=== PATIENT | female | born 1995 | race Caucasian/White ===

== ENCOUNTER 2017-09-05 21:08 | Emergency (ER) | payer OTHER, SELFPAY ==
[2017-09-05 21:09] VITALS: BP 117/73; PULSE 92; RESP 16; TEMP 37; O2SAT 100; BMI 24.3
--- NOTE | 2017-09-05 21:22 | CT_ITS ---
STUDY: CT ABDOMEN AND PELVIS WITH CONTRAST REASON FOR EXAM: Female, 22 years old. Right lower quadrant pain, history of ulcerative colitis RADIATION DOSAGE (If Supplied By Facility): CTDIvol = ( 11.39 ) mGy, DLP = ( 467.18 ) mGycm TECHNIQUE: Transaxial images were obtained from the dome of the diaphragm to the symphysis pubis without oral contrast. 100 ml of Isovue 300 contrast was administered. Sagittal and coronal images were reconstructed. Individualized dose optimization techniques were used for this CT. COMPARISON: April 05, 2015 FINDINGS: The visualized lung bases are unremarkable. The visualized portions of the heart are within normal limits. Normal liver. Normal gallbladder and extrahepatic biliary system. Normal spleen. Normal pancreas. Normal bilateral adrenal glands. Normal right kidney. Normal left kidney. Normal visualized stomach. Normal small intestine. There is diffuse fecal retention within the colon. The appendix is visualized and appears normal. Normal abdominal aorta. Normal inferior vena cava. Normal retroperitoneum. Normal urinary bladder. Uterus is deviated towards right and mild cystic changes within the right ovary. Normal abdominal wall. Normal osseous structures. CT/Abdomen/Pelvis WITH Contrast IMPRESSION: No acute abnormalities No evidence for acute appendicitis. Mild cystic changes in the right ovary of uncertain significance. Electronically Signed: Dragan Charlton MD at 23:14 EDT , Service support ,
[2017-09-05] MEDS: 0.9% Normal Saline 1,000 ML 1000 ML IV (21:36)
[2017-09-05] MEDS: Ondansetron 4 MG/2 ML Vial IV (21:36)
[2017-09-05 21:45] LABS: Absolute Lymphocyte Count 2.06 X10^3/ul (0.83-4.51); Basophil# 0.03 X10^3/uL; Basophil% 0.5 % (0-1); Eosinophil# 0.08 X10^3/uL; Eosinophils% 1.4 % (0-5); Hematocrit 39.3 % (37-47); Hemoglobin 13.7 g/dl (12.0-15.0); Lymphocyte # 2.06 X10^3/ul (4.0); Lymphocyte % 36.7 % (19-41); Mean Corp Hgb Conc 34.9 g/gl (32-36); Mean Corpuscular Hgb 32.5 pg (27.0-32.0); Mean Corpuscular Volume 93.1 fL (81-99); Mean Platelet Vol. 11.4 fl (6.2-12.0); Monocyte# 0.49 X10^3/uL; Monocyte% 8.7 % (0-10); Neutrophil # 2.96 X10^3/uL (2.7-7.7); Neutrophil % 52.7 % (47-70); Platelet Count 168 K/mm3 (150-450); RBC Distribution Width CV 11.8 % (11.6-14.6); RBC Distribution Width SD 39.8 fl (35.1-43.9); Red Blood Count 4.22 M/mm3 (4.2-5.4); White Blood Count 5.6 K/mm3 (4.4-11.0)
[2017-09-05 21:46] LABS: POSITIVE COUNT NO; POSITIVE DIFFERENTIAL NO; POSITIVE MORPHOLOGY NO
[2017-09-05 22:27] LABS: Mucous, Urine 0 SEEN /hpf (<or=2+); Red Blood Cells-Urine 0 SEEN /hpf (0-5); White Blood Cells 0 SEEN /hpf (0-5)
[2017-09-05 22:29] LABS: Color, Urine Straw (Yellow); Glucose, Dipstick Normal (Normal); Ketone-Dipstick Negative (Negative); Leukocyte Esterase-Dipstick Negative /ul (Negative); Nitrite-Dipstick Negative (Negative); Occult Blood-Urine Negative /ul (Negative); Protein-Dipstick Negative (Negative); Urine Bilirubin Dipstick Negative (Negative); Urine Clarity Clear (Clear); Urine Urobilinogen Normal (Normal); Urine pH 6.5 (5.0 - 8.0)
[2017-09-05 22:30] LABS: AST(SGOT) 31 U/L (15-37); Alanine Aminotransfer ALT/SGPT 22 U/L (13-56); Alkaline Phosphatase 77 U/L (45-117); Anion Gap 8 (5-15); BUN 10 mg/dL (7-18); BUN/Creat Ratio 11.9 RATIO (10-20); Bilirubin, Direct 0.13 mg/dL (0.00-0.30); Calcium,Total 8.9 mg/dL (8.5-10.1); Chloride 105 mmol/L (98-107); Creatinine, Serum 0.84 mg/dL (0.55-1.02); EST Glomerular Filtration Rate 90 mL/min (>60); Est Glom Filt Rate - Afr Amer 108 mL/min (>60); Estimated Creatinine Clearance 102.16 ml/min; Globulin 3.6 g/dL (2.2-4.2); Glucose 104 mg/dL (74-106); Lipase 200 U/L (73-393); Pregnancy, Serum, hCG Quali. NEGATIVE Negative (0-9 Nonpreg); Protein, Total 7.6 g/dL (6.4-8.2); Sodium Level 139 mmol/L (136-145)
[2017-09-05 22:38] LABS: Bacteria RARE /hpf (None Seen); Squamous Epithelial Cells - UA 0-5 SEEN /hpf (5-10)
--- NOTE | 2017-09-05 23:30 | ED.DCSUM_ITS ---
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 She reports that she has abdominal pain that began today and got much worse at 430 this afternoon. Is a dull constant pain with sharp episodes. Zeta 10 at worst and 510 currently. Is worsened by movement or pushing on it. Is relieved by remaining still. She has had nausea without vomiting. No diarrhea. Last bowel was today. She has had no melena or hematochezia. No dysuria frequency. Her last menstrual period was last week. No vaginal bleeding or discharge. Physical Examination: Vitals: Stable. Afebrile. General: Well-nourished and well-developed. Head: Normocephalic atraumatic. Neck: Supple, no lymphadenopathy. No JVD. Nontender. Cardiovascular: Regular rate and rhythm. No murmurs. Respiratory: No respiratory distress. Clear to auscultation bilaterally. Abdominal: Soft, mild right upper quadrant tenderness palpation and moderate right lower quadrant tenderness to palpation, nondistended, normal bowel sounds. No guarding, rebound, or peritoneal signs. Back: Nontender. Extremities: Nontender, no edema. Skin: Normal color, no rash. Neurologic: Alert and oriented ?3. Cranial nerves II through XII are intact. Normal strength and sensation. Psych: Normal affect. Test Results: CBC is normal. Chem-7 is normal. LFTs are normal. Lipase normal. UA is negative. test is negative. CT and pelvis. IV contrast shows a normal appendix. Mild cystic changes in the right ovary. Emergency Department Course and Treatment: Patient treated with morphine and Zofran IV and is resting comfortably. Treatment Plan: Patient will be discharged on naproxen. Instructed to follow- up Dr. Adela Xiong in 3-5 days if not improving. Disposition: To home in improved and stable condition. Impression: 1. Right ovarian cyst. This note was generated with [employer] dictation software. It may contain incorrect words, spelling, and punctuation that were not noted in review of the chart prior to signing ED Disposition - Plan for ED Patient: Chief Complaint: Abd Pain Instructions: ED Cyst Ovarian Prescriptions: Naproxen [Naprosyn] 500 mg PO BID #14 tablet Referrals: Bobbi Streeter MD [STAFF PHYSICIAN] - 3-5 Days if not improving
[2017-09-05 23:58] VITALS: PULSE 81; RESP 18; O2SAT 100
== END 2017-09-05 23:58 | disposition home or self-care (01) ==
PROVIDERS: Emergency Provider Emergency Medicine; Family Provider Family Medicine; PCP Family Medicine
DX: N83.201 Unspecified ovarian cyst, right side (principal)
CPT/HCPCS: 74177; 80048; 80076; 81001; 83690; 84703; 85025; 99283; J7030; Q9967; A4216; J2405

== ENCOUNTER 2017-10-28 20:46 | Emergency (ER) | payer OTHER, SELFPAY ==
[2017-10-28 20:47] VITALS: BP 115/72; PULSE 73; RESP 18; TEMP 36.7; O2SAT 100; BMI 23.8
[2017-10-28 22:02] LABS: Mucous, Urine 0 SEEN /hpf (<or=2+)
[2017-10-28 22:07] LABS: Absolute Lymphocyte Count 2.38 X10^3/ul (0.83-4.51); Absolute Neutrophil Count 3.7 X10^3/uL (2.0-7.7); Basophil# 0.03 X10^3/uL; Basophil% 0.4 % (0-1); Eosinophil# 0.07 X10^3/uL; Hematocrit 40.8 % (37-47); Hemoglobin 14.3 g/dl (12.0-15.0); Lymphocyte # 2.38 X10^3/ul (4.0); Lymphocyte % 35.5 % (19-41); Mean Corpuscular Hgb 32.4 pg (27.0-32.0); Mean Corpuscular Volume 92.3 fL (81-99); Mean Platelet Vol. 11.8 fl (6.2-12.0); Monocyte# 0.54 X10^3/uL; Neutrophil # 3.69 X10^3/uL (2.7-7.7); Neutrophil % 55.1 % (47-70); Platelet Count 162 K/mm3 (150-450); RBC Distribution Width CV 11.8 % (11.6-14.6); RBC Distribution Width SD 40.2 fl (35.1-43.9); Red Blood Count 4.42 M/mm3 (4.2-5.4); White Blood Count 6.7 K/mm3 (4.4-11.0)
[2017-10-28 22:08] LABS: Color, Urine Yellow (Yellow); Glucose, Dipstick Normal (Normal); Ketone-Dipstick Negative (Negative); Leukocyte Esterase-Dipstick Negative /ul (Negative); Nitrite-Dipstick Negative (Negative); Occult Blood-Urine 25 /ul (Negative); POSITIVE COUNT NO; POSITIVE DIFFERENTIAL NO; POSITIVE MORPHOLOGY NO; Protein-Dipstick 15 mg/dl (Negative); Urine Bilirubin Dipstick Negative (Negative); Urine Urobilinogen Normal (Normal)
[2017-10-28 22:15] LABS: Bacteria RARE /hpf (None Seen); Red Blood Cells-Urine 0-5 SEEN /hpf (0-5); Squamous Epithelial Cells - UA 5-10 SEEN /hpf (5-10); White Blood Cells 0-5 SEEN /hpf (0-5)
[2017-10-28 22:16] LABS: Anion Gap 9 (5-15); BUN 10 mg/dL (7-18); BUN/Creat Ratio 13.1 RATIO (10-20); Calcium,Total 8.9 mg/dL (8.5-10.1); Chloride 107 mmol/L (98-107); Creatinine, Serum 0.76 mg/dL (0.55-1.02); EST Glomerular Filtration Rate 100 mL/min (>60); Est Glom Filt Rate - Afr Amer 121 mL/min (>60); Estimated Creatinine Clearance 112.91 ml/min; Glucose 93 mg/dL (74-106); Potassium 3.7 mmol/L (3.5-5.1); Sodium Level 140 mmol/L (136-145); Urine Clarity Sl. Cloudy (Clear)
[2017-10-28 22:22] LABS: Internal QC Validated? YES +Cl - CLEAR BKGD; Pregnancy, Urine Negative Negative
--- NOTE | 2017-10-28 23:05 | ED.VISSUMM ---
- ER Visit Summary Date of Service: 10/28/17 Chief Complaint: Abdominal pain History of Present Illness: The patient is a 22 F with right lower abdominal pain. Symptoms started this morning as an achiness and then built to a cramping pain throughout the day. The pain is also intermittently sharp. It is located in her right lower abdomen and pelvic region. She has some nausea and subjective fevers. No other GI symptoms. Her last menstrual period was 1.5 weeks ago. Denies vaginal bleeding or discharge. Denies any urinary symptoms. Physical Examination: Afebrile and vital signs unremarkable. Patient appears uncomfortable but not toxic or in distress. Heart and lungs unremarkable. Abdomen is tender in the right lower quadrant, the superior to the inguinal ligaments and inferior to McBurney's point. No guarding or rebound. Test Results: CBC and BMP normal. Urinalysis unremarkable, shows contamination. test negative. Ultrasound shows a 22 mm right ovarian follicle. No other pertinent findings. Emergency Department Course and Treatment: Patient was recently evaluated for abdominal pain. She had right ovarian mild cystic changes and a normal appendix. She thought her pain today was similar but more severe. Initially when I saw her, she declined pain medication. I advised her that she just had a recent CT of her abdomen and pelvis. I am concerned about her radiation exposure. Her symptoms and exam are not classic for appendicitis. We decided to check labs, urinalysis, and ultrasound first. Workup was unremarkable except for the ovarian follicle. This may be the source of her pain. She would like to try anti-inflammatories and follow-up with [employer]OR OF [employer]ETING [employer]PERATIONS. I advised her if her pain worsens, migrates, or if she has any new or worsening symptoms, she should return right away for reevaluation. Treatment Plan: Follow-up with [employer]ING [employer]PER[employer]. Return for signs of appendicitis. Disposition: Discharge Impression: 1. Right pelvic pain This note was generated with [employer] dictation software. It may contain incorrect words, spelling, and punctuation that were not noted in review of the chart prior to signing ED Disposition - Plan for ED Patient: Chief Complaint: Abd Pain Instructions: ED Cyst Ovarian Prescriptions: Ibuprofen [Motrin] 800 mg PO TID PRN PRN #20 tab PRN Reason: Pain Additional Instructions: follow up with OBGYN
--- NOTE | 2017-10-28 23:10 | ED.DCSUM_ITS ---
- ER Visit Summary Date of Service: 10/28/17 Chief Complaint: Abdominal pain History of Present Illness: The patient is a 22 F with right lower abdominal pain. Symptoms started this morning as an achiness and then built to a cramping pain throughout the day. The pain is also intermittently sharp. It is located in her right lower abdomen and pelvic region. She has some nausea and subjective fevers. No other GI symptoms. Her last menstrual period was 1.5 weeks ago. Denies vaginal bleeding or discharge. Denies any urinary symptoms. Physical Examination: Afebrile and vital signs unremarkable. Patient appears uncomfortable but not toxic or in distress. Heart and lungs unremarkable. Abdomen is tender in the right lower quadrant, the superior to the inguinal ligaments and inferior to McBurney's point. No guarding or rebound. Test Results: CBC and BMP normal. Urinalysis unremarkable, shows contamination. test negative. Ultrasound shows a 22 mm right ovarian follicle. No other pertinent findings. Emergency Department Course and Treatment: Patient was recently evaluated for abdominal pain. She had right ovarian mild cystic changes and a normal appendix. She thought her pain today was similar but more severe. Initially when I saw her, she declined pain medication. I advised her that she just had a recent CT of her abdomen and pelvis. I am concerned about her radiation exposure. Her symptoms and exam are not classic for appendicitis. We decided to check labs, urinalysis, and ultrasound first. Workup was unremarkable except for the ovarian follicle. This may be the source of her pain. She would like to try anti-inflammatories and follow-up with DREDGEMASTER. I advised her if her pain worsens, migrates, or if she has any new or worsening symptoms, she should return right away for reevaluation. Treatment Plan: Follow-up with DREDGEMASTER. Return for signs of appendicitis. Disposition: Discharge Impression: 1. Right pelvic pain This note was generated with [employer] dictation software. It may contain incorrect words, spelling, and punctuation that were not noted in review of the chart prior to signing ED Disposition - Plan for ED Patient: Chief Complaint: Abd Pain Instructions: ED Cyst Ovarian Prescriptions: Ibuprofen [Motrin] 800 mg PO TID PRN PRN #20 tab PRN Reason: Pain Additional Instructions: follow up with OBGYN
[2017-10-28] MEDS: Acetaminophen 500 MG Tablet 1000 MG PO (23:18)
[2017-10-28 23:22] VITALS: BP 114/72; PULSE 66; RESP 17; O2SAT 100
== END 2017-10-28 23:23 | disposition home or self-care (01) ==
LOC: ED 21:50
PROVIDERS: Emergency Provider Emergency Medicine; Family Provider Family Medicine; PCP Family Medicine
DX: R10.2 Pelvic and perineal pain (principal); R11.0 Nausea
CPT/HCPCS: 76830; 80048; 81001; 81025; 85025; 93976; 99285; A4216

== ENCOUNTER → 2017-11-21 12:51 | Outpatient (CLI) | payer OTHER, SELFPAY ==
[2017-11-21 13:48] LABS: Hematocrit 38.8 % (37-47); Hemoglobin 13.6 g/dl (12.0-15.0); Mean Corp Hgb Conc 35.1 g/gl (32-36); Mean Corpuscular Hgb 32.7 pg (27.0-32.0); Mean Corpuscular Volume 93.3 fL (81-99); Platelet Count 174 K/mm3 (150-450); RBC Distribution Width CV 11.7 % (11.6-14.6); RBC Distribution Width SD 39.4 fl (35.1-43.9); Red Blood Count 4.16 M/mm3 (4.2-5.4); Scan Indicated on CBC? Y/N NO; White Blood Count 5.7 K/mm3 (4.4-11.0)
[2017-11-21 13:55] LABS: Prothrombin Time (Protime)PT. 13.1 SECONDS (11.7-14.9)
[2017-11-21 14:24] LABS: ALB/GLOB Ratio 1.1 RATIO (0.9-2.4); AST(SGOT) 15 U/L (15-37); Alanine Aminotransfer ALT/SGPT 21 U/L (13-56); Albumin, Serum 4.1 g/dL (3.2-5.0); Alkaline Phosphatase 77 U/L (45-117); Anion Gap 7 (5-15); BUN 15 mg/dL (7-18); BUN/Creat Ratio 17.5 RATIO (10-20); Calcium,Total 9.1 mg/dL (8.5-10.1); Chloride 105 mmol/L (98-107); Creatinine, Serum 0.86 mg/dL (0.55-1.02); EST Glomerular Filtration Rate 88 mL/min (>60); Est Glom Filt Rate - Afr Amer 106 mL/min (>60); Globulin 3.6 g/dL (2.2-4.2); Glucose 81 mg/dL (74-106); Protein, Total 7.7 g/dL (6.4-8.2); Sodium Level 141 mmol/L (136-145)
[2017-11-21 14:26] LABS: hCG Titer Quant., Serum < 1 mIU/mL (<9 non-preg)
[2017-11-28 18:37] LABS: Anti-Cardiolipin Ab, IgA, Qn < 9 APL U/mL (0-11); Anti-Cardiolipin Ab, IgG, Qn < 9 GPL U/mL (0-14); Anti-Cardiolipin Ab, IgM, Qn < 9 MPL U/mL (0-12); Beta-2-Glycoprotein I IgA <9 (0-25); Beta-2-Glycoprotein I IgG <9 (0-20); Beta-2-Glycoprotein I IgM <9 (0-32); Protein C, Functional 120 % (73-180); Protein S, Funtional 96 % (63-140); V-Zoster IgG (Immunity) 3149 index (Immune >165)
== END ==
PROVIDERS: Family Provider Family Medicine; PCP Family Medicine; Visit Provider Obstetrics & Gynecology Reproductive Endocrinology
DX: N96 Recurrent pregnancy loss (principal); Z32.00 Encounter for pregnancy test, result unknown; Z11.59 Encounter for screening for other viral diseases
CPT/HCPCS: 36415; 80053; 81241; 84702; 85027; 85303; 85306; 85610; 86146; 86147; 86787

== ENCOUNTER 2018-03-30 09:03 | Inpatient (IN) | payer OTHER, SELFPAY ==
[2018-03-30 09:04] VITALS: BP 133/82; PULSE 91; RESP 16; TEMP 36.7; O2SAT 100; BMI 23.5
--- NOTE | 2018-03-30 09:15 | RAD_ITS ---
STUDY: X-RAY - PELVIS AND LEFT HIP REASON FOR EXAM: Lump on back of hip, hard to sit, fall this morning. TECHNIQUE: 2 views of the pelvis and hip. COMPARISON: None. FINDINGS: Normal visualized soft tissue structures. Normal bilateral iliac wings, sacroiliac joints and visualized sacrum. Normal bilateral superior and inferior pubic rami. Normal pubic symphysis. Normal bilateral ischial tuberosities. Normal visualized femoral head. Normal acetabulum. Normal hip joint. RAD/HIP, UNI W/ Pelvis 2-3 Views IMPRESSION: Normal x-ray examination of the pelvis and left hip. Electronically Signed: Abebe Mccormack MD at 10:34 EST Tel , Service support ,
--- NOTE | 2018-03-30 09:59 | ED.VISSUMM ---
- ER Visit Summary Date of Service: 03/30/18 Chief Complaint: Fall History of Present Illness: The patient is a 23 F presenting secondary to a fall with a left hip injury. Patient reports that she was descending stairs into her garage today and she suffered a slip and fall where she fell directly onto her left gluteal region. She denies hitting her head or loss of consciousness. She is reporting pain in that left gluteal region that is worse with sitting down, and somewhat worse with ambulation. She is easily able to bear weight. She denies any other injuries at this time she is not on any sort of anticoagulants. Physical Examination: Vital signs within normal limits. Well-nourished female no acute distress. Head normocephalic. Heart regular rate. Lungs clear no distress. Abdomen soft. Extremity exam shows evidence of a superior left gluteal hematoma that is tender to palpation. Gluteal compartment is soft, with normal strength sensation distally. Normal distal pulses. Normal range of motion of the hip knee ankle and foot. Test Results: Hip x-rays negative per my personal interpretation Emergency Department Course and Treatment: Patient presented secondary to a mechanical fall. Physical exam showed evidence of a gluteal hematoma. X-ray was negative. Patient does not have evidence of vascular compromise or compartment syndrome. She is not on any sort of anticoagulants. I believe that this hematoma will resolve with conservative treatment. Patient understands signs and symptoms which to return. After the patient was discharged, she called back and said that she had a significant amount of enlargement. Patient read presented to the emergency department, and I reevaluated her, and the hematoma had gone from about the size of a golf ball to larger than the spread of my hand. Patient had a significant amount of firmness in the area of the gluteal region. Due to this IV was established laboratory studies were obtained. CBC chemistry coagulation panel and CK were found to be unremarkable. CT of the pelvis was performed which shows a large gluteal hematoma. I discussed this with plastic surgery Dr. York who states that he would prefer for the patient's to tamponade this on her own, as she would have a large incision with a wound VAC should this get evacuated. Patient's symptoms progressed a little bit however to increased pain and some numbness feelings in her leg. I did a repeat evaluation of the patient at 1320, and she continues to have normal pulses. Due to the progression of her symptoms however I believe that she requires admission for observation. I did inform plastic surgery of this, and the patient will be admitted under the hospitalist. Disposition: Admission Impression: 1. Left gluteal hematoma This note was generated with [employer] dictation software. It may contain incorrect words, spelling, and punctuation that were not noted in review of the chart prior to signing ED Disposition - Plan for ED Patient: Disposition: Home or Assisted Living Chief Complaint: Lower Extremity Injury Diagnosis: Hematoma Instructions: ED Hematoma Referrals: Israel Crowder MD [Primary Care Provider] - As Needed
--- NOTE | 2018-03-30 11:13 | CT_ITS ---
STUDY: CT PELVIS WITHOUT CONTRAST REASON FOR EXAM: Female, 23 years old. Hematoma of left buttock status post fall on ice. RADIATION DOSAGE (If Supplied By Facility): CTDIvol = ( 14.09 ) mGy, DLP = ( 619.30 ) mGycm TECHNIQUE: Transaxial imaging of the pelvis was performed without oral contrast, and without intravenous administration of contrast material. Multiplanar coronal and sagittal images were reformatted. Individualized dose optimization techniques were used for this CT. COMPARISON: X-ray FINDINGS: Normal urinary bladder. Normal visualized small intestine. Normal visualized colon. There is no pelvic fluid. There is no pelvic mass lesion or lymphadenopathy. Normal visualized uterus. There is 2.4 cm right adnexal cyst. Normal visualized pelvic arteries. Normal abdominal wall. There is sclerosis of the left sacroiliac joint. There is no acute fracture seen. This soft tissues swelling of the subcutaneous tissues of the left buttock with 8.8 x 7.2 x 4.2 cm fluid collection consistent with hematoma. CT/Pelvis without IV Contrast IMPRESSION: Soft tissue swelling with subcutaneous hematoma. No acute fracture. Sclerosis of the left sacroiliac joint. Electronically Signed: Quan Courtney MD at 12:09 EST , Service support ,
--- NOTE | 2018-03-30 11:13 | ED.RN ---
PT RETURNED TO [facility] ER AFTER DC HEMATOMA SIZE INCREASED SIGNIFICANTLY AFTER PT RETURNED HOME. NOW STS PAIN AND SOME NUMBNESS RADIATING INTO POST LT LEG. PULSES PRESENT. DR BROWN AT BEDSIDE.
[2018-03-30 11:42] VITALS: BP 105/74; PULSE 89; RESP 12; O2SAT 100
[2018-03-30 11:55] LABS: Absolute Lymphocyte Count 1.22 X10^3/ul (0.83-4.51); Absolute Neutrophil Count 5.4 X10^3/uL (2.0-7.7); Basophil# 0.02 X10^3/uL; Basophil% 0.3 % (0-1); Eosinophil# 0.03 X10^3/uL; Eosinophils% 0.4 % (0-5); Hematocrit 40.8 % (37-47); Hemoglobin 13.8 g/dl (12.0-15.0); Lymphocyte # 1.22 X10^3/ul (4.0); Mean Corp Hgb Conc 33.8 g/gl (32-36); Mean Corpuscular Hgb 32.3 pg (27.0-32.0); Mean Corpuscular Volume 95.6 fL (81-99); Mean Platelet Vol. 11.5 fl (6.2-12.0); Monocyte# 0.44 X10^3/uL; Monocyte% 6.1 % (0-10); Neutrophil # 5.44 X10^3/uL (2.7-7.7); Neutrophil % 75.9 % (47-70); POSITIVE COUNT NO; POSITIVE DIFFERENTIAL NO; POSITIVE MORPHOLOGY NO; Platelet Count 157 K/mm3 (150-450); RBC Distribution Width CV 11.7 % (11.6-14.6); RBC Distribution Width SD 40.5 fl (35.1-43.9); Red Blood Count 4.27 M/mm3 (4.2-5.4); White Blood Count 7.2 K/mm3 (4.4-11.0)
[2018-03-30 12:05] LABS: Prothrombin Time (Protime)PT. 13.3 SECONDS (11.7-14.9)
[2018-03-30 12:06] LABS: Partial Thromboplast Time 33.2 Seconds (24.1-36.2)
--- NOTE | 2018-03-30 12:28 | ED.RN ---
LAB AT BEDSIDE.
[2018-03-30] MEDS: Morphine 4 MG/ML Syringe IV (12:47)
[2018-03-30] MEDS: Ondansetron 4 MG/2 ML Vial IV (12:47)
--- NOTE | 2018-03-30 12:54 | ED.RN ---
PT STATES THAT LEFT LEG IS GOING NUMB, DR. BROWN MADE AWARE.
[2018-03-30 12:56] LABS: Anion Gap 9 (5-15); BUN 10 mg/dL (7-18); BUN/Creat Ratio 12.9 RATIO (10-20); Calcium,Total 8.6 mg/dL (8.5-10.1); Chloride 106 mmol/L (98-107); Creatinine, Serum 0.77 mg/dL (0.55-1.02); EST Glomerular Filtration Rate 98 mL/min (>60); Est Glom Filt Rate - Afr Amer 119 mL/min (>60); Glucose 98 mg/dL (74-106); Sodium Level 140 mmol/L (136-145)
[2018-03-30 13:10] LABS: CPK Total, Creatine Kinase 127 U/L (26-192)
--- NOTE | 2018-03-30 13:39 | PCM.HP.STD ---
Problem List (1) Ulcerative colitis Status: Chronic (2) Fall Status: Acute (3) Left gluteal hematoma Status: Acute History of Present Illness Date of Admission: 03/30/18 Chief Complaint: Fall, left buttock pain The patient is a 23 year old F with past medical history as mentioned above presented to the emergency room because of fall and left buttock pain. Patient stated that she was descending the stairs at her home today down to the garage and she slipped and fell and onto the left gluteal region. At the same time, she started having severe pain in the left buttock, throbbing pain, 10 out of 10 in severity, radiates down to the posterior aspect of the left thigh, aggravated by putting any weight on her left foot, somewhat relieved when she lifts her left foot from the ground and without other associated symptoms. She denied prodromal symptoms such as chest pain, shortness of breath, dizziness, lightheadedness, syncope or presyncope. She came into the ER earlier today, had x-ray of the hips which was negative for acute fractures and patient was discharged home. After discharge, patient called back and she stated that the hematoma size is significantly increased and her pain is intolerable. After she turned back to the ED, her vital signs were stable. Her pain was so severe that she could not even sit on the bed. Initial x-ray of the pelvis and left hip revealed no acute fractures or dislocations, no acute findings. After she dated back, CT scan of the pelvis without contrast revealed left gluteal subcutaneous hematoma measuring about 8.8 x 7.2 x 4.2 cm without acute fractures. Her routine blood work was unremarkable. Pro time, INR and PTT were normal. Creatinine kinase was normal as well. She is being admitted for acute traumatic left gluteal subcutaneous hematoma and intractable left gluteal region pain due to mechanical fall. 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 No family history of clotting or bleeding problems. Paternal History Items: No pertinent history Review of Systems Constitutional: Denies: Anorexia, Chills, Fever, Weakness Eyes: Denies: Blurred vision, Conjunctivae Inflammation, Double vision, Redness, Vision Change HEENT: Denies: Difficulty Hearing, Ear Pain, Eye Pain, Nasal Congestion, Sore Throat Cardiovascular: Denies: Chest Pain, Chest Pressure, Chest Tightness, Edema, Heaviness, Light Headedness, Palpitations, Paroxysmal Noc. Dyspnea, Syncope Respiratory: Denies: Cough, Pleuritic Pain, Shortness of Breath, Sputum production, Wheezing Gastrointestinal: Denies: Abdominal Pain, Constipation, Diarrhea, Nausea, Vomiting Genitourinary: Denies: Dysuria, Frequency, Hematuria Musculoskeletal: Denies: Arm Pain, Back Pain, Foot Pain Skin: Denies: Dryness, Rash Neurological: Denies: Balance problems, Change in Speech, Slurred speech, Confusion, Headaches, Incoordination, Numbness, Tingling Psychiatric: Denies: Anxiety, Depression Endocrine: Denies: Change in Body Habitus, Polydipsia VTE Information - Inpt Only VTE Present on Admission: No VTE Mechan Device Prophylaxis: None VTE Pharm Prophylaxis ordered?: No - Physical Exam General: Alert, Oriented x3, Cooperative, - - Patient is standing because of severe pain and she could not sit on the bed. HEENT: Atraumatic, PERRLA, EOMI, Normocephalic Oral: Moist Mucosa, No Gingival or Mucosal Lesions/ Ulcerations Neck: Supple, No JVD, Negative Carotid Bruits, Trachea Midline, Thyroid Normal Size and Texture Lungs: Clear to auscultation, Normal air movement, No rhonchi, No wheeze, No rales Cardiovascular: Regular rate, Regular Rhythm, Normal S1, Normal S2, No murmurs, PMI Normal Abdomen: Bowel Sounds Present, Soft, Non Tender, Non-Distended, No Hepato-splenomegaly Extremities: No clubbing, No cyanosis, No edema Skin: No rashes, No breakdown Musculoskeletal: - - Left buttock: Large subcutaneous firm mass measuring about 8 x 7 x 4 cm, very firm to palpation, very tender on the lower part of the with overlying skin bruises and ecchymosis. Lymphatic: No Cervical, Supraclavicular, or Inguinal Adenopathy Neurological: Cranial nerves II-XII grossly intact, Motor Exam 5/5 strength throughout Psych/Mental Status: Normal Affect, Appropriate, Alert and oriented to time, place, person, mood and affect Vital Signs Temp Pulse Resp BP Pulse Ox 98.1 F 89 12 105/74 100 03/30/18 09:04 03/30/18 11:42 03/30/18 11:42 03/30/18 11:42 03/30/18 11:42 Oxygen Delivery Method Room Air Weight: 150 lb Body Mass Index (BMI) 23.5 Laboratory Tests Past 24 Hrs 03/30/18 03/30/18 03/30/18 11:40 11:40 12:30 WBC 7.2 RBC 4.27 Hgb 13.8 Hct 40.8 MCV 95.6 MCH 32.3 H MCHC 33.8 RDW 11.7 RDW Differential 40.5 Plt Count 157 MPV 11.5 Immature Gran % (Auto) 0.300 Neut % (Auto) 75.9 H Lymph % (Auto) 17.0 L [place] % (Auto) 6.1 Eos % (Auto) 0.4 Baso % (Auto) 0.3 Absolute Neuts (auto) 5.4 Absolute Lymphs (auto) 1.22 Total Counted Not Reportable PT 13.3 INR 1.0 APTT 33.2 Sodium 140 Potassium 4.0 Chloride 106 Carbon Dioxide 25.0 Anion Gap 9 BUN 10 Creatinine 0.77 Estim Creat Clear Calc 110.50 Est GFR (MDRD) Af Amer 119 Est GFR (MDRD) Non-Af 98 BUN/Creatinine Ratio 12.9 Glucose 98 Calcium 8.6 Total Creatine Kinase 03/30/18 12:30 WBC RBC Hgb Hct MCV MCH MCHC RDW RDW Differential Plt Count MPV Immature Gran % (Auto) Neut % (Auto) Lymph % (Auto) [place] % (Auto) Eos % (Auto) Baso % (Auto) Absolute Neuts (auto) Absolute Lymphs (auto) Total Counted PT INR APTT Sodium Potassium Chloride Carbon Dioxide Anion Gap BUN Creatinine Estim Creat Clear Calc Est GFR (MDRD) Af Amer Est GFR (MDRD) Non-Af BUN/Creatinine Ratio Glucose Calcium Total Creatine Kinase 127 Clinical Impression(s) from Imaging Studies Hip/Pelvis X-Ray 03/30/18 09:15 IMPRESSION: Normal x-ray examination of the pelvis and left hip. Electronically Signed: Abebe Mccormack MD at 10:34 EST Tel , Service support , Pelvis CT 03/30/18 11:13 IMPRESSION: Soft tissue swelling with subcutaneous hematoma. No acute fracture. Sclerosis of the left sacroiliac joint. Electronically Signed: Quan Courtney MD at 12:09 EST , Service support , Assessment/Plan All Active Problems Fall (Acute) Left gluteal hematoma (Acute) This is a 23 years old female patient presented to the ED because of left buttock pain after mechanical fall, found to have large left subcutaneous gluteal hematoma with intractable pain and she is being admitted for treatment. #1 increasing acute traumatic left gluteal subcutaneous hematoma/intractable pain: X-ray of the left hip and pelvis reviewed as well as CT scan pelvis as above. Hematoma has been increasing in size, initially was in the size of golf ball but now it is significantly larger. Her vital signs are stable. CBC, BMP, pro time, INR and PTT were normal. CPK was normal as well. Plan: Admit to MedSurg floor, ambulate as tolerated, IV morphine as needed for pain, OxyIR as needed for pain, repeat H&H at 8 PM tonight, IV fluids, repeat CBC and BMP tomorrow morning, plastic surgery consult. #2 ulcerative colitis: Stable, no complaints, no bloody diarrhea or abdominal pain. Continue with mesalamine. #3 DVT prophylaxis: Low-risk patient, no prophylaxis indicated, ambulate. This note was generated with [employer] dictation software. It may contain incorrect words, spelling, and punctuation that were not noted in checking the note before signing. Code Visit Inpatient E&M: 82039 Init Hosp L3
--- NOTE | 2018-03-30 13:44 | HP.PCM_ITS ---
Problem List (1) Ulcerative colitis Status: Chronic (2) Fall Status: Acute (3) Left gluteal hematoma Status: Acute History of Present Illness Date of Admission: 03/30/18 Chief Complaint: Fall, left buttock pain The patient is a 23 year old F with past medical history as mentioned above presented to the emergency room because of fall and left buttock pain. Patient stated that she was descending the stairs at her home today down to the garage and she slipped and fell and onto the left gluteal region. At the same time, she started having severe pain in the left buttock, throbbing pain, 10 out of 10 in severity, radiates down to the posterior aspect of the left thigh, aggravated by putting any weight on her left foot, somewhat relieved when she lifts her left foot from the ground and without other associated symptoms. She denied prodromal symptoms such as chest pain, shortness of breath, dizziness, lightheadedness, syncope or presyncope. She came into the ER earlier today, had x-ray of the hips which was negative for acute fractures and patient was discharged home. After discharge, patient called back and she stated that the hematoma size is significantly increased and her pain is intolerable. After she turned back to the ED, her vital signs were stable. Her pain was so severe that she could not even sit on the bed. Initial x-ray of the pelvis and left hip revealed no acute fractures or dislocations, no acute findings. After she dated back, CT scan of the pelvis without contrast revealed left gluteal subcutaneous hematoma measuring about 8.8 x 7.2 x 4.2 cm without acute fractures. Her routine blood work was unremarkable. Pro time, INR and PTT were normal. Creatinine kinase was normal as well. She is being admitted for acute traumatic left gluteal subcutaneous hematoma and intractable left gluteal region pain due to mechanical fall. 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 No family history of clotting or bleeding problems. Paternal History Items: No pertinent history Review of Systems Constitutional: Denies: Anorexia, Chills, Fever, Weakness Eyes: Denies: Blurred vision, Conjunctivae Inflammation, Double vision, Redness, Vision Change HEENT: Denies: Difficulty Hearing, Ear Pain, Eye Pain, Nasal Congestion, Sore Throat Cardiovascular: Denies: Chest Pain, Chest Pressure, Chest Tightness, Edema, Heaviness, Light Headedness, Palpitations, Paroxysmal Noc. Dyspnea, Syncope Respiratory: Denies: Cough, Pleuritic Pain, Shortness of Breath, Sputum production, Wheezing Gastrointestinal: Denies: Abdominal Pain, Constipation, Diarrhea, Nausea, Vomiting Genitourinary: Denies: Dysuria, Frequency, Hematuria Musculoskeletal: Denies: Arm Pain, Back Pain, Foot Pain Skin: Denies: Dryness, Rash Neurological: Denies: Balance problems, Change in Speech, Slurred speech, Confusion, Headaches, Incoordination, Numbness, Tingling Psychiatric: Denies: Anxiety, Depression Endocrine: Denies: Change in Body Habitus, Polydipsia VTE Information - Inpt Only VTE Present on Admission: No VTE Mechan Device Prophylaxis: None VTE Pharm Prophylaxis ordered?: No - Physical Exam General: Alert, Oriented x3, Cooperative, - - Patient is standing because of severe pain and she could not sit on the bed. HEENT: Atraumatic, PERRLA, EOMI, Normocephalic Oral: Moist Mucosa, No Gingival or Mucosal Lesions/ Ulcerations Neck: Supple, No JVD, Negative Carotid Bruits, Trachea Midline, Thyroid Normal Size and Texture Lungs: Clear to auscultation, Normal air movement, No rhonchi, No wheeze, No rales Cardiovascular: Regular rate, Regular Rhythm, Normal S1, Normal S2, No murmurs, PMI Normal Abdomen: Bowel Sounds Present, Soft, Non Tender, Non-Distended, No Hepato- splenomegaly Extremities: No clubbing, No cyanosis, No edema Skin: No rashes, No breakdown Musculoskeletal: - - Left buttock: Large subcutaneous firm mass measuring about 8 x 7 x 4 cm, very firm to palpation, very tender on the lower part of the with overlying skin bruises and ecchymosis. Lymphatic: No Cervical, Supraclavicular, or Inguinal Adenopathy Neurological: Cranial nerves II-XII grossly intact, Motor Exam 5/5 strength throughout Psych/Mental Status: Normal Affect, Appropriate, Alert and oriented to time, place, person, mood and affect Vital Signs Temp Pulse Resp BP Pulse Ox 98.1 F 89 12 105/74 100 03/30/18 09:04 03/30/18 11:42 03/30/18 11:42 03/30/18 11:42 03/30/18 11:42 Oxygen Delivery Method Room Air Weight: 150 lb Body Mass Index (BMI) 23.5 Laboratory Tests Past 24 Hrs 03/30/18 03/30/18 03/30/18 11:40 11:40 12:30 WBC 7.2 RBC 4.27 Hgb 13.8 Hct 40.8 MCV 95.6 MCH 32.3 H MCHC 33.8 RDW 11.7 RDW Differential 40.5 Plt Count 157 MPV 11.5 Immature Gran % (Auto) 0.300 Neut % (Auto) 75.9 H Lymph % (Auto) 17.0 L Bureau % (Auto) 6.1 Eos % (Auto) 0.4 Baso % (Auto) 0.3 Absolute Neuts (auto) 5.4 Absolute Lymphs (auto) 1.22 Total Counted Not Reportable PT 13.3 INR 1.0 APTT 33.2 Sodium 140 Potassium 4.0 Chloride 106 Carbon Dioxide 25.0 Anion Gap 9 BUN 10 Creatinine 0.77 Estim Creat Clear Calc 110.50 Est GFR (MDRD) Af Amer 119 Est GFR (MDRD) Non-Af 98 BUN/Creatinine Ratio 12.9 Glucose 98 Calcium 8.6 Total Creatine Kinase 03/30/18 12:30 WBC RBC Hgb Hct MCV MCH MCHC RDW RDW Differential Plt Count MPV Immature Gran % (Auto) Neut % (Auto) Lymph % (Auto) Bureau % (Auto) Eos % (Auto) Baso % (Auto) Absolute Neuts (auto) Absolute Lymphs (auto) Total Counted PT INR APTT Sodium Potassium Chloride Carbon Dioxide Anion Gap BUN Creatinine Estim Creat Clear Calc Est GFR (MDRD) Af Amer Est GFR (MDRD) Non-Af BUN/Creatinine Ratio Glucose Calcium Total Creatine Kinase 127 Clinical Impression(s) from Imaging Studies Hip/Pelvis X-Ray 03/30/18 09:15 IMPRESSION: Normal x-ray examination of the pelvis and left hip. Electronically Signed: Abebe Mccormack MD at 10:34 EST Tel , Service support , Pelvis CT 03/30/18 11:13 IMPRESSION: Soft tissue swelling with subcutaneous hematoma. No acute fracture. Sclerosis of the left sacroiliac joint. Electronically Signed: Quan Courtney MD at 12:09 EST , Service support , Assessment/Plan All Active Problems Fall (Acute) Left gluteal hematoma (Acute) This is a 23 years old female patient presented to the ED because of left buttock pain after mechanical fall, found to have large left subcutaneous gluteal hematoma with intractable pain and she is being admitted for treatment. #1 increasing acute traumatic left gluteal subcutaneous hematoma/intractable pain: X-ray of the left hip and pelvis reviewed as well as CT scan pelvis as above. Hematoma has been increasing in size, initially was in the size of golf ball but now it is significantly larger. Her vital signs are stable. CBC, BMP, pro time, INR and PTT were normal. CPK was normal as well. Plan: Admit to MedSurg floor, ambulate as tolerated, IV morphine as needed for pain, OxyIR as needed for pain, repeat H&H at 8 PM tonight, IV fluids, repeat CBC and BMP tomorrow morning, plastic surgery consult. #2 ulcerative colitis: Stable, no complaints, no bloody diarrhea or abdominal pain. Continue with mesalamine. #3 DVT prophylaxis: Low-risk patient, no prophylaxis indicated, ambulate. This note was generated with [employer] dictation software. It may contain incorrect words, spelling, and punctuation that were not noted in checking the note before signing. Code Visit Inpatient E&M: 52505 Init Hosp L3
--- NOTE | 2018-03-30 13:50 | ED.RN ---
ABD BINDER APPLIED PER ORDERS
[2018-03-30 14:49] VITALS: BMI 23.5
[2018-03-30 15:30] VITALS: BP 105/65; PULSE 70; RESP 18; TEMP 37.2; O2SAT 98
[2018-03-30 15:32] VITALS: O2SAT 98
[2018-03-30] MEDS: diazePAM 5 MG Tablet PO ×2 (15:42→22:17)
[2018-03-30] MEDS: 0.9% Normal Saline 1,000 ML 75 ML IV (15:43)
[2018-03-30] MEDS: oxyCODONE 5 MG Tablet PO (17:06)
[2018-03-30] MEDS: Morphine 2 MG/ML Syringe 1 MG IV (17:07)
--- NOTE | 2018-03-30 18:31 | PCM.CONS.GEN ---
Reason for Consult Date of Consultation: 03/30/18 Reason for Consultation: Traumatic hematoma left upper gluteal/lower back area. REFERRING PHYSICIAN: Dr. Da Silva. FORGE HAND: Dr. York. History of Present Illness: The patient is a 23 year old F presented to the emergency room because of a fall at home descending the stairs onto concrete in the garage and landing on her left buttock. She developed severe pain in the left buttock, aggravated by putting any weight on her left foot, and somewhat relieved when she lifts her left foot off the ground. In the ED, x-ray of the hips was negative for acute fractures. A diagnosis of hematoma was made and the patient was discharged home initially but returned shortly because of increasing pain and increasing size of the hematoma. CT scan of the pelvis without contrast revealed left gluteal subcutaneous hematoma measuring about 8.8 x 7.2 x 4.2 cm without acute fractures. Her routine blood work was unremarkable. Pro time, INR and PTT were normal. Creatinine kinase was normal as well. She was admitted to the hospital for further medical management. An abdominal binder was placed to help with compression over the gluteal area. I was asked to evaluate this patient for surgical options for treatment. Past Medical History Past Medical History (Chronic Problems): Chronic Problems Ulcerative colitis (Chronic) Allergies Penicillins [PCN] Adverse Reaction (Verified 03/30/18 09:09) Other Current Medications Acetaminophen (Tylenol) 650 mg PO Q6H PRN Diazepam (Valium) 5 mg PO Q4H PRN Docusate Sodium (Colace) 100 mg PO DAILY TERRY Magnesium Hydroxide (Milk Of Magnesia) 30 ml PO DAILY PRN Mesalamine (Lialda) 3.6 gm PO QHS TERRY Morphine Sulfate () 1 mg IV Q3H PRN Ondansetron HCl (Zofran) 4 mg IV Q8H PRN Oxycodone HCl (Oxyir) 5 mg PO Q6H PRN Home Medications: Ambulatory Orders Medication Instructions Recorded Mesalamine [Lialda] 3 tab PO DAILY 02/05/17 Pnv No.95/Ferrous Fum/Folic AC 1 each PO DAILY 03/30/18 [ Multivitamin Tablet] Surgical History: tonsillectomy Psychiatric History: No pertinent psych 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 No family history of clotting or bleeding problems. Paternal History Items: No pertinent history Review of Systems Comment: Constitutional: Denies: Anorexia, Chills, Fever, Weakness. Eyes: Denies: Blurred vision, Conjunctivae Inflammation, Double vision, Redness, Vision Change. HEENT: Denies: Difficulty Hearing, Ear Pain, Eye Pain, Nasal Congestion, Sore Throat. Cardiovascular: Denies: Chest Pain, Chest Pressure, Chest Tightness, Edema, Heaviness, Light Headedness, Palpitations, Paroxysmal Noc. Dyspnea, Syncope. Respiratory: Denies: Cough, Pleuritic Pain, Shortness of Breath, Sputum production, Wheezing. Gastrointestinal: Denies: Abdominal Pain, Constipation, Diarrhea, Nausea, Vomiting. Has ulcerative colitis. Genitourinary: Denies: Dysuria, Frequency, Hematuria. Musculoskeletal: Denies: Arm Pain, Back Pain, Foot Pain. Skin: Has large traumatic hematoma left gluteal area. Neurological: Denies: Balance problems, Change in Speech, Slurred speech, Confusion, Headaches, Incoordination, Numbness, Tingling. Psychiatric: Denies: Anxiety, Depression. Endocrine: Denies: Change in Body Habitus, Polydipsia Patient Problems: Active and Suspected Problems Traumatic hematoma of buttock (Acute) left upper gluteal/lower back area Hematoma (Acute) - Physical Exam General: Alert, Oriented x3, Cooperative. Lying in bed a little restles. HEENT: PERRLA, EOMI. Oral: Moist Mucosa. Throat is clear. Neck: Supple, nontender. No cervical adenopathy. Lungs: Clear to auscultation. Cardiovascular: Regular rate, Regular Rhythm. Abdomen: Soft, Non-Distended. Extremities: No clubbing, No cyanosis, No edema Skin: On the left gluteal area is a traumatic hematoma. Some bruising and ecchymosis on the left gluteal skin. Tenderness to palpation. Some firmness noted. Measures 9 x 9 cm. Lymphatic: No Inguinal adenopathy. No axillary adenopathy. Neurological: Cranial nerves II-XII grossly intact. Psych/Mental Status: Normal Affect, Appropriate, Alert and oriented to time, place, person, mood and affect. Vital Signs Temp Pulse Resp BP Pulse Ox 98.9 F 70 18 105/65 98 01/28/19 15:30 03/30/18 15:30 03/30/18 15:30 03/30/18 15:30 03/30/18 15:32 Oxygen Delivery Method Room Air Weight: 149 lb 14.629 oz Body Mass Index (BMI) 23.5 Intake and Output for Last 24 Hours 03/28/18 03/29/18 03/30/18 23:59 23:59 23:59 Intake Total 925 / 925 Balance 925 / 925 Laboratory Tests Past 24 Hrs 03/30/18 03/30/18 03/30/18 11:40 11:40 12:30 WBC 7.2 RBC 4.27 Hgb 13.8 Hct 40.8 MCV 95.6 MCH 32.3 H MCHC 33.8 RDW 11.7 RDW Differential 40.5 Plt Count 157 MPV 11.5 Immature Gran % (Auto) 0.300 Neut % (Auto) 75.9 H Lymph % (Auto) 17.0 L Brantley % (Auto) 6.1 Eos % (Auto) 0.4 Baso % (Auto) 0.3 Absolute Neuts (auto) 5.4 Absolute Lymphs (auto) 1.22 Total Counted Not Reportable PT 13.3 INR 1.0 APTT 33.2 Sodium 140 Potassium 4.0 Chloride 106 Carbon Dioxide 25.0 Anion Gap 9 BUN 10 Creatinine 0.77 Estim Creat Clear Calc 110.50 Est GFR (MDRD) Af Amer 119 Est GFR (MDRD) Non-Af 98 BUN/Creatinine Ratio 12.9 Glucose 98 Calcium 8.6 Total Creatine Kinase 03/30/18 12:30 WBC RBC Hgb Hct MCV MCH MCHC RDW RDW Differential Plt Count MPV Immature Gran % (Auto) Neut % (Auto) Lymph % (Auto) Brantley % (Auto) Eos % (Auto) Baso % (Auto) Absolute Neuts (auto) Absolute Lymphs (auto) Total Counted PT INR APTT Sodium Potassium Chloride Carbon Dioxide Anion Gap BUN Creatinine Estim Creat Clear Calc Est GFR (MDRD) Af Amer Est GFR (MDRD) Non-Af BUN/Creatinine Ratio Glucose Calcium Total Creatine Kinase 127 Diagnostic Data Hip/Pelvis X-Ray 03/30/18 09:15 IMPRESSION: Normal x-ray examination of the pelvis and left hip. Electronically Signed: Abebe Mccormack MD at 10:34 EST Tel , Service support , Pelvis CT 03/30/18 11:13 IMPRESSION: Soft tissue swelling with subcutaneous hematoma. No acute fracture. Sclerosis of the left sacroiliac joint. Electronically Signed: Quan Courtney MD at 12:09 EST , Service support , Assessment/Plan All Active Problems Traumatic hematoma of buttock (Acute) Hematoma (Acute) Fall (Acute) Left gluteal hematoma (Acute) Traumatic hematoma left upper gluteal/lower back area with bruising and ecchymosis. Patient is admitted. Will start Cleocin perioperatively. Continue the abdominal binder for compression over the gluteal areas. With her degree of painful symptomatology, recommend to the patient to proceed with incision and drainage and evacuation and excisional debridement of the traumatic hematoma. Will leave the wound open and begin postop wound care with the VAC. After discharge, will followup at the [facility]. After healing has occurred, if there is continued painful scar symptomatology or scar contour deformity, can proceed with surgical excision with complex closure repair. Anticipate irritation and muscle spasm from the injury and from the vac postop. Will start her on Valium. She was having trouble with pain relief today, so I wrote for Dilaudid. Anticipate increased metabolic demands from the injury and from the surgery. Will check a Prealbumin and encourage nutritional supplementation with protein to help the healing process. If her symptomatology starts to improve in the morning, may decide to continue nonoperative observation with continued binder compression and followup in the office on a weekly basis. As long as improvement continues, we can then continue with this plan. Otherwise, would take her to surgery at that point and proceed with the incision and drainage and evacuation and excisional debridement. Discussed with the patient, that if she does decide to wait, there is the risk that the resolving hematoma may become infected which would necessitate surgical intervention at that point. If her symptomatology is unchanged or worse in the morning, then would proceed with the surgical drainage and evacuation of the hematoma. Discussed with the patient the extent of the scarring that would result with an incision and drainage procedure. The important thing is to open up the wound like a book to make the postop wound care easier which maximizes healing and minimizes healing issues and infection. It also makes the postop wound care less painful if we don't have to pack the wound with some tunnelling and undermined areas. Patient was informed of the risks and complications of the procedure including alternatives to surgery. These were discussed with the patient personally. Patient voices understanding and wishes to proceed. Code Visit Inpatient E&M: 48272 Init Hosp L2 - ICD-10 - S30.0xxA, W19.xxxA
[2018-03-30 21:01] LABS: Hematocrit 33.1 % (37-47); Hemoglobin 11.2 g/dl (12.0-15.0)
[2018-03-30 22:31] VITALS: BP 112/63; PULSE 77; RESP 16; TEMP 36.3; O2SAT 97
[2018-03-31] VITALS (11 sets, daily range): BP systolic 93–129; BP diastolic 43–84; PULSE 79–123; RESP 16–20; TEMP 36.4–37.1; O2SAT 95–100; BMI 23.8
[2018-03-31] MEDS: diazePAM 5 MG Tablet PO ×4 (03:13→21:16)
[2018-03-31 03:48] LABS: Internal QC Validated? YES +Cl - CLEAR BKGD; Pregnancy, Urine Negative Negative
[2018-03-31] MEDS: 0.9% Normal Saline 1,000 ML 75 ML IV ×2 (04:45→21:11)
[2018-03-31] MEDS: Acetaminophen 325 MG Tablet 650 MG PO (06:04)
[2018-03-31 06:14] LABS: Absolute Lymphocyte Count 1.51 X10^3/ul (0.83-4.51); Basophil# 0.02 X10^3/uL; Basophil% 0.5 % (0-1); Eosinophil# 0.07 X10^3/uL; Eosinophils% 1.7 % (0-5); Hematocrit 30.1 % (37-47); Hemoglobin 10.2 g/dl (12.0-15.0); Lymphocyte # 1.51 X10^3/ul (4.0); Lymphocyte % 37.6 % (19-41); Mean Corp Hgb Conc 33.9 g/gl (32-36); Mean Corpuscular Hgb 33.1 pg (27.0-32.0); Mean Corpuscular Volume 97.7 fL (81-99); Monocyte# 0.45 X10^3/uL; Monocyte% 11.2 % (0-10); Neutrophil # 1.97 X10^3/uL (2.7-7.7); Platelet Count 143 K/mm3 (150-450); RBC Distribution Width CV 11.5 % (11.6-14.6); RBC Distribution Width SD 39.4 fl (35.1-43.9); Red Blood Count 3.08 M/mm3 (4.2-5.4)
[2018-03-31 06:16] LABS: POSITIVE COUNT NO; POSITIVE DIFFERENTIAL NO; POSITIVE MORPHOLOGY NO
[2018-03-31 06:34] LABS: Anion Gap 9 (5-15); BUN 11 mg/dL (7-18); BUN/Creat Ratio 15.1 RATIO (10-20); Calcium,Total 8.1 mg/dL (8.5-10.1); Chloride 109 mmol/L (98-107); Creatinine, Serum 0.73 mg/dL (0.55-1.02); EST Glomerular Filtration Rate 105 mL/min (>60); Est Glom Filt Rate - Afr Amer 127 mL/min (>60); Estimated Creatinine Clearance 116.55 ml/min; Glucose 86 mg/dL (74-106); Potassium 3.8 mmol/L (3.5-5.1); Sodium Level 142 mmol/L (136-145)
[2018-03-31 07:26] LABS: Magnesium 1.9 mg/dL (1.6-2.6)
--- NOTE | 2018-03-31 08:59 | PCM.PN.HOSP ---
Patient Problems: Active and Suspected Problems Hematoma (Acute) Subjective: Patient continues to have pressure to the left buttock hematoma region since admission although she notes that it does feel as though the size has lessened. In the room during examination and a discussions she is tearful and very frustrated with the situation appropriately. Patient evaluated per Dr. landers this morning and given improvement from day prior planned reevaluation later in the day to see if operative intervention needed. Patient denies fevers, chills, nausea, emesis, abdominal pain, chest pain or dyspnea. Objective: Physical Examination: General: awake, alert, oriented x 3 and cooperative, standing beside the bed, not inclined to sit secondary to discomfort, tearful. Skin: normal color, turgor, no icterus, cyanosis except notable L buttock staged ecchymoses with hematoma, firm but per patient more soft than day prior, tenderness palpation including up into the left paraspinous region and lower posterior thigh, not significantly warm to touch. HEENT: AT/NC, EOMI, PERRLA, MMM. Lungs: CTA bilaterally, moderate effort, mild decrease BL bases, no rales, ronchi or wheezing. Heart: Mildly tachycardic with regular rhythm; no gallop, rub audible. Abdomen: soft, NTTP, ND, normal BS. Extremities: no cyanosis, clubbing, see skin. Neurological: patient awake, alert, oriented x 3; cognitive function intact; pupils equally reactive to light and accomodation; cranial nerves II-XII grossly normal, moving all 4 extremities, no focal deficits, strength intact currently but with certain movements impaired secondary to severity of pain to L buttock. Psychiatric: affect appears tearful, anxious, no acute evidence of depression. Vitals/I&O's: Vital Signs Temp Pulse Resp BP Pulse Ox 97.9 F 117 H 18 129/79 H 98 03/31/18 08:43 03/31/18 08:43 03/31/18 08:43 03/31/18 08:43 03/31/18 08:43 Oxygen Delivery Method Room Air Weight: 152 lb 1.903 oz Body Mass Index (BMI) 23.5 Intake and Output for Last 24 Hours 03/29/18 03/30/18 03/31/18 23:59 23:59 23:59 Intake Total 925 / 925 1161 / 1161 Output Total 800 / 800 Balance 925 / 925 361 / 361 Laboratory Results 03/30/18 11:40: WBC 7.2, RBC 4.27, Hgb 13.8, Hct 40.8, MCV 95.6, MCH 32.3 H, MCHC 33.8, RDW 11.7, RDW Differential 40.5, Plt Count 157, MPV 11.5, Immature Gran % (Auto) 0.300, Neut % (Auto) 75.9 H, Lymph % (Auto) 17.0 L, Person % (Auto) 6.1, Eos % (Auto) 0.4, Baso % (Auto) 0.3, Absolute Neuts (auto) 5.4, Absolute Lymphs (auto) 1.22, Total Counted Not Reportable 03/30/18 11:40: PT 13.3, INR 1.0, APTT 33.2 03/30/18 12:30: Sodium 140, Potassium 4.0, Chloride 106, Carbon Dioxide 25.0, Anion Gap 9, BUN 10, Creatinine 0.77, Estim Creat Clear Calc 110.50, Est GFR (MDRD) Af Amer 119, Est GFR (MDRD) Non-Af 98, BUN/Creatinine Ratio 12.9, Glucose 98, Calcium 8.6 03/30/18 12:30: Total Creatine Kinase 127 03/30/18 20:35: Hgb 11.2 L, Hct 33.1 L 03/31/18 03:20: Urine Test Negative 03/31/18 05:22: WBC 4.0 L, RBC 3.08 L, Hgb 10.2 L, Hct 30.1 L, MCV 97.7, MCH 33.1 H, MCHC 33.9, RDW 11.5 L, RDW Differential 39.4, Plt Count 143 L, MPV 12.0, Immature Gran % (Auto) 0.000, Neut % (Auto) 49.0, Lymph % (Auto) 37.6, Person % (Auto) 11.2 H, Eos % (Auto) 1.7, Baso % (Auto) 0.5, Absolute Neuts (auto) 2.0, Absolute Lymphs (auto) 1.51, Total Counted Not Reportable 03/31/18 05:22: Sodium 142, Potassium 3.8, Chloride 109 H, Carbon Dioxide 24.0, Anion Gap 9, BUN 11, Creatinine 0.73, Estim Creat Clear Calc 116.55, Est GFR (MDRD) Af Amer 127, Est GFR (MDRD) Non-Af 105, BUN/Creatinine Ratio 15.1, Glucose 86, Calcium 8.1 L 03/31/18 05:22: Magnesium 1.9 Current Medications Acetaminophen (Tylenol) 650 mg PO Q6H PRN PRN PRN Reason: Fever, headache, pain Last Admin: 03/31/18 06:04 Dose: 650 mg Diazepam (Valium) 5 mg PO Q4 [facility] Last Admin: 03/31/18 06:55 Dose: Not Given Docusate Sodium (Colace) 100 mg PO DAILY [facility] Hydromorphone HCl (Dilaudid Inj) 1 mg IV Q3H PRN PRN PRN Reason: SEVERE PAIN (6-10/10) Sodium Chloride () 1,000 mls @ 75 mls/hr IV .[id number] [facility] Last Admin: 03/31/18 04:45 Dose: 75 mls/hr Clindamycin Phosphate 600 mg/ (Dextrose) 54 mls @ 162 mls/hr IV Q8 [facility] Last Admin: 03/31/18 05:57 Dose: 162 mls/hr Magnesium Hydroxide (Milk Of Magnesia) 30 ml PO DAILY PRN PRN PRN Reason: Constipation Mesalamine (Lialda) 3.6 gm PO QHS [facility] Last Admin: 03/30/18 18:43 Dose: Not Given Ondansetron HCl (Zofran) 4 mg IV Q8H PRN PRN PRN Reason: NAUSEA/VOMITING Oxycodone HCl (Oxyir) 10 mg PO Q4H PRN PRN PRN Reason: SEVERE PAIN (6-10/10) Medical Necessity - Tobacco Use Smoking Status: Never smoker Assessment/Plan All Active Problems Hematoma (Acute) Fall (Acute) Left gluteal hematoma (Acute) The patient is a 23 y/o F w/ PMHx: Ulcerative Colitis otherwise healthy who presents to the [facility] ED on 03/30/18 secondary to history of mechanical fall with left severe buttock pain and bruising with enlarging hematoma. (1) Mechanical Fall with Severe Traumatic L Buttock Region Pain w/ Expanding Hematoma, Possibly Infected: Admission CBC w/ WBC 7.2, Hgb 13.8, Plts 157 with mild shift, afebrile, CT scan of the pelvis without contrast revealed left gluteal subcutaneous hematoma measuring about 8.8 x 7.2 x 4.2 cm without acute fractures. Admitted to CT, maintain on IV clindamycin, evaluation per Surgery, Dr. York and given notable patient ongoing discomfort despite mild improved appearance on discussion and repeat assessment 03/31/18 now planned OR, will expect OR Wound Cx, Wound MRSA PCR, likely will need post-operative Wound VAC, Wound RN requested evaluation of patient prior to OR for staging, monitor hematoma outline with VS checks for expansion. CPK normal initially. Continue PRN pain regimen IV, oral. Valium per Surgery for muscle spasm secondary to injury, irritation. (2) Acute Anemia secondary to Blood Loss, Secondary to #1: Admission Hgb 13.8, repeat Hgb 11.2, 03/31/18 am Hgb 10.2, planned OR, continue to monitor. (3) Ulcerative Colitis: Stable, continue home mesalamine regimen. (4) DVT Prophylaxis: Low risk, ambulation, defer any chemoprophylaxis given acute presentation as noted #1, #2. Code Visit Inpatient E&M: 91930 Subs Hosp L3
--- NOTE | 2018-03-31 09:23 | NURSING ---
wound photo: Left Gluteal
[2018-03-31] MEDS: HYDROmorphone 1 MG/ML Syringe IV (10:25)
--- NOTE | 2018-03-31 12:03 | CASEMGMT ---
RN JAYCEE DYE STAND LOADER CM to room to meet with patient for initial transition planning/care coordination assessment. CHARY CHAMPION introduced self and role at [facility]. Pt voices understanding and consents to assessment at this time. Pt resting in bed in no distress at this time. Pt is A/O at this time and answers all questions appropriately. Care providers, pharmacy, and demographics verified at this time. PCP: Dr Crowder Specialists: Dr Jass Grayson, kinesiologist @ [facility]. Preferred Pharmacy: [facility] Insurance: Aet LNOK: , parents Living Arrangements: Lives with her . Independent @ home prior to admission. HHC: Discussed HHC with pt for Wound Vac care/dressing changes. Pt states she her 1st preference is [facility]. Call placed to D[place]AS Laguna, @ [facility] and referral made for alf. PLAN: [facility], CM to follow for any further discharge planning/needs. Diana HOSKINS RN, CM
--- NOTE | 2018-03-31 13:10 | THRO_PTH ---
PATIENT: JOELLE HENDRICKS LOC: 3 U#:[id number] AGE/SX: 23/F ROOM: [facility] RE03/30/[address]: Dr. Liat Pierre MD : 1995 BED: 1 DIS: 04/02/2018 SPEC #: [id number] RECD: 04/01/18 07:29 STATUS: HAN REQ #: [id number] ENEDINA: 03/31/18 13:[address]: Saleem York DEPT: SURGICAL PATHOLOGY RECD BY: Agapito Lo ENTERED: 04/01/18 09:47 SP TYPE: THROMBUS OTHR DR: MD Dr. Israel Kenyon MD Dr. Ghasem E Ashelfah, MD Dr. James A Slaby, MD Tissues: BLOOD CLOT, NOS Procedures: Surgery Specimen Level III Comments: @ Ordering doctor for SUIII edited from to @ by LEON at 04/01/18 1431 @ Submitting doctor edited from to @ by RGOOD at 04/01/18 143 HEADER OPERATION: Surgical preparation left gluteal area with incision PRE-OP DIAGNOSIS: Left gluteal hematoma TISSUE SUBMITTED: Left gluteal hematoma MICROSCOPIC DIAGNOSIS Left gluteal hematoma: Mature adipose tissue and clotted blood, compatible with hematoma. CE:marisa 04/02/18 MICROSCOPIC DESCRIPTION Slides are reviewed. GROSS DESCRIPTION Received in fixative is one container labeled with the patient's name and designated left gluteal hematoma. The specimen consists of multiple irregular fragments of dark red-muir soft tissue consistent with hematoma that in aggregate measure 11 x 8.5 x 3 cm. Serial sections do not reveal mass lesions. Foreign Exchange Clerk portions are submitted in two cassettes. / AM:marisa 04/01/18 TC:5 CPT:08132
--- NOTE | 2018-03-31 14:39 | PCM.IMDPSTOP ---
Immediate Post-Op Note Date of Procedure: 03/31/18 Primary Surgeon/Physician: Saleem York MD transitional living specialist: None Pre-Operative Diagnosis: Traumatic hematoma left upper gluteal/lower back area with bruising and ecchymosis. Post-Operative Diagnosis: Traumatic hematoma left upper gluteal/lower back area with extension to hip and with bruising and ecchymosis. Surgery/Procedure Performed:: Incision and drainage and evacuation hematoma left upper gluteal/lower back area with extension to hip. Description of Surgical Findings:: The patient is a 23 year old F presented to the emergency room because of a fall at home descending the stairs onto concrete in the garage and landing on her left buttock. She developed severe pain in the left buttock, aggravated by putting any weight on her left foot, and somewhat relieved when she lifts her left foot off the ground. In the ED, x-ray of the hips was negative for acute fractures. A diagnosis of hematoma was made and the patient was discharged home initially but returned shortly because of increasing pain and increasing size of the hematoma. CT scan of the pelvis without contrast revealed left gluteal subcutaneous hematoma measuring about 8.8 x 7.2 x 4.2 cm without acute fractures. Her routine blood work was unremarkable. Pro time, INR and PTT were normal. Creatinine kinase was normal as well. She was admitted to the hospital for further medical management. An abdominal binder was placed to help with compression over the gluteal area. I was asked to evaluate this patient for surgical options for treatment. Today the hematoma softened a little bit with less bruising. However the patient had worsening pressure pain with difficulty with ambulation. So it was decided to proceed with operative intervention. Today the patient underwent incision and drainage and evacuation hematoma left upper gluteal/lower back area with extension to hip. Size of wound left upper gluteal/lower back area with extension to hip - 13 x 4 x 5 cm. I used Fred absorbable hemostat. Reference Number - [id number]. Lot Number - [id number]. Expiration - September 27, 2022. Estimated Blood Loss: 250 ml. Specimen's removed: Hematoma left upper gluteal/lower back area with extension to hip to Pathology. Drains: None. Type of Anesthesia:: General - Admit VTE Documentation VTE Present on Admission: No VTE Mechan Device Prophylaxis: SCD's VTE Pharm Prophylaxis ordered?: No
--- NOTE | 2018-03-31 15:16 | PCA ---
pt off floor
[2018-03-31 17:59] LABS: Hematocrit 31.4 % (37-47); Hemoglobin 10.6 g/dl (12.0-15.0); Mean Corp Hgb Conc 33.8 g/gl (32-36); Mean Corpuscular Hgb 32.7 pg (27.0-32.0); Mean Corpuscular Volume 96.9 fL (81-99); Platelet Count 143 K/mm3 (150-450); RBC Distribution Width SD 42.5 fl (35.1-43.9); Red Blood Count 3.24 M/mm3 (4.2-5.4); Scan Indicated on CBC? Y/N NO
--- NOTE | 2018-03-31 18:09 | PCM.OPRPT ---
Report of Operation Date of Procedure: 03/31/18 Pre-Operative Diagnosis: Traumatic hematoma left upper gluteal/lower back area with bruising and ecchymosis. Post-Operative Diagnosis: Traumatic hematoma left upper gluteal/lower back area with extension to hip and with bruising and ecchymosis. Surgery/Procedure Performed:: Incision and drainage and evacuation hematoma left upper gluteal/lower back area with extension to hip. Description of Surgical Findings:: The patient is a 23 year old F presented to the emergency room because of a fall at home descending the stairs onto concrete in the garage and landing on her left buttock. She developed severe pain in the left buttock, aggravated by putting any weight on her left foot, and somewhat relieved when she lifts her left foot off the ground. In the ED, x-ray of the hips was negative for acute fractures. A diagnosis of hematoma was made and the patient was discharged home initially but returned shortly because of increasing pain and increasing size of the hematoma. CT scan of the pelvis without contrast revealed left gluteal subcutaneous hematoma measuring about 8.8 x 7.2 x 4.2 cm without acute fractures. Her routine blood work was unremarkable. Pro time, INR and PTT were normal. Creatinine kinase was normal as well. She was admitted to the hospital for further medical management. An abdominal binder was placed to help with compression over the gluteal area. I was asked to evaluate this patient for surgical options for treatment. Today the hematoma softened a little bit with less bruising. However the patient had persistent pressure pain with difficulty with ambulation. So it was decided to proceed with operative intervention. The extent of the scarring was discussed with the patient, with an estimate of 12-15 cm in length. She voiced understanding and wished to proceed. Patient was informed of the risks and complications of the procedure including alternatives to surgery. These were discussed with the patient personally. Patient voices understanding and wishes to proceed. Size of wound left upper gluteal/lower back area with extension to hip - 13 x 4 x 5 cm. I used Fred absorbable hemostat. Reference Number - [id number]. Lot Number - [id number]. Expiration - September 27, 2022. coreroom foundry laborer: None Type of Anesthesia:: General Specimen's removed: Hematoma left upper gluteal/lower back area with extension to hip to Pathology. Drains: None. Estimated Blood Loss (mL): 250 ml. Description of Procedure: Patient was taken to OR in supine position and was placed under general anesthesia. She was then placed in the prone position. The left gluteal and lower back areas were prepped and draped in the usual fashion. SCD's were placed for DVT prophylaxis. Perioperative antibiotics were given intravenously. A curvilinear incision was made in the left upper gluteal area over the area of greatest firmness and bruising and size. The incision went down into the subcutaneous tissue. A large hematoma was seen. Some oozing noted. No active bleeding noted. The hematoma extended down to the gluteus muscle. Some bleeding on the muscle was cauterized. Some deep bruising in the muscle was seen. The muscle appeared viable. No muscle was debrided today. Some fat necrosis was present from the pressure of the hematoma. No pus was seen. The overlying skin appeared bruised but viable. There was no need to excise and debride any skin today. The hematoma extended to the lower back area as well as to the hip region. About 250 ml of hematoma clot was evacuated. The wound was irrigated with saline. Hemostasis was obtained with electrocautery. The size of the wound after the incision and drainage and evacuation of the hematoma was 13 x 4 x 5 cm. I sprayed Fred absorbable hemostat into the wound to minimize oozing postop. I then place a piece of Mepitel nonadherent dressing in the base of the wound followed by Kerlix gauze and Betadine followed by dry Kerlix gauze and ABD compression dressing. Patient tolerated the procedure well and was sent to PACU in satisfactory condition. Patient will be sent upstairs for continued postop care. The VAC will be placed tomorrow. If oozing is seen at the time of the dressing change, the VAC will not be placed and will continue the compression dressing for another day and then reassess. Once the wound stabilizes, the VAC will be placed. Will check a Hgb in the morning. Will continue pain medication and Valium for spasm. Anticipate increased metabolic demands. Will check a Prealbumin and encourage nutritional supplementation with protein to help the healing process. Grafts/Implants Used: None. - Complications None. - Admit VTE Documentation VTE Present on Admission: No VTE Mechan Device Prophylaxis: SCD's VTE Pharm Prophylaxis ordered?: No Code Visit Surgery Charges CPT - 32775 ICD-10 - S30.0xxA, S70.02xA, W19.xxxA
[2018-04-01 02:26] VITALS: BP 99/47; PULSE 91; RESP 16; TEMP 36.7; O2SAT 96
[2018-04-01] MEDS: diazePAM 5 MG Tablet PO ×4 (02:29→21:50)
[2018-04-01 05:47] LABS: Absolute Lymphocyte Count 0.72 X10^3/ul (0.83-4.51); Basophil# 0.01 X10^3/uL; Basophil% 0.2 % (0-1); Hematocrit 26.9 % (37-47); Hemoglobin 9.2 g/dl (12.0-15.0); Lymphocyte # 0.72 X10^3/ul (4.0); Lymphocyte % 11.4 % (19-41); Mean Corp Hgb Conc 34.2 g/gl (32-36); Mean Corpuscular Hgb 33.6 pg (27.0-32.0); Mean Corpuscular Volume 98.2 fL (81-99); Mean Platelet Vol. 12.2 fl (6.2-12.0); Monocyte# 0.55 X10^3/uL; Monocyte% 8.7 % (0-10); Neutrophil # 5.01 X10^3/uL (2.7-7.7); Neutrophil % 79.5 % (47-70); Platelet Count 145 K/mm3 (150-450); RBC Distribution Width CV 11.2 % (11.6-14.6); RBC Distribution Width SD 38.4 fl (35.1-43.9); Red Blood Count 2.74 M/mm3 (4.2-5.4); White Blood Count 6.3 K/mm3 (4.4-11.0)
[2018-04-01 05:51] LABS: POSITIVE COUNT NO; POSITIVE DIFFERENTIAL NO; POSITIVE MORPHOLOGY NO
[2018-04-01 06:02] LABS: Anion Gap 10 (5-15); BUN 10 mg/dL (7-18); BUN/Creat Ratio 15.7 RATIO (10-20); Calcium,Total 8.2 mg/dL (8.5-10.1); Chloride 108 mmol/L (98-107); Creatinine, Serum 0.64 mg/dL (0.55-1.02); EST Glomerular Filtration Rate 123 mL/min (>60); Est Glom Filt Rate - Afr Amer 149 mL/min (>60); Estimated Creatinine Clearance 127.98 ml/min; Glucose 116 mg/dL (74-106); Sodium Level 141 mmol/L (136-145)
--- NOTE | 2018-04-01 06:58 | PN_ITS ---
Patient Problems: Active and Suspected Problems Hematoma (Acute) Subjective: Patient notes improved pain to the L buttock since OR with less tension additionally. Overnight did have active bleed requiring requiring aggressive reinforcement eventually improving. Additionally patient noted today mild sore throat following intubation with evaluation notable for mild irritation of the uvula as well as very distal aspect white in appearance likely secondary to positioning and trauma with intubation; however discussed with anesthesia with picture also obtained during wound care evaluations and placed in [facility] for their benefit and awaiting their evaluation. Patient denies fevers, chills, nausea, emesis, abdominal pain, chest pain or dyspnea. Objective: Physical Examination: General: awake, alert, oriented x 3 and cooperative, laying in the bed, more comfortable than the day prior, improved since operative intervention except sore throat. Skin: normal color, turgor, no icterus, cyanosis except notable L buttock status post operative intervention with incision noted, wound dimensions 13 x 4 x 5 cm, some oozing still present, tissue well appearing otherwise, VAC deferred, decreased prior noted ecchymoses. HEENT: AT/NC, EOMI, PERRLA, MMM, mild irritation of the uvula, not markedly edematous, distal aspect weight in appearance concerning for possible trauma with recent intubation [place] secondary to atypical positioning given operative need. Lungs: CTA bilaterally, moderate effort, mild decrease BL bases, no rales, ronchi or wheezing. Heart: Regular rate and regular rhythm; no gallop, rub audible. Abdomen: soft, NTTP, ND, normal BS. Extremities: no cyanosis, clubbing, see skin. Neurological: patient awake, alert, oriented x 3; cognitive function intact; pupils equally reactive to light and accomodation; cranial nerves II-XII grossly normal, moving all 4 extremities, no focal deficits, strength improved, mildly to moderately decreased. Psychiatric: affect appears improved, normal, no evidence of acute depression or anxiety. Vitals/I&O's: Vital Signs Temp Pulse Resp BP Pulse Ox 98.1 F 91 16 99/47 L 96 04/01/18 02:26 04/01/18 02:26 04/01/18 02:26 04/01/18 02:26 04/01/18 02:26 Oxygen Flow Rate (L/min) 1 Oxygen Delivery Method Room Air Weight: 152 lb 1.903 oz Body Mass Index (BMI) 23.8 Intake and Output for Last 24 Hours 03/30/18 03/31/18 04/01/18 23:59 23:59 23:59 Intake Total 925 / 925 3449 / 3449 1470 / 1470 Output Total 800 / 800 1500 / 1500 Balance 925 / 925 2649 / 2649 - Laboratory Results 03/31/18 05:22: Magnesium 1.9 03/31/18 17:38: WBC 5.0, RBC 3.24 L, Hgb 10.6 L, Hct 31.4 L, MCV 96.9, MCH 32.7 H, MCHC 33.8, RDW 12.0, RDW Differential 42.5, Plt Count 143 L, MPV 11.0 03/31/18 17:38: Prealbumin 23.0 04/01/18 04:58: WBC 6.3, RBC 2.74 L, Hgb 9.2 L, Hct 26.9 L, MCV 98.2, MCH 33.6 H , MCHC 34.2, RDW 11.2 L, RDW Differential 38.4, Plt Count 145 L, MPV 12.2 H, Immature Gran % (Auto) 0.200, Neut % (Auto) 79.5 H, Lymph % (Auto) 11.4 L, [place] % (Auto) 8.7, Eos % (Auto) 0.0, Baso % (Auto) 0.2, Absolute Neuts (auto) 5.0, Absolute Lymphs (auto) 0.72 L, Total Counted Not Reportable 04/01/18 04:58: Sodium 141, Potassium 4.0, Chloride 108 H, Carbon Dioxide 23.0, Anion Gap 10, BUN 10, Creatinine 0.64, Estim Creat Clear Calc 127.98, Est GFR (MDRD) Af Amer 149, Est GFR (MDRD) Non-Af 123, BUN/Creatinine Ratio 15.7, Glucose 116 H, Calcium 8.2 L Current Medications Acetaminophen (Tylenol) 650 mg PO Q6H PRN PRN PRN Reason: Fever, headache, pain Last Admin: 03/31/18 06:04 Dose: 650 mg Diazepam (Valium) 5 mg PO Q4 TERRY Last Admin: 04/01/18 06:18 Dose: Not Given Docusate Sodium (Colace) 100 mg PO DAILY [facility] Last Admin: 03/31/18 10:28 Dose: Not Given Hydromorphone HCl (Dilaudid Inj) 1 mg IV Q3H PRN PRN PRN Reason: SEVERE PAIN (6-10/10) Last Admin: 03/31/18 10:25 Dose: 1 mg Sodium Chloride () 1,000 mls @ 75 mls/hr IV .[id number] [facility] Last Admin: 03/31/18 21:11 Dose: 75 mls/hr Clindamycin Phosphate 600 mg/ (Dextrose) 54 mls @ 162 mls/hr IV Q8 [facility] Last Admin: 04/01/18 06:16 Dose: 162 mls/hr Magnesium Hydroxide (Milk Of Magnesia) 30 ml PO DAILY PRN PRN PRN Reason: Constipation Mesalamine (Lialda) 3.6 gm PO QHS [facility] Last Admin: 03/31/18 19:12 Dose: Not Given Nutritional Formula (Liang - [place] Flavor) 1 packet PO BIDCM [facility] Last Admin: 03/31/18 17:55 Dose: 1 packet Ondansetron HCl (Zofran) 4 mg IV Q8H PRN PRN PRN Reason: NAUSEA/VOMITING Oxycodone HCl (Oxyir) 5 - 10 mg PO Q4H PRN PRN PRN Reason: SEVERE PAIN (6-10/10) Medical Necessity - Tobacco Use Smoking Status: Never smoker Assessment/Plan All Active Problems Hematoma (Acute) Fall (Acute) Left gluteal hematoma (Acute) The patient is a 23 y/o F w/ PMHx: Ulcerative Colitis otherwise healthy who presents to the [facility] ED on 03/30/18 secondary to history of mechanical fall with left severe buttock pain and bruising with enlarging hematoma. (1) Mechanical Fall with Severe Traumatic L Buttock Region Pain w/ Expanding Hematoma, Possibly Infected: Admission CBC w/ WBC 7.2, Hgb 13.8, Plts 157 with mild shift, afebrile, CT scan of the pelvis without contrast revealed left gluteal subcutaneous hematoma measuring about 8.8 x 7.2 x 4.2 cm without acute fractures. Admitted to [place], maintained on IV clindamycin, 03/31/18 OR w/ I+D w/ evacuation hematoma left upper gluteal/lower back area with extension to hip, pathology pending, no OR cultures obtained, from discussions w/ Dr. York given 04/01/18 post-op wound appearance, once oozing decreased expect placement Wound VAC, Wound RN consulted and following. Valium per Surgery for muscle spasm secondary to injury, irritation. PRN pain regimen. (2) Erythema, Distal uvula trauma: Suspected secondary to positioning and recent intubation, obtain picture to upload in [place] with noted very still to point in color with erythema above, not markedly edematous, contacted anesthesiology as felt likely etiology recent intubation as not present prior, anesthesiology noted intention to evaluate, suspect no interventions possible but will await their input, possibility of loss of distal aspect of the uvula. (3) Acute Anemia secondary to Blood Loss, Secondary to #1: Admission Hgb 13.8, repeat Hgb 11.2, 03/31/18 am Hgb 10.2, s/p OR w/ 04/01/18 Hgb 9.2, continue to monitor. (4) Ulcerative Colitis: Stable, continue home mesalamine regimen. (5) DVT Prophylaxis: Low risk, ambulation, defer any chemoprophylaxis given acute presentation. Code Visit Inpatient E&M: 46333 Subs Hosp L3
[2018-04-01 08:25] VITALS: O2SAT 95
[2018-04-01] MEDS: Acetaminophen 325 MG Tablet 650 MG PO ×2 (08:25→15:42)
[2018-04-01 08:30] VITALS: BP 93/58; PULSE 68; RESP 18; TEMP 36.9; O2SAT 99
[2018-04-01] MEDS: Ondansetron 4 MG/2 ML Vial IV ×2 (10:14→20:14)
[2018-04-01] MEDS: HYDROmorphone 1 MG/ML Syringe IV (10:14)
[2018-04-01] MEDS: 0.9% Normal Saline 1,000 ML 75 ML IV ×2 (10:20→23:22)
--- NOTE | 2018-04-01 10:57 | NURSING ---
WOUND PHOTO: LEFT BUTTOCK
--- NOTE | 2018-04-01 10:59 | NURSING ---
WOUND PHOTO: LEFT BUTTOCK
--- NOTE | 2018-04-01 13:14 | PCM.PN.SRG ---
Patient Problems: Active and Suspected Problems Traumatic hematoma of buttock (Acute) left upper gluteal/lower back area Hematoma (Acute) Subjective: Postop #1 Patient has wound pain. There was some oozing in the wound. The VAC was not placed today. Repacked the wound with a Betadine Dressing for compression. - Physical Exam General: Alert, Oriented x3 HEENT: PERRLA, EOMI Oral: Moist Mucosa Neck: Supple Abdomen: Soft, Non-Distended Skin: Ulcer/ Wound - left upper gluteal/lower back wound is stable. Some oozing present that was controlled with gauze compression. VAC was not placed today. The wound was redressed with a Betadine compression dressing. Neurological: Cranial nerves II-XII grossly intact Psych/Mental Status: Normal Affect, Appropriate Vital Signs Temp Pulse Resp BP Pulse Ox 98.4 F 68 18 93/58 L 99 04/01/18 08:30 04/01/18 08:30 04/01/18 08:30 04/01/18 08:30 04/01/18 08:30 Oxygen Flow Rate (L/min) 1 Oxygen Delivery Method Room Air Weight: 152 lb 1.903 oz Body Mass Index (BMI) 23.8 Intake and Output for Last 24 Hours 03/30/18 03/31/18 04/01/18 23:59 23:59 23:59 Intake Total 925 / 925 3449 / 3449 2196 / 2196 Output Total 800 / 800 2300 / 2300 Balance 925 / 925 2649 / 2649 -104 / -104 Laboratory Tests Past 24 Hrs 03/31/18 03/31/18 04/01/18 17:38 17:38 04:58 WBC 5.0 6.3 RBC 3.24 L 2.74 L Hgb 10.6 L 9.2 L Hct 31.4 L 26.9 L MCV 96.9 98.2 MCH 32.7 H 33.6 H MCHC 33.8 34.2 RDW 12.0 11.2 L RDW Differential 42.5 38.4 Plt Count 143 L 145 L MPV 11.0 12.2 H Immature Gran % (Auto) 0.200 Neut % (Auto) 79.5 H Lymph % (Auto) 11.4 L [place] % (Auto) 8.7 Eos % (Auto) 0.0 Baso % (Auto) 0.2 Absolute Neuts (auto) 5.0 Absolute Lymphs (auto) 0.72 L Total Counted Not Reportable Sodium Potassium Chloride Carbon Dioxide Anion Gap BUN Creatinine Estim Creat Clear Calc Est GFR (MDRD) Af Amer Est GFR (MDRD) Non-Af BUN/Creatinine Ratio Glucose Calcium Prealbumin 23.0 04/01/18 04:58 WBC RBC Hgb Hct MCV MCH MCHC RDW RDW Differential Plt Count MPV Immature Gran % (Auto) Neut % (Auto) Lymph % (Auto) [place] % (Auto) Eos % (Auto) Baso % (Auto) Absolute Neuts (auto) Absolute Lymphs (auto) Total Counted Sodium 141 Potassium 4.0 Chloride 108 H Carbon Dioxide 23.0 Anion Gap 10 BUN 10 Creatinine 0.64 Estim Creat Clear Calc 127.98 Est GFR (MDRD) Af Amer 149 Est GFR (MDRD) Non-Af 123 BUN/Creatinine Ratio 15.7 Glucose 116 H Calcium 8.2 L Prealbumin Medical Necessity - Tobacco Use Smoking Status: Never smoker Assessment/Plan All Active Problems Traumatic hematoma of buttock (Acute) Hematoma (Acute) Fall (Acute) Left gluteal hematoma (Acute) 1. Traumatic hematoma left upper gluteal/lower back area with extension to hip and with bruising and ecchymosis. 2. s/p incision and drainage and evacuation hematoma left upper gluteal/lower back area with extension to hip. 3. Acute blood loss anemia from the traumatic hematoma. The wound has some residual oozing easily controlled with gauze pressure. Will hold off with the VAC today. The wound was redressed with a Kerlix gauze and Betadine. Will reassess tomorrow for the VAC placement. Once the VAC is placed and it is approved, anticipate discharge tomorrow. Continue Cleocin until discharge. Prealbumin was 23.0. Encourage nutritional supplementation with protein to help the healing process. Hgb today was 9.2. She has acute blood loss anemia from the hematoma. Admission Hgb was 13.8. Some of the drop is also due to IV dilution. No need for PRBC at this time. Will start Iron supplementation. At discharge will need Percocet for pain as well as some Valium for spasm due to involvement and irritation of the muscle from the hematoma. After discharge, will followup at the [facility]. If there is a plateau in the healing process, can proceed with delayed closure with complex secondary wound closure and placement of a drain.
[2018-04-01 14:28] VITALS: BP 107/62; PULSE 86; RESP 18; TEMP 36.6; O2SAT 100
[2018-04-01] MEDS: oxyCODONE 5 MG Tablet PO (15:40)
[2018-04-01 21:52] VITALS: BP 92/50; PULSE 69; RESP 16; TEMP 36.6; O2SAT 98
[2018-04-02 04:40] VITALS: BP 94/60; PULSE 72; RESP 17; TEMP 36.5; O2SAT 99
[2018-04-02] MEDS: diazePAM 5 MG Tablet PO (05:17)
[2018-04-02 06:17] LABS: Absolute Lymphocyte Count 2.04 X10^3/ul (0.83-4.51); Absolute Neutrophil Count 2.2 X10^3/uL (2.0-7.7); Basophil# 0.02 X10^3/uL; Basophil% 0.4 % (0-1); Eosinophil# 0.07 X10^3/uL; Eosinophils% 1.5 % (0-5); Hematocrit 27.2 % (37-47); Hemoglobin 9.1 g/dl (12.0-15.0); Lymphocyte # 2.04 X10^3/ul (4.0); Lymphocyte % 42.9 % (19-41); Mean Corp Hgb Conc 33.5 g/gl (32-36); Mean Corpuscular Hgb 33.2 pg (27.0-32.0); Mean Corpuscular Volume 99.3 fL (81-99); Mean Platelet Vol. 11.6 fl (6.2-12.0); Monocyte% 8.4 % (0-10); Neutrophil # 2.21 X10^3/uL (2.7-7.7); Neutrophil % 46.6 % (47-70); Platelet Count 131 K/mm3 (150-450); RBC Distribution Width CV 11.6 % (11.6-14.6); RBC Distribution Width SD 39.8 fl (35.1-43.9); Red Blood Count 2.74 M/mm3 (4.2-5.4); White Blood Count 4.8 K/mm3 (4.4-11.0)
[2018-04-02 06:20] LABS: POSITIVE COUNT NO; POSITIVE DIFFERENTIAL NO; POSITIVE MORPHOLOGY NO
[2018-04-02 06:31] LABS: Anion Gap 5 (5-15); BUN 12 mg/dL (7-18); Calcium,Total 8.2 mg/dL (8.5-10.1); Chloride 108 mmol/L (98-107); EST Glomerular Filtration Rate 94 mL/min (>60); Est Glom Filt Rate - Afr Amer 114 mL/min (>60); Estimated Creatinine Clearance 102.39 ml/min; Glucose 88 mg/dL (74-106); Potassium 3.6 mmol/L (3.5-5.1); Sodium Level 140 mmol/L (136-145)
--- NOTE | 2018-04-02 07:08 | PCM.PN.HOSP ---
Patient Problems: Active and Suspected Problems Traumatic hematoma of buttock (Acute) left upper gluteal/lower back area Hematoma (Acute) Subjective: Patient clinically improved, VAC change today given appearance of wound improved with no market bruising or bleeding now, discussed VAC usage at length and precautions to take if dysfunction occurs, pain improved although expected discomfort with back change and with palpation of the region. She also notes that she was evaluated by anesthesiology the day prior and states that her uvula and throat is less tender. patient denies fevers, chills, nausea, emesis, abdominal pain, chest pain or dyspnea. Objective: Physical Examination: General: awake, alert, oriented x 3 and cooperative, laying in the bed, trouble, recent pain regimen for back placement. Skin: normal color, turgor, no icterus, cyanosis except notable L buttock status post operative intervention with incision noted, wound dimensions 13 x 4 x 5 cm, improved appearance with less oozing, stasis, well-appearing tissue, back being placed currently, decreased ecchymotic appearance, soft tissue, less indurated, tenderness to palpation as expected. HEENT: AT/NC, EOMI, PERRLA, MMM, decreased erythema near the proximal aspect of the uvula, not markedly edematous, still distal aspect very demarcated, white in appearance. Lungs: CTA bilaterally, moderate effort, mild decrease BL bases, no rales, ronchi or wheezing. Heart: Regular rate and regular rhythm; no gallop, rub audible. Abdomen: soft, NTTP, ND, normal BS. Extremities: no cyanosis, clubbing, see skin. Neurological: patient awake, alert, oriented x 3; cognitive function intact; pupils equally reactive to light and accomodation; cranial nerves II-XII grossly normal, moving all 4 extremities, no focal deficits, strength improved, mildly to moderately decreased. Psychiatric: affect appears improved, normal, no evidence of acute depression or anxiety. Vitals/I&O's: Vital Signs Temp Pulse Resp BP Pulse Ox 97.7 F L 72 17 94/60 99 04/02/18 04:40 04/02/18 04:40 04/02/18 04:40 04/02/18 04:40 04/02/18 04:40 Oxygen Flow Rate (L/min) 1 Oxygen Delivery Method Room Air Weight: 152 lb 1.903 oz Body Mass Index (BMI) 23.8 Intake and Output for Last 24 Hours 03/31/18 04/01/18 04/02/18 23:59 23:59 23:59 Intake Total 3449 / 3449 4011 / 4011 563 / 563 Output Total 800 / 800 5250 / 5250 700 / 700 Balance 2649 / 2649 -1239 / -1239 -137 / -137 Laboratory Results 04/02/18 05:54: WBC 4.8, RBC 2.74 L, Hgb 9.1 L, Hct 27.2 L, MCV 99.3 H, MCH 33.2 H, MCHC 33.5, RDW 11.6, RDW Differential 39.8, Plt Count 131 L, MPV 11.6, Immature Gran % (Auto) 0.200, Neut % (Auto) 46.6 L, Lymph % (Auto) 42.9 H, [place] % (Auto) 8.4, Eos % (Auto) 1.5, Baso % (Auto) 0.4, Absolute Neuts (auto) 2.2, Absolute Lymphs (auto) 2.04, Total Counted Not Reportable 04/02/18 05:54: Sodium 140, Potassium 3.6, Chloride 108 H, Carbon Dioxide 27.0, Anion Gap 5, BUN 12, Creatinine 0.80, Estim Creat Clear Calc 102.39, Est GFR (MDRD) Af Amer 114, Est GFR (MDRD) Non-Af 94, BUN/Creatinine Ratio 15.0, Glucose 88, Calcium 8.2 L Current Medications Acetaminophen (Tylenol) 650 mg PO Q6H PRN PRN PRN Reason: Fever, headache, pain Last Admin: 04/01/18 15:42 Dose: 650 mg Diazepam (Valium) 5 mg PO Q4 [facility] Last Admin: 04/02/18 05:17 Dose: 5 mg Docusate Sodium (Colace) 100 mg PO DAILY [facility] Last Admin: 04/01/18 10:49 Dose: Not Given Hydromorphone HCl (Dilaudid Inj) 1 mg IV Q3H PRN PRN PRN Reason: SEVERE PAIN (6-10/10) Last Admin: 04/01/18 10:14 Dose: 1 mg Sodium Chloride () 1,000 mls @ 75 mls/hr IV .[id number] [facility] Last Admin: 04/01/18 23:22 Dose: 75 mls/hr Clindamycin Phosphate 600 mg/ (Dextrose) 54 mls @ 162 mls/hr IV Q8 [facility] Last Admin: 04/02/18 05:20 Dose: 162 mls/hr Magnesium Hydroxide (Milk Of Magnesia) 30 ml PO DAILY PRN PRN PRN Reason: Constipation Mesalamine (Lialda) 3.6 gm PO QHS [facility] Last Admin: 04/01/18 21:49 Dose: Not Given Nutritional Formula ([facility]ang - [place] Flavor) [facility] Last Admin: 04/01/18 17:51 Dose: 1 packet Ondansetron HCl (Zofran) 4 mg IV Q8H PRN PRN PRN Reason: NAUSEA/VOMITING Last Admin: 04/01/18 20:14 Dose: 4 mg Oxycodone HCl (Oxyir) 5 - 10 mg PO Q4H PRN PRN PRN Reason: SEVERE PAIN (6-10/10) Last Admin: 04/01/18 15:40 Dose: 10 mg Polysaccharide Iron Complex (Ferrex 150) [facility] Medical Necessity - Tobacco Use Smoking Status: Never smoker Assessment/Plan All Active Problems Traumatic hematoma of buttock (Acute) Hematoma (Acute) Fall (Acute) Left gluteal hematoma (Acute) The patient is a 23 y/o F w/ PMHx: Ulcerative Colitis otherwise healthy who presents to the [facility] ED on 03/30/18 secondary to history of mechanical fall with left severe buttock pain and bruising with enlarging hematoma. (1) Mechanical Fall with Severe Traumatic L Buttock Region Pain w/ Expanding Hematoma, Possibly Infected: Admission CBC w/ WBC 7.2, Hgb 13.8, Plts 157 with mild shift, afebrile, CT scan of the pelvis without contrast revealed left gluteal subcutaneous hematoma measuring about 8.8 x 7.2 x 4.2 cm without acute fractures. Admitted to [place], maintained on IV clindamycin, 03/31/18 OR w/ I+D w/ evacuation hematoma left upper gluteal/lower back area with extension to hip, pathology pending, no OR cultures obtained, 04/01/18 post-op wound appearanc with bleeding, improved overnight, 04/02/18 VAC being placed, home VAC set-up. Plan discharge to home today if amenable for surgery. Will discuss follow-up, abx, care with Dr. York for discharge planning. (2) Erythema, Distal uvula trauma: Suspected secondary to positioning and recent intubation, obtained picture to upload in [email or web address] with noted mild erythema improving, still demarcated region distal aspect, while, evaluated per anesthesiology and agreed likely etiology recent intubation trauma. Improving, continue follow-up. (3) Acute Anemia secondary to Blood Loss, Secondary to #1: Admission Hgb 13.8 with noted baseline 13-14 range, repeat Hgb 11.2, 03/31/18 am Hgb 10.2, s/p OR w/ 04/01/18 Hgb 9.2-->04/02/18 Hgb 9.1, stabilized, continue to monitor. Fe supplementation initiated, plan on continuation at discharge. (4) Ulcerative Colitis: Stable, continue home mesalamine regimen. (5) DVT Prophylaxis: Low risk, ambulation, defer any chemoprophylaxis given acute presentation. Code Visit Inpatient E&M: 31238 Subs Hosp L2
[2018-04-02 07:49] VITALS: O2SAT 96
[2018-04-02] MEDS: Docusate Sodium 100 MG Capsule PO (09:15)
[2018-04-02] MEDS: Iron Polysaccharide Complex 150 MG CAPSULE PO (09:15)
[2018-04-02 09:30] VITALS: BP 96/61; PULSE 82; RESP 16; TEMP 36.6; O2SAT 100
[2018-04-02] MEDS: HYDROmorphone 1 MG/ML Syringe IV (09:40)
--- NOTE | 2018-04-02 10:44 | DCINST_ITS ---
- Discharge Diagnoses Current Active Problems: Current Active and Chronic Problems (1) Mechanical Fall with Severe Traumatic L Buttock Region Pain w/ Expanding Hematoma, Possibly Infected (2) Erythema, Distal uvula trauma, Suspected secondary to positioning and recent intubation (3) Acute Anemia secondary to Blood Loss, Secondary to #1 (4) Ulcerative Colitis You will use the following diet at home:: No restrictions Your food should be the consistency of: Regular Discharge Activity: - - Activity restrictions per Dr. York, must maintain VAC suction, avoid activity which may cause loss of suction. Return to work on:: 04/06/18 May resume sexual activity in: - - May resume sexual intercourse once cleared per Dr. York. Weight Bearing Status: Weight bearing as tolerated Call your doctor if your incision/area has: Continuous Slow Oozing, Sudden Increased Bleeding, Increased Pain/ Swelling, Increased Redness, Foul Smelling Discharge, Swelling at the incision site Call your doctor if you observe: Fever of 101 or Higher, Inability to urinate, Inability to have a bowel movement, Shortness of breath, Dizziness, Fainting spells, Chest pain, Uncontrolled pain Additional Dressing/Incision Instructions:: VAC change three times weekly with home health care and [facility] with [facility]. York. VAC placed 04/02/18, next change Friday unless schedule altered per Dr. York. Instructions: ED Hematoma Allergies/Adverse Reactions: Allergies Penicillins [PCN] Adverse Reaction (Verified 03/30/18 09:09) Other Medications to take at Discharge Mesalamine [Lialda] 3 tab PO DAILY 02/05/17 Pnv No.95/Ferrous Fum/Folic AC [ Multivitamin Tablet] 1 each PO DAILY 03/30/18 Docusate Sodium [Colace] 100 mg PO DAILY #30 capsule 04/02/18 Iron Polysaccharide Complex [Ferrex 150] 150 mg PO DAILYCM #30 capsule 04/02/18 Nutritional Supplement [Liang - ORANGE FLAVOR] 1 packet PO BIDCM #60 packet 04/02/18 Ondansetron [Zofran] 8 mg PO Q8H PRN PRN #20 tablet 04/02/18 Oxycodone [Oxyir] 5 - 10 mg PO Q4H PRN PRN 5 Days #60 tablet 04/02/18 The following prescriptions were given: Oxycodone [Oxyir] 5 - 10 mg PO Q4H PRN PRN 5 Days #60 tablet PRN Reason: Severe Pain (6-12/10) Ondansetron [Zofran] 8 mg PO Q8H PRN PRN #20 tablet PRN Reason: nausea, emesis Docusate Sodium [Colace] 100 mg PO DAILY #30 capsule Iron Polysaccharide Complex [Ferrex 150] 150 mg PO DAILYCM #30 capsule Nutritional Supplement [Liang - ORANGE FLAVOR] 1 packet PO BIDCM #60 packet Primary Care Physician: Israel Crowder MD [Primary Care Provider] - As Needed Please follow up with your Primary Care Physician in: Follow-up within 3-5 days to review admission. Test Results: Test results from this visit will be discussed in further detail at your follow- up appointment, if applicable. Please Follow Up With: Saleem York MD When: Please follow-up with Dr. York in the [facility] per his discretion Proposed Discharge Date: 04/02/18
--- NOTE | 2018-04-02 10:49 | PCM.DC.SUM ---
Discharge Date and Diagnosis - Problem List Patient Problems: Active and Suspected Problems Traumatic hematoma of buttock (Acute) left upper gluteal/lower back area Hematoma (Acute) Date of Admission: 03/30/18 Date of Discharge: 04/02/18 - Primary Discharge Diagnosis Active and Suspected Problems (1) Mechanical Fall with Severe Traumatic L Buttock Region Pain w/ Expanding Hematoma, Possibly Infected (2) Erythema, Distal uvula trauma, Suspected secondary to positioning and recent intubation (3) Acute Anemia secondary to Blood Loss, Secondary to #1 (4) Ulcerative Colitis - Secondary Discharge Diagnosis Chronic Problems Ulcerative colitis (Chronic) Hospital Course and Treatment Consultations 03/31/18 08:58 Consult: Onc/Wound/pulper tender Routine Comment: Dr. York Surgery, Plastic Dr. Lundberg Anesthesiology Contacted and evaluated patient post-operatively secondary to uvula changes following intubation Operations: - - 03/31/18 OR w/ I+D w/ evacuation hematoma left upper gluteal/lower back area with extension to hip. Procedures: None Summary of Care Provided: The patient is a 23 y/o F w/ PMHx: Ulcerative Colitis otherwise healthy who presented to the [facility] ED on 03/30/18 secondary to history of mechanical fall with left severe buttock pain and bruising with enlarging hematoma. Admission CBC w/ WBC 7.2, Hgb 13.8, Plts 157 with mild shift, afebrile, CT scan of the pelvis without contrast revealed left gluteal subcutaneous hematoma measuring about 8.8 x 7.2 x 4.2 cm without acute fractures. Admitted to [place], maintained on IV clindamycin while inpatient however, post-op well appearing thus no continuation of abx upon discharge, 03/31/18 OR w/ I+D w/ evacuation hematoma left upper gluteal/lower back area with extension to hip, pathology pending, no OR cultures obtained, 04/01/18 post-op wound appearance with bleeding, improved overnight, 04/02/18 VAC being placed, home VAC set-up. 04/01/18 noted mild erythema and atypical appearance of patient uvula, suspected secondary to positioning and recent intubation, obtained picture to upload in [email or web address] with noted mild erythema improving, 04/02/18 still demarcated region distal aspect, while, evaluated per anesthesiology and agreed likely etiology recent intubation trauma with referral to ENT for follow-up upon discharge. Patient w/ Acute Anemia secondary to Blood Loss, Secondary to the Traumatic Hematoma w/ admission Hgb 13.8 with noted baseline 13-14 range, repeat Hgb 11.2, 03/31/18 am Hgb 10.2, s/p OR w/ 04/01/18 Hgb 9.2-->04/02/18 Hgb 9.1, stabilized, Fe supplementation initiated, continuation at discharge. Patient discharged to home with home health, VAC in place with follow-up with PCP, ENT and Dr. York. Patient Problems: Active and Suspected Problems Traumatic hematoma of buttock (Acute) left upper gluteal/lower back area Hematoma (Acute) - Physical Exam Vital Signs Temp Pulse Resp BP Pulse Ox 98 F 82 16 96/61 100 04/02/18 09:30 04/02/18 09:30 04/02/18 09:30 04/02/18 09:30 04/02/18 09:30 Oxygen Flow Rate (L/min) 1 Oxygen Delivery Method Room Air Weight: 152 lb 1.903 oz Body Mass Index (BMI) 23.8 Intake and Output for Last 24 Hours 03/31/18 04/01/18 04/02/18 23:59 23:59 23:59 Intake Total 3449 / 3449 4011 / 4011 563 / 563 Output Total 800 / 800 5250 / 5250 700 / 700 Balance 2649 / 2649 -1239 / -1239 -137 / -137 Laboratory Tests Past 24 Hrs 04/02/18 04/02/18 05:54 05:54 WBC 4.8 RBC 2.74 L Hgb 9.1 L Hct 27.2 L MCV 99.3 H MCH 33.2 H MCHC 33.5 RDW 11.6 RDW Differential 39.8 Plt Count 131 L MPV 11.6 Immature Gran % (Auto) 0.200 Neut % (Auto) 46.6 L Lymph % (Auto) 42.9 H [place] % (Auto) 8.4 Eos % (Auto) 1.5 Baso % (Auto) 0.4 Absolute Neuts (auto) 2.2 Absolute Lymphs (auto) 2.04 Total Counted Not Reportable Sodium 140 Potassium 3.6 Chloride 108 H Carbon Dioxide 27.0 Anion Gap 5 BUN 12 Creatinine 0.80 Estim Creat Clear Calc 102.39 Est GFR (MDRD) Af Amer 114 Est GFR (MDRD) Non-Af 94 BUN/Creatinine Ratio 15.0 Glucose 88 Calcium 8.2 L Discharge Activity: - - Activity restrictions per Dr. York, must maintain VAC suction, avoid activity which may cause loss of suction. Return to work on:: 04/06/18 May resume sexual activity in: - - May resume sexual intercourse once cleared per Dr. York. Weight Bearing Status: Weight bearing as tolerated Call your doctor if your incision/area has: Continuous Slow Oozing, Sudden Increased Bleeding, Increased Pain/ Swelling, Increased Redness, Foul Smelling Discharge, Swelling at the incision site Call your doctor if you observe: Fever of 101 or Higher, Inability to urinate, Inability to have a bowel movement, Shortness of breath, Dizziness, Fainting spells, Chest pain, Uncontrolled pain Additional Dressing/Incision Instructions:: VAC change three times weekly with home health care and follow-up [facility] with [facility]. York. VAC placed 04/02/18, next change Friday unless schedule altered per Dr. York. Home Medications: Medications to take at Discharge Mesalamine [Lialda] 3 tab PO DAILY 02/05/17 Pnv No.95/Ferrous Fum/Folic AC [ Multivitamin Tablet] 1 each PO DAILY 03/30/18 Docusate Sodium [Colace] 100 mg PO DAILY #30 capsule 04/02/18 Iron Polysaccharide Complex [Ferrex 150] 150 mg PO DAILYCM #30 capsule 04/02/18 Nutritional Supplement [Liang - ORANGE FLAVOR] 1 packet PO BIDCM #60 packet 04/02/18 Ondansetron [Zofran] 8 mg PO Q8H PRN PRN #20 tablet 04/02/18 Oxycodone [Oxyir] 5 - 10 mg PO Q4H PRN PRN 5 Days #60 tablet 04/02/18 Following Prescrptions Were Given to Patient: Oxycodone [Oxyir] 5 - 10 mg PO Q4H PRN PRN 5 Days #60 tablet PRN Reason: Severe Pain (6-10/10) Ondansetron [Zofran] 8 mg PO Q8H PRN PRN #20 tablet PRN Reason: nausea, emesis Docusate Sodium [Colace] 100 mg PO DAILY #30 capsule Iron Polysaccharide Complex [Ferrex 150] 150 mg PO DAILYCM #30 capsule Nutritional Supplement [Liang - ORANGE FLAVOR] 1 packet PO BIDCM #60 packet Primary Care Physician: Israel Crowder MD [Primary Care Provider] - As Needed Please follow up with your Primary Care Physician in: Follow-up within 3-5 days to review admission. Please Follow Up With: Saleem York MD When: Please follow-up with Dr. York in the [facility] per his discretion Patient Instructions: ED Hematoma Disposition: Home with Home Health Minutes spent on discharge:: 35 Patient Condition:: Fair Medical Necessity - Tobacco Use Smoking Status: Never smoker Meaningful Use Info Meaningful Use Diagnoses (Choose all that apply): None applicable Code Visit Inpatient E&M: 26241 Disch Hosp
[2018-04-02] MEDS: Ondansetron 4 MG/2 ML Vial IV (11:19)
--- NOTE | 2018-04-02 12:11 | PCM.WORK.EX ---
Work/School Excuse Work/School Excuse for:: Patient Please excuse this person from:: Work From: 03/30/18 through: 05/01/18 - Tentative
--- NOTE | 2018-04-02 12:14 | PCM.PN.SRG ---
Patient Problems: Active and Suspected Problems Traumatic hematoma of buttock (Acute) left upper gluteal/lower back area Hematoma (Acute) Subjective: Postop #2 Patient is resting comfortably. Tolerated VAC placement today. - Physical Exam General: Alert, Oriented x3 HEENT: PERRLA Oral: Moist Mucosa Neck: Supple Abdomen: Soft, Non-Distended Skin: Ulcer/ Wound - wound stable. VAC applied today. Neurological: Cranial nerves II-XII grossly intact Psych/Mental Status: Normal Affect, Appropriate Vital Signs Temp Pulse Resp BP Pulse Ox 98 F 82 16 96/61 100 04/02/18 09:30 04/02/18 09:30 04/02/18 09:30 04/02/18 09:30 04/02/18 09:30 Oxygen Flow Rate (L/min) 1 Oxygen Delivery Method Room Air Weight: 152 lb 1.903 oz Body Mass Index (BMI) 23.8 Intake and Output for Last 24 Hours 03/31/18 04/01/18 04/02/18 23:59 23:59 23:59 Intake Total 3449 / 3449 4011 / 4011 563 / 563 Output Total 800 / 800 5250 / 5250 700 / 700 Balance 2649 / 2649 -1239 / -1239 -137 / -137 Laboratory Tests Past 24 Hrs 04/02/18 04/02/18 05:54 05:54 WBC 4.8 RBC 2.74 L Hgb 9.1 L Hct 27.2 L MCV 99.3 H MCH 33.2 H MCHC 33.5 RDW 11.6 RDW Differential 39.8 Plt Count 131 L MPV 11.6 Immature Gran % (Auto) 0.200 Neut % (Auto) 46.6 L Lymph % (Auto) 42.9 H [place] % (Auto) 8.4 Eos % (Auto) 1.5 Baso % (Auto) 0.4 Absolute Neuts (auto) 2.2 Absolute Lymphs (auto) 2.04 Total Counted Not Reportable Sodium 140 Potassium 3.6 Chloride 108 H Carbon Dioxide 27.0 Anion Gap 5 BUN 12 Creatinine 0.80 Estim Creat Clear Calc 102.39 Est GFR (MDRD) Af Amer 114 Est GFR (MDRD) Non-Af 94 BUN/Creatinine Ratio 15.0 Glucose 88 Calcium 8.2 L Medical Necessity - Tobacco Use Smoking Status: Never smoker Assessment/Plan All Active Problems Traumatic hematoma of buttock (Acute) Hematoma (Acute) Fall (Acute) Left gluteal hematoma (Acute) 1. Traumatic hematoma left upper gluteal/lower back area with extension to hip and with bruising and ecchymosis. 2. s/p incision and drainage and evacuation hematoma left upper gluteal/lower back area with extension to hip. 3. Acute blood loss anemia from the traumatic hematoma. Wound is stable. VAC applied today. To be changed three times per week at 150 mmHg continuous suction. Patient tolerating po analgesia. Discharge home today. Prealbumin was 23.0. Encourage nutritional supplementation with protein to help the healing process. Hgb today was 9.1. Stable from 9.2 yesterday. Continue Iron supplementation at home. Scripts written for OxyIR for pain (60 tabs) and for Valium for spasm (30 tabs). Followup at [facility] 04/13/18. If there is a plateau in the healing process, can proceed with delayed closure with complex secondary wound closure and placement of a drain.
== END 2018-04-02 13:35 | disposition home or self-care (01) | DRG 605 ==
LOC: ED 10:02 → MS3 14:35
PROVIDERS: Anesthesiology; Surgery; Admitting Provider Hospitalist; Emergency Provider Emergency Medicine; Family Provider Family Medicine; PCP Family Medicine; Referring Provider Hospitalist; Visit Provider Family Medicine
DX: S30.0XXA Contusion of lower back and pelvis, initial encounter (principal); K51.90 Ulcerative colitis, unspecified, without complications; D62 Acute posthemorrhagic anemia; W10.8XXA Fall (on) (from) other stairs and steps, initial encounter; Y92.008 Other place in unspecified non-institutional (private) residence as the place of occurrence of the external cause; S09.93XA Unspecified injury of face, initial encounter; Y84.8 Other medical procedures as the cause of abnormal reaction of the patient, or of later complication, without mention of misadventure at the time of the procedure; Y92.234 Operating room of hospital as the place of occurrence of the external cause; Z79.899 Other long term (current) drug therapy; L53.9 Erythematous condition, unspecified
CPT/HCPCS: 36415; 72192; 73502; 80048; 81025; 82550; 83735; 84134; 85014; 85018; 85025; 85027; 85610; 85730; 88304; 97802; 99282; J7030; A4216; J2405

== ENCOUNTER 2018-04-27 08:30 | Outpatient (RCR) | payer OTHER, SELFPAY ==
[2018-03-31 11:43] VITALS: BMI 23.8
[2018-04-13 10:25] VITALS: BP 110/64; PULSE 79; RESP 16; TEMP 37.4; BMI 23.5
--- NOTE | 2018-04-13 20:49 | PCM.WC.PN ---
Type of Wound Date of Service: 04/13/18 Chief Complaint: Open surgical hematoma wound left upper gluteal/lower back area with extension to the hip. History of Wound: Surgery 03/31/18 - Incision and drainage and evacuation hematoma left upper gluteal/lower back area with extension to hip. Wound care - VAC. Operative culture - none. Prealbumin from 03/31/18 was 23.0. Encourage nutritional supplementation with protein to help the healing process. CT Pelvis from 03/30/18 - Soft tissues swelling of the subcutaneous tissues of the left buttock with 8.8 x 7.2 x 4.2 cm fluid collection consistent with hematoma. Today she denies fever. Her appetite is good. Progress of Wound: Improved. - Physical Exam Vital Signs Temp Pulse Resp BP 99.3 F H 79 16 110/64 04/13/18 10:25 04/13/18 10:25 04/13/18 10:25 04/13/18 10:25 Wound Measurements and Assessment WC - Nurse 1 - General Ulcer Measurement Start: 04/13/18 10:09 Freq: Status: Active Protocol: Activity Type Activity Date Activity User E-Sign Co-Sign Detail Recorded Client Recorded Date Recorded By Document 04/13/18 10:25 AN [id number] 04/13/18 11:12 AN 04/13/18 10:25 Wound Center Nurse 1 [Ulcer Assessment] #1 Left lower back and gluteal -Current Size (cm) - Length 2.2 -Current Size (cm) - Width 9.0 -Current Size (cm) - Depth 2.5 -Total Square Cm 19.80 -Date of Last Picture (Recall this 04/13/18 field) -Photo Taken Yes -Epithelialization None Present -Tunneling No -Undermining/Tunneling No -Circular Undermining No -Classification - Thickness Full Thickness with Exposed Support Structure -Exudate Amt Small -Exudate Type Sanguineous -Wound Margin Distinct, Outline Attached -Granulation Amt Large (67-100%) -Granulation Quality Red -Necrosis Amt Small (1-33%) -Necrotic Tissue Type Adherent Slough -Structure Exposed Fascia -Texture (Angella-wound Skin Appearance) Assessed -Moisture (Angella-wound Skin Appearance Assessed ) -Color (Angella-wound Skin Appearance) Ecchymosis -Temperature (Angella-wound Skin No Abnormality Appearance) (Pt Warm) -Tenderness on Palpation (Angella-wound Yes Skin Appearance) -Ulcer Cleansing Rinsed/ Irrigated with Saline -Foul Odor after Cleansing No -Anesthetic Used 4% Lidocaine Solution RAQUEL - Nurse 2 - General Ulcer CM Notes Start: 04/13/18 10:09 Freq: Status: Active Protocol: Activity Type Activity Date Activity User E-Sign Co-Sign Detail Recorded Client Recorded Date Recorded By Document 04/13/18 11:32 MOIRA [id number] 04/13/18 11:33 MOIRA 04/13/18 11:32 Wound Center Nurse 2 [Procedure/Treatment] -Time 11:32 -Correct Patient Yes -Correct Side, Site, Position Yes -Correct Procedure Yes -Procedure Performed Yes -Type of Procedure Debridement -Clinical Debridement Subcutaneous -Post Debridement Size (cm) - Length 2.2 -Post Debridement Size (cm) - Width 9.2 -Post Debridement Size (cm) - Depth 2.5 -Total Square Cm 20.24 -Wound/Ulcer Outcome Not Healed -Ulcer Cleansing Rinsed/ Irrigated with Saline -Foul Odor after Cleansing No -Bioengineered Tissue No -Bleeding Controlled with Pressure -Offloading No -Treatment Response Procedure Tolerated Well [See Physician Procedure note for Specifics] Pain Scale: 0-10 Numeric [Pain] -Is Patient Pain Free? Yes Debridement Note Post-Debridement Measurements/Treatment RAQUEL - Nurse 2 - General Ulcer CM Notes Start: 04/13/18 10:09 Freq: Status: Active Protocol: Activity Type Activity Date Activity User E-Sign Co-Sign Detail Recorded Client Recorded Date Recorded By Document 04/13/18 11:32 [id number] 04/13/18 11:33 04/13/18 11:32 Wound Center Nurse 2 #1 Left lower back and gluteal -Time 11:32 -Correct Patient Yes -Correct Side, Site, Position Yes -Correct Procedure Yes -Procedure Performed Yes -Type of Procedure Debridement -Clinical Debridement Subcutaneous -Post Debridement Size (cm) - Length 2.2 -Post Debridement Size (cm) - Width 9.2 -Post Debridement Size (cm) - Depth 2.5 -Total Square Cm 20.24 -Wound/Ulcer Outcome Not Healed -Ulcer Cleansing Rinsed/ Irrigated with Saline -Foul Odor after Cleansing No -Bioengineered Tissue No -Bleeding Controlled with Pressure -Offloading No -Treatment Response Procedure Tolerated Well Pain Scale: 0-10 Numeric Is Patient Pain Free? Yes Wound debrided: #1 Left lower back and gluteal area. Laterality: Left Wound Grade/Stage: 3. Type of Debridement: Excisional debridement Anesthesia Used: 4% Lidocaine Solution Depth: Down to and including healthy tissue, in the subcutaneous layer Percentage of wound debrided: 100 Instrument Used: 7mm curette Tissue Removed: subcutaneous tissue. Severity: Fat Layer Exposed Amount of bleeding with debridement: Mild Bleeding Controlled with: Pressure Patient tolerated procedure well Assessment/Plan Assessment: 1. Open surgical hematoma wound left upper gluteal/lower back area with extension to the hip. 2. Traumatic hematoma left upper gluteal/lower back area with extension to hip and with bruising and ecchymosis. 3. s/p incision and drainage and evacuation hematoma left upper gluteal/lower back area with extension to hip. Plan: Will hold the VAC as a holiday and will begin Silver dressing changes daily. We are changing because she is anxious to get back to work. Will have return to work this Friday on 04/15/18 but only work 4 hours per day initially. Renewed her Percocet for pain (30 tabs). She knows not to take Percocet before she goes to work. Prealbumin from 03/31/18 was 23.0. Encourage nutritional supplementation wtih protein to help the healing process. Followup one week.
[2018-04-20 09:22] VITALS: BP 127/72; PULSE 82; RESP 18; TEMP 36.7; BMI 23.5
--- NOTE | 2018-04-20 17:24 | PCM.WC.PN ---
Type of Wound Date of Service: 04/20/18 Chief Complaint: Open surgical hematoma wound left upper gluteal/lower back area with extension to the hip. History of Wound: Surgery 03/31/18 - Incision and drainage and evacuation hematoma left upper gluteal/lower back area with extension to hip. Wound care - Silver. Operative culture - none. Prealbumin from 03/31/18 was 23.0. Encourage nutritional supplementation with protein to help the healing process. CT Pelvis from 03/30/18 - Soft tissues swelling of the subcutaneous tissues of the left buttock with 8.8 x 7.2 x 4.2 cm fluid collection consistent with hematoma. Today she denies fever. Her appetite is good. Progress of Wound: Improved. - Physical Exam Vital Signs Temp Pulse Resp BP 98.0 F 82 18 127/72 H 04/20/18 09:22 04/20/18 09:22 04/20/18 09:22 04/20/18 09:22 Wound Measurements and Assessment WC - Nurse 1 - General Ulcer Measurement Start: 04/13/18 10:09 Freq: Status: Active Protocol: Activity Type Activity Date Activity User E-Sign Co-Sign Detail Recorded Client Recorded Date Recorded By Document 04/20/18 09:22 AN [id number] 04/20/18 09:34 AN 04/20/18 09:22 Wound Center Nurse 1 [Ulcer Assessment] #1 Left lower back and gluteal -Current Size (cm) - Length 1.8 -Current Size (cm) - Width 8.6 -Current Size (cm) - Depth 1.8 -Total Square Cm 15.48 -Photo Taken No -Epithelialization None Present -Tunneling No -Undermining/Tunneling No -Circular Undermining No -Classification - Thickness Full Thickness without Exposed Support Structure -Exudate Amt Medium -Exudate Type Serosanguineous -Wound Margin Distinct, Outline Attached -Granulation Amt Large (67-100%) -Granulation Quality Red -Slough/Fibrin Yes -Necrosis Amt Small (1-33%) -Necrotic Tissue Type Adherent Slough -Structure Exposed Fat Layer Exposed -Texture (Angella-wound Skin Appearance) Assessed Scarring -Moisture (Angella-wound Skin Appearance Assessed ) -Color (Angella-wound Skin Appearance) Assessed -Temperature (Angella-wound Skin No Abnormality Appearance) (Pt Warm) -Tenderness on Palpation (Angella-wound No Skin Appearance) -Ulcer Cleansing Rinsed/ Irrigated with Saline -Foul Odor after Cleansing No -Anesthetic Used 4% Lidocaine Solution - Nurse 2 - General Ulcer CM Notes Start: 04/13/18 10:09 Freq: Status: Active Protocol: Activity Type Activity Date Activity User E-Sign Co-Sign Detail Recorded Client Recorded Date Recorded By Document 04/20/18 09:42 [id number] 04/20/18 09:43 04/20/18 09:42 Wound Center Nurse 2 [Procedure/Treatment] -Time 09:42 -Correct Patient Yes -Correct Side, Site, Position Yes -Correct Procedure Yes -Procedure Performed Yes -Type of Procedure Debridement -Clinical Debridement Subcutaneous -Post Debridement Size (cm) - Length 1.8 -Post Debridement Size (cm) - Width 8.7 -Post Debridement Size (cm) - Depth 1.8 -Total Square Cm 15.66 -Wound/Ulcer Outcome Not Healed -Ulcer Cleansing Rinsed/ Irrigated with Saline -Foul Odor after Cleansing No -Bioengineered Tissue No -Bleeding Controlled with Pressure -Offloading No -Treatment Response Procedure Tolerated Well [See Physician Procedure note for Specifics] Pain Scale: 0-10 Numeric [Pain] -Is Patient Pain Free? Yes Debridement Note Post-Debridement Measurements/Treatment - Nurse 2 - General Ulcer CM Notes Start: 04/13/18 10:09 Freq: Status: Active Protocol: Activity Type Activity Date Activity User E-Sign Co-Sign Detail Recorded Client Recorded Date Recorded By Document 04/13/18 11:32 [id number] 04/13/18 11:33 Document 04/20/18 09:42 [id number] 04/20/18 09:43 04/13/18 04/20/18 11:32 09:42 Wound Center Nurse 2 #1 Left lower back and gluteal -Time 11:32 09:42 -Correct Patient Yes Yes -Correct Side, Site, Position Yes Yes -Correct Procedure Yes Yes -Procedure Performed Yes Yes -Type of Procedure Debridement Debridement -Clinical Debridement Subcutaneous Subcutaneous -Post Debridement Size (cm) - Length 2.2 1.8 -Post Debridement Size (cm) - Width 9.2 8.7 -Post Debridement Size (cm) - Depth 2.5 1.8 -Total Square Cm 20.24 15.66 -Wound/Ulcer Outcome Not Healed Not Healed -Ulcer Cleansing Rinsed/ Rinsed/ Irrigated with Irrigated with Saline Saline -Foul Odor after Cleansing No No -Bioengineered Tissue No No -Bleeding Controlled with Pressure Pressure -Offloading No No -Treatment Response Procedure Procedure Tolerated Well Tolerated Well Pain Scale: 0-10 Numeric Is Patient Pain Free? Yes Yes Wound debrided: #1 Left lower back and gluteal area. Laterality: Left Wound Grade/Stage: 3. Type of Debridement: Excisional debridement Anesthesia Used: 4% Lidocaine Solution Depth: Down to and including healthy tissue, in the subcutaneous layer Percentage of wound debrided: 100 Instrument Used: 5mm curette Tissue Removed: subcutaneous tissue. Severity: Fat Layer Exposed Amount of bleeding with debridement: Mild Bleeding Controlled with: Pressure Patient tolerated procedure well Assessment/Plan Assessment: 1. Open surgical hematoma wound left upper gluteal/lower back area with extension to the hip. 2. Traumatic hematoma left upper gluteal/lower back area with extension to hip and with bruising and ecchymosis. 3. s/p incision and drainage and evacuation hematoma left upper gluteal/lower back area with extension to hip. Plan: Continue Silver dressing changes daily. Will return the VAC. She is back to work at 4 hours/day and is tolerating it. She wishes to extend her work day back to 8 hours/day. Prealbumin from 03/31/18 was 23.0. Encourage nutritional supplementation wtih protein to help the healing process. Followup one week.
[2018-04-27 08:35] VITALS: BP 110/65; PULSE 83; RESP 18; TEMP 529.9; TEMP 985.9; BMI 23.5
--- NOTE | 2018-04-27 09:21 | PCM.WC.PN ---
(1) Open wound of left buttock Status: Acute Current Visit: Yes Code(s): S31.829A - Unspecified open wound of left buttock, initial encounter (2) Traumatic hematoma of buttock Status: Acute Current Visit: Yes Code(s): S30.0XXA - Contusion of lower back and pelvis, initial encounter Comment: left upper gluteal/lower back area with extension to the hip (3) Ulcerative colitis Status: Chronic Current Visit: Yes Code(s): K51.90 - Ulcerative colitis, unspecified, without complications Type of Wound Date of Service: 04/27/18 Chief Complaint: Open surgical hematoma wound left upper gluteal/lower back area with extension to the hip. History of Wound: Surgery 03/31/18 - Incision and drainage and evacuation hematoma left upper gluteal/lower back area with extension to hip. Wound care - Silver. Operative culture - none. Prealbumin from 03/31/18 was 23.0. Encourage nutritional supplementation with protein to help the healing process. CT Pelvis from 03/30/18 - Soft tissues swelling of the subcutaneous tissues of the left buttock with 8.8 x 7.2 x 4.2 cm fluid collection consistent with hematoma. Today she denies fever. Her appetite is good. Progress of Wound: Improved. - Physical Exam Vital Signs Temp Pulse Resp BP 985.9 F H 83 18 110/65 04/27/18 08:35 04/27/18 08:35 04/27/18 08:35 04/27/18 08:35 General: Alert, Oriented x3, Cooperative HEENT: Atraumatic Oral: Moist Mucosa Lungs: Normal air movement Cardiovascular: Regular rate Extremities: No edema, Capillary Refill Less than 3 Seconds Skin: Ulcer/ Wound - Wound to left gluteal area Wound Measurements and Assessment WC - Nurse 1 - General Ulcer Measurement Start: 04/13/18 10:09 Freq: Status: Active Protocol: Activity Type Activity Date Activity User E-Sign Co-Sign Detail Recorded Client Recorded Date Recorded By Document 04/27/18 08:35 AN [id number] 04/27/18 08:52 AN 04/27/18 08:35 Wound Center Nurse 1 [Ulcer Assessment] #1 Left lower back and gluteal -Current Size (cm) - Length 1.0 -Current Size (cm) - Width 8.0 -Current Size (cm) - Depth 0.8 -Total Square Cm 8.00 -Photo Taken No -Epithelialization None Present -Tunneling No -Undermining/Tunneling No -Classification - Thickness Full Thickness without Exposed Support Structure -Exudate Amt Small -Exudate Type Serosanguineous -Wound Margin Distinct, Outline Attached -Granulation Amt Large (67-100%) -Granulation Quality Red -Slough/Fibrin No -Necrosis Amt None Present (0 %) -Structure Exposed None/Limited to Skin Breakdown -Texture (Angella-wound Skin Appearance) Assessed Scarring -Moisture (Angella-wound Skin Appearance Assessed ) -Color (Angella-wound Skin Appearance) Assessed Ecchymosis -Temperature (Angella-wound Skin No Abnormality Appearance) (Pt Warm) -Tenderness on Palpation (Angella-wound Yes Skin Appearance) -Ulcer Cleansing Rinsed/ Irrigated with Saline -Foul Odor after Cleansing No -Anesthetic Used 4% Lidocaine Solution WC - Nurse 2 - General Ulcer CM Notes Start: 04/13/18 10:09 Freq: Status: Active Protocol: Activity Type Activity Date Activity User E-Sign Co-Sign Detail Recorded Client Recorded Date Recorded By Document 04/27/18 09:01 MOIRA [id number] 04/27/18 09:02 MOIRA 04/27/18 09:01 Wound Center Nurse 2 [Procedure/Treatment] -Time 09:01 -Correct Patient Yes -Correct Side, Site, Position Yes -Correct Procedure Yes -Procedure Performed Yes -Type of Procedure Debridement -Clinical Debridement Subcutaneous -Post Debridement Size (cm) - Length 8.0 -Post Debridement Size (cm) - Width 1.2 -Post Debridement Size (cm) - Depth 1.2 -Total Square Cm 9.60 -Wound/Ulcer Outcome Not Healed -Ulcer Cleansing Rinsed/ Irrigated with Saline -Foul Odor after Cleansing No -Bioengineered Tissue No -Bleeding Controlled with Pressure -Offloading No -Treatment Response Procedure Tolerated Well [See Physician Procedure note for Specifics] Pain Scale: 0-10 Numeric [Pain] -Is Patient Pain Free? Yes Musculoskeletal: No Tenderness to Palpation of Joints or Extremities Neurological: Neuro grossly intact Psych/Mental Status: Normal Affect, Appropriate Debridement Note Post-Debridement Measurements/Treatment WC - Nurse 2 - General Ulcer CM Notes Start: 04/13/18 10:09 Freq: Status: Active Protocol: Activity Type Activity Date Activity User E-Sign Co-Sign Detail Recorded Client Recorded Date Recorded By Document 04/13/18 11:32 [id number] 04/13/18 11:33 Document 04/20/18 09:42 [id number] 04/20/18 09:43 Document 04/27/18 09:01 [id number] 04/27/18 09:02 04/13/18 04/20/18 04/27/18 11:32 09:42 09:01 Wound Center Nurse 2 #1 Left lower back and gluteal -Time 11:32 09:42 09:01 -Correct Patient Yes Yes Yes -Correct Side, Site, Position Yes Yes Yes -Correct Procedure Yes Yes Yes -Procedure Performed Yes Yes Yes -Type of Procedure Debridement Debridement Debridement -Clinical Debridement Subcutaneous Subcutaneous Subcutaneous -Post Debridement Size (cm) - Length 2.2 1.8 8.0 -Post Debridement Size (cm) - Width 9.2 8.7 1.2 -Post Debridement Size (cm) - Depth 2.5 1.8 1.2 -Total Square Cm 20.24 15.66 9.60 -Wound/Ulcer Outcome Not Healed Not Healed Not Healed -Ulcer Cleansing Rinsed/ Rinsed/ Rinsed/ Irrigated with Irrigated with Irrigated with Saline Saline Saline -Foul Odor after Cleansing No No No -Bioengineered Tissue No No No -Bleeding Controlled with Pressure Pressure Pressure -Offloading No No No -Treatment Response Procedure Procedure Procedure Tolerated Well Tolerated Well Tolerated Well Pain Scale: 0-10 Numeric Is Patient Pain Free? Yes Yes Yes Wound debrided: Left gluteal Laterality: Left Type of Debridement: Excisional debridement Anesthesia Used: 4% Lidocaine Solution Depth: Down to and including healthy tissue, in the subcutaneous layer Percentage of wound debrided: 100 Instrument Used: 5mm curette Tissue Removed: Subcutaneous tissue and slough Severity: Limited To Skin Breakdown Amount of bleeding with debridement: Mild Bleeding Controlled with: Pressure, Compression and gauze Patient tolerated procedure well Assessment/Plan Active Problems Open wound of left buttock (Acute) Traumatic hematoma of buttock (Acute) left upper gluteal/lower back area with extension to the hip Ulcerative colitis (Chronic) Assessment: 1. Open surgical hematoma wound left upper gluteal/lower back area with extension to the hip. 2. Traumatic hematoma left upper gluteal/lower back area with extension to hip and with bruising and ecchymosis. 3. s/p incision and drainage and evacuation hematoma left upper gluteal/lower back area with extension to hip. Plan: Continue Silver dressing changes daily. Will return the VAC. She is back to work and is tolerating it. Prealbumin from 03/31/18 was 23.0. Encourage nutritional supplementation wtih protein to help the healing process. Followup one week. Code Visit [id number]
--- NOTE | 2018-04-27 09:24 | PN.PCM_ITS ---
(1) Open wound of left buttock Status: Acute Current Visit: Yes Code(s): S31.829A - Unspecified open wound of left buttock, initial encounter (2) Traumatic hematoma of buttock Status: Acute Current Visit: Yes Code(s): S30.0XXA - Contusion of lower back and pelvis, initial encounter Comment: left upper gluteal/lower back area with extension to the hip (3) Ulcerative colitis Status: Chronic Current Visit: Yes Code(s): K51.90 - Ulcerative colitis, unspecified, without complications Type of Wound Date of Service: 04/27/18 Chief Complaint: Open surgical hematoma wound left upper gluteal/lower back area with extension to the hip. History of Wound: Surgery 03/31/18 - Incision and drainage and evacuation hematoma left upper gluteal/lower back area with extension to hip. Wound care - Silver. Operative culture - none. Prealbumin from 03/31/18 was 23.0. Encourage nutritional supplementation with protein to help the healing process. CT Pelvis from 03/30/18 - Soft tissues swelling of the subcutaneous tissues of the left buttock with 8.8 x 7.2 x 4.2 cm fluid collection consistent with hematoma. Today she denies fever. Her appetite is good. Progress of Wound: Improved. - Physical Exam Vital Signs Temp Pulse Resp BP 985.9 F H 83 18 110/65 04/27/18 08:35 04/27/18 08:35 04/27/18 08:35 04/27/18 08:35 General: Alert, Oriented x3, Cooperative HEENT: Atraumatic Oral: Moist Mucosa Lungs: Normal air movement Cardiovascular: Regular rate Extremities: No edema, Capillary Refill Less than 3 Seconds Skin: Ulcer/ Wound - Wound to left gluteal area Wound Measurements and Assessment WC - Nurse 1 - General Ulcer Measurement Start: 04/13/18 10:09 Freq: Status: Active Protocol: Activity Type Activity Date Activity User E-Sign Co-Sign Detail Recorded Client Recorded Date Recorded By Document 04/27/18 08:35 AN [id number] 04/27/18 08:52 AN 04/27/18 08:35 Wound Center Nurse 1 [Ulcer Assessment] #1 Left lower back and gluteal -Current Size (cm) - Length 1.0 -Current Size (cm) - Width 8.0 -Current Size (cm) - Depth 0.8 -Total Square Cm 8.00 -Photo Taken No -Epithelialization None Present -Tunneling No -Undermining/Tunneling No -Classification - Thickness Full Thickness without Exposed Support Structure -Exudate Amt Small -Exudate Type Serosanguineous -Wound Margin Distinct, Outline Attached -Granulation Amt Large (67-100%) -Granulation Quality Red -Slough/Fibrin No -Necrosis Amt None Present (0 %) -Structure Exposed None/Limited to Skin Breakdown -Texture (Angella-wound Skin Appearance) Assessed Scarring -Moisture (Angella-wound Skin Appearance Assessed ) -Color (Angella-wound Skin Appearance) Assessed Ecchymosis -Temperature (Angella-wound Skin No Abnormality Appearance) (Pt Warm) -Tenderness on Palpation (Angella-wound Yes Skin Appearance) -Ulcer Cleansing Rinsed/ Irrigated with Saline -Foul Odor after Cleansing No -Anesthetic Used 4% Lidocaine Solution WC - Nurse 2 - General Ulcer CM Notes Start: 04/13/18 10:09 Freq: Status: Active Protocol: Activity Type Activity Date Activity User E-Sign Co-Sign Detail Recorded Client Recorded Date Recorded By Document 04/27/18 09:01 MOIRA [id number] 04/27/18 09:02 MOIRA 04/27/18 09:01 Wound Center Nurse 2 [Procedure/Treatment] -Time 09:01 -Correct Patient Yes -Correct Side, Site, Position Yes -Correct Procedure Yes -Procedure Performed Yes -Type of Procedure Debridement -Clinical Debridement Subcutaneous -Post Debridement Size (cm) - Length 8.0 -Post Debridement Size (cm) - Width 1.2 -Post Debridement Size (cm) - Depth 1.2 -Total Square Cm 9.60 -Wound/Ulcer Outcome Not Healed -Ulcer Cleansing Rinsed/ Irrigated with Saline -Foul Odor after Cleansing No -Bioengineered Tissue No -Bleeding Controlled with Pressure -Offloading No -Treatment Response Procedure Tolerated Well [See Physician Procedure note for Specifics] Pain Scale: 0-10 Numeric [Pain] -Is Patient Pain Free? Yes Musculoskeletal: No Tenderness to Palpation of Joints or Extremities Neurological: Neuro grossly intact Psych/Mental Status: Normal Affect, Appropriate Debridement Note Post-Debridement Measurements/Treatment WC - Nurse 2 - General Ulcer CM Notes Start: 04/13/18 10:09 Freq: Status: Active Protocol: Activity Type Activity Date Activity User E-Sign Co-Sign Detail Recorded Client Recorded Date Recorded By Document 04/13/18 11:32 [id number] 04/13/18 11:33 Document 04/20/18 09:42 [id number] 04/20/18 09:43 Document 04/27/18 09:01 [id number] 04/27/18 09:02 04/13/18 04/20/18 04/27/18 11:32 09:42 09:01 Wound Center Nurse 2 #1 Left lower back and gluteal -Time 11:32 09:42 09:01 -Correct Patient Yes Yes Yes -Correct Side, Site, Position Yes Yes Yes -Correct Procedure Yes Yes Yes -Procedure Performed Yes Yes Yes -Type of Procedure Debridement Debridement Debridement -Clinical Debridement Subcutaneous Subcutaneous Subcutaneous -Post Debridement Size (cm) - Length 2.2 1.8 8.0 -Post Debridement Size (cm) - Width 9.2 8.7 1.2 -Post Debridement Size (cm) - Depth 2.5 1.8 1.2 -Total Square Cm 20.24 15.66 9.60 -Wound/Ulcer Outcome Not Healed Not Healed Not Healed -Ulcer Cleansing Rinsed/ Rinsed/ Rinsed/ Irrigated with Irrigated with Irrigated with Saline Saline Saline -Foul Odor after Cleansing No No No -Bioengineered Tissue No No No -Bleeding Controlled with Pressure Pressure Pressure -Offloading No No No -Treatment Response Procedure Procedure Procedure Tolerated Well Tolerated Well Tolerated Well Pain Scale: 0-10 Numeric Is Patient Pain Free? Yes Yes Yes Wound debrided: Left gluteal Laterality: Left Type of Debridement: Excisional debridement Anesthesia Used: 4% Lidocaine Solution Depth: Down to and including healthy tissue, in the subcutaneous layer Percentage of wound debrided: 100 Instrument Used: 5mm curette Tissue Removed: Subcutaneous tissue and slough Severity: Limited To Skin Breakdown Amount of bleeding with debridement: Mild Bleeding Controlled with: Pressure, Compression and gauze Patient tolerated procedure well Assessment/Plan Active Problems Open wound of left buttock (Acute) Traumatic hematoma of buttock (Acute) left upper gluteal/lower back area with extension to the hip Ulcerative colitis (Chronic) Assessment: 1. Open surgical hematoma wound left upper gluteal/lower back area with extension to the hip. 2. Traumatic hematoma left upper gluteal/lower back area with extension to hip and with bruising and ecchymosis. 3. s/p incision and drainage and evacuation hematoma left upper gluteal/lower back area with extension to hip. Plan: Continue Silver dressing changes daily. Will return the VAC. She is back to work and is tolerating it. Prealbumin from 03/31/18 was 23.0. Encourage nutritional supplementation wtih protein to help the healing process. Followup one week. Code Visit 65102
== END 2018-04-30 23:59 ==
LOC: WC 08:30
PROVIDERS: Family Provider Family Medicine; PCP Family Medicine; Visit Provider Surgery
DX: L76.32 Postprocedural hematoma of skin and subcutaneous tissue following other procedure (principal); Y83.9 Surgical procedure, unspecified as the cause of abnormal reaction of the patient, or of later complication, without mention of misadventure at the time of the procedure; M79.89 Other specified soft tissue disorders; K51.90 Ulcerative colitis, unspecified, without complications; S30.0XXA Contusion of lower back and pelvis, initial encounter
CPT/HCPCS: 11042; 11045; 99213; G0463

== ENCOUNTER 2018-05-25 08:30 | Outpatient (RCR) | payer OTHER, SELFPAY ==
[2018-05-01 01:40] VITALS: BP 110/65; PULSE 83; RESP 18; TEMP 529.9; TEMP 985.9
[2018-05-12 15:13] VITALS: BP 124/63; PULSE 70; RESP 18; TEMP 37.3; BMI 23.5
--- NOTE | 2018-05-12 15:53 | PCM.WC.PN ---
(1) Open wound of left buttock Status: Acute Current Visit: Yes Code(s): S31.829A - Unspecified open wound of left buttock, initial encounter (2) Traumatic hematoma of buttock Status: Acute Current Visit: Yes Code(s): S30.0XXA - Contusion of lower back and pelvis, initial encounter Comment: left upper gluteal/lower back area with extension to the hip Type of Wound Date of Service: 05/12/18 Chief Complaint: Open surgical hematoma wound left upper gluteal/lower back area with extension to the hip. History of Wound: Surgery 03/31/18 - Incision and drainage and evacuation hematoma left upper gluteal/lower back area with extension to hip. Wound care - Will switch her to Dermasyn-AG gel since she is having a difficult time with silver staying in since it is shallow. Operative culture - none. Prealbumin from 03/31/18 was 23.0. Encourage nutritional supplementation with protein to help the healing process. CT Pelvis from 03/30/18 - Soft tissues swelling of the subcutaneous tissues of the left buttock with 8.8 x 7.2 x 4.2 cm fluid collection consistent with hematoma. Today she denies fever. Her appetite is good. Progress of Wound: Improved. - Physical Exam Vital Signs Temp Pulse Resp BP 99.1 F 70 18 124/63 H 05/12/18 15:13 05/12/18 15:13 05/12/18 15:13 05/12/18 15:13 General: Alert, Oriented x3, Cooperative HEENT: Atraumatic Oral: Moist Mucosa Lungs: Normal air movement Cardiovascular: Regular rate Extremities: No edema, Capillary Refill Less than 3 Seconds Skin: Ulcer/ Wound - Left buttock opened wound Wound Measurements and Assessment WC - Nurse 1 - General Ulcer Measurement Start: 05/12/18 15:13 Freq: Status: Active Protocol: Activity Type Activity Date Activity User E-Sign Co-Sign Detail Recorded Client Recorded Date Recorded By Document 05/12/18 15:13 DL [id number] 05/12/18 15:20 DL 05/12/18 15:13 Wound Center Nurse 1 [Ulcer Assessment] #1 Left lower back and gluteal -Current Size (cm) - Length 0.5 -Current Size (cm) - Width 4.5 -Current Size (cm) - Depth 0.4 -Total Square Cm 2.25 -Photo Taken No -Exudate Amt Small -Exudate Type Serosanguineous -Wound Margin Distinct, Outline Attached -Granulation Amt Large (67-100%) -Granulation Quality Red -Necrosis Amt Small (1-33%) -Necrotic Tissue Type Adherent Slough -Structure Exposed N/A -Texture (Angella-wound Skin Appearance) Scarring -Moisture (Angella-wound Skin Appearance No Abnormality ) -Color (Angella-wound Skin Appearance) No Abnormality -Temperature (Angella-wound Skin No Abnormality Appearance) (Pt Warm) -Tenderness on Palpation (Angella-wound No Skin Appearance) -Ulcer Cleansing Wound Cleanser -Foul Odor after Cleansing No -Anesthetic Used 5% Lidocaine Gel WC - Nurse 2 - General Ulcer CM Notes Start: 05/12/18 15:13 Freq: Status: Active Protocol: Activity Type Activity Date Activity User E-Sign Co-Sign Detail Recorded Client Recorded Date Recorded By Document 05/12/18 15:22 DL [id number] 05/12/18 15:31 DL 05/12/18 15:22 Wound Center Nurse 2 [Procedure/Treatment] -Time 15:23 -Correct Patient Yes -Correct Side, Site, Position Yes -Correct Procedure Yes -Procedure Performed Yes -Type of Procedure Debridement -Clinical Debridement Subcutaneous -Post Debridement Size (cm) - Length 4.7 -Post Debridement Size (cm) - Width 0.5 -Post Debridement Size (cm) - Depth 0.4 -Total Square Cm 2.35 -Wound/Ulcer Outcome Not Healed -Ulcer Cleansing Rinsed/ Irrigated with Saline -Foul Odor after Cleansing No [See Physician Procedure note for Specifics] Pain Scale: 0-10 Numeric [Pain] -Is Patient Pain Free? Yes Musculoskeletal: No Tenderness to Palpation of Joints or Extremities Neurological: Neuro grossly intact Psych/Mental Status: Normal Affect, Appropriate Debridement Note Post-Debridement Measurements/Treatment WC - Nurse 2 - General Ulcer CM Notes Start: 05/12/18 15:13 Freq: Status: Active Protocol: Activity Type Activity Date Activity User E-Sign Co-Sign Detail Recorded Client Recorded Date Recorded By Document 05/12/18 15:22 DL [id number] 05/12/18 15:31 DL 05/12/18 15:22 Wound Center Nurse 2 #1 Left lower back and gluteal -Time 15:23 -Correct Patient Yes -Correct Side, Site, Position Yes -Correct Procedure Yes -Procedure Performed Yes -Type of Procedure Debridement -Clinical Debridement Subcutaneous -Post Debridement Size (cm) - Length 4.7 -Post Debridement Size (cm) - Width 0.5 -Post Debridement Size (cm) - Depth 0.4 -Total Square Cm 2.35 -Wound/Ulcer Outcome Not Healed -Ulcer Cleansing Rinsed/ Irrigated with Saline -Foul Odor after Cleansing No Pain Scale: 0-10 Numeric Is Patient Pain Free? Yes Wound debrided: left buttocks Type of Debridement: Excisional debridement Anesthesia Used: 5% Lidocaine Gel Depth: Down to and including healthy tissue, in the subcutaneous layer Percentage of wound debrided: 100 Instrument Used: 3mm curette Tissue Removed: Subcutaneous tissue and slough Severity: Limited To Skin Breakdown Amount of bleeding with debridement: Mild Bleeding Controlled with: Pressure Patient tolerated procedure well Assessment/Plan Active Problems Open wound of left buttock (Acute) Traumatic hematoma of buttock (Acute) left upper gluteal/lower back area with extension to the hip Assessment: 1. Open surgical hematoma wound left upper gluteal/lower back area with extension to the hip. 2. Traumatic hematoma left upper gluteal/lower back area with extension to hip and with bruising and ecchymosis. 3. s/p incision and drainage and evacuation hematoma left upper gluteal/lower back area with extension to hip. Plan: Change dressing to Dermasyn/AG gel daily, top with gauze daily. She is back to work and is tolerating it. Prealbumin from 03/31/18 was 23.0. Encourage nutritional supplementation wtih protein to help the healing process. Followup one week with Dr. York in one week to evaluate the wound. Code Visit [id number]: [id number] Berenice subq tissue 20 sq cm/<
[2018-05-18 11:53] VITALS: BP 145/73; PULSE 72; RESP 18; TEMP 36.9; BMI 23.5
--- NOTE | 2018-05-18 13:14 | PN.PCM_ITS ---
Type of Wound Date of Service: 05/18/18 Chief Complaint: Nonhealing hematoma ulcer left upper gluteal/lower back area with extension to the hip. History of Wound: Surgery 03/31/18 - Incision and drainage and evacuation hematoma left upper gluteal/lower back area with extension to hip. Wound care - Silver gel. Operative culture - none. Prealbumin from 03/31/18 was 23.0. Encourage nutritional supplementation with protein to help the healing process. CT Pelvis from 03/30/18 - Soft tissues swelling of the subcutaneous tissues of the left buttock with 8.8 x 7.2 x 4.2 cm fluid collection consistent with hematoma. Today she denies fever. Her appetite is good. She is back to work and doing ok. Progress of Wound: Improved. - Physical Exam Vital Signs Temp Pulse Resp BP 98.4 F 72 18 145/73 H 05/18/18 11:53 05/18/18 11:53 05/18/18 11:53 05/18/18 11:53 Wound Measurements and Assessment WC - Nurse 1 - General Ulcer Measurement Start: 05/12/18 15:13 Freq: Status: Active Protocol: Activity Type Activity Date Activity User E-Sign Co-Sign Detail Recorded Client Recorded Date Recorded By Document 05/18/18 11:53 DL [id number] 05/18/18 11:57 DL 05/18/18 11:53 Wound Center Nurse 1 [Ulcer Assessment] #1 Left lower back and gluteal -Current Size (cm) - Length 0.3 -Current Size (cm) - Width 2.6 -Current Size (cm) - Depth 0.2 -Total Square Cm 0.78 -Photo Taken No -Exudate Amt Small -Exudate Type Serosanguineous -Wound Margin Distinct, Outline Attached -Granulation Amt Large (67-100%) -Granulation Quality Red -Necrosis Amt None Present (0 %) -Structure Exposed N/A -Texture (Angella-wound Skin Appearance) Scarring -Moisture (Angella-wound Skin Appearance No Abnormality ) -Color (Angella-wound Skin Appearance) No Abnormality -Temperature (Angella-wound Skin No Abnormality Appearance) (Pt Warm) -Tenderness on Palpation (Angella-wound No Skin Appearance) -Ulcer Cleansing Rinsed/ Irrigated with Saline -Foul Odor after Cleansing No -Anesthetic Used 4% Lidocaine Solution 5% Lidocaine Gel WC - Nurse 2 - General Ulcer CM Notes Start: 05/12/18 15:13 Freq: Status: Active Protocol: Activity Type Activity Date Activity User E-Sign Co-Sign Detail Recorded Client Recorded Date Recorded By Document 05/18/18 12:36 JF [id number] 05/18/18 12:38 05/18/18 12:36 Wound Center Nurse 2 [Procedure/Treatment] -Time 12:37 -Correct Patient Yes -Correct Side, Site, Position Yes -Correct Procedure Yes -Procedure Performed Yes -Type of Procedure Debridement -Clinical Debridement Subcutaneous -Post Debridement Size (cm) - Length 0.3 -Post Debridement Size (cm) - Width 2.7 -Post Debridement Size (cm) - Depth 0.2 -Total Square Cm 0.81 -Wound/Ulcer Outcome Not Healed -Ulcer Cleansing Rinsed/ Irrigated with Saline -Foul Odor after Cleansing No -Bioengineered Tissue No -Bleeding Controlled with Pressure -Offloading No -Treatment Response Procedure Tolerated Well [See Physician Procedure note for Specifics] Pain Scale: 0-10 Numeric [Pain] -Is Patient Pain Free? Yes Debridement Note Post-Debridement Measurements/Treatment - Nurse 2 - General Ulcer CM Notes Start: 05/12/18 15:13 Freq: Status: Active Protocol: Activity Type Activity Date Activity User E-Sign Co-Sign Detail Recorded Client Recorded Date Recorded By Document 05/12/18 15:22 MARTITA [id number] 05/12/18 15:31 DL Document 05/18/18 12:36 JF [id number] 05/18/18 12:38 05/12/18 05/18/18 15:22 12:36 Wound Center Nurse 2 #1 Left lower back and gluteal -Time 15:23 12:37 -Correct Patient Yes Yes -Correct Side, Site, Position Yes Yes -Correct Procedure Yes Yes -Procedure Performed Yes Yes -Type of Procedure Debridement Debridement -Clinical Debridement Subcutaneous Subcutaneous -Post Debridement Size (cm) - Length 4.7 0.3 -Post Debridement Size (cm) - Width 0.5 2.7 -Post Debridement Size (cm) - Depth 0.4 0.2 -Total Square Cm 2.35 0.81 -Wound/Ulcer Outcome Not Healed Not Healed -Ulcer Cleansing Rinsed/ Rinsed/ Irrigated with Irrigated with Saline Saline -Foul Odor after Cleansing No No -Bioengineered Tissue No -Bleeding Controlled with Pressure -Offloading No -Treatment Response Procedure Tolerated Well Pain Scale: 0-10 Numeric Is Patient Pain Free? Yes Yes Wound debrided: #1 Left lower back and gluteal area. Laterality: Left Wound Grade/Stage: 3. Type of Debridement: Excisional debridement Anesthesia Used: 4% Lidocaine Solution Depth: Down to and including healthy tissue, in the subcutaneous layer Percentage of wound debrided: 100 Instrument Used: 3mm curette Tissue Removed: subcutaneous tissue. Severity: Fat Layer Exposed Amount of bleeding with debridement: Mild Bleeding Controlled with: Pressure Patient tolerated procedure well Assessment/Plan Assessment: 1. Nonhealing hematoma ulcer left upper gluteal/lower back area with extension to the hip. 2. Traumatic hematoma left upper gluteal/lower back area with extension to hip and with bruising and ecchymosis. 3. s/p incision and drainage and evacuation hematoma left upper gluteal/lower back area with extension to hip. Plan: Continue Silver gel to the ulcer daily with gauze. She is back to work and doing ok with the extra hours. Prealbumin from 03/31/18 was 23.0. Encourage nutritional supplementation wtih protein to help the healing process. Disc ussed with the patient that there is some indentation forming in the scar. With continued healing and massage to help soften up the scar and help it to remodel as well as to improve lymphatic drainage, would like to wait several months before deciding on further surgery with surgical preparation of the hematoma indentation scar contour deformity with complex secondary wound closure. If we went to surgery now with debridement and closure, would have to make the ulcer bigger because of persistent swelling in the surrounding tissue. Patient is willing to wait especially with massage and time, to see if the scar may improve to the point that no additional surgery may be necessary. Followup one week. After healing has occurred and she is discharged from the Wound Center, then she can followup in my office in 3-6 months to further discuss possible scar revision if necessary. Patient voices understanding.
[2018-05-25 08:36] VITALS: BP 116/81; PULSE 72; RESP 16; TEMP 36.7; BMI 23.5
--- NOTE | 2018-05-25 09:30 | PCM.WC.PN ---
(1) Open wound of left buttock Status: Acute Current Visit: Yes Code(s): S31.829A - Unspecified open wound of left buttock, initial encounter (2) Traumatic hematoma of buttock Status: Acute Current Visit: Yes Code(s): S30.0XXA - Contusion of lower back and pelvis, initial encounter Comment: left upper gluteal/lower back area with extension to the hip Type of Wound Date of Service: 05/25/18 Chief Complaint: Nonhealing hematoma ulcer left upper gluteal/lower back area with extension to the hip. History of Wound: Surgery 03/31/18 - Incision and drainage and evacuation hematoma left upper gluteal/lower back area with extension to hip. Wound care - Silver gel. Operative culture - none. Prealbumin from 03/31/18 was 23.0. Encourage nutritional supplementation with protein to help the healing process. CT Pelvis from 03/30/18 - Soft tissues swelling of the subcutaneous tissues of the left buttock with 8.8 x 7.2 x 4.2 cm fluid collection consistent with hematoma. Today she denies fever. Her appetite is good. She is back to work and doing ok. Progress of Wound: Improved. - Physical Exam Vital Signs Temp Pulse Resp BP 98.0 F 72 16 116/81 H 05/25/18 08:36 05/25/18 08:36 05/25/18 08:36 05/25/18 08:36 General: Alert, Oriented x3, Cooperative HEENT: Atraumatic, PERRLA Oral: Moist Mucosa Lungs: Normal air movement Cardiovascular: Regular rate Extremities: No edema, Capillary Refill Less than 3 Seconds Skin: Ulcer/ Wound - Left buttocks Wound Measurements and Assessment WC - Nurse 1 - General Ulcer Measurement Start: 05/12/18 15:13 Freq: Status: Active Protocol: Activity Type Activity Date Activity User E-Sign Co-Sign Detail Recorded Client Recorded Date Recorded By Document 05/25/18 08:36 MW [id number] 05/25/18 08:46 MW 05/25/18 08:36 Wound Center Nurse 1 [Ulcer Assessment] #1 Left lower back and gluteal -Combined with other wound No -Current Size (cm) - Length 0.2 -Current Size (cm) - Width 1.3 -Current Size (cm) - Depth 0.2 -Total Square Cm 0.26 -Date of Last Picture (Recall this 05/25/18 field) -Photo Taken Yes -Epithelialization Medium 34-66% -Tunneling No -Undermining/Tunneling No -Circular Undermining No -Exudate Amt Small -Exudate Type Serosanguineous -Wound Margin Epibole -Granulation Amt Medium (34-66%) -Granulation Quality [place] -Slough/Fibrin Yes -Necrosis Amt Small (1-33%) -Necrotic Tissue Type Adherent Slough -Structure Exposed N/A -Texture (Angella-wound Skin Appearance) Assessed Scarring -Moisture (Angella-wound Skin Appearance No Abnormality ) Assessed -Color (Angella-wound Skin Appearance) No Abnormality Assessed -Temperature (Angella-wound Skin No Abnormality Appearance) (Pt Warm) -Tenderness on Palpation (Angella-wound No Skin Appearance) -Ulcer Cleansing soap and water -Foul Odor after Cleansing No -Anesthetic Used 4% Lidocaine Solution [Edema Assessment] -Lower Limb Edema Present No WC - Nurse 2 - General Ulcer CM Notes Start: 05/12/18 15:13 Freq: Status: Active Protocol: Activity Type Activity Date Activity User E-Sign Co-Sign Detail Recorded Client Recorded Date Recorded By Document 05/25/18 08:54 [id number] 05/25/18 08:57 05/25/18 08:54 Wound Center Nurse 2 [Procedure/Treatment] #1 Left lower back and gluteal -Time 08:55 -Correct Patient Yes -Correct Side, Site, Position Yes -Correct Procedure Yes -Procedure Performed Yes -Type of Procedure Debridement -Clinical Debridement Subcutaneous -Post Debridement Size (cm) - Length 1.0 -Post Debridement Size (cm) - Width 3.5 -Post Debridement Size (cm) - Depth 0.1 -Total Square Cm 3.50 -Wound/Ulcer Outcome Not Healed -Ulcer Cleansing Rinsed/ Irrigated with Saline -Foul Odor after Cleansing No -Bioengineered Tissue No -Bleeding Controlled with Pressure -Offloading No -Treatment Response Procedure Tolerated Well [See Physician Procedure note for Specifics] Pain Scale: 0-10 Numeric [Pain] -Is Patient Pain Free? Yes Musculoskeletal: No Tenderness to Palpation of Joints or Extremities Neurological: Neuro grossly intact Psych/Mental Status: Normal Affect, Appropriate Debridement Note Post-Debridement Measurements/Treatment WC - Nurse 2 - General Ulcer CM Notes Start: 05/12/18 15:13 Freq: Status: Active Protocol: Activity Type Activity Date Activity User E-Sign Co-Sign Detail Recorded Client Recorded Date Recorded By Document 05/12/18 15:22 DL [id number] 05/12/18 15:31 DL Document 05/18/18 12:36 [id number] 05/18/18 12:38 JF Document 05/25/18 08:54 [email or web address] 05/25/18 08:57 05/12/18 05/18/18 05/25/18 15:22 12:36 08:54 Wound Center Nurse 2 #1 Left lower back and gluteal -Time 15:23 12:37 08:55 -Correct Patient Yes Yes Yes -Correct Side, Site, Position Yes Yes Yes -Correct Procedure Yes Yes Yes -Procedure Performed Yes Yes Yes -Type of Procedure Debridement Debridement Debridement -Clinical Debridement Subcutaneous Subcutaneous Subcutaneous -Post Debridement Size (cm) - Length 4.7 0.3 1.0 -Post Debridement Size (cm) - Width 0.5 2.7 3.5 -Post Debridement Size (cm) - Depth 0.4 0.2 0.1 -Total Square Cm 2.35 0.81 3.50 -Wound/Ulcer Outcome Not Healed Not Healed Not Healed -Ulcer Cleansing Rinsed/ Rinsed/ Rinsed/ Irrigated with Irrigated with Irrigated with Saline Saline Saline -Foul Odor after Cleansing No No No -Bioengineered Tissue No No -Bleeding Controlled with Pressure Pressure -Offloading No No -Treatment Response Procedure Procedure Tolerated Well Tolerated Well Pain Scale: 0-10 Numeric Is Patient Pain Free? Yes Yes Yes Wound debrided: Left buttocks Laterality: Left Type of Debridement: Excisional debridement Anesthesia Used: 4% Lidocaine Solution Depth: Down to and including healthy tissue, in the subcutaneous layer Percentage of wound debrided: 100 Instrument Used: 3mm curette Tissue Removed: Subcutaneous tissue and slough Severity: Limited To Skin Breakdown Amount of bleeding with debridement: Mild Bleeding Controlled with: Pressure Patient tolerated procedure well Assessment/Plan Active Problems Open wound of left buttock (Acute) Traumatic hematoma of buttock (Acute) left upper gluteal/lower back area with extension to the hip Assessment: 1. Nonhealing hematoma ulcer left upper gluteal/lower back area with extension to the hip. 2. Traumatic hematoma left upper gluteal/lower back area with extension to hip and with bruising and ecchymosis. 3. s/p incision and drainage and evacuation hematoma left upper gluteal/lower back area with extension to hip. Plan: Continue Silver gel to the ulcer daily with gauze. She is back to work and doing ok with the extra hours. Prealbumin from 03/31/18 was 23.0. Encourage nutritional supplementation wtih protein to help the healing process. Discussed with the patient that there is some indentation forming in the scar. With continued healing and massage to help soften up the scar and help it to remodel as well as to improve lymphatic drainage, would like to wait several months before deciding on further surgery with surgical preparation of the hematoma indentation scar contour deformity with complex secondary wound closure. If we went to surgery now with debridement and closure, would have to make the ulcer bigger because of persistent swelling in the surrounding tissue. Patient is willing to wait especially with massage and time, to see if the scar may improve to the point that no additional surgery may be necessary. Followup one week. After healing has occurred and she is discharged from the Wound Center, then she can followup in my office in 3-6 months to further discuss possible scar revision if necessary. Patient voices understanding. Code Visit [id number]: [id number] Berenice subq tissue 20 sq cm/<
--- NOTE | 2018-05-25 09:34 | PN.PCM_ITS ---
(1) Open wound of left buttock Status: Acute Current Visit: Yes Code(s): S31.829A - Unspecified open wound of left buttock, initial encounter (2) Traumatic hematoma of buttock Status: Acute Current Visit: Yes Code(s): S30.0XXA - Contusion of lower back and pelvis, initial encounter Comment: left upper gluteal/lower back area with extension to the hip Type of Wound Date of Service: 05/25/18 Chief Complaint: Nonhealing hematoma ulcer left upper gluteal/lower back area with extension to the hip. History of Wound: Surgery 03/31/18 - Incision and drainage and evacuation hematoma left upper gluteal/lower back area with extension to hip. Wound care - Silver gel. Operative culture - none. Prealbumin from 03/31/18 was 23.0. Encourage nutritional supplementation with protein to help the healing process. CT Pelvis from 03/30/18 - Soft tissues swelling of the subcutaneous tissues of the left buttock with 8.8 x 7.2 x 4.2 cm fluid collection consistent with hematoma. Today she denies fever. Her appetite is good. She is back to work and doing ok. Progress of Wound: Improved. - Physical Exam Vital Signs Temp Pulse Resp BP 98.0 F 72 16 116/81 H 05/25/18 08:36 05/25/18 08:36 05/25/18 08:36 05/25/18 08:36 General: Alert, Oriented x3, Cooperative HEENT: Atraumatic, PERRLA Oral: Moist Mucosa Lungs: Normal air movement Cardiovascular: Regular rate Extremities: No edema, Capillary Refill Less than 3 Seconds Skin: Ulcer/ Wound - Left buttocks Wound Measurements and Assessment WC - Nurse 1 - General Ulcer Measurement Start: 05/12/18 15:13 Freq: Status: Active Protocol: Activity Type Activity Date Activity User E-Sign Co-Sign Detail Recorded Client Recorded Date Recorded By Document 05/25/18 08:36 MW [id number] 05/25/18 08:46 MW 05/25/18 08:36 Wound Center Nurse 1 [Ulcer Assessment] #1 Left lower back and gluteal -Combined with other wound No -Current Size (cm) - Length 0.2 -Current Size (cm) - Width 1.3 -Current Size (cm) - Depth 0.2 -Total Square Cm 0.26 -Date of Last Picture (Recall this 05/25/18 field) -Photo Taken Yes -Epithelialization Medium 34-66% -Tunneling No -Undermining/Tunneling No -Circular Undermining No -Exudate Amt Small -Exudate Type Serosanguineous -Wound Margin Epibole -Granulation Amt Medium (34-66%) -Granulation Quality [place] -Slough/Fibrin Yes -Necrosis Amt Small (1-33%) -Necrotic Tissue Type Adherent Slough -Structure Exposed N/A -Texture (Angella-wound Skin Appearance) Assessed Scarring -Moisture (Angella-wound Skin Appearance No Abnormality ) Assessed -Color (Angella-wound Skin Appearance) No Abnormality Assessed -Temperature (Angella-wound Skin No Abnormality Appearance) (Pt Warm) -Tenderness on Palpation (Angella-wound No Skin Appearance) -Ulcer Cleansing soap and water -Foul Odor after Cleansing No -Anesthetic Used 4% Lidocaine Solution [Edema Assessment] -Lower Limb Edema Present No WC - Nurse 2 - General Ulcer CM Notes Start: 05/12/18 15:13 Freq: Status: Active Protocol: Activity Type Activity Date Activity User E-Sign Co-Sign Detail Recorded Client Recorded Date Recorded By Document 05/25/18 08:54 [id number] 05/25/18 08:57 05/25/18 08:54 Wound Center Nurse 2 [Procedure/Treatment] #1 Left lower back and gluteal -Time 08:55 -Correct Patient Yes -Correct Side, Site, Position Yes -Correct Procedure Yes -Procedure Performed Yes -Type of Procedure Debridement -Clinical Debridement Subcutaneous -Post Debridement Size (cm) - Length 1.0 -Post Debridement Size (cm) - Width 3.5 -Post Debridement Size (cm) - Depth 0.1 -Total Square Cm 3.50 -Wound/Ulcer Outcome Not Healed -Ulcer Cleansing Rinsed/ Irrigated with Saline -Foul Odor after Cleansing No -Bioengineered Tissue No -Bleeding Controlled with Pressure -Offloading No -Treatment Response Procedure Tolerated Well [See Physician Procedure note for Specifics] Pain Scale: 0-10 Numeric [Pain] -Is Patient Pain Free? Yes Musculoskeletal: No Tenderness to Palpation of Joints or Extremities Neurological: Neuro grossly intact Psych/Mental Status: Normal Affect, Appropriate Debridement Note Post-Debridement Measurements/Treatment WC - Nurse 2 - General Ulcer CM Notes Start: 05/12/18 15:13 Freq: Status: Active Protocol: Activity Type Activity Date Activity User E-Sign Co-Sign Detail Recorded Client Recorded Date Recorded By Document 05/12/18 15:22 DL [id number] 05/12/18 15:31 DL Document 05/18/18 12:36 [id number] 05/18/18 12:38 JF Document 05/25/18 08:54 [id number] 05/25/18 08:57 05/12/18 05/18/18 05/25/18 15:22 12:36 08:54 Wound Center Nurse 2 #1 Left lower back and gluteal -Time 15:23 12:37 08:55 -Correct Patient Yes Yes Yes -Correct Side, Site, Position Yes Yes Yes -Correct Procedure Yes Yes Yes -Procedure Performed Yes Yes Yes -Type of Procedure Debridement Debridement Debridement -Clinical Debridement Subcutaneous Subcutaneous Subcutaneous -Post Debridement Size (cm) - Length 4.7 0.3 1.0 -Post Debridement Size (cm) - Width 0.5 2.7 3.5 -Post Debridement Size (cm) - Depth 0.4 0.2 0.1 -Total Square Cm 2.35 0.81 3.50 -Wound/Ulcer Outcome Not Healed Not Healed Not Healed -Ulcer Cleansing Rinsed/ Rinsed/ Rinsed/ Irrigated with Irrigated with Irrigated with Saline Saline Saline -Foul Odor after Cleansing No No No -Bioengineered Tissue No No -Bleeding Controlled with Pressure Pressure -Offloading No No -Treatment Response Procedure Procedure Tolerated Well Tolerated Well Pain Scale: 0-10 Numeric Is Patient Pain Free? Yes Yes Yes Wound debrided: Left buttocks Laterality: Left Type of Debridement: Excisional debridement Anesthesia Used: 4% Lidocaine Solution Depth: Down to and including healthy tissue, in the subcutaneous layer Percentage of wound debrided: 100 Instrument Used: 3mm curette Tissue Removed: Subcutaneous tissue and slough Severity: Limited To Skin Breakdown Amount of bleeding with debridement: Mild Bleeding Controlled with: Pressure Patient tolerated procedure well Assessment/Plan Active Problems Open wound of left buttock (Acute) Traumatic hematoma of buttock (Acute) left upper gluteal/lower back area with extension to the hip Assessment: 1. Nonhealing hematoma ulcer left upper gluteal/lower back area with extension to the hip. 2. Traumatic hematoma left upper gluteal/lower back area with extension to hip and with bruising and ecchymosis. 3. s/p incision and drainage and evacuation hematoma left upper gluteal/lower back area with ex tension to hip. Plan: Continue Silver gel to the ulcer daily with gauze. She is back to work and doing ok with the extra hours. Prealbumin from 03/31/18 was 23.0. Encourage nutritional supplementation wtih protein to help the healing process. Discussed with the patient that there is some indentation forming in the scar. With continued healing and massage to help soften up the scar and help it to remodel as well as to improve lymphatic drainage, would like to wait several months before deciding on further surgery with surgical preparation of the hematoma indentation scar contour deformity with complex secondary wound closure. If we went to surgery now with debridement and closure, would have to make the ulcer bigger because of persistent swelling in the surrounding tissue. Patient is willing to wait especially with massage and time, to see if the scar may improve to the point that no additional surgery may be necessary. Followup one week. After healing has occurred and she is discharged from the Wound Center, then she can followup in my office in 3-6 months to further discuss possible scar revision if necessary. Patient voices understanding. Code Visit 111xxx-113xx: [id number] Berenice subq tissue 20 sq cm/<
== END 2018-05-31 23:59 ==
LOC: WC 08:30
PROVIDERS: Family Provider Family Medicine; PCP Family Medicine; Visit Provider Surgery
DX: L76.32 Postprocedural hematoma of skin and subcutaneous tissue following other procedure (principal); Y83.9 Surgical procedure, unspecified as the cause of abnormal reaction of the patient, or of later complication, without mention of misadventure at the time of the procedure; S30.0XXA Contusion of lower back and pelvis, initial encounter; M79.89 Other specified soft tissue disorders
CPT/HCPCS: 11042

== ENCOUNTER 2018-06-06 11:15 | Emergency (ER) | payer OTHER, SELFPAY ==
[2018-06-01 09:11] VITALS: BMI 23.5
[2018-06-06 11:16] VITALS: BP 150/91; PULSE 85; RESP 16; TEMP 36.7; O2SAT 100; BMI 23.8
[2018-06-06 11:25] VITALS: BP 150/91; PULSE 85; RESP 16; TEMP 36.7; O2SAT 100
--- NOTE | 2018-06-06 11:51 | ED.DCSUM_ITS ---
- ER Visit Summary Date of Service: 06/06/18 Chief Complaint: [] Left buttock lesion status post I&D, MRSA vomiting after doxycycline History of Present Illness: The patient is a 23 F [] the patient has a history of a left buttock contusion required I&D she is been seen by Dr. Russell once a week he saw her recently the office there was some slight drainage from the area he did a culture and the culture came back positive for MRSA per patient she was started on doxycycline, took the first dose of it today and vomited 8 times and then came to the emergency department. She indicates the left buttock postop incision is still slightly draining and it it feels nodular to her, she has no fever cough chest pain abdominal pain numbness paresthesias no urinary symptoms no other explanations for the vomiting she indicates she was not sick before she took the doxycycline, she does report a few days ago she felt feverish otherwise healthy with no history Physical Examination: [] aFebrile General, no distress resting comfortably HEENT is generally unremarkable The neck is supple no adenopathy Cardiovascular, regular rate and rhythm Lungs, clear bilateral Abdomen, soft nontender The left upper buttock there is a linear incision that is in place there is no signs of drainage fluctuance or warmth the patient indicates he feels nodular but there is no signs of anything acute, it appears to have normal postop condition Extremities, no clubbing cyanosis or edema Neurologic, awake alert answering questions appropriately moving all 4 extremities Test Results: [] Emergency Department Course and Treatment: [] Indicates that she began vomiting immediately after she took 1 tablet of doxycycline she has not been sick with abdominal pain fever cough or chest pain she indicates is having more pain to the buttock and Dr. York her physician is aware of all the above at this time screening labs are obtained they have asked us to page Dr. York which we have done and discussed the case with him Dr. York did call back indicates he is unable to see the patient today in the emergency department, her labs are unremarkable received IV fluids IV vancomycin she will be switched to Bactrim DS he agrees with the management plan and he agrees to see her on Friday and to continue her wound care management he prescribed for her discussed all the above the patient and the family and they agree, they will not take the doxycycline she will take the Bactrim with food Treatment Plan: [] Disposition: [] Home stable Impression: [] Postoperative wound left buttock MRSA positive, vomiting related to doxycycline This note was generated with [employer] dictation software. It may contain incorrect words, spelling, and punctuation that were not noted in review of the chart prior to signing ED Disposition - Plan for ED Patient: Referrals: Israel Crowder MD [Primary Care Provider] -
[2018-06-06 12:33] LABS: Bacteria 0 SEEN /hpf (None Seen); Mucous, Urine 0 SEEN /hpf (<or=2+); Red Blood Cells-Urine 0 SEEN /hpf (0-5); Squamous Epithelial Cells - UA 0 SEEN /hpf (5-10); White Blood Cells 0 SEEN /hpf (0-5)
[2018-06-06 12:34] LABS: Color, Urine Straw (Yellow); Glucose, Dipstick Normal (Normal); Ketone-Dipstick Negative (Negative); Leukocyte Esterase-Dipstick Negative /ul (Negative); Nitrite-Dipstick Negative (Negative); Occult Blood-Urine Negative /ul (Negative); Protein-Dipstick Negative (Negative); Specific Gravity, Urine 1.005 (1.002-1.030); Urine Bilirubin Dipstick Negative (Negative); Urine Clarity Clear (Clear); Urine Urobilinogen Normal (Normal)
[2018-06-06 12:35] LABS: Absolute Lymphocyte Count 1.52 X10^3/ul (0.83-4.51); Absolute Neutrophil Count 3.3 X10^3/uL (2.0-7.7); Basophil# 0.02 X10^3/uL; Basophil% 0.4 % (0-1); Eosinophil# 0.07 X10^3/uL; Eosinophils% 1.3 % (0-5); Hematocrit 41.4 % (37-47); Hemoglobin 14.6 g/dl (12.0-15.0); Lymphocyte # 1.52 X10^3/ul (4.0); Lymphocyte % 28.4 % (19-41); Mean Corp Hgb Conc 35.3 g/gl (32-36); Mean Corpuscular Volume 93.5 fL (81-99); Mean Platelet Vol. 11.4 fl (6.2-12.0); Monocyte# 0.41 X10^3/uL; Monocyte% 7.6 % (0-10); Neutrophil # 3.34 X10^3/uL (2.7-7.7); Neutrophil % 62.3 % (47-70); Platelet Count 180 K/mm3 (150-450); RBC Distribution Width CV 11.4 % (11.6-14.6); RBC Distribution Width SD 38.2 fl (35.1-43.9); Red Blood Count 4.43 M/mm3 (4.2-5.4); White Blood Count 5.4 K/mm3 (4.4-11.0)
[2018-06-06 12:36] LABS: POSITIVE COUNT NO; POSITIVE DIFFERENTIAL NO; POSITIVE MORPHOLOGY NO
[2018-06-06 12:47] LABS: Anion Gap 5 (5-15); BUN 14 mg/dL (7-18); BUN/Creat Ratio 17.6 RATIO (10-20); Calcium,Total 8.9 mg/dL (8.5-10.1); Chloride 110 mmol/L (98-107); EST Glomerular Filtration Rate 95 mL/min (>60); Est Glom Filt Rate - Afr Amer 115 mL/min (>60); Estimated Creatinine Clearance 106.36 ml/min; Glucose 87 mg/dL (74-106); Potassium 3.8 mmol/L (3.5-5.1); Sodium Level 141 mmol/L (136-145)
--- NOTE | 2018-06-06 12:51 | ED.DEP ---
ED Disposition - Plan for ED Patient: Instructions: Methicillin-Resistant Staphylococcus aureus (MRSA) Infection Prescriptions: Smz/Tmp Ds [Bactrim Ds] 1 tab PO BID #14 tab Referrals: Israel Crowder MD [Primary Care Provider] -
[2018-06-06] MEDS: 0.9% Normal Saline 1,000 ML 1000 ML IV (12:52)
[2018-06-06 12:53] VITALS: BP 105/71; PULSE 68; RESP 16; TEMP 36.8; O2SAT 99
[2018-06-06 13:00] VITALS: TEMP 36.8
[2018-06-06 13:08] LABS: Pregnancy, Serum, hCG Quali. NEGATIVE Negative (0-9 Nonpreg)
[2018-06-06] MEDS: Vancomycin IV 1,000 MG/200 ML BAG 200 MG IV (14:03)
--- NOTE | 2018-06-06 14:35 | ED.RN ---
TIFFANIERN CALLED TO PT ROOM FOR ALLERGIC REACTION, UPON ENTERING THE ROOM PT'S HYPERVENTILATING, ENTIRE BODY IS RED. IV ANTIBIOTIC IMMEDIATELY STOPPED, PT HOOKED UP TO MONITOR, TOLD TO BREATHE IN THROUGH HER NOSE AND OUT THROUGH HER MOUTH. DR TAVERA PAGED, ANTIBIOTIC ORDERED TO BE STOPPED AND BENADRYL TO BE GIVEN.
[2018-06-06] MEDS: DiphenhydrAMINE 50 MG/ML Syringe 25 MG IV (14:40)
[2018-06-06 15:27] VITALS: BP 91/55; PULSE 81; RESP 16; O2SAT 98
== END 2018-06-06 15:28 | disposition home or self-care (01) ==
PROVIDERS: Emergency Provider Emergency Medicine; Family Provider Family Medicine; PCP Family Medicine
DX: R11.10 Vomiting, unspecified (principal); T36.4X5A Adverse effect of tetracyclines, initial encounter; T81.41XA Infection following a procedure, superficial incisional surgical site, initial encounter; L08.89 Other specified local infections of the skin and subcutaneous tissue; B95.62 Methicillin resistant Staphylococcus aureus infection as the cause of diseases classified elsewhere
CPT/HCPCS: 80048; 81001; 84703; 85025; 96361; 96374; 96375; 99284; J7030; J7050; A4216

== ENCOUNTER 2018-06-22 08:00 | Outpatient (RCR) | payer OTHER, SELFPAY ==
[2018-06-01 01:16] VITALS: BP 116/81; PULSE 72; RESP 16; TEMP 36.7
[2018-06-01 09:11] VITALS: BP 126/94; PULSE 75; RESP 18; TEMP 38.1; BMI 23.5
--- NOTE | 2018-06-01 17:47 | PN.PCM_ITS ---
Type of Wound Date of Service: 06/01/18 Chief Complaint: Nonhealing hematoma ulcer left upper gluteal/lower back area with extension to the hip. History of Wound: Surgery 03/31/18 - Incision and drainage and evacuation hematoma left upper gluteal/lower back area with extension to hip. Wound care - Silver gel. Operative culture - none. Prealbumin from 03/31/18 was 23.0. Encourage nutritional supplementation with protein to help the healing process. CT Pelvis from 03/30/18 - Soft tissues swelling of the subcutaneous tissues of the left buttock with 8.8 x 7.2 x 4.2 cm fluid collection consistent with hematoma. Today she denies fever. Her appetite is good. She is back to work and doing ok. Progress of Wound: Improved but slight scar indentation. - Physical Exam Vital Signs Temp Pulse Resp BP 100.5 F H 75 18 126/94 H 06/01/18 09:11 06/01/18 09:11 06/01/18 09:11 06/01/18 09:11 Wound Measurements and Assessment WC - Nurse 1 - General Ulcer Measurement Start: 06/01/18 09:11 Freq: Status: Active Protocol: Activity Type Activity Date Activity User E-Sign Co-Sign Detail Recorded Client Recorded Date Recorded By Document 06/01/18 09:11 DL [id number] 06/01/18 09:17 DL 06/01/18 09:11 Wound Center Nurse 1 [Ulcer Assessment] #1 Left lower back and gluteal -Current Size (cm) - Length 1 -Current Size (cm) - Width 3.2 -Current Size (cm) - Depth 0.8 -Total Square Cm 3.2 -Photo Taken No -Exudate Amt Medium -Exudate Type Serosanguineous -Wound Margin Distinct, Outline Attached -Granulation Amt Small (1-33%) -Granulation Quality [place] -Necrosis Amt Small (1-33%) -Necrotic Tissue Type Adherent Slough -Structure Exposed N/A -Texture (Angella-wound Skin Appearance) Scarring -Moisture (Angella-wound Skin Appearance No Abnormality ) -Color (Angella-wound Skin Appearance) No Abnormality -Temperature (Angella-wound Skin No Abnormality Appearance) (Pt Warm) -Tenderness on Palpation (Angella-wound No Skin Appearance) -Ulcer Cleansing Wound Cleanser -Foul Odor after Cleansing No -Anesthetic Used 4% Lidocaine Solution WC - Nurse 2 - General Ulcer CM Notes Start: 06/01/18 09:11 Freq: Status: Active Protocol: Activity Type Activity Date Activity User E-Sign Co-Sign Detail Recorded Client Recorded Date Recorded By Document 06/01/18 09:39 MOIRA [id number] 06/01/18 09:41 MOIRA 06/01/18 09:39 Wound Center Nurse 2 [Procedure/Treatment] -Time 09:40 -Correct Patient Yes -Correct Side, Site, Position Yes -Correct Procedure Yes -Procedure Performed Yes -Type of Procedure Debridement -Clinical Debridement Subcutaneous -Post Debridement Size (cm) - Length 0.8 -Post Debridement Size (cm) - Width 3.2 -Post Debridement Size (cm) - Depth 0.2 -Total Square Cm 2.56 -Wound/Ulcer Outcome Not Healed -Ulcer Cleansing Rinsed/ Irrigated with Saline -Foul Odor after Cleansing No -Bioengineered Tissue No -Bleeding Controlled with Pressure -Offloading No -Treatment Response Procedure Tolerated Well [See Physician Procedure note for Specifics] Pain Scale: 0-10 Numeric [Pain] -Is Patient Pain Free? Yes Debridement Note Post-Debridement Measurements/Treatment WC - Nurse 2 - General Ulcer CM Notes Start: 06/01/18 09:11 Freq: Status: Active Protocol: Activity Type Activity Date Activity User E-Sign Co-Sign Detail Recorded Client Recorded Date Recorded By Document 06/01/18 09:39 MOIRA [id number] 06/01/18 09:41 MOIRA 06/01/18 09:39 Wound Center Nurse 2 #1 Left lower back and gluteal -Time 09:40 -Correct Patient Yes -Correct Side, Site, Position Yes -Correct Procedure Yes -Procedure Performed Yes -Type of Procedure Debridement -Clinical Debridement Subcutaneous -Post Debridement Size (cm) - Length 0.8 -Post Debridement Size (cm) - Width 3.2 -Post Debridement Size (cm) - Depth 0.2 -Total Square Cm 2.56 -Wound/Ulcer Outcome Not Healed -Ulcer Cleansing Rinsed/ Irrigated with Saline -Foul Odor after Cleansing No -Bioengineered Tissue No -Bleeding Controlled with Pressure -Offloading No -Treatment Response Procedure Tolerated Well Pain Scale: 0-10 Numeric Is Patient Pain Free? Yes Wound debrided: #1 Left lower back and gluteal area. Laterality: Left Wound Grade/Stage: 3. Type of Debridement: Excisional debridement Anesthesia Used: 4% Lidocaine Solution Depth: Down to and including healthy tissue, in the subcutaneous layer Percentage of wound debrided: 100 Instrument Used: 3mm curette Tissue Removed: subcutaneous tissue. Severity: Fat Layer Exposed Amount of bleeding with debridement: Mild Bleeding Controlled with: Pressure Patient tolerated procedure well, - - A wound culture was obtained today. Assessment/Plan Assessment: 1. Nonhealing hematoma ulcer left upper gluteal/lower back area with extension to the hip. 2. Traumatic hematoma left upper gluteal/lower back area with extension to hip and with bruising and ecchymosis. 3. s/p incision and drainage and evacuation hematoma left upper gluteal/lower back area with extension to hip. Plan: Continue Silver gel to the ulcer daily with gauze. Because of the indentation and because of a persistent abrasion ulcer in the central aspect of the ulcer, a wound culture was obtained today. A positive culture will necessitate antibiotic therapy. If the culture is negative, will change the Silver gel to Collagen Hydrogel. She is back to work and doing ok with the extra hours. Prealbumin from 03/31/18 was 23.0. Encourage nutritional supplementation wtih protein to help the healing process. Discussed with the patient that there is some indentation forming in the scar. With continued healing and massage to help soften up the scar and help it to remodel as well as to improve lymphatic drainage, would like to wait several months before [place]o [place] on further surgery with surgical preparation of the hematoma indentation scar contour deformity with complex secondary wound closure. If we went to surgery now with debridement and closure, would have to make the ulcer bigger because of persistent swelling in the surrounding tissue. Patient is willing to wait especially with massage and time, to see if the scar may improve to the point that no additional surgery may be necessary. Followup one week. After healing has occurred and she is discharged from the Wound Center, then she can followup in my office in 3-6 months to further discuss possible scar revision if necessary. Patient voices understanding.
--- NOTE | 2018-06-08 09:13 | PCM.WC.PN ---
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 History of Wound: Surgery 03/31/18 - Incision and drainage and evacuation hematoma left upper gluteal/lower back area with extension to hip. Wound care - Silver gel. Operative culture - none. Prealbumin from 03/31/18 was 23.0. Encourage nutritional supplementation with protein to help the healing process. CT Pelvis from 03/30/18 - Soft tissues swelling of the subcutaneous tissues of the left buttock with 8.8 x 7.2 x 4.2 cm fluid collection consistent with hematoma. Today she denies fever. Her appetite is good. She is back to work and doing ok. She was in the ED on 06/06/18 with severe nausea and vomiting after taking her doxycycline. She was switched to Bactrim and is doing ok on that. Progress of Wound: Improved but slight scar indentation. - Physical Exam Vital Signs Temp Pulse Resp BP 100.5 F H 75 18 126/94 H 06/01/18 09:11 06/01/18 09:11 06/01/18 09:11 06/01/18 09:11 General: Alert, Oriented x3, Cooperative HEENT: Atraumatic Oral: Moist Mucosa Lungs: Normal air movement Cardiovascular: Regular rate Extremities: No edema, Capillary Refill Less than 3 Seconds Skin: Ulcer/ Wound - Left gluteal ulcer with increase swelling distal to the open area Wound Measurements and Assessment WC - Nurse 2 - General Ulcer CM Notes Start: 06/01/18 09:11 Freq: Status: Active Protocol: Activity Type Activity Date Activity User E-Sign Co-Sign Detail Recorded Client Recorded Date Recorded By Document 06/08/18 08:48 [email or web address] [id number] 06/08/18 08:59 06/08/18 08:48 Wound Center Nurse 2 [Procedure/Treatment] #1 Left lower back and gluteal -Time 08:49 -Correct Patient Yes -Correct Side, Site, Position Yes -Correct Procedure Yes -Procedure Performed Yes -Type of Procedure Debridement -Clinical Debridement Subcutaneous -Post Debridement Size (cm) - Length 0.7 -Post Debridement Size (cm) - Width 3.5 -Post Debridement Size (cm) - Depth 0.5 -Total Square Cm 2.45 -Wound/Ulcer Outcome Not Healed -Ulcer Cleansing Rinsed/ Irrigated with Saline -Foul Odor after Cleansing No -Bioengineered Tissue No -Bleeding Controlled with Pressure -Offloading No -Treatment Response Procedure Tolerated Well [See Physician Procedure note for Specifics] Pain Scale: 0-10 Numeric [Pain] -Is Patient Pain Free? Yes Musculoskeletal: No Tenderness to Palpation of Joints or Extremities Neurological: Neuro grossly intact Psych/Mental Status: Normal Affect, Appropriate Debridement Note Post-Debridement Measurements/Treatment WC - Nurse 2 - General Ulcer CM Notes Start: 06/01/18 09:11 Freq: Status: Active Protocol: Activity Type Activity Date Activity User E-Sign Co-Sign Detail Recorded Client Recorded Date Recorded By Document 06/01/18 09:39 [id number] 06/01/18 09:41 Document 06/08/18 08:48 [id number] 06/08/18 08:59 06/01/18 06/08/18 09:39 08:48 Wound Center Nurse 2 #1 Left lower back and gluteal -Time 09:40 08:49 -Correct Patient Yes Yes -Correct Side, Site, Position Yes Yes -Correct Procedure Yes Yes -Procedure Performed Yes Yes -Type of Procedure Debridement Debridement -Clinical Debridement Subcutaneous Subcutaneous -Post Debridement Size (cm) - Length 0.8 0.7 -Post Debridement Size (cm) - Width 3.2 3.5 -Post Debridement Size (cm) - Depth 0.2 0.5 -Total Square Cm 2.56 2.45 -Wound/Ulcer Outcome Not Healed Not Healed -Ulcer Cleansing Rinsed/ Rinsed/ Irrigated with Irrigated with Saline Saline -Foul Odor after Cleansing No No -Bioengineered Tissue No No -Bleeding Controlled with Pressure Pressure -Offloading No No -Treatment Response Procedure Procedure Tolerated Well Tolerated Well Pain Scale: 0-10 Numeric Is Patient Pain Free? 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 Nonhealing hematoma ulcer left upper gluteal/lower back area with extension to the hip. 2. Traumatic hematoma left upper gluteal/lower back area with extension to hip and with bruising and ecchymosis. 3. s/p incision and drainage and evacuation hematoma left upper gluteal/lower back area with extension to hip. Plan: Stopping Silver gel to the ulcer due to increase in pain and bleeding. Will restart aquacel silver. Instructed patient to moisten the guaze if it is too dry and will have her place adaptic over to help with moisture control. She is complaining of increase of pain and swelling around the ulcer area. Wound culture from 06/01/18 showed Staphylococcus aureas which she was placed on doxycycline, but developed severe nausea and vomiting and ended up in the ED and antibiotic was changed to Bactrim which she is tolerating. She is back to work and doing ok with the extra hours. Prealbumin from 03/31/18 was 23.0. Encourage nutritional supplementation wtih protein to help the healing process. Discussed with the patient that there is some indentation forming in the scar. With continued healing and massage to help soften up the scar and help it to remodel as well as to improve lymphatic drainage, would like to wait several months before deciding on further surgery with surgical preparation of the hematoma indentation scar contour deformity with complex secondary wound closure. If we went to surgery now with debridement and closure, would have to make the ulcer bigger because of persistent swelling in the surrounding tissue. Patient is willing to wait especially with massage and time, to see if the scar may improve to the point that no additional surgery may be necessary. Followup one week. After healing has occurred and she is discharged from the Wound Center, then she can followup in my office in 3-6 months to further discuss possible scar revision if necessary. Patient voices understanding. Code Visit [id number]
[2018-06-15 08:26] VITALS: BP 158/69; PULSE 89; RESP 20; TEMP 37.2; BMI 23.5
--- NOTE | 2018-06-15 12:22 | PCM.WC.PN ---
Type of Wound Date of Service: 06/15/18 Chief Complaint: Nonhealing hematoma ulcer left upper gluteal/lower back area with extension to the hip. History of Wound: Surgery 03/31/18 - Incision and drainage and evacuation hematoma left upper gluteal/lower back area with extension to hip. Wound care - Silver gel. Operative culture - none. Prealbumin from 03/31/18 was 23.0. Encourage nutritional supplementation with protein to help the healing process. CT Pelvis from 03/30/18 - Soft tissues swelling of the subcutaneous tissues of the left buttock with 8.8 x 7.2 x 4.2 cm fluid collection consistent with hematoma. Today she denies fever. Her appetite is good. She is back to work and doing ok. At her visit on 06/01/18, a wound culture was obtained. It showed Staphylococcus aureus. She was placed on Doxycycline and could not tolerate it. Her antibiotics have been changed to Bactrim DS, and she is tolerating it much better. Progress of Wound: Improved but slight scar indentation. - Physical Exam Vital Signs Temp Pulse Resp BP 98.9 F 89 20 H 158/69 H 06/15/18 08:26 06/15/18 08:26 06/15/18 08:26 06/15/18 08:26 Wound Measurements and Assessment WC - Nurse 1 - General Ulcer Measurement Start: 06/01/18 09:11 Freq: Status: Active Protocol: Activity Type Activity Date Activity User E-Sign Co-Sign Detail Recorded Client Recorded Date Recorded By Document 06/15/18 08:26 DL [id number] 06/15/18 08:31 DL 06/15/18 08:26 Wound Center Nurse 1 [Ulcer Assessment] #1 Left lower back and gluteal -Current Size (cm) - Length 0.1 -Current Size (cm) - Width 0.1 -Current Size (cm) - Depth 0.1 -Total Square Cm 0.01 -Photo Taken No -Exudate Amt None Present -Wound Margin Flat & Intact -Granulation Amt Large (67-100%) -Granulation Quality [place] -Necrosis Amt None Present (0 %) -Structure Exposed N/A -Texture (Angella-wound Skin Appearance) Scarring -Moisture (Angella-wound Skin Appearance No Abnormality ) -Color (Angella-wound Skin Appearance) Rubor -Temperature (Angella-wound Skin No Abnormality Appearance) (Pt Warm) -Tenderness on Palpation (Angella-wound No Skin Appearance) -Ulcer Cleansing Rinsed/ Irrigated with Saline -Foul Odor after Cleansing No WC - Nurse 2 - General Ulcer CM Notes Start: 06/01/18 09:11 Freq: Status: Active Protocol: Activity Type Activity Date Activity User E-Sign Co-Sign Detail Recorded Client Recorded Date Recorded By Document 06/15/18 09:31 MW [id number] 06/15/18 09:36 MW 06/15/18 09:31 Wound Center Nurse 2 [Procedure/Treatment] -Time 09:31 -Correct Patient Yes -Correct Side, Site, Position Yes -Correct Procedure Yes -Procedure Performed Yes -Type of Procedure Debridement -Clinical Debridement Subcutaneous -Post Debridement Size (cm) - Length 0.4 -Post Debridement Size (cm) - Width 1.0 -Post Debridement Size (cm) - Depth 0.1 -Total Square Cm 0.40 -Wound/Ulcer Outcome Not Healed -Ulcer Cleansing Rinsed/ Irrigated with Saline -Foul Odor after Cleansing No -Bioengineered Tissue No -Bleeding Controlled with Pressure -Offloading No -Treatment Response Procedure Tolerated Well [See Physician Procedure note for Specifics] Pain Scale: 0-10 Numeric [Pain] -Is Patient Pain Free? Yes Debridement Note Post-Debridement Measurements/Treatment WC - Nurse 2 - General Ulcer CM Notes Start: 06/01/18 09:11 Freq: Status: Active Protocol: Activity Type Activity Date Activity User E-Sign Co-Sign Detail Recorded Client Recorded Date Recorded By Document 06/01/18 09:39 [id number] 06/01/18 09:41 Document 06/08/18 08:48 [id number] 06/08/18 08:59 Document 06/15/18 09:31 [id number] 06/15/18 09:36 MW 06/01/18 06/08/18 06/15/18 09:39 08:48 09:31 Wound Center Nurse 2 #1 Left lower back and gluteal -Time 09:40 08:49 09:31 -Correct Patient Yes Yes Yes -Correct Side, Site, Position Yes Yes Yes -Correct Procedure Yes Yes Yes -Procedure Performed Yes Yes Yes -Type of Procedure Debridement Debridement Debridement -Clinical Debridement Subcutaneous Subcutaneous Subcutaneous -Post Debridement Size (cm) - Length 0.8 0.7 0.4 -Post Debridement Size (cm) - Width 3.2 3.5 1.0 -Post Debridement Size (cm) - Depth 0.2 0.5 0.1 -Total Square Cm 2.56 2.45 0.40 -Wound/Ulcer Outcome Not Healed Not Healed Not Healed -Ulcer Cleansing Rinsed/ Rinsed/ Rinsed/ Irrigated with Irrigated with Irrigated with Saline Saline Saline -Foul Odor after Cleansing No No No -Bioengineered Tissue No No No -Bleeding Controlled with Pressure Pressure Pressure -Offloading No No No -Treatment Response Procedure Procedure Procedure Tolerated Well Tolerated Well Tolerated Well Pain Scale: 0-10 Numeric Is Patient Pain Free? Yes Yes Yes Wound debrided: #1 Left lower back and gluteal area. Laterality: Left Wound Grade/Stage: 3. Type of Debridement: Excisional debridement Anesthesia Used: 4% Lidocaine Solution Depth: Down to and including healthy tissue, in the subcutaneous layer Percentage of wound debrided: 100 Instrument Used: 3mm curette Tissue Removed: subcutaneous tissue. Severity: Fat Layer Exposed Amount of bleeding with debridement: Mild Bleeding Controlled with: Pressure Patient tolerated procedure well Assessment/Plan Assessment: 1. Nonhealing hematoma ulcer left upper gluteal/lower back area with extension to the hip. 2. Traumatic hematoma left upper gluteal/lower back area with extension to hip and with bruising and ecchymosis. 3. s/p incision and drainage and evacuation hematoma left upper gluteal/lower back area with extension to hip. Plan: Continue Silver dressing changes. The ulcer is almost healed. The indentation is smoother. She had a wound culture on 06/01/18 which showed Staphylococcus aureus. She was placed on Doxycycline initially which she could not tolerate. Her antibiotic was changed to Bactrim DS and she is tolerating them much better. She is back to work and doing ok with the extra hours. Prealbumin from 03/31/18 was 23.0. Encourage nutritional supplementation wtih protein to help the healing process. Discussed with the patient that there is some indentation forming in the scar. With continued healing and massage to help soften up the scar and help it to remodel as well as to improve lymphatic drainage, would like to wait several months before deciding on further surgery with surgical preparation of the hematoma indentation scar contour deformity with complex secondary wound closure. If we went to surgery now with debridement and closure, would have to make the ulcer bigger because of persistent swelling in the surrounding tissue. Patient is willing to wait especially with massage and time, to see if the scar may improve to the point that no additional surgery may be necessary. Followup one week. After healing has occurred and she is discharged from the Wound Center, then she can followup in my office in 3-6 months to further discuss possible scar revision if necessary. Patient voices understanding.
[2018-06-22 08:07] VITALS: BP 119/70; PULSE 74; RESP 18; TEMP 36.2; BMI 23.5
--- NOTE | 2018-06-22 09:15 | PCM.WC.PN ---
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 History of Wound: Surgery 03/31/18 - Incision and drainage and evacuation hematoma left upper gluteal/lower back area with extension to hip. Wound care - Silver gel. Operative culture - none. Prealbumin from 03/31/18 was 23.0. Encourage nutritional supplementation with protein to help the healing process. CT Pelvis from 03/30/18 - Soft tissues swelling of the subcutaneous tissues of the left buttock with 8.8 x 7.2 x 4.2 cm fluid collection consistent with hematoma. Today she denies fever. Her appetite is good. She is back to work and doing ok. At her visit on 06/01/18, a wound culture was obtained. It showed Staphylococcus aureus. She was placed on Doxycycline and could not tolerate it. Her antibiotics have been changed to Bactrim DS, and she is tolerating it much better. Progress of Wound: She is healed today. There continues to be a slight scar indentation. - Physical Exam Vital Signs Temp Pulse Resp BP 97.2 F L 74 18 119/70 06/22/18 08:07 06/22/18 08:07 06/22/18 08:07 06/22/18 08:07 General: Alert, Oriented x3, Cooperative HEENT: Atraumatic Oral: Moist Mucosa Lungs: Normal air movement Cardiovascular: Regular rate Extremities: No edema, Capillary Refill Less than 3 Seconds Skin: Ulcer/ Wound - Left gluteal ulcer is healed. Wound Measurements and Assessment WC - Nurse 1 - General Ulcer Measurement Start: 06/01/18 09:11 Freq: Status: Active Protocol: Activity Type Activity Date Activity User E-Sign Co-Sign Detail Recorded Client Recorded Date Recorded By Document 06/22/18 08:07 [email or web address] [id number] 06/22/18 08:11 DL 06/22/18 08:07 Wound Center Nurse 1 [Ulcer Assessment] #1 Left lower back and gluteal -Current Size (cm) - Length 0 -Current Size (cm) - Width 0 -Current Size (cm) - Depth 0 -Total Square Cm 0 -Photo Taken Yes -Epithelialization Large 67-100% -Exudate Amt None Present -Wound Margin Flat & Intact -Granulation Amt Large (67-100%) -Granulation Quality [place] -Necrosis Amt None Present (0 %) -Structure Exposed N/A -Texture (Angella-wound Skin Appearance) Scarring -Moisture (Angella-wound Skin Appearance No Abnormality ) -Color (Angella-wound Skin Appearance) No Abnormality -Temperature (Angella-wound Skin No Abnormality Appearance) (Pt Warm) -Tenderness on Palpation (Angella-wound No Skin Appearance) -Ulcer Cleansing Rinsed/ Irrigated with Saline -Foul Odor after Cleansing No WC - Nurse 2 - General Ulcer CM Notes Start: 06/01/18 09:11 Freq: Status: Active Protocol: Activity Type Activity Date Activity User E-Sign Co-Sign Detail Recorded Client Recorded Date Recorded By Document 06/22/18 08:34 [id number] 06/22/18 08:35 06/22/18 08:34 Wound Center Nurse 2 [Procedure/Treatment] -Correct Patient No -Correct Side, Site, Position No -Correct Procedure No -Procedure Performed No -Post Debridement Size (cm) - Length 0 -Post Debridement Size (cm) - Width 0 -Post Debridement Size (cm) - Depth 0 -Total Square Cm 0 -Wound/Ulcer Outcome Healed- Epithelialized [See Physician Procedure note for Specifics] Pain Scale: 0-10 Numeric [Pain] -Is Patient Pain Free? Yes Musculoskeletal: No Tenderness to Palpation of Joints or Extremities Neurological: Neuro grossly intact Psych/Mental Status: Normal Affect, Appropriate Debridement Note Post-Debridement Measurements/Treatment WC - Nurse 2 - General Ulcer CM Notes Start: 06/01/18 09:11 Freq: Status: Active Protocol: Activity Type Activity Date Activity User E-Sign Co-Sign Detail Recorded Client Recorded Date Recorded By Document 06/01/18 09:39 [id number] 06/01/18 09:41 Document 06/08/18 08:48 [id number] 06/08/18 08:59 Document 06/15/18 09:31 MW [id number] 06/15/18 09:36 MW Document 06/22/18 08:34 [id number] 06/22/18 08:35 06/01/18 06/08/18 06/15/18 09:39 08:48 09:31 Wound Center Nurse 2 #1 Left lower back and gluteal -Time 09:40 08:49 09:31 -Correct Patient Yes Yes Yes -Correct Side, Site, Position Yes Yes Yes -Correct Procedure Yes Yes Yes -Procedure Performed Yes Yes Yes -Type of Procedure Debridement Debridement Debridement -Clinical Debridement Subcutaneous Subcutaneous Subcutaneous -Post Debridement Size (cm) - Length 0.8 0.7 0.4 -Post Debridement Size (cm) - Width 3.2 3.5 1.0 -Post Debridement Size (cm) - Depth 0.2 0.5 0.1 -Total Square Cm 2.56 2.45 0.40 -Wound/Ulcer Outcome Not Healed Not Healed Not Healed -Ulcer Cleansing Rinsed/ Rinsed/ Rinsed/ Irrigated with Irrigated with Irrigated with Saline Saline Saline -Foul Odor after Cleansing No No No -Bioengineered Tissue No No No -Bleeding Controlled with Pressure Pressure Pressure -Offloading No No No -Treatment Response Procedure Procedure Procedure Tolerated Well Tolerated Well Tolerated Well Pain Scale: 0-10 Numeric Is Patient Pain Free? Yes Yes Yes 06/22/18 08:34 Wound Center Nurse 2 #1 Left lower back and gluteal -Time -Correct Patient No -Correct Side, Site, Position No -Correct Procedure No -Procedure Performed No -Type of Procedure -Clinical Debridement -Post Debridement Size (cm) - Length 0 -Post Debridement Size (cm) - Width 0 -Post Debridement Size (cm) - Depth 0 -Total Square Cm 0 -Wound/Ulcer Outcome Healed- Epithelialized -Ulcer Cleansing -Foul Odor after Cleansing -Bioengineered Tissue -Bleeding Controlled with -Offloading -Treatment Response Pain Scale: 0-10 Numeric Is Patient Pain Free? 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 Nonhealing hematoma ulcer left upper gluteal/lower back area with extension to the hip. 2. Traumatic hematoma left upper gluteal/lower back area with extension to hip and with bruising and ecchymosis. 3. s/p incision and drainage and evacuation hematoma left upper gluteal/lower back area with extension to hip. Plan: The ulcer is healed today. The indentation is smoother. She had a wound culture on 06/01/18 which showed Staphylococcus aureus. She has completed her antibiotics. She is back to work and doing ok. Discussed with the patient that there is some indentation forming in the scar, encouraged her to massage the area to help soften the scar and help with lymphatic drainage. If she does not like the way the scar appears after 6 months, then she can followup in my office to further discuss possible scar revision if necessary. Patient voices understanding. Code Visit [id number]
--- NOTE | 2018-06-22 09:21 | PN.PCM_ITS ---
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 History of Wound: Surgery 03/31/18 - Incision and drainage and evacuation hematoma left upper gluteal/lower back area with extension to hip. Wound care - Silver gel. Operative culture - none. Prealbumin from 03/31/18 was 23.0. Encourage nutritional supplementation with protein to help the healing process. CT Pelvis from 03/30/18 - Soft tissues swelling of the subcutaneous tissues of the left buttock with 8.8 x 7.2 x 4.2 cm fluid collection consistent with hematoma. Today she denies fever. Her appetite is good. She is back to work and doing ok. At her visit on 06/01/18, a wound culture was obtained. It showed Staphylococcus aureus. She was placed on Doxycycline and could not tolerate it. Her antibiotics have been changed to Bactrim DS, and she is tolerating it much better. Progress of Wound: She is healed today. There continues to be a slight scar indentation. - Physical Exam Vital Signs Temp Pulse Resp BP 97.2 F L 74 18 119/70 06/22/18 08:07 06/22/18 08:07 06/22/18 08:07 06/22/18 08:07 General: Alert, Oriented x3, Cooperative HEENT: Atraumatic Oral: Moist Mucosa Lungs: Normal air movement Cardiovascular: Regular rate Extremities: No edema, Capillary Refill Less than 3 Seconds Skin: Ulcer/ Wound - Left gluteal ulcer is healed. Wound Measurements and Assessment WC - Nurse 1 - General Ulcer Measurement Start: 06/01/18 09:11 Freq: Status: Active Protocol: Activity Type Activity Date Activity User E-Sign Co-Sign Detail Recorded Client Recorded Date Recorded By Document 06/22/18 08:07 [email or web address] [id number] 06/22/18 08:11 DL 06/22/18 08:07 Wound Center Nurse 1 [Ulcer Assessment] #1 Left lower back and gluteal -Current Size (cm) - Length 0 -Current Size (cm) - Width 0 -Current Size (cm) - Depth 0 -Total Square Cm 0 -Photo Taken Yes -Epithelialization Large 67-100% -Exudate Amt None Present -Wound Margin Flat & Intact -Granulation Amt Large (67-100%) -Granulation Quality [place] -Necrosis Amt None Present (0 %) -Structure Exposed N/A -Texture (Angella-wound Skin Appearance) Scarring -Moisture (Angella-wound Skin Appearance No Abnormality ) -Color (Angella-wound Skin Appearance) No Abnormality -Temperature (Angella-wound Skin No Abnormality Appearance) (Pt Warm) -Tenderness on Palpation (Angella-wound No Skin Appearance) -Ulcer Cleansing Rinsed/ Irrigated with Saline -Foul Odor after Cleansing No WC - Nurse 2 - General Ulcer CM Notes Start: 06/01/18 09:11 Freq: Status: Active Protocol: Activity Type Activity Date Activity User E-Sign Co-Sign Detail Recorded Client Recorded Date Recorded By Document 06/22/18 08:34 [id number] 06/22/18 08:35 06/22/18 08:34 Wound Center Nurse 2 [Procedure/Treatment] -Correct Patient No -Correct Side, Site, Position No -Correct Procedure No -Procedure Performed No -Post Debridement Size (cm) - Length 0 -Post Debridement Size (cm) - Width 0 -Post Debridement Size (cm) - Depth 0 -Total Square Cm 0 -Wound/Ulcer Outcome Healed- Epithelialized [See Physician Procedure note for Specifics] Pain Scale: 0-10 Numeric [Pain] -Is Patient Pain Free? Yes Musculoskeletal: No Tenderness to Palpation of Joints or Extremities Neurological: Neuro grossly intact Psych/Mental Status: Normal Affect, Appropriate Debridement Note Post-Debridement Measurements/Treatment WC - Nurse 2 - General Ulcer CM Notes Start: 06/01/18 09:11 Freq: Status: Active Protocol: Activity Type Activity Date Activity User E-Sign Co-Sign Detail Recorded Client Recorded Date Recorded By Document 06/01/18 09:39 [id number] 06/01/18 09:41 Document 06/08/18 08:48 [id number] 06/08/18 08:59 Document 06/15/18 09:31 MW [id number] 06/15/18 09:36 MW Document 06/22/18 08:34 [id number] 06/22/18 08:35 06/01/18 06/08/18 06/15/18 09:39 08:48 09:31 Wound Center Nurse 2 #1 Left lower back and gluteal -Time 09:40 08:49 09:31 -Correct Patient Yes Yes Yes -Correct Side, Site, Position Yes Yes Yes -Correct Procedure Yes Yes Yes -Procedure Performed Yes Yes Yes -Type of Procedure Debridement Debridement Debridement -Clinical Debridement Subcutaneous Subcutaneous Subcutaneous -Post Debridement Size (cm) - Length 0.8 0.7 0.4 -Post Debridement Size (cm) - Width 3.2 3.5 1.0 -Post Debridement Size (cm) - Depth 0.2 0.5 0.1 -Total Square Cm 2.56 2.45 0.40 -Wound/Ulcer Outcome Not Healed Not Healed Not Healed -Ulcer Cleansing Rinsed/ Rinsed/ Rinsed/ Irrigated with Irrigated with Irrigated with Saline Saline Saline -Foul Odor after Cleansing No No No -Bioengineered Tissue No No No -Bleeding Controlled with Pressure Pressure Pressure -Offloading No No No -Treatment Response Procedure Procedure Procedure Tolerated Well Tolerated Well Tolerated Well Pain Scale: 0-10 Numeric Is Patient Pain Free? Yes Yes Yes 06/22/18 08:34 Wound Center Nurse 2 #1 Left lower back and gluteal -Time -Correct Patient No -Correct Side, Site, Position No -Correct Procedure No -Procedure Performed No -Type of Procedure -Clinical Debridement -Post Debridement Size (cm) - Length 0 -Post Debridement Size (cm) - Width 0 -Post Debridement Size (cm) - Depth 0 -Total Square Cm 0 -Wound/Ulcer Outcome Healed- Epithelialized -Ulcer Cleansing -Foul Odor after Cleansing -Bioengineered Tissue -Bleeding Controlled with -Offloading -Treatment Response Pain Scale: 0-10 Numeric Is Patient Pain Free? 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 Nonhealing hematoma ulcer left upper gluteal/lower back area with extension to the hip. 2. Traumatic hematoma left upper gluteal/lower back area with extension to hip and with bruising and ecchymosis. 3. s/p incision and drainage and evacuation hematoma left upper gluteal/lower back area with extension to hip. Plan: The ulcer is healed today. The indentation is smoother. She had a wound culture on 06/01/18 which showed Staphylococcus aureus. She has completed her antibiotics. She is back to work and doing ok. Discussed with the patient that there is some indentation forming in the scar, encouraged her to massage the area to help soften the scar and help with lymphatic drainage. If she does not like the way the scar appears after 6 months, then she can followup in my office to further discuss possible scar revision if necessary. Patient voices understanding. Code Visit [id number]
== END 2018-06-30 23:59 ==
LOC: WC 08:00
PROVIDERS: Family Provider Family Medicine; PCP Family Medicine; Referring Provider Surgery; Visit Provider Surgery
DX: S30.0XXA Contusion of lower back and pelvis, initial encounter (principal); X58.XXXA Exposure to other specified factors, initial encounter; M79.89 Other specified soft tissue disorders; L98.412 Non-pressure chronic ulcer of buttock with fat layer exposed
CPT/HCPCS: 11042; 87070; 87075; 87077; 87186; 87205; 99212; G0463

== ENCOUNTER → 2018-08-25 08:42 | Outpatient (CLI) | payer OTHER, SELFPAY ==
[2018-08-24 06:35] VITALS: BMI 23.8
[2018-08-25 09:50] LABS: hCG Titer Quant., Serum 1608 mIU/mL (1-3)
== END ==
PROVIDERS: Family Provider Family Medicine; PCP Family Medicine; Referring Provider Obstetrics & Gynecology Reproductive Endocrinology; Visit Provider Obstetrics & Gynecology Reproductive Endocrinology
DX: Z32.00 Encounter for pregnancy test, result unknown (principal); Z32.01 Encounter for pregnancy test, result positive
CPT/HCPCS: 36415; 84702

== ENCOUNTER → 2018-08-27 09:06 | Outpatient (CLI) | payer OTHER, SELFPAY ==
[2018-08-24 06:35] VITALS: BMI 23.8
[2018-08-27 10:43] LABS: hCG Titer Quant., Serum 4002 mIU/mL (1-3)
== END ==
PROVIDERS: Family Provider Family Medicine; PCP Family Medicine; Referring Provider Obstetrics & Gynecology Reproductive Endocrinology; Visit Provider Obstetrics & Gynecology Reproductive Endocrinology
DX: Z32.00 Encounter for pregnancy test, result unknown (principal); Z32.01 Encounter for pregnancy test, result positive
CPT/HCPCS: 36415; 84702

== ENCOUNTER → 2019-10-27 11:26 | Outpatient (CLI) | payer OTHER, SELFPAY ==
[2019-04-27 14:23] VITALS: BMI 23.8
[2019-10-27 12:10] LABS: hCG Titer Quant., Serum 27 mIU/mL (1-3)
== END ==
PROVIDERS: PCP Family Medicine; Referring Provider Obstetrics & Gynecology Reproductive Endocrinology; Visit Provider Obstetrics & Gynecology Reproductive Endocrinology
DX: Z32.01 Encounter for pregnancy test, result positive (principal)
CPT/HCPCS: 36415; 84702

== ENCOUNTER → 2019-10-29 08:00 | Outpatient (CLI) | payer OTHER, SELFPAY ==
[2019-04-27 14:23] VITALS: BMI 23.8
[2019-10-29 13:57] LABS: hCG Titer Quant., Serum 74 mIU/mL (1-3)
== END ==
PROVIDERS: PCP Family Medicine; Referring Provider Obstetrics & Gynecology Reproductive Endocrinology; Visit Provider Obstetrics & Gynecology Reproductive Endocrinology
DX: Z32.01 Encounter for pregnancy test, result positive (principal)
CPT/HCPCS: 36415; 84702

== ENCOUNTER → 2019-11-01 08:20 | Outpatient (CLI) | payer OTHER, SELFPAY ==
[2019-04-27 14:23] VITALS: BMI 23.8
[2019-11-01 09:12] LABS: hCG Titer Quant., Serum 278 mIU/mL (1-3)
== END ==
PROVIDERS: PCP Family Medicine; Referring Provider Obstetrics & Gynecology Reproductive Endocrinology; Visit Provider Obstetrics & Gynecology Reproductive Endocrinology
DX: Z32.01 Encounter for pregnancy test, result positive (principal)
CPT/HCPCS: 36415; 84702

== ENCOUNTER → 2020-01-07 14:53 | Outpatient (CLI) | payer OTHER, SELFPAY ==
[2019-04-27 14:23] VITALS: BMI 23.8
--- NOTE | 2020-01-07 14:55 | US_ITS ---
STUDY: SECOND AND THIRD TRIMESTER OBSTETRICAL ULTRASOUND REASON FOR EXAM: Female, 24 years old subchronic bleed f/u LMP: TECHNIQUE: Transabdominal TECHNICAL QUALITY: Adequate. PRIOR ULTRASOUND: None. FINDINGS: There is a single intrauterine fetus. The fetus is in a cephalic presentation. There is demonstrated cardiac activity with a heart rate of 144 bpm. There is a normal amniotic fluid volume. The largest amniotic fluid pocket measures 3.2 x 4.6 cm.. The placenta is anterior and fundal There are Grade 0 placental changes. The cervix measures 3.2 cm in length. The bilateral adnexal regions are normal. Complex fluid density adjacent to the gestational sac measuring 2.8 x 1.9 x 1.4 cm which may be consistent with subchorionic bleed. Also noted incidentally is placental lindsey measuring 2.5 x 1.8 x 0.6 cm Age by LMP: 13 weeks, 5 days. SHADE by LMP: 07/09/2020. US/OB Limited (No Biometrics) IMPRESSION: Viable intrauterine gestation approximately 13-14 weeks gestational age Small subchorionic bleed measuring 2.8 x 1.9 x 1.4 cm Electronically Signed: Dragan Charlton MD at 16:15 EST , Service support ,
== END ==
PROVIDERS: PCP Family Medicine; Referring Provider Specialist; Visit Provider Specialist
DX: Z36.2 Encounter for other antenatal screening follow-up (principal)
CPT/HCPCS: 76815

== ENCOUNTER → 2020-05-30 10:34 | Outpatient (CLI) | payer OTHER, SELFPAY ==
[2019-04-27 14:23] VITALS: BMI 23.8
[2020-05-30 11:18] LABS: Absolute Lymphocyte Count 1.71 X10^3/uL (0.83-4.51); Absolute Neutrophil Count 6.7 X10^3/uL (2.0-7.7); Basophil# 0.04 X10^3/uL; Basophil% 0.4 % (0-1); Eosinophil# 0.04 X10^3/uL; Eosinophils% 0.4 % (0-5); Hematocrit 32.3 % (37-47); Hemoglobin 11.1 g/dL (12.0-15.0); Lymphocyte # 1.71 X10^3/ul (4.0); Lymphocyte % 17.6 % (19-41); Mean Corp Hgb Conc 34.4 g/dL (32-36); Mean Corpuscular Hgb 34.8 pg (27.0-32.0); Mean Corpuscular Volume 101.3 fL (81-99); Mean Platelet Vol. 11.2 fl (6.2-12.0); Monocyte# 0.93 X10^3/uL; Monocyte% 9.6 % (0-10); NRBC Flagged by Analyzer 0 % (0-5); Neutrophil % 68.9 % (47-70); Platelet Count 138 K/mm3 (150-450); RBC Distribution Width CV 13.9 % (11.6-14.6); RBC Distribution Width SD 50.4 fl (35.1-43.9); Red Blood Count 3.19 M/mm3 (4.2-5.4); White Blood Count 9.7 K/mm3 (4.4-11.0)
[2020-05-30 11:42] LABS: ALB/GLOB Ratio 0.8 RATIO (0.9-2.4); AST(SGOT) 10 U/L (15-37); Alanine Aminotransfer ALT/SGPT 16 U/L (13-56); Albumin, Serum 2.8 g/dL (3.2-5.0); Alkaline Phosphatase 104 U/L (45-117); Anion Gap 7 (5-15); BUN 8 mg/dL (7-18); BUN/Creat Ratio 13.2 RATIO (10-20); CRP 4.57 mg/L (0.0-3.0); Calcium,Total 8.4 mg/dL (8.5-10.1); Chloride 107 mmol/L (98-107); EST Glomerular Filtration Rate 128 mL/min (>60); Est Glom Filt Rate - Afr Amer 155 mL/min (>60); Globulin 3.6 g/dL (2.2-4.2); Glucose 101 mg/dL (74-106); Potassium 3.2 mmol/L (3.5-5.1); Protein, Total 6.4 g/dL (6.4-8.2); Sodium Level 138 mmol/L (136-145)
== END ==
PROVIDERS: PCP Family Medicine
DX: K51.219 Ulcerative (chronic) proctitis with unspecified complications (principal); K92.1 Melena
CPT/HCPCS: 36415; 80053; 85025; 86140

== ENCOUNTER → 2022-02-18 | Outpatient (CLI) | payer OTHER, SELFPAY ==
[2022-02-18 09:39] LABS: hCG Titer Quant., Serum 199 mIU/mL (1-3)
== END | disposition home or self-care (01) ==
PROVIDERS: PCP Family Medicine
DX: N91.5 Oligomenorrhea, unspecified (principal)
CPT/HCPCS: 36415; 84702

== ENCOUNTER → 2024-11-26 | Outpatient (CLI) | payer OTHER, SELFPAY ==
--- NOTE | 2024-11-26 16:00 | US_ITS ---
PROCEDURE: OB ANATOMY W/ TRANSVAGINAL 11/26/2024 REASON FOR EXAM: ENCOUNTER FOR SCREENING FOR MALFORMATIONS TECHNIQUE: Procedure Code: USOBANATVAG Modality: US Procedure: OB ANATOMY W/ TRANSVAGINAL FINDINGS The fetus is in breech presentation with variable lie. cardiac activity is present at 150 bpm. Amniotic fluid maximum vertical pocket measures 3.9 cm. Estimated weight is 332 grams ??? 49 grams, corresponding to the 16th percentile. The biparietal diameter measures 4.2 cm, corresponding to 18 weeks 5 days, 1st percentile. The occipitofrontal diameter measures 5.1 cm, corresponding to 20 weeks 4 days, 50th percentile. The head circumference measures 16.7 cm, corresponding to 19 weeks 3 days, 3rd percentile. The abdominal circumference measures 14.9 cm, corresponding to 20 weeks 2 days, 27th percentile. The femur length measures 3.3 cm, corresponding to 20 weeks 2 days, 28th percentile. Composite age by measurements is 19 weeks 5 days. age by LMP is 20 weeks 5 days. Estimated date of delivery by LMP is 04/05/2025. The lateral ventricles are visualized and measure 0.5 cm. The choroid plexus is visualized and measures 0.1 cm. The cerebellum is visualized and measures 2.1 cm. The cisterna magna is visualized and measures 0.4 cm. The face and orbits, nose and lips, and profile are visualized. The four-chamber heart is visualized. The diaphragm, stomach, abdominal wall, cord insertion, three-vessel cord, kidneys, and bladder are all visualized. The cervical, thoracic, lumbar, and sacral spine are visualized. The upper and lower extremities are visualized. The placenta is posterior, grade 1, and within normal limits. No previa is identified. The cervix measures 3.6 cm in length with closed os. The adnexa are not visualized. US/OB Anatomy w/ Transvaginal IMPRESSION: Single live intrauterine gestation in breech presentation with heart rate of 150 bpm. biometry corresponds to 19 weeks 5 days, concordant with dating by LMP at 20 weeks 5 days. Estimated weight 332 grams, 16th percentile. anatomy survey is within normal limits with all major structures visualiz ed, though exam was limited by position. Posterior placenta, grade 1, without previa. Normal amniotic fluid volume. Cervical length 3.6 cm with closed os. Reading Location: [id number]
--- OUTSIDE RECORDS SUMMARY | 2024-11-26 16:07 | XMS RPT_ITS | CCD ---
Author Organization [facility] Care Team Providers Care Computer Drafter Name Role Phone Frankie Crowder Primary Care Provider [phone] PHYSICIAN, NONE Primary Care Physician Unavailab Frankie Cruz MD Primary Care Provider PHYSICIAN, NONE Primary Care Unavailable SANDER INDUSTRIAL ARTS TEACHER-CNNick, MIN Benavides Attending Renetta vailable SANDER DUNBARN-CNNick, MIN Benavides Admitting Renetta vailable PHYSICIAN, NONE Primary Care Unavailable CARO YOON-ALYSSA, MORE Benavides Attending Unavai labnavarro PHYSICIAN, NONE Primary Care Unavailable SANDER INDUSTRIAL ARTS TEACHER-CNNick, MIN Benavides Attending Renetta vailable PHYSICIAN, NONE Primary Care Unavailable CARO YOON-ALYSSA, MORE Benavides Attending Unavabibi labnavarro PHYSICIAN, NONE Primary Care Unavailable CARO DUNBARN-CNNick, MORE Benavides Attending Unavabibi labnavarro PHYSICIAN, NONE Primary Care Unavailable CARO YOON-ALYSSA, MORE Benavides Attending Frankie Silver MD Primary Care Provider FRANKIE CROWDER Primary Care Unavailab NIA Shaw Attending Unavailnoe ble Podlogar INDUSTRIAL ARTS TEACHERMarianne BOLTON Unavailable Unavailable Primary Care Provider Unavailabl e PHYSICIAN, NONE Primary Care Unavailable CARO CHAPPELL, MORE Benavides Attending LAURIE Pablo Referring Unavailable LAURIE CALDWELL Referring Unavailable MIRIAM MASON Referring Unavailable FRANKIE CROWDER Primary Care Unavailab FRANKIE Cruz Primary Care Unavailab LAURIE Barfield Referring Unavailable FRANKIE CROWDER Primary Care Unavailab le LYNNETTE, MIRIAM Attending Unavailable BURSLEY, CHRISTOPHER B Primary Care Unavailab le RIEDER, LAURIE Referring Unavailable BURSLEY, CHRISTOPHER B Primary Care Unavailab le RIEDER, LAURIE Referring Unavailable BURSLEY, CHRISTOPHER B Primary Care Unavailab le RIEDER, LAURIE Referring Unavailable BURSLEY, CHRISTOPHER B Primary Care Unavailab le RIBAKOW, MIRIAM Attending Unavailable BURSLEY, CHRISTOPHER B Primary Care Unavailab le RIEDER, LAURIE Referring Unavailable BURSLEY, CHRISTOPHER B Primary Care Unavailab le RIBAKOW, MIRIAM Referring Unavailable BURSLEY, CHRISTOPHER B Primary Care Unavailab le RIEDER, LAURIE Referring Unavailable BURSLEY, CHRISTOPHER B Primary Care Unavailab le RIEDER, LAURIE Referring Unavailable RIBAKOW, MIRIAM Referring Unavailable BURSLEY, CHRISTOPHER B Primary Care Unavailab le BURSLEY, CHRISTOPHER B Primary Care Unavailab le RIEDER, LAURIE Referring Unavailable RIBAKOW, MIRIAM Referring Unavailable BURSLEY, CHRISTOPHER B Primary Care Unavailab le RIBAKOW, MIRIAM Referring Unavailable BURSLEY, CHRISTOPHER B Primary Care Unavailab le Bursley, [place] Primary Care Unavailable Sherock, Spencer Referring Unavailable Sherock, Spencer Attending Unavailable Allergies Allergy Classification Reported Allergen(s) Allergy Type Date of Onset Reaction(s) Facility (1 source) Penicillins Propensity to adverse reactions to drug 9 Other (See Comments) [place], [place] (20 sources) Penicillin; Translations: [penicillin] Drug Allergy 6 Other: See Comments [facility] (1 source) Penicillins Drug allergy (disorder) 0 [facility] Repository Medications Current Medications Medication Drug Class(es) Dates Sig (Normalized) Sig (Original) acetaminophen 325 mg oral capsule (2 sources) Start: 10-23-2022 Tylenol 325 mg oral capsule Dose : 650 mg =, Oral, q6h, PRN Pain, scale 1-3, 0 Refill(s) Start Date: 10/23/22 Status: Ordered Repeat number: 1 [id number] 200 actuat albuterol 0.09 mg/actuat metered dose inhaler (5 sources) beta2-Adrenergic Agonist Start: 07-20-2021 End: 08-13-2021 take 2 puff(s) by inhalation every six hours as needed for wheezing albuterol HFA (PROVENTIL HFA, VENTOLIN HFA) 90 mcg/actuation inhaler Inhale 2 Puffs as instructed every 6 hours as needed for wheezing/shortness of breath. 1 Each 0 07/20/2021 08/13/2021 Discontinued (Course of therapy completed) Start: 02-06-2019 End: 08-13-2021 take 2 puff(s) by inhalation every four hours as needed for wheezing albuterol HFA (PROVENTIL HFA, VENTOLIN HFA) 90 mcg/actuation inhaler Indications: COVID-19 Inhale 2 Puffs as instructed every 4 hours as needed for wheezing/shortness of breath. 1 Each 1 01/30/2021 08/13/2021 Discontinued (Course of therapy completed) Comment on above: Inhale 2 Puffs as in structed every 4 hours as needed for wheezing/shortness of breath. Inhale 2 Puffs as in structed every 6 hours as needed for wheezing/shortness of breath. aspirin 81 mg chewable tablet (2 sources) Platelet Aggregation Inhibitor, Nonsteroidal Anti-inflammatory Drug Start: 2018 End: 2021 aspirin 81 mg chewable tablet 81 mg. 0 06/06/2018 08/13/2021 Discontinued (Course of therapy completed) Comment on above: 81 mg. azaTHIOprine 50 mg oral tablet (20 sources) Purine Antimetabolite Start: 2023 End: 2024 take 3 tablets by mouth once daily azaTHIOprine (IMURAN) 50 mg tablet Indications: Ulcerative proctitis without complication (HCC) Take 3 tablets by mouth once daily. 270 tablet 1 04/29/2024 10/26/2024 Active benzonatate 100 mg oral capsule (2 sources) Non-narcotic Antitussive Start: 2020 End: 2021 take 1-2 capsules by mouth three times daily as needed benzonatate (TESSALON PERLES) 100 mg capsule Indications: COVID-19 Take 1-2 capsules by mouth three times daily as needed. 30 capsule 0 01/30/2021 08/13/2021 Discontinued (Course of therapy completed) Comment on above: Take 1-2 capsules by mouth three times daily as needed. bisacodyl 5 mg delayed release oral tablet (2 sources) Stimulant Laxative Start: 2020 End: 2021 Bisacodyl (DULCOLAX) 5 mg tab Indications: Other ulcerative colitis with complication (HCC) Use as directed for Miralax / Gatorade Bowel Prep Kit 4 tablet 0 12/04/2020 08/13/2021 Discontinued (Course of therapy completed) Comment on above: Use as directed for Miralax / Gatorade Bowel Prep Kit calcium chloride 0.0014 meq/ml / potassium chloride 0.004 meq/ml / sodium chloride 0.103 meq/ml / sodium lactate 0.028 meq/ml injectable solution (1 source) Start: 2018 lactated ringers infusion cephalexin 500 mg oral capsule (1 source) Cephalosporin Antibacterial Start: 2022 End: 2022 take 1 capsule by mouth twice daily cephALEXin (KEFLEX) 500 mg capsule Indications: Paronychia, toe, left Take 1 capsule by mouth twice daily for 3 days. 6 capsule 0 08/05/2022 08/08/2022 Active Comment on above: Take 1 capsule by mo [facility] twice daily for 3 days. cetirizine hydrochloride 10 mg oral tablet (3 sources) Histamine-1 Receptor Antagonist Start: 2021 End: 2021 take 1 tablet by mouth once daily cetirizine (ZYRTEC) 10 mg tablet Indications: Seasonal allergies Take 1 tablet by mouth once daily. 30 tablet 11 08/13/2021 09/12/2021 Active Comment on above: [facility] compounded progesterone 200mg capsule (3 sources) compounded progesterone 200mg capsule 200 mg two times a day. Active dicyclomine hydrochloride 20 mg oral tablet (2 sources) Anticholinergic Start: 2020 End: 2021 take 1 tablet by mouth every six hours dicyclomine (BENTYL) 20 mg tablet Take 1 tablet by mouth every 6 hours. Do not take if 20 tablet 0 12/11/2020 08/13/2021 Discontinued Comment on above: Take 1 tablet by brenda every 6 hours. Do not take if 1 ml diphenhydrAMINE hydrochloride 50 mg/ml cartridge (1 source) Histamine-1 Receptor Antagonist Start: 2018 End: 2018 diphenhydrAMINE (BENADRYL) injection 12.5 mg docusate sodium 100 mg oral capsule (5 sources) Start: 2022 Colace 100 mg oral capsule Dose : 100 mg = 1 cap(s), Oral, BID, PRN Constipation, 0 Refill(s) Start Date: 10/23/22 Status: Ordered Repeat number: 1 Start: 07-07-2020 Colace 100 mg oral capsule Dose : 100 mg = 1 cap(s), Oral, BID, PRN Constipation, 0 Refill(s) Start Date: 07/07/20 Status: Ordered Gatorade Sports Drink (2 sources) Start: 12-04-2020 End: 08-13-2021 Gatorade Sports Drink Indica tions: Other ulcerative colitis with complication (HCC) Use as directed for Miralax / Gatorade Bowel Prep Kit 0 12/04/2020 08/13/2021 Discontinued (Course of therapy completed) Start: 12-04-2020 Gatorade Sport s Drink Indications: Other ulcerative colitis with complication (HCC) Use as directed for Miralax / Gatorade Bowel Prep Kit 0 12/04/2020 Active Comment on above: Use as directed for Miralax / Gatorade Bowel Prep Kit 1 ml hydrALAZINE hydrochloride 20 mg/ml injection (1 source) Arteriolar Vasodilator Start: 10-29-2018 hydrALAZINE (APRESOLINE) injection 5 mg 1 ml HYDROmorphone hydrochloride 1 mg/ml cartridge (2 sources) Opioid Agonist Start: 10-29-2018 HYDROmorphone (DILAUDID) injection 0.5 mg Start: 10-29-2018 HYDROmorphone (DILAUDID) injection 0.25 mg ibuprofen 600 mg oral tablet (5 sources) Nonsteroidal Anti-inflammatory Drug Start: 10-23-2022 Motrin Dose : 600 mg = 1 tab(s), Oral, q6h, PRN uterine cramping, 0 Refill(s) Start Date: 10/23/22 Status: Ordered Repeat number: 1 Start: 07-07-2020 Motrin Dose : 600 mg = 1 tab(s), Oral, q6h, PRN uterine cramping, 0 Refill(s) Start Date: 07/07/20 Status: Ordered Inhalational Spacing Device (1 source) Start: 07-20-2021 End: 07-20-2021 Inhalational Spacing Device 1 Device one time only for 1 dose. 1 Each 0 07/20/2021 07/20/2021 Active Comment on above: 1 Device one time on ly for 1 dose. 4 ml labetalol hydrochloride 5 mg/ml cartridge (1 source) beta-Adrenergic Elza Start: 10-29-2018 labetalol (NORMODYNE;TRANDA TE) injection 5 mg 10 ml lidocaine hydrochloride 10 mg/ml injection (1 source) Antiarrhythmic, Amide Local Anesthetic Start: 10-29-2018 End: 10-29-2018 lidocaine PF 1 % injection 1 mL 1 ml meperidine hydrochloride 25 mg/ml cartridge (1 source) Opioid Agonist Start: 10-29-2018 meperidine (DEMEROL) injection 12.5 mg mesalamine 1200 mg delayed release oral tablet (20 sources) Aminosalicylate Start: 12-11-2020 End: 04-12-2024 take 4 tablets by mouth once daily Mesalamine (LIALDA) 1.2 gram EC tablet Indications: Ulcerative proctitis without complication (HCC) Take 4 tablets by mouth once daily. 360 tablet 2 07/17/2023 Active Start: 12-04-2020 End: 08-13-2021 take 60 mL rectal route once daily at bedtime mesalamine (ROWASA) 4 gram/60 mL enema 60 mL by RECTAL route daily at bedtime. 5400 mL 0 12/04/2020 08/13/2021 Discontinued (Course of therapy completed) Start: 03-31-2017 mesalamine 1.2 g oral delayed release tablet Dose : 4.8 gram(s) = 4 tab(s), Oral, qPM, # 112 tab(s), 0 Refill(s) Start Date: 03/31/17 Status: Ordered Quantity: 112.0 Unit: tab(s) Repeat number: 1 mesalamine (LIAL DA) 1.2 g EC tablet Take 3,600 mg by mouth daily (with breakfast) 0 Active Comment on above: 60 mL by RECTAL rout e daily at bedtime. Take 4 tablets by mo uth daily with food, do not crush. TAKE 4 TABLETS BY MO UTH EVERY DAY WITH FOOD. DO NOT CRUSH Take 4 tablets by mo uth once daily. methylergonovine maleate 0.2 mg oral tablet (2 sources) Ergot Derivative Start: 2018 End: 2018 take 1 tablet by mouth every six hours methylergonovine (METHERGINE) 0.2 MG tablet Take 1 tablet by mouth every 6 hours for 1 day 4 tablet 0 10/29/2018 10/30/2018 Active methylPREDNISolone 4 mg oral tablet (20 sources) Corticosteroid Start: 2023 take 1 tablet by mouth once daily methylPREDNISolone (MEDROL) 4 mg Take 1 tablet by mouth once daily. 2 tablet 08/30/2023 Active Start: 08-22-2023 End: 08-28-2023 methylPREDNISolone (MEDROL, MAICOL,) 4 mg Dose-Pack Take as instructed per package. 21 tablet 0 08/22/2023 08/28/2023 Active 2 ml ondansetron 2 mg/ml injection (1 source) Serotonin-3 Receptor Antagonist Start: 10-29-2018 End: 10-29-2018 ondansetron (ZOFRAN) injection 4 mg oxyCODONE hydrochloride 5 mg oral tablet (1 source) Opioid Agonist Start: 10-29-2018 End: 10-31-2018 take 1 tablet by mouth every six hours as needed for pain, then take 1 tablet by mouth as needed for pain oxyCODONE (ROXICODONE) 5 MG immediate release tablet Indications: Post-operative state Take 1 tablet by mouth every 6 hours as needed for Pain for up to 2 days. Intended supply: 7 days. Take lowest dose possible to manage pain 5 tablet 0 10/29/2018 10/31/2018 Active PNV WITHOUT CA NO.9/IRON/FA ( VIT NO.9-IRON-FA ORAL) (20 sources) PNV WITHOUT CA NO.9/IRON/FA ( VIT NO.9-IRON-FA ORAL) Take by mouth. Active PNV WITHOUT CA N O.9/IRON/FA ( VIT NO.9-IRON-FA ORAL) Take by mouth. 0 Active Comment on above: Take by mouth. predniSONE 5 mg oral tablet (20 sources) Start: 09-01-2023 predniSONE (DELTASONE) 5 mg tablet You have a total of 336 prednisone 5mg pills. Take 60mg prednisone (12 tabs) daily for 7 days, then 40mg daily for 7 days and reduce dose by 5mg per week (35mg-> 30mg -> 25mg, etc.), then stop 336 tablet 09/01/2023 Active Start: 01-18-2022 End: 08-05-2022 predniSONE (DELTASONE) 10 mg tablet Take 4 tabs daily for 3 days, then 2 tabs daily for 3 days, then 1 tab daily for 3 days with food. 21 tablet 01/18/2022 08/05/2022 Discontinued Start: 07-20-2021 End: 07-25-2021 take 1 tablet by mouth once daily predniSONE (DELTASONE) 20 mg tablet Take 1 tablet by mouth once daily for 5 days. 5 tablet 0 07/20/2021 07/25/2021 Active Start: 12-11-2020 End: 07-20-2021 take 1 tablet by mouth once daily predniSONE (DELTASONE) 10 mg tablet Take 1 tablet by mouth once daily. 60 mg x 1 week, 50 mg x 1 week, 40 mg x 1 week, 35 mg x 1 week, 30 mg x 1 week, 25 mg x 1 week, 20 mg x 1 week, 15 mg x 1 week, 10 mg x 1 week, 5 mg x 1 week 209 tablet 0 12/11/2020 07/20/2021 Discontinued Start: 05-08-2020 End: 07-20-2021 take 8 tablets by mouth once daily, then take 1 tablet by mouth every week predniSONE (DELTASONE) 5 mg tablet PO. Take 8 tablets daily for one week, then decrease by one tablet once per week until gone. This taper should take 8 weeks to complete. 252 tablet 0 05/08/2020 07/20/2021 Discontinued Comment on above: Take 1 tablet by brenda th once daily for 5 days. PO. Take 8 tablets d aily for one week, then decrease by one tablet once per week until gone. This taper should take 8 weeks to complete. Take 1 tablet by brenda th once daily. 60 mg x 1 week, 50 mg x 1 week, 40 mg x 1 week, 35 mg x 1 week, 30 mg x 1 week, 25 mg x 1 week, 20 mg x 1 week, 15 mg x 1 week, 10 mg x 1 week, 5 mg x 1 week Take 4 tabs daily fo r 3 days, then 2 tabs daily for 3 days, then 1 tab daily for 3 days with food. Multivitamins with Vitamin B Complex, Vitamin C, Minerals and L-Methylfolate oral capsule (5 sources) Start: 8 take 1 capsule by mouth once daily in the morning Multivitamins with Vitamin B Complex, Vitamin C, Minerals and L-Methylfolate oral capsule Dose = 1 cap(s), Oral, qAM, 0 Refill(s) Start Date: 03/31/17 Status: Ordered Repeat number: 1 Start: 03-31-2017 take 1 capsule by mo [facility] once daily in the morning Multivitamins with Vitamin B Complex, Vitamin C, Minerals and L-Methylfolate oral capsule Dose = 1 cap(s), Oral, qAM, 0 Refill(s) Start Date: 03/31/17 Status: Ordered MV-Min-Fe Fum-FA-DHA ( 1 PO) (1 source) take 1 tablet by mouth once daily, then take 1 tablet by mouth MV-Min-Fe Fum-FA-DHA ( 1 PO) Take 1 tablet by mouth daily 0 Active 1 ml promethazine hydrochloride 25 mg/ml injection (1 source) Phenothiazine Start: 10-29-2018 End: 10-29-2018 promethazine (PHENERGAN) injection 6.25 mg Completed/Discontinued Medications Medication Drug Class(es) Dates Sig (Normalized) Sig (Original) brompheniramine maleate 0.4 mg/ml / dextromethorphan hydrobromide 2 mg/ml / pseudoephedrine hydrochloride 6 mg/ml oral solution (5 sources) alpha-Adrenergic Agonist, Uncompetitive E-xhcfnr-V-aspartat e Receptor Antagonist, Sigma-1 Agonist Start: 01-18-2022 End: 08-05-2022 take 5 mL by mouth every six hours as needed Brompheniramine-P seudoeph-DM (BROMFED DM) 2-30-10 mg/5 mL syrup Take 5 mL by mouth four times daily as needed. 118 mL 01/18/2022 08/05/2022 Discontinued Start: 02-06-2019 End: 08-13-2021 take 5 mL by mouth every six hours as needed Yutvreokdtwycuu-Cnxzpeqox-OG (BROMFED DM ) 2-30-10 mg/5 mL syrup Take 5 mL by mouth four times daily as needed. 118 mL 0 02/06/2019 08/13/2021 Discontinued (Course of therapy completed) Comment on above: Take 5 mL by mouth f our times daily as needed. doxycycline monohydrate 100 mg oral tablet (3 sources) Tetracycline-clas s Drug Start: 01-18-2022 End: 01-23-2022 take 1 tablet by mouth twice daily doxycycline monohydrate 100 mg tablet Take 1 tablet by mouth twice daily for 5 days. 10 tablet 01/18/2022 01/23/2022 Start: 10-29-2018 End: 10-29-2018 doxycycline monohydrate (MON ODOX) capsule 200 mg Comment on above: Take 1 tablet by [facility] twice daily for 5 days. 1 ml fentaNYL 0.05 mg/ml injection (3 sources) Opioid Agonist Start: 09-08-2023 End: 09-08-2023 fentaNYL 50 mcg/mL injection (SUBLIMAZE) Start: 10-29-2018 fentaNYL (SUBL IMAZE) injection 25 mcg Start: 10-29-2018 fentaNYL (SUBL IMAZE) injection 50 mcg fluticasone propionate 0.05 mg/actuat metered dose nasal spray (7 sources) Corticosteroid Start: 07-20-2021 End: 08-05-2022 take 2 spray(s) by mouth once daily fluticasone (FLONASE) 50 mcg/actuation nasal spray Use 2 Sprays in each nostril once daily. Rinse mouth after use. 1 Each 07/20/2021 08/05/2022 Discontinued Comment on above: Use 2 Sprays in each nostril once daily. Rinse mouth after use. inFLIXimab-dyyb 400 mg in NaCl 0.9% 250 mL (INFLECTRA) (7 sources) Start: 10-14-2024 End: 10-14-2024 400 mg (rounded from 424 mg = 5 mg/kg/dose 84.8 kg), INTRAVENOUS, at 83.33-250 mL/hr, Administer over 1-3 Hours, ONCE, 1 dose, On [place] 10/14/24 at 1100, TOTAL VOLUME - Expires: 10/15/24 @ 1100 Administer with 0.2 micron filter., Medication Substitution: [facility] preferred product has been replaced with the insurance mandated product Start: 08-19-2024 End: 08-19-2024 400 mg (rounded from 424 mg = 5 mg/kg/dose 84.8 kg), INTRAVENOUS, at 83.33-250 mL/hr, Administer over 1-3 Hours, ONCE, 1 dose, On [place] 08/19/24 at 0900, Total Volume: = 250 mL EXP:08/29/24 (fridge) Administer with 0.2 micron filter., Medication Substitution: [facility] preferred product has been replaced with the insurance mandated product Start: 04-29-2024 End: 04-29-2024 400 mg (rounded from 440 mg = 5 mg/kg/dose 88 kg), INTRAVENOUS, at 83.33-250 mL/hr, Administer over 1-3 Hours, ONCE, 1 dose, On [place] 04/29/24 at 1130, Total Volume: = 250 mL 1130 04/30/24 Administer with 0.2 micron filter., Medication Substitution: [facility] preferred product has been replaced with the insurance mandated product Start: 02-27-2024 End: 02-27-2024 400 mg (rounded from 433 mg = 5 mg/kg/dose 86.6 kg), INTRAVENOUS, at 83.33-250 mL/hr, Administer over 1-3 Hours, ONCE, 1 dose, On Fri02/27/24 at 1100, Total Volume: = 250 mL EXP: Administer with 0.2 micron filter., Medication Substitution: [facility] preferred product has been replaced with the insurance mandated product Start: 12-15-2023 End: 12-15-2023 400 mg (rounded from 443 mg = 5 mg/kg/dose 88.6 kg), INTRAVENOUS, at 83.33-250 mL/hr, Administer over 1-3 Hours, ONCE, 1 dose, On Fri12/15/23 at 0900, Total Volume: = 250 mL exp 89912/16/23 (room temp) Administer with 0.2 micron filter., Medication Substitution: [facility] preferred product has been replaced with the insurance mandated product Start: 11-14-2023 End: 11-14-2023 400 mg (rounded from 397 mg = 5 mg/kg/dose 79.4 kg), INTRAVENOUS, at 83.33-250 mL/hr, Administer over 1-3 Hours, ONCE, 1 dose, On Fri11/14/23 at 0830, TOTAL VOLUME - Expires: 11/15/23 @ 0845 Administer with 0.2 micron filter., Medication Substitution: [facility] preferred product has been replaced with the insurance mandated product Start: 10-30-2023 End: 10-30-2023 400 mg (rounded from 397 mg = 5 mg/kg/dose 79.4 kg), INTRAVENOUS, at 83.33-250 mL/hr, Administer over 1-3 Hours, ONCE, 1 dose, On [place] 10/30/23 at 1030, Total Volume: = 250 mL exp 1030 10/31/23 (room temp) Administer with 0.2 micron filter., Medication Substitution: [facility] preferred product has been replaced with the insurance mandated product 5 ml midazolam 1 mg/ml injection (1 source) Benzodiazepine Start: 09-08-2023 End: 09-08-2023 midazolam (PF) injection (VERSED) polyethylene glycol 3350 35190 mg powder for oral solution (7 sources) Osmotic Laxative Start: 12-04-2020 End: 08-05-2022 polyethylene glycol 3350 (MIRALAX, GLYCOLAX) 17 gram/dose powder Indications: Other ulcerative colitis with complication (HCC) Use as directed for Miralax / Gatorade Bowel Prep Kit 238 g 12/04/2020 08/05/2022 Discontinued Comment on above: Use as directed for Miralax / Gatorade Bowel Prep Kit 2 ml rho(d) immune globulin, human 750 unt/ml prefilled syringe (1 source) Human Immunoglobulin G Start: 10-29-2018 End: 10-29-2018 rho(D) immune globulin (RHOPHYLAC) injection 300 mcg Problems Active Problems Problem Classification Problem Date Documented Date Episodic/Chronic Deficiency and other anemia (20 sources) Iron deficiency anemia due to blood loss; Translations: [Iron deficiency anemia secondary to blood loss (chronic)] Onset: 03-21-2016 03-21-2016 Chronic Deficiency and other anemia (20 sources) Iron deficiency anemia; Translations: [Iron deficiency anemia, unspecified] 06-20-2016 Episodic Headache; including migraine (5 sources) Headache 03-31-2017 Episodic Nutritional deficiencies (20 sources) Undernutrition; Translations: [Mild protein-calorie malnutrition] Onset: 03-29-2016 03-29-2016 Chronic Other aftercare (2 sources) Long-term current use of systemic steroid; Translations: [intermediate (current) use of systemic steroids] 09-13-2022 Episodic Other complications of (1 source) Missed miscarriage; Translations: [Missed ab] Onset: 10-26-2018 10-26-2018 Episodic Other complications of (1 source) Fatigue during ; Translations: [ related exhaustion and fatigue, second trimester] Episodic Other congenital anomalies (20 sources) Congenital anomaly of skin; Translations: [Other specified congenital malformations of skin] Onset: 02-05-2007 02-05-2007 Chronic Other lower respiratory disease (2 sources) Cough; Translations: [Cough] Episodic Other lower respiratory disease (1 source) Cough; Translations: [Acute cough] 01-18-2022 Episodic Other and delivery including normal (4 sources) Normal ; Translations: [Encounter for supervision of other normal , first trimester] Onset: 10-14-2022 Episodic Other screening for suspected conditions (not mental disorders or infectious disease) (2 sources) Finding of screening status; Translations: [Encounter for other specified screening] Onset: 11-19-2024 Episodic Other upper respiratory disease (6 sources) Seasonal allergy; Translations: [Other seasonal allergic rhinitis] Chronic Other upper respiratory disease (1 source) Chronic rhinitis; Translations: [Unspecified sinusitis (chronic)] Chronic Other upper respiratory infections (2 sources) Sore throat symptom; Translations: [Acute pharyngitis, unspecified] Episodic Regional enteritis and ulcerative colitis (20 sources) Proctitis; Translations: [Ulcerative (chronic) proctitis without complications] Onset: 06-20-2016 06-20-2016 Chronic Residual codes; unclassified (1 source) Gestation period, 39 weeks; Translations: [39 weeks gestation of ] Onset: 10-22-2022 Episodic Residual codes; unclassified (1 source) Postoperative state; Translations: [Post-operative state] Skin and subcutaneous tissue infections (1 source) Paronychia of toe of left foot; Translations: [Cellulitis of left toe] Episodic Unclassified (5 sources) Breast feeding (infant) (observable entity) 07-06-2020 Comment on above: System added from do cumentation. Breast feeding Status documented as Yes on Admission Past or Other Problems Problem Classification Problem Date Documented Da te Episodic/Chronic Deficiency and other anemia (20 sources) Microcytic anemia; Translations: [Iron deficiency anemia, unspecified] Onset: 03-13-2016 Resolved: 03-21-2016 03-21-2016 Episodic Gastrointestinal hemorrhage (20 sources) Blood-tinged feces; Translations: [Melena] Onset: 03-28-2016 03-28-2016 Episodic Noninfectious gastroenteritis (20 sources) Inflammatory bowel disease; Translations: [Noninfective gastroenteritis and colitis, unspecified] Onset: 05-03-2016 05-03-2016 Episodic Unclassified (1 source) Ulcerative proctitis without complication (HCC) 05-06-2024 Results Test Name Value Interpretation Reference Range Facility CBC W Auto Differential pane l (Bld)on 12-22-2023 Basophils (Bld) [#/Vol] 0.05 10*3/uL Normal <0.11 [facility] Comment on above: Order Comment: Specbibi barker Type: BLOOD SPECIMEN Ordering Facility: [facility] Address: [address] [place] [address] Performed By: #### 2 4323-8 #### [facility] CLIA [id number] [address] [place] [address] [place] Basophils/100 WBC (Bld) 1.0 % Normal [facility] Comment on above: Order Comment: Dayo barker Type: BLOOD SPECIMEN Ordering Facility: [facility] Address: [address] [place] [address] Performed By: #### 2 4323-8 #### [facility] CLIA [id number] [address] [place] [address] [place] Differential cell count method Nom (Bld) Auto Normal [facility] Comment on above: Order Comment: Dayo barker Type: BLOOD SPECIMEN Ordering Facility: [facility] Address: [address] [place] [address] Performed By: #### 2 4323-8 #### [facility] CLIA [id number] [address] [place] [address] [place] Eosinophils (Bld) [#/Vol] 0.06 10*3/uL Normal <0.46 [facility] Comment on above: Order Comment: Speci men Type: BLOOD SPECIMEN Ordering Facility: [facility] Address: [address] [place] [address] Performed By: #### 2 4323-8 #### [facility] CLIA [id number] [address] [place] [address] [place] Eosinophils/100 WBC (Bld) 1.2 % Normal [facility] Comment on above: Order Comment: Speci men Type: BLOOD SPECIMEN Ordering Facility: [facility] Address: [address] [place] [address] Performed By: #### 2 4323-8 #### [facility] CLIA [id number] [address] [place] [address] [place] Erythrocyte distribution width (RBC) [Ratio] 11.9 % Normal 11.5-15.0 [facility] Comment on above: Order Comment: Speci men Type: BLOOD SPECIMEN Ordering Facility: [facility] Address: [address] [place] [address] Performed By: #### 2 4323-8 #### [facility] CLIA [id number] [address] [place] [address] [place] Hematocrit (Bld) [Volume fraction] 38.4 % Normal 36.0-46.0 [facility] Comment on above: Order Comment: Speci men Type: BLOOD SPECIMEN Ordering Facility: [facility] Address: [address] [place] [address] Performed By: #### 2 4323-8 #### [facility] CLIA [id number] [address] [place] [address] [place] Hemoglobin (Bld) [Mass/Vol] 13.1 g/dL Normal 11.5-15.5 [facility] Comment on above: Order Comment: Speci men Type: BLOOD SPECIMEN Ordering Facility: [facility] Address: [address] [place] [address] Performed By: #### 2 4323-8 #### [facility] CLIA [id number] [address] [place] [address] [place] Immature granulocytes (Bld) [#/Vol] 10*3/uL Normal <0.10 [facility] Comment on above: Order Comment: Speci men Type: BLOOD SPECIMEN Ordering Facility: [facility] Address: [address] [place] [address] Performed By: #### 2 4323-8 #### [facility] CLIA [id number] [address] [place] [address] [place] Immature granulocytes/100 WBC (Bld) 0.2 % Normal [facility] Comment on above: Order Comment: Speci men Type: BLOOD SPECIMEN Ordering Facility: [facility] Address: [address] [place] [address] Performed By: #### 2 4323-8 #### [facility] CLIA [id number] [address] [place] [address] [place] Lymphocytes (Bld) [#/Vol] 1.86 10*3/uL Normal 1.00-4.00 [facility] Comment on above: Order Comment: Speci men Type: BLOOD SPECIMEN Ordering Facility: [facility] Address: [address] [place] [address] Performed By: #### 2 4323-8 #### [facility] CLIA [id number] [address] [place] [address] [place] Lymphocytes/100 WBC (Bld) 37.1 % Normal [facility] Comment on above: Order Comment: Speci men Type: BLOOD SPECIMEN Ordering Facility: [facility] Address: [address] [place] [address] Performed By: #### 2 4323-8 #### [facility] CLIA [id number] [address] [place] [address] [place] MCH (RBC) [Entitic mass] 32.8 pg Normal 26.0-34.0 [facility] Comment on above: Order Comment: Speci men Type: BLOOD SPECIMEN Ordering Facility: [facility] Address: [address] [place] [address] Performed By: #### 2 4323-8 #### [facility] CLIA [id number] [address] [place] [address] [place] MCHC (RBC) [Mass/Vol] 34.1 g/dL Normal 30.5-36.0 [facility] Comment on above: Order Comment: Speci men Type: BLOOD SPECIMEN Ordering Facility: [facility] Address: [address] [place] [address] Performed By: #### 2 4323-8 #### [facility] CLIA [id number] [address] [place] [address] [place] MCV (RBC) [Entitic vol] 96.2 fL Normal 80.0-100.0 [facility] Comment on above: Order Comment: Speci men Type: BLOOD SPECIMEN Ordering Facility: [facility] Address: [address] [place] [address] Performed By: #### 2 4323-8 #### [facility] CLIA [id number] [address] [place] [address] [place] Monocytes (Bld) [#/Vol] 0.61 10*3/uL Normal <0.87 [facility] Comment on above: Order Comment: Speci men Type: BLOOD SPECIMEN Ordering Facility: [facility] Address: [address] [place] [address] Performed By: #### 2 4323-8 #### [facility] CLIA [id number] [address] [place] [address] [place] Monocytes/100 WBC (Bld) 12.2 % Normal [facility] Comment on above: Order Comment: Speci men Type: BLOOD SPECIMEN Ordering Facility: [facility] Address: [address] [id number] Performed By: #### 2 4323-8 #### [facility] CLIA [id number] [address] [place] [address] [place] Neutrophils (Bld) [#/Vol] 2.43 10*3/uL Normal 1.45-7.50 [facility] Comment on above: Order Comment: Speci men Type: BLOOD SPECIMEN Ordering Facility: [facility] Address: [address] [place] [address] Performed By: #### 2 4323-8 #### [facility] CLIA [id number] [address] [place] [address] [place] Neutrophils/100 WBC (Bld) 48.3 % Normal [facility] Comment on above: Order Comment: Speci men Type: BLOOD SPECIMEN Ordering Facility: [facility] Address: [address] [place] [address] Performed By: #### 2 4323-8 #### [facility] CLIA [id number] [address] [place] [address] [place] Nucleated RBC (Bld) [#/Vol] 10*3/uL Normal <0.01 [facility] Comment on above: Order Comment: Speci men Type: BLOOD SPECIMEN Ordering Facility: [facility] Address: [address] [place] [address] Performed By: #### 2 4323-8 #### [facility] CLIA [id number] [address] [place] [address] [place] Nucleated RBC/100 WBC (Bld) [Ratio] 0.0 /100 WBC Normal [facility] Comment on above: Order Comment: Speci men Type: BLOOD SPECIMEN Ordering Facility: [facility] Address: [address] [place] [address] Performed By: #### 2 4323-8 #### [facility] CLIA [id number] [address] [place] [address] [place] Platelet mean volume (Bld) [Entitic vol] 11.9 fL Normal 9.0-12.7 [facility] Comment on above: Order Comment: Speci men Type: BLOOD SPECIMEN Ordering Facility: [facility] Address: [address] [place] [address] Performed By: #### 2 4323-8 #### [facility] CLIA [id number] [address] [place] [address] [place] Platelets (Bld) [#/Vol] 198 10*3/uL Normal 150-400 [facility] Comment on above: Order Comment: Speci men Type: BLOOD SPECIMEN Ordering Facility: [facility] Address: [address] [place] [address] Performed By: #### 2 4323-8 #### [facility] CLIA [id number] [address] [place] [address] [place] RBC (Bld) [#/Vol] 3.99 10*6/uL Normal 3.90-5.20 [facility] Comment on above: Order Comment: Speci men Type: BLOOD SPECIMEN Ordering Facility: [facility] Address: [address] [place] [address] Performed By: #### 2 4323-8 #### [facility] CLIA [id number] [address] [place] [address] [place] WBC (Bld) [#/Vol] 5.02 10*3/uL Normal 3.70-11.00 [facility] Comment on above: Order Comment: Speci men Type: BLOOD SPECIMEN Ordering Facility: [facility] Address: [address] [place] [address] Performed By: #### 2 4323-8 #### [facility] CLIA [id number] [address] [place] [address] [place] Comprehensive metabolic 2000 panelon 12-22-2023 Albumin [Mass/Vol] 4.5 g/dL Normal 3.9-4.9 [facility] Comment on above: Order Comment: Speci men Type: BLOOD SPECIMEN Ordering Facility: [facility] Address: [address] [id number] Performed By: #### 2 4323-8 #### [facility] CLIA [id number] [address] [place] [address] [place] ALP [Catalytic activity/Vol] 84 U/L Normal 34-123 [facility] Comment on above: Order Comment: Speci men Type: BLOOD SPECIMEN Ordering Facility: [facility] Address: [address] [place], [place] [address] Performed By: #### 2 4323-8 #### [facility] CLIA [id number] [address] [place] [address] [place] ALT [Catalytic activity/Vol] 21 U/L Normal 7-38 [facility] Comment on above: Order Comment: Speci men Type: BLOOD SPECIMEN Ordering Facility: [facility] Address: [address] [place] [address] Performed By: #### 2 4323-8 #### [facility] CLIA [id number] [address] [place] [address] [place] Anion gap [Moles/Vol] 15 mmol/L Normal 8-15 [facility] Comment on above: Order Comment: Speci men Type: BLOOD SPECIMEN Ordering Facility: [facility] Address: [address] [place] [address] Performed By: #### 2 4323-8 #### [facility] CLIA [id number] [address] [place] [address] [place] AST [Catalytic activity/Vol] 20 U/L Normal 13-35 [facility] Comment on above: Order Comment: Speci men Type: BLOOD SPECIMEN Ordering Facility: [facility] Address: [address] [place], [place] [address] Performed By: #### 2 4323-8 #### [facility] CLIA [id number] [address] [place] [address] [place] Bilirubin [Mass/Vol] 0.7 mg/dL Normal 0.2-1.3 [facility] Comment on above: Order Comment: Speci men Type: BLOOD SPECIMEN Ordering Facility: [facility] Address: [address] [place] [address] Performed By: #### 2 4323-8 #### [facility] CLIA [id number] [address] [place] [address] [place] Calcium [Mass/Vol] 9.4 mg/dL Normal 8.5-10.2 [facility] Comment on above: Order Comment: Speci men Type: BLOOD SPECIMEN Ordering Facility: [facility] Address: [address] [place] [address] Performed By: #### 2 4323-8 #### [facility] CLIA [id number] [address] [place] [address] [place] Chloride [Moles/Vol] 105 mmol/L Normal 98-107 [facility] Comment on above: Order Comment: Speci men Type: BLOOD SPECIMEN Ordering Facility: [facility] Address: [address] [place] [address] Performed By: #### 2 4323-8 #### [facility] CLIA [id number] [address] [place] [address] [place] CO2 [Moles/Vol] 19 mmol/L Low 22-30 [facility] Comment on above: Order Comment: Speci men Type: BLOOD SPECIMEN Ordering Facility: [facility] Address: [address] [place] [address] Performed By: #### 2 4323-8 #### [facility] CLIA [id number] [address] [place] [address] [place] Creatinine [Mass/Vol] 0.79 mg/dL Normal 0.58-0.96 [facility] Comment on above: Order Comment: Speci men Type: BLOOD SPECIMEN Ordering Facility: [facility] Address: [address] [place] [address] Performed By: #### 2 4323-8 #### [facility] CLIA [id number] [address] [place] [address] [place] Creatinine and Glomerular filtration rate.predicted panel (S/P/Bld) 105 mL/min/1.73m??? Normal >=60 [facility] Comment on above: Order Comment: Dayo barker Type: BLOOD SPECIMEN Ordering Facility: [facility] Address: [address] [place] [address] Result Comment: Isabell mated Glomerular Filtration Rate (eGFR) is calculated using the 2020 CKD-EPI creatinine equation. This equation utilizes serum creatinine, sex, and age as parameters. The creatinine assay has traceable calibration to isotope dilution-mass spectrometry. Refer to KDIGO guidelines for clinical interpretation. In patients with unstable renal function, e.g. those with acute kidney injury, the eGFR may not accurately reflect actual GFR. Performed By: #### 2 4323-8 #### [facility] CLIA [id number] [address] [place] [address] [place] Glucose [Mass/Vol] 92 mg/dL Normal 74-99 [facility] Comment on above: Order Comment: Dayo barker Type: BLOOD SPECIMEN Ordering Facility: [facility] Address: [address] [place] [address] Result Comment: The [place] [employer] (ADA) provides guidance for cutoff values for fasting glucose and random glucose. The ADA defines fasting as no caloric intake for at least 8 hours. Fasting plasma glucose results between 100 to 125 mg/dL indicate increased risk for diabetes (prediabetes). Fasting plasma glucose results greater than or equal to 126 mg/dL meet the criteria for diagnosis of diabetes. In the absence of unequivocal hyperglycemia, results should be confirmed by repeat testing. In a patient with classic symptoms of hyperglycemia or hyperglycemic crisis, random plasma glucose results greater than or equal to 200 mg/dL meet the criteria for diagnosis of diabetes. Reference: Standards of Medical Care in Diabetes 2016, [place] [employer]. Diabetes Care. 2016.39(Suppl 1). Performed By: #### 2 4323-8 #### [facility] CLIA [id number] [address] [place] [address] [place] Potassium [Moles/Vol] 3.9 mmol/L Normal 3.7-5.1 [facility] Comment on above: Order Comment: Speci men Type: BLOOD SPECIMEN Ordering Facility: [facility] Address: [address] [place] [address] Performed By: #### 2 4323-8 #### [facility] CLIA [id number] [address] [place] [address] [place] Protein [Mass/Vol] 7.1 g/dL Normal 6.3-8.0 [facility] Comment on above: Order Comment: Speci men Type: BLOOD SPECIMEN Ordering Facility: [facility] Address: [address] [place] [address] Performed By: #### 2 4323-8 #### [facility] CLIA [id number] [address] [place] [address] [place] Sodium [Moles/Vol] 139 mmol/L Normal 136-144 [facility] Comment on above: Order Comment: Speci men Type: BLOOD SPECIMEN Ordering Facility: [facility] Address: [address] [place] [address] Performed By: #### 2 4323-8 #### [facility] CLIA [id number] [address] [place] [address] [place] Urea nitrogen [Mass/Vol] 13 mg/dL Normal 7-21 [facility] Comment on above: Order Comment: Speci men Type: BLOOD SPECIMEN Ordering Facility: [facility] Address: [address] [place] [address] Performed By: #### 2 4323-8 #### [facility] CLIA [id number] [address] [place] [address] [place] CNOVSPon 12-15-2023 CNOVSP Visit (SP) Office ([facility]) JOELLE HENDRICKS ([id number]) 1995 F Date Time Provider Department 12/15/23 8:30 AM TREATMENT RM [facility] During your visit today, we recorded the following information about you: Temperature Pulse Respiration Blood pressure 97.5 degrees 84/minute 18/minute 116/78 Weight 88.6 kg Referring Provider: LAURIE CALDWELL [[id number]] Allergies As of Date: 12/15/2023 Noted Allergy Reaction PENICILLIN 01/18/2016 14 - Other: See Comments Comments: Makes pt hyper Date Reviewed: 12/15/2023 Reviewed by: Jaswant Steele RN - Fully Assessed Reason for Visit: Chemotherapy Treatment [771] Primary Visit Diagnosis:Other ulcerative colitis without complication (HCC) [K51.80] Order(s):[] inFLIXimab-dyyb 400 mg in NaCl 0.9% 250 mL (INFLECTRA)Disp: Rfl: [facility] [[id number]] Order #: [id number]: 1 STANDING Prescriptions as of 12/15/2023 - azaTHIOprine (IMURAN) 50 mg tablet Take 3 tablets by mouth once daily. - predniSONE (DELTASONE) 5 mg tablet You have a total of 336 prednisone 5mg pills. Take 60mg prednisone (12 tabs) daily for 7 days, then 40mg daily for 7 days and reduce dose by 5mg per week (35mg-> 30mg -> 25mg, etc.), then stop - methylPREDNISolone (MEDROL) 4 mg Take 1 tablet by mouth once daily. - Mesalamine (LIALDA) 1.2 gram EC tablet Take 4 tablets by mouth once daily. - PNV WITHOUT CA NO.9/IRON/FA ( VIT NO.9-IRON-FA ORAL) Take by mouth. 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] 02/05/2007 Microcytic anemia [D50.9] 03/13/2016 03/21/2016 Iron deficiency anemia due to chronic blood los*03/21/2016 Hematochezia [K92.1] 03/28/2016 Malnutrition of mild degree (HCC) [E44.1] 03/29/2016 IBD (inflammatory bowel disease) [K52.9] 05/03/2016 Ulcerative proctitis (HCC) [K51.20] Iron deficiency anemia [D50.9] Ulcerative colitis (HCC) [K51.90] Encounter Status:Closed by JASWANT STEELE on 12/15/23 Normal [facility] CBC W Auto Differential pane l (Bld)on 12-08-2023 Basophils (Bld) [#/Vol] 0.04 10*3/uL Normal <0.11 [facility] Comment on above: Order Comment: Speci men Type: BLOOD SPECIMEN Ordering Facility: [facility] Address: [address] [place] [address] Performed By: #### 2 4323-8 #### [facility] CLIA [id number] [address] [place] [address] [place] Basophils/100 WBC (Bld) 1.1 % Normal [facility] Comment on above: Order Comment: Speci men Type: BLOOD SPECIMEN Ordering Facility: [facility] Address: [address] [place] [address] Performed By: #### 2 4323-8 #### [facility] CLIA [id number] [address] [place] [address] [place] Differential cell count method Nom (Bld) Auto Normal [facility] Comment on above: Order Comment: Speci men Type: BLOOD SPECIMEN Ordering Facility: [facility] Address: [address] [place] [address] Performed By: #### 2 4323-8 #### [facility] CLIA [id number] [address] [place] [address] [place] Eosinophils (Bld) [#/Vol] 0.07 10*3/uL Normal <0.46 [facility] Comment on above: Order Comment: Speci men Type: BLOOD SPECIMEN Ordering Facility: [facility] Address: [address] [place] [address] Performed By: #### 2 4323-8 #### [facility] CLIA [id number] [address] [place] [address] [place] Eosinophils/100 WBC (Bld) 1.9 % Normal [facility] Comment on above: Order Comment: Speci men Type: BLOOD SPECIMEN Ordering Facility: [facility] Address: [address] [place] [address] Performed By: #### 2 4323-8 #### [facility] CLIA [id number] [address] [place] [address] [place] Erythrocyte distribution width (RBC) [Ratio] 11.6 % Normal 11.5-15.0 [facility] Comment on above: Order Comment: Speci men Type: BLOOD SPECIMEN Ordering Facility: [facility] Address: [address] [place] [address] Performed By: #### 2 4323-8 #### [facility] CLIA [id number] [address] [place] [address] [place] Hematocrit (Bld) [Volume fraction] 38.4 % Normal 36.0-46.0 [facility] Comment on above: Order Comment: Speci men Type: BLOOD SPECIMEN Ordering Facility: [facility] Address: [address] [place] [address] Performed By: #### 2 4323-8 #### [facility] CLIA [id number] [address] [place] [address] [place] Hemoglobin (Bld) [Mass/Vol] 13.3 g/dL Normal 11.5-15.5 [facility] Comment on above: Order Comment: Speci men Type: BLOOD SPECIMEN Ordering Facility: [facility] Address: [address] [place] [address] Performed By: #### 2 4323-8 #### [facility] CLIA [id number] [address] [place] [address] [place] Immature granulocytes (Bld) [#/Vol] 10*3/uL Normal <0.10 [facility] Comment on above: Order Comment: Speci men Type: BLOOD SPECIMEN Ordering Facility: [facility] Address: [address] [place] [address] Performed By: #### 2 4323-8 #### [facility] CLIA [id number] [address] [place] [address] [place] Immature granulocytes/100 WBC (Bld) 0.3 % Normal [facility] Comment on above: Order Comment: Speci men Type: BLOOD SPECIMEN Ordering Facility: [facility] Address: [address] [place] [address] Performed By: #### 2 4323-8 #### [facility] CLIA [id number] [address] [place] [address] [place] Lymphocytes (Bld) [#/Vol] 1.64 10*3/uL Normal 1.00-4.00 [facility] Comment on above: Order Comment: Speci men Type: BLOOD SPECIMEN Ordering Facility: [facility] Address: [address] [place] [address] Performed By: #### 2 4323-8 #### [facility] CLIA [id number] [address] [place] [address] [place] Lymphocytes/100 WBC (Bld) 44.4 % Normal [facility] Comment on above: Order Comment: Speci men Type: BLOOD SPECIMEN Ordering Facility: [facility] Address: [address] [place] [address] Performed By: #### 2 4323-8 #### [facility] CLIA [id number] [address] [place] [address] [place] MCH (RBC) [Entitic mass] 33.6 pg Normal 26.0-34.0 [facility] Comment on above: Order Comment: Speci men Type: BLOOD SPECIMEN Ordering Facility: [facility] Address: [address] [place] [address] Performed By: #### 2 4323-8 #### [facility] CLIA [id number] [address] [place] [address] [place] MCHC (RBC) [Mass/Vol] 34.6 g/dL Normal 30.5-36.0 [facility] Comment on above: Order Comment: Speci men Type: BLOOD SPECIMEN Ordering Facility: [facility] Address: [address] [place] [address] Performed By: #### 2 4323-8 #### [facility] CLIA [id number] [address] [place] [address] [place] MCV (RBC) [Entitic vol] 97.0 fL Normal 80.0-100.0 [facility] Comment on above: Order Comment: Speci men Type: BLOOD SPECIMEN Ordering Facility: [facility] Address: [address] [place] [address] Performed By: #### 2 4323-8 #### [facility] CLIA [id number] [address] [place] [address] [place] Monocytes (Bld) [#/Vol] 0.38 10*3/uL Normal <0.87 [facility] Comment on above: Order Comment: Speci men Type: BLOOD SPECIMEN Ordering Facility: [facility] Address: [address] [place] [address] Performed By: #### 2 4323-8 #### [facility] CLIA [id number] [address] [place] [address] [place] Monocytes/100 WBC (Bld) 10.3 % Normal [facility] Comment on above: Order Comment: Speci men Type: BLOOD SPECIMEN Ordering Facility: [facility] Address: [address] [place] [address] Performed By: #### 2 4323-8 #### [facility] CLIA [id number] [address] [place] [address] [place] Neutrophils (Bld) [#/Vol] 1.55 10*3/uL Normal 1.45-7.50 [facility] Comment on above: Order Comment: Speci men Type: BLOOD SPECIMEN Ordering Facility: [facility] Address: [address] [place] [address] Performed By: #### 2 4323-8 #### [facility] CLIA [id number] [address] [place] [address] [place] Neutrophils/100 WBC (Bld) 42.0 % Normal [facility] Comment on above: Order Comment: Speci men Type: BLOOD SPECIMEN Ordering Facility: [facility] Address: [address] [place] [address] Performed By: #### 2 4323-8 #### [facility] CLIA [id number] [address] [place] [address] [place] Nucleated RBC (Bld) [#/Vol] 10*3/uL Normal <0.01 [facility] Comment on above: Order Comment: Speci men Type: BLOOD SPECIMEN Ordering Facility: [facility] Address: [address] [place] [address] Performed By: #### 2 4323-8 #### [facility] CLIA [id number] [address] [place] [address] [place] Nucleated RBC/100 WBC (Bld) [Ratio] 0.0 /100 WBC Normal [facility] Comment on above: Order Comment: Speci men Type: BLOOD SPECIMEN Ordering Facility: [facility] Address: [address] [place] [address] Performed By: #### 2 4323-8 #### [facility] CLIA [id number] [address] [place] [address] [place] Platelet mean volume (Bld) [Entitic vol] 11.7 fL Normal 9.0-12.7 [facility] Comment on above: Order Comment: Speci men Type: BLOOD SPECIMEN Ordering Facility: [facility] Address: [address] [place] [address] Performed By: #### 2 4323-8 #### [facility] CLIA [id number] [address] [place] [address] [place] Platelets (Bld) [#/Vol] 197 10*3/uL Normal 150-400 [facility] Comment on above: Order Comment: Speci men Type: BLOOD SPECIMEN Ordering Facility: [facility] Address: [address] [place] [address] Performed By: #### 2 4323-8 #### [facility] CLIA [id number] [address] [place] [address] [place] RBC (Bld) [#/Vol] 3.96 10*6/uL Normal 3.90-5.20 [facility] Comment on above: Order Comment: Speci men Type: BLOOD SPECIMEN Ordering Facility: [facility] Address: [address] [place] [address] Performed By: #### 2 4323-8 #### [facility] CLIA [id number] [address] [place] [address] [place] WBC (Bld) [#/Vol] 3.69 10*3/uL Low 3.70-11.00 [facility] Comment on above: Order Comment: Speci men Type: BLOOD SPECIMEN Ordering Facility: [facility] Address: [address] [place] [address] Performed By: #### 2 4323-8 #### [facility] CLIA [id number] [address] [place] [address] [place] Comprehensive metabolic 2000 panelon 12-08-2023 Albumin [Mass/Vol] 4.4 g/dL Normal 3.9-4.9 [facility] Comment on above: Order Comment: Speci men Type: BLOOD SPECIMEN Ordering Facility: [facility] Address: [address] [place] [id number] Performed By: #### 2 4323-8 #### [facility] CLIA [id number] [address] [place] [id number] [place] ALP [Catalytic activity/Vol] 90 U/L Normal 34-123 [facility] Comment on above: Order Comment: Speci men Type: BLOOD SPECIMEN Ordering Facility: [facility] Address: [address] [place], [place] [address] Performed By: #### 2 4323-8 #### [facility] CLIA [id number] [address] [place] [address] [place] ALT [Catalytic activity/Vol] 75 U/L High 7-38 [facility] Comment on above: Order Comment: Speci men Type: BLOOD SPECIMEN Ordering Facility: [facility] Address: [address] [place] [address] Performed By: #### 2 4323-8 #### [facility] CLIA [id number] [address] [place] [address] [place] Anion gap [Moles/Vol] 13 mmol/L Normal 8-15 [facility] Comment on above: Order Comment: Speci men Type: BLOOD SPECIMEN Ordering Facility: [facility] Address: [address] [place], [place] [address] Performed By: #### 2 4323-8 #### [facility] CLIA [id number] [address] [place] [id number] [place] AST [Catalytic activity/Vol] 44 U/L High 13-35 [facility] Comment on above: Order Comment: Speci men Type: BLOOD SPECIMEN Ordering Facility: [facility] Address: [address] [place], [place] [address] Performed By: #### 2 4323-8 #### [facility] CLIA [id number] [address] [place] [address] [place] Bilirubin [Mass/Vol] 0.4 mg/dL Normal 0.2-1.3 [facility] Comment on above: Order Comment: Speci men Type: BLOOD SPECIMEN Ordering Facility: [facility] Address: [address] [place] [address] Performed By: #### 2 4323-8 #### [facility] CLIA [id number] [address] [place] [address] [place] Calcium [Mass/Vol] 8.9 mg/dL Normal 8.5-10.2 [facility] Comment on above: Order Comment: Speci men Type: BLOOD SPECIMEN Ordering Facility: [facility] Address: [address] [place] [address] Performed By: #### 2 4323-8 #### [facility] CLIA [id number] [address] [place] [address] [place] Chloride [Moles/Vol] 106 mmol/L Normal 98-107 [facility] Comment on above: Order Comment: Speci men Type: BLOOD SPECIMEN Ordering Facility: [facility] Address: [address] [place] [address] Performed By: #### 2 4323-8 #### [facility] CLIA [id number] [address] [place] [address] [place] CO2 [Moles/Vol] 22 mmol/L Normal 22-30 [facility] Comment on above: Order Comment: Speci men Type: BLOOD SPECIMEN Ordering Facility: [facility] Address: [address] [place], [place] [address] Performed By: #### 2 4323-8 #### [facility] CLIA [id number] [address] [place] [address] [place] Creatinine [Mass/Vol] 0.76 mg/dL Normal 0.58-0.96 [facility] Comment on above: Order Comment: Speci men Type: BLOOD SPECIMEN Ordering Facility: [facility] Address: [address] [place] [address] Performed By: #### 2 4323-8 #### [facility] CLIA [id number] [address] [place] [address] [place] Creatinine and Glomerular filtration rate.predicted panel (S/P/Bld) 110 mL/min/1.73m??? Normal >=60 [facility] Comment on above: Order Comment: Dayo barker Type: BLOOD SPECIMEN Ordering Facility: [facility] Address: [address] [place] [address] Result Comment: Isabell mated Glomerular Filtration Rate (eGFR) is calculated using the 2020 CKD-EPI creatinine equation. This equation utilizes serum creatinine, sex, and age as parameters. The creatinine assay has traceable calibration to isotope dilution-mass spectrometry. Refer to KDIGO guidelines for clinical interpretation. In patients with unstable renal function, e.g. those with acute kidney injury, the eGFR may not accurately reflect actual GFR. Performed By: #### 2 4323-8 #### [facility] CLIA [id number] [address] [place] [address] [place] Glucose [Mass/Vol] 96 mg/dL Normal 74-99 [facility] Comment on above: Order Comment: Dayo barker Type: BLOOD SPECIMEN Ordering Facility: [facility] Address: [address] [place] [address] Result Comment: The [place] [employer] (ADA) provides guidance for cutoff values for fasting glucose and random glucose. The ADA defines fasting as no caloric intake for at least 8 hours. Fasting plasma glucose results between 100 to 125 mg/dL indicate increased risk for diabetes (prediabetes). Fasting plasma glucose results greater than or equal to 126 mg/dL meet the criteria for diagnosis of diabetes. In the absence of unequivocal hyperglycemia, results should be confirmed by repeat testing. In a patient with classic symptoms of hyperglycemia or hyperglycemic crisis, random plasma glucose results greater than or equal to 200 mg/dL meet the criteria for diagnosis of diabetes. Reference: Standards of Medical Care in Diabetes 2016, [place] [employer]. Diabetes Care. 2016.39(Suppl 1). Performed By: #### 2 4323-8 #### [facility] CLIA [id number] [address] [place] [address] [place] Potassium [Moles/Vol] 4.2 mmol/L Normal 3.7-5.1 [facility] Comment on above: Order Comment: Speci men Type: BLOOD SPECIMEN Ordering Facility: [facility] Address: [address] [place] [address] Performed By: #### 2 4323-8 #### [facility] CLIA [id number] [address] [place] [address] [place] Protein [Mass/Vol] 6.6 g/dL Normal 6.3-8.0 [facility] Comment on above: Order Comment: Speci men Type: BLOOD SPECIMEN Ordering Facility: [facility] Address: [address] [place] [address] Performed By: #### 2 4323-8 #### [facility] CLIA [id number] [address] [place] [address] [place] Sodium [Moles/Vol] 141 mmol/L Normal 136-144 [facility] Comment on above: Order Comment: Speci men Type: BLOOD SPECIMEN Ordering Facility: [facility] Address: [address] [place] [address] Performed By: #### 2 4323-8 #### [facility] CLIA [id number] [address] [place] [address] [place] Urea nitrogen [Mass/Vol] 10 mg/dL Normal 7-21 [facility] Comment on above: Order Comment: Speci men Type: BLOOD SPECIMEN Ordering Facility: [facility] Address: [address] [place] [address] Performed By: #### 2 4323-8 #### [facility] CLIA [id number] [address] [place] [address] [place] CNOVSPon 11-28-2023 CNOVSP Visit (SP) Office ([facility]MAWS) JOELLE HENDRICKS ([id number]) 1995 F Date Time Provider Department 11/28/23 10:00 AM TREATMENT RM [facility] During your visit today, we recorded the following information about you: Temperature Pulse Blood pressure 97.6 degrees 84/minute 120/74 Emanuel Ríos RPh 11/28/2023 11:21 AM Signed Addended by: EMANUEL RÍOS on: 11/28/2023 11:21 AM Modules accepted: Orders Referring Provider: LAURIE CALDWELL [[id number]] Allergies As of Date: 11/28/2023 Noted Allergy Reaction PENICILLIN 01/18/2016 14 - Other: See Comments Comments: Makes pt hyper Date Reviewed: 11/28/2023 Reviewed by: Jewels Rocha, CHARY - Fully Assessed Reason for Visit: Non-Chemotherapy Treatment [795] Primary Visit Diagnosis:Other ulcerative colitis without complication (HCC) [K51.80] Order(s):BCN NURSING COMMUNICATION [8205050] Order #: [id number]: 1 STANDING Prescriptions as of 11/28/2023 - azaTHIOprine (IMURAN) 50 mg tablet Take 3 tablets by mouth once daily. - predniSONE (DELTASONE) 5 mg tablet You have a total of 336 prednisone 5mg pills. Take 60mg prednisone (12 tabs) daily for 7 days, then 40mg daily for 7 days and reduce dose by 5mg per week (35mg-> 30mg -> 25mg, etc.), then stop - methylPREDNISolone (MEDROL) 4 mg Take 1 tablet by mouth once daily. - Mesalamine (LIALDA) 1.2 gram EC tablet Take 4 tablets by mouth once daily. - PNV WITHOUT CA NO.9/IRON/FA ( VIT NO.9-IRON-FA ORAL) Take by mouth. Medication notes this encounter INFLIXIMAB-DYYB IVPB IN NS 250 ML >> Emanuel Ríos [facility] 11/28/2023 11:21 AM due week 6. this is week 4. 2 weeks too early SODIUM CHLORIDE 0.9 % INTRAVENOUS SOLUTION >> Emanuel Ríos [facility] 11/28/2023 11:21 AM due week 6. this is week 4. 2 weeks too early DIPHENHYDRAMINE 50 MG/ML INJECTION SOLUTION >> Khushbu Emanuel [facility] 11/28/2023 11:21 AM due week 6. this is week 4. 2 weeks too early HYDROCORTISONE SOD SUCCINATE (PF) 100 MG/2 ML SOLUTION FOR INJECTION >> Emanuel Ríos [facility] 11/28/2023 11:21 AM due week 6. this is week 4. 2 weeks too early EPINEPHRINE HCL (PF) 1 MG/ML (1 ML) INJECTION SOLUTION >> Emanuel Ríos [facility] 11/28/2023 11:21 AM due week 6. this is week 4. 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] 02/05/2007 Microcytic anemia [D50.9] 03/13/2016 03/21/2016 Iron deficiency anemia due to chronic blood los*03/21/2016 Hematochezia [K92.1] 03/28/2016 Malnutrition of mild degree (HCC) [E44.1] 03/29/2016 IBD (inflammatory bowel disease) [K52.9] 05/03/2016 Ulcerative proctitis (HCC) [K51.20] Iron deficiency anemia [D50.9] Ulcerative colitis (HCC) [K51.90] Encounter Status:Closed by JEWELS ROCHA on 11/28/23 Normal [facility] CBC W Auto Differential pane l (Bld)on 11-21-2023 Basophils (Bld) [#/Vol] 0.04 10*3/uL Normal <0.11 [facility] Comment on above: Order Comment: Speci men Type: BLOOD SPECIMEN Ordering Facility: [facility] Address: [address] [place] [address] Performed By: #### 2 4323-8 #### [facility] CLIA [id number] [address] [place] [address] [place] [address] [place] Basophils/100 WBC (Bld) 1.1 % Normal [facility] Comment on above: Order Comment: Speci men Type: BLOOD SPECIMEN Ordering Facility: [facility] Address: [address] [place] [address] Performed By: #### 2 4323-8 #### [facility] CLIA [id number] [address] [place] [address] [place] Differential cell count method Nom (Bld) Auto Normal [facility] Comment on above: Order Comment: Speci men Type: BLOOD SPECIMEN Ordering Facility: [facility] Address: [address] [place] [address] Performed By: #### 2 4323-8 #### [facility] CLIA [id number] [address] [place] [address] [place] Eosinophils (Bld) [#/Vol] 0.05 10*3/uL Normal <0.46 [facility] Comment on above: Order Comment: Speci men Type: BLOOD SPECIMEN Ordering Facility: [facility] Address: [address] [place] [address] Performed By: #### 2 4323-8 #### [facility] CLIA [id number] [address] [place] [address] [place] Eosinophils/100 WBC (Bld) 1.4 % Normal [facility] Comment on above: Order Comment: Speci men Type: BLOOD SPECIMEN Ordering Facility: [facility] Address: [address] [place] [address] Performed By: #### 2 4323-8 #### [facility] CLIA [id number] [address] [place] [address] [place] Erythrocyte distribution width (RBC) [Ratio] 11.9 % Normal 11.5-15.0 [facility] Comment on above: Order Comment: Speci men Type: BLOOD SPECIMEN Ordering Facility: [facility] Address: [address] [place] [address] Performed By: #### 2 4323-8 #### [facility] CLIA [id number] [address] [place] [address] [place] Hematocrit (Bld) [Volume fraction] 38.5 % Normal 36.0-46.0 [facility] Comment on above: Order Comment: Speci men Type: BLOOD SPECIMEN Ordering Facility: [facility] Address: [address] [place] [address] Performed By: #### 2 4323-8 #### [facility] CLIA [id number] [address] [place] [address] [place] Hemoglobin (Bld) [Mass/Vol] 12.7 g/dL Normal 11.5-15.5 [facility] Comment on above: Order Comment: Speci men Type: BLOOD SPECIMEN Ordering Facility: [facility] Address: [address] [place] [address] Performed By: #### 2 4323-8 #### [facility] CLIA [id number] [address] [place] [address] [place] Immature granulocytes (Bld) [#/Vol] 10*3/uL Normal <0.10 [facility] Comment on above: Order Comment: Speci men Type: BLOOD SPECIMEN Ordering Facility: [facility] Address: [address] [place] [address] Performed By: #### 2 4323-8 #### [facility] CLIA [id number] [address] [place] [address] [place] Immature granulocytes/100 WBC (Bld) 0.3 % Normal [facility] Comment on above: Order Comment: Speci men Type: BLOOD SPECIMEN Ordering Facility: [facility] Address: [address] [place] [address] Performed By: #### 2 4323-8 #### [facility] CLIA [id number] [address] [place] [address] [place] Lymphocytes (Bld) [#/Vol] 1.58 10*3/uL Normal 1.00-4.00 [facility] Comment on above: Order Comment: Speci men Type: BLOOD SPECIMEN Ordering Facility: [facility] Address: [address] [place] [address] Performed By: #### 2 4323-8 #### [facility] CLIA [id number] [address] [place] [address] [place] Lymphocytes/100 WBC (Bld) 43.1 % Normal [facility] Comment on above: Order Comment: Speci men Type: BLOOD SPECIMEN Ordering Facility: [facility] Address: [address] [place] [address] Performed By: #### 2 4323-8 #### [facility] CLIA [id number] [address] [place] [address] [place] MCH (RBC) [Entitic mass] 32.6 pg Normal 26.0-34.0 [facility] Comment on above: Order Comment: Speci men Type: BLOOD SPECIMEN Ordering Facility: [facility] Address: [address] [place] [address] Performed By: #### 2 4323-8 #### [facility] CLIA [id number] [address] [place] [address] [place] MCHC (RBC) [Mass/Vol] 33.0 g/dL Normal 30.5-36.0 [facility] Comment on above: Order Comment: Speci men Type: BLOOD SPECIMEN Ordering Facility: [facility] Address: [address] [place] [address] Performed By: #### 2 4323-8 #### [facility] CLIA [id number] [address] [place] [address] [place] MCV (RBC) [Entitic vol] 99.0 fL Normal 80.0-100.0 [facility] Comment on above: Order Comment: Speci men Type: BLOOD SPECIMEN Ordering Facility: [facility] Address: [address] [place] [address] Performed By: #### 2 4323-8 #### [facility] CLIA [id number] [address] [place] [address] [place] Monocytes (Bld) [#/Vol] 0.36 10*3/uL Normal <0.87 [facility] Comment on above: Order Comment: Speci men Type: BLOOD SPECIMEN Ordering Facility: [facility] Address: [address] [place] [address] Performed By: #### 2 4323-8 #### [facility] CLIA [id number] [address] [place] [address] [place] Monocytes/100 WBC (Bld) 9.8 % Normal [facility] Comment on above: Order Comment: Speci men Type: BLOOD SPECIMEN Ordering Facility: [facility] Address: [address] [place] [address] Performed By: #### 2 4323-8 #### [facility] CLIA [id number] [address] [place] [address] [place] Neutrophils (Bld) [#/Vol] 1.63 10*3/uL Normal 1.45-7.50 [facility] Comment on above: Order Comment: Speci men Type: BLOOD SPECIMEN Ordering Facility: [facility] Address: [address] [place] [address] Performed By: #### 2 4323-8 #### [facility] CLIA [id number] [address] [place] [address] [place] Neutrophils/100 WBC (Bld) 44.3 % Normal [facility] Comment on above: Order Comment: Speci men Type: BLOOD SPECIMEN Ordering Facility: [facility] Address: [address] [place] [address] Performed By: #### 2 4323-8 #### [facility] CLIA [id number] [address] [place] [address] [place] Nucleated RBC (Bld) [#/Vol] 10*3/uL Normal <0.01 [facility] Comment on above: Order Comment: Speci men Type: BLOOD SPECIMEN Ordering Facility: [facility] Address: [address] [place] [address] Performed By: #### 2 4323-8 #### [facility] CLIA [id number] [address] [place] [address] [place] Nucleated RBC/100 WBC (Bld) [Ratio] 0.0 /100 WBC Normal [facility] Comment on above: Order Comment: Speci men Type: BLOOD SPECIMEN Ordering Facility: [facility] Address: [address] [place] [address] Performed By: #### 2 4323-8 #### [facility] CLIA [id number] [address] [place] [address] [place] Platelet mean volume (Bld) [Entitic vol] 11.8 fL Normal 9.0-12.7 [facility] Comment on above: Order Comment: Speci men Type: BLOOD SPECIMEN Ordering Facility: [facility] Address: [address] [place] [address] Performed By: #### 2 4323-8 #### [facility] CLIA [id number] [address] [place] [address] [place] Platelets (Bld) [#/Vol] 194 10*3/uL Normal 150-400 [facility] Comment on above: Order Comment: Speci men Type: BLOOD SPECIMEN Ordering Facility: [facility] Address: [address] [place] [address] Performed By: #### 2 4323-8 #### [facility] CLIA [id number] [address] [place] [place] [address] [place] RBC (Bld) [#/Vol] 3.89 10*6/uL Low 3.90-5.20 [facility] Comment on above: Order Comment: Speci men Type: BLOOD SPECIMEN Ordering Facility: [facility] Address: [address] [place] [address] Performed By: #### 2 4323-8 #### [facility] CLIA [id number] [address] [place] [address] [place] WBC (Bld) [#/Vol] 3.67 10*3/uL Low 3.70-11.00 [facility] Comment on above: Order Comment: Speci men Type: BLOOD SPECIMEN Ordering Facility: [facility] Address: [address] [place] [address] Performed By: #### 2 4323-8 #### [facility] CLIA [id number] [address] [place] [address] [place] Comprehensive metabolic 2000 panelon 11-21-2023 Albumin [Mass/Vol] 4.4 g/dL Normal 3.9-4.9 [facility] Comment on above: Order Comment: Speci men Type: BLOOD SPECIMEN Ordering Facility: [facility] Address: [address] [place] [address] Performed By: #### 2 4323-8 #### [facility] CLIA [id number] [address] [place] [address] [place] ALP [Catalytic activity/Vol] 83 U/L Normal 34-123 [facility] Comment on above: Order Comment: Speci men Type: BLOOD SPECIMEN Ordering Facility: [facility] Address: [address] [place] [address] Performed By: #### 2 4323-8 #### [facility] CLIA [id number] [address] [place] [address] [place] ALT [Catalytic activity/Vol] 27 U/L Normal 7-38 [facility] Comment on above: Order Comment: Speci men Type: BLOOD SPECIMEN Ordering Facility: [facility] Address: [address] [place] [address] Performed By: #### 2 4323-8 #### [facility] CLIA [id number] [address] [place] [address] [place] Anion gap [Moles/Vol] 12 mmol/L Normal 8-15 [facility] Comment on above: Order Comment: Speci men Type: BLOOD SPECIMEN Ordering Facility: [facility] Address: [address] [place] [address] Performed By: #### 2 4323-8 #### [facility] CLIA [id number] [address] [place] [address] [place] AST [Catalytic activity/Vol] 33 U/L Normal 13-35 [facility] Comment on above: Order Comment: Speci men Type: BLOOD SPECIMEN Ordering Facility: [facility] Address: [address] [place] [address] Performed By: #### 2 4323-8 #### [facility] CLIA [id number] [address] [place] [address] [place] Bilirubin [Mass/Vol] 0.6 mg/dL Normal 0.2-1.3 [facility] Comment on above: Order Comment: Speci men Type: BLOOD SPECIMEN Ordering Facility: [facility] Address: [address] [place] [address] Performed By: #### 2 4323-8 #### [facility] CLIA [id number] [address] [place] [address] [place] Calcium [Mass/Vol] 8.9 mg/dL Normal 8.5-10.2 [facility] Comment on above: Order Comment: Speci men Type: BLOOD SPECIMEN Ordering Facility: [facility] Address: [address] [place] [address] Performed By: #### 2 4323-8 #### [facility] CLIA [id number] [address] [place] [address] [place] Chloride [Moles/Vol] 106 mmol/L Normal 98-107 [facility] Comment on above: Order Comment: Speci men Type: BLOOD SPECIMEN Ordering Facility: [facility] Address: [address] [place] [address] Performed By: #### 2 4323-8 #### [facility] CLIA [id number] [address] [place] [address] [place] CO2 [Moles/Vol] 21 mmol/L Low 22-30 [facility] Comment on above: Order Comment: Speci men Type: BLOOD SPECIMEN Ordering Facility: [facility] Address: [address] [place] [address] Performed By: #### 2 4323-8 #### [facility] CLIA [id number] [address] [place] [address] [place] Creatinine [Mass/Vol] 0.69 mg/dL Normal 0.58-0.96 [facility] Comment on above: Order Comment: Speci men Type: BLOOD SPECIMEN Ordering Facility: [facility] Address: [address] [place] [address] Performed By: #### 2 4323-8 #### [facility] CLIA [id number] [address] [place] [address] [place] Creatinine and Glomerular filtration rate.predicted panel (S/P/Bld) 121 mL/min/1.73m??? Normal >=60 [facility] Comment on above: Order Comment: Speci men Type: BLOOD SPECIMEN Ordering Facility: [facility] Address: [address] [place] [address] Result Comment: Isabell mated Glomerular Filtration Rate (eGFR) is calculated using the 2020 CKD-EPI creatinine equation. This equation utilizes serum creatinine, sex, and age as parameters. The creatinine assay has traceable calibration to isotope dilution-mass spectrometry. Refer to KDIGO guidelines for clinical interpretation. In patients with unstable renal function, e.g. those with acute kidney injury, the eGFR may not accurately reflect actual GFR. Performed By: #### 2 4323-8 #### [facility] CLIA [id number] [address] [place] [address] [place] Glucose [Mass/Vol] 85 mg/dL Normal 74-99 [facility] Comment on above: Order Comment: Speci men Type: BLOOD SPECIMEN Ordering Facility: [facility] Address: [address] [place] [address] Result Comment: The [place] [employer] (ADA) provides guidance for cutoff values for fasting glucose and random glucose. The ADA defines fasting as no caloric intake for at least 8 hours. Fasting plasma glucose results between 100 to 125 mg/dL indicate increased risk for diabetes (prediabetes). Fasting plasma glucose results greater than or equal to 126 mg/dL meet the criteria for diagnosis of diabetes. In the absence of unequivocal hyperglycemia, results should be confirmed by repeat testing. In a patient with classic symptoms of hyperglycemia or hyperglycemic crisis, random plasma glucose results greater than or equal to 200 mg/dL meet the criteria for diagnosis of diabetes. Reference: Standards of Medical Care in Diabetes 2016, [place] [employer] Association. Diabetes Care. 2016.39(Suppl 1). Performed By: #### 2 4323-8 #### [facility] CLIA [id number] [address] [place] [address] [place] Potassium [Moles/Vol] 4.2 mmol/L Normal 3.7-5.1 [facility] Comment on above: Order Comment: Dayo barker Type: BLOOD SPECIMEN Ordering Facility: [facility] Address: [address] [place] [address] Performed By: #### 2 4323-8 #### [facility] CLIA [id number] [address] [place] [address] [place] Protein [Mass/Vol] 6.8 g/dL Normal 6.3-8.0 [facility] Comment on above: Order Comment: Hopei men Type: BLOOD SPECIMEN Ordering Facility: [facility] Address: [address] [place] [address] Performed By: #### 2 4323-8 #### [facility] CLIA [id number] [address] [place] [address] [place] Sodium [Moles/Vol] 139 mmol/L Normal 136-144 [facility] Comment on above: Order Comment: Speci men Type: BLOOD SPECIMEN Ordering Facility: [facility] Address: [address] [place] [address] Performed By: #### 2 4323-8 #### [facility] CLIA [id number] [address] [place] [address] [place] Urea nitrogen [Mass/Vol] 14 mg/dL Normal 7-21 [facility] Comment on above: Order Comment: Speci men Type: BLOOD SPECIMEN Ordering Facility: [facility] Address: [address] [place] [address] Performed By: #### 2 4323-8 #### [facility] CLIA [id number] [address] [place] [address] [place] CNOVSPon 11-14-2023 CNOVSP Visit (SP) Office ([facility]) JOELLE HENDRICKS ([id number]) 1995 F Date Time Provider Department 11/14/23 8:30 AM TREATMENT RM [address] [facility] During your visit today, we recorded the following information about you: Temperature Pulse Blood pressure 97.4 degrees 82/minute 116/75 Referring Provider: LAURIE CALDWELL [[id number]] Allergies As of Date: 11/14/2023 Noted Allergy Reaction PENICILLIN 01/18/2016 14 - Other: See Comments Comments: Makes pt hyper Date Reviewed: 11/14/2023 Reviewed by: Ondina Luna RN - Fully Assessed Reason for Visit: Non-Chemotherapy Treatment [795] Primary Visit Diagnosis:Other ulcerative colitis without complication (HCC) [K51.80] Order(s):[] inFLIXimab-dyyb 400 mg in NaCl 0.9% 250 mL (INFLECTRA)Disp: Rfl: NaCl 0.9% iv infusionDisp: Rfl: diphenhydrAMINE 50 mg injection (BENADRYL)Disp: Rfl: hydrocortisone sodium succinate (PF) 100 mg injection (Solu-CORTEF)Disp: Rfl: EPINEPHrine HCl (PF) 1 mg/mL (1 mL) 0.3 mg injectionDisp: Rfl: BCN NURSING COMMUNICATION [[id number]] Order #: [id number]: 1 STANDING Prescriptions as of 11/14/2023 - azaTHIOprine (IMURAN) 50 mg tablet Take 3 tablets by mouth once daily. - predniSONE (DELTASONE) 5 mg tablet You have a total of 336 prednisone 5mg pills. Take 60mg prednisone (12 tabs) daily for 7 days, then 40mg daily for 7 days and reduce dose by 5mg per week (35mg-> 30mg -> 25mg, etc.), then stop - methylPREDNISolone (MEDROL) 4 mg Take 1 tablet by mouth once daily. - Mesalamine (LIALDA) 1.2 gram EC tablet Take 4 tablets by mouth once daily. - PNV WITHOUT CA NO.9/IRON/FA ( VIT NO.9-IRON-FA ORAL) Take by mouth. 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] 02/05/2007 Microcytic anemia [D50.9] 03/13/2016 03/21/2016 Iron deficiency anemia due to chronic blood los*03/21/2016 Hematochezia [K92.1] 03/28/2016 Malnutrition of mild degree (HCC) [E44.1] 03/29/2016 IBD (inflammatory bowel disease) [K52.9] 05/03/2016 Ulcerative proctitis (HCC) [K51.20] Iron deficiency anemia [D50.9] Ulcerative colitis (HCC) [K51.90] Encounter Status:Closed by ONDINA LUNA on 11/14/23 Normal [facility] CBC W Auto Differential pane l (Bld)on 11-06-2023 Basophils (Bld) [#/Vol] 0.04 10*3/uL Normal <0.11 [facility] Comment on above: Order Comment: Speci men Type: BLOOD SPECIMEN Ordering Facility: [facility] Address: [address] [place] [address] Performed By: #### 2 4323-8 #### [facility] CLIA [id number] [address] [place] [address] [place] Basophils/100 WBC (Bld) 0.8 % Normal [facility] Comment on above: Order Comment: Speci men Type: BLOOD SPECIMEN Ordering Facility: [facility] Address: [address] [place] [address] Performed By: #### 2 4323-8 #### [facility] CLIA [id number] [address] [place] [address] [place] Differential cell count method Nom (Bld) Auto Normal [facility] Comment on above: Order Comment: Speci men Type: BLOOD SPECIMEN Ordering Facility: [facility] Address: [address] [place] [address] Performed By: #### 2 4323-8 #### [facility] CLIA [id number] [address] [place] [address] [place] Eosinophils (Bld) [#/Vol] 0.08 10*3/uL Normal <0.46 [facility] Comment on above: Order Comment: Speci men Type: BLOOD SPECIMEN Ordering Facility: [facility] Address: [address] [place] [address] Performed By: #### 2 4323-8 #### [facility] CLIA [id number] [address] [place] [address] [place] Eosinophils/100 WBC (Bld) 1.7 % Normal [facility] Comment on above: Order Comment: Speci men Type: BLOOD SPECIMEN Ordering Facility: [facility] Address: [address] [place] [address] Performed By: #### 2 4323-8 #### [facility] CLIA [id number] [address] [place] [address] [place] Erythrocyte distribution width (RBC) [Ratio] 11.6 % Normal 11.5-15.0 [facility] Comment on above: Order Comment: Speci men Type: BLOOD SPECIMEN Ordering Facility: [facility] Address: [address] [place] [address] Performed By: #### 2 4323-8 #### [facility] CLIA [id number] [address] [place] [address] [place] Hematocrit (Bld) [Volume fraction] 40.1 % Normal 36.0-46.0 [facility] Comment on above: Order Comment: Speci men Type: BLOOD SPECIMEN Ordering Facility: [facility] Address: [address] [place] [address] Performed By: #### 2 4323-8 #### [facility] CLIA [id number] [address] [place] [address] [place] Hemoglobin (Bld) [Mass/Vol] 13.2 g/dL Normal 11.5-15.5 [facility] Comment on above: Order Comment: Speci men Type: BLOOD SPECIMEN Ordering Facility: [facility] Address: [address] [place] [address] Performed By: #### 2 4323-8 #### [facility] CLIA [id number] [address] [place] [address] [place] Immature granulocytes (Bld) [#/Vol] 10*3/uL Normal <0.10 [facility] Comment on above: Order Comment: Speci men Type: BLOOD SPECIMEN Ordering Facility: [facility] Address: [address] [place] [address] Performed By: #### 2 4323-8 #### [facility] CLIA [id number] [address] [place] [address] [place] Immature granulocytes/100 WBC (Bld) 0.2 % Normal [facility] Comment on above: Order Comment: Speci men Type: BLOOD SPECIMEN Ordering Facility: [facility] Address: [address] [place] [address] Performed By: #### 2 4323-8 #### [facility] CLIA [id number] [address] [place] [address] [place] Lymphocytes (Bld) [#/Vol] 1.70 10*3/uL Normal 1.00-4.00 [facility] Comment on above: Order Comment: Speci men Type: BLOOD SPECIMEN Ordering Facility: [facility] Address: [address] [place] [address] Performed By: #### 2 4323-8 #### [facility] CLIA [id number] [address] [place] [address] [place] Lymphocytes/100 WBC (Bld) 35.9 % Normal [facility] Comment on above: Order Comment: Speci men Type: BLOOD SPECIMEN Ordering Facility: [facility] Address: [address] [place] [address] Performed By: #### 2 4323-8 #### [facility] CLIA [id number] [address] [place] [address] [place] MCH (RBC) [Entitic mass] 32.8 pg Normal 26.0-34.0 [facility] Comment on above: Order Comment: Speci men Type: BLOOD SPECIMEN Ordering Facility: [facility] Address: [address] [place] [address] Performed By: #### 2 4323-8 #### [facility] CLIA [id number] [address] [place] [address] [place] MCHC (RBC) [Mass/Vol] 32.9 g/dL Normal 30.5-36.0 [facility] Comment on above: Order Comment: Speci men Type: BLOOD SPECIMEN Ordering Facility: [facility] Address: [address] [place] [address] Performed By: #### 2 4323-8 #### [facility] CLIA [id number] [address] [place] [address] [place] MCV (RBC) [Entitic vol] 99.5 fL Normal 80.0-100.0 [facility] Comment on above: Order Comment: Speci men Type: BLOOD SPECIMEN Ordering Facility: [facility] Address: [address] [place] [address] Performed By: #### 2 4323-8 #### [facility] CLIA [id number] [address] [place] [address] [place] Monocytes (Bld) [#/Vol] 0.52 10*3/uL Normal <0.87 [facility] Comment on above: Order Comment: Speci men Type: BLOOD SPECIMEN Ordering Facility: [facility] Address: [address] [place] [address] Performed By: #### 2 4323-8 #### [facility] CLIA [id number] [address] [place] [address] [place] Monocytes/100 WBC (Bld) 11.0 % Normal [facility] Comment on above: Order Comment: Speci men Type: BLOOD SPECIMEN Ordering Facility: [facility] Address: [address] [place] [address] Performed By: #### 2 4323-8 #### [facility] CLIA [id number] [address] [place] [address] [place] Neutrophils (Bld) [#/Vol] 2.38 10*3/uL Normal 1.45-7.50 [facility] Comment on above: Order Comment: Speci men Type: BLOOD SPECIMEN Ordering Facility: [facility] Address: [address] [place] [address] Performed By: #### 2 4323-8 #### [facility] CLIA [id number] [address] [place] [address] [place] Neutrophils/100 WBC (Bld) 50.4 % Normal [facility] Comment on above: Order Comment: Speci men Type: BLOOD SPECIMEN Ordering Facility: [facility] Address: [address] [place] [address] Performed By: #### 2 4323-8 #### [facility] CLIA [id number] [address] [place] [address] [place] Nucleated RBC (Bld) [#/Vol] 10*3/uL Normal <0.01 [facility] Comment on above: Order Comment: Speci men Type: BLOOD SPECIMEN Ordering Facility: [facility] Address: [address] [place] [address] Performed By: #### 2 4323-8 #### [facility] CLIA [id number] [address] [place] [address] [place] Nucleated RBC/100 WBC (Bld) [Ratio] 0.0 /100 WBC Normal [facility] Comment on above: Order Comment: Speci men Type: BLOOD SPECIMEN Ordering Facility: [facility] Address: [address] [place] [address] Performed By: #### 2 4323-8 #### [facility] CLIA [id number] [address] [place] [address] [place] Platelet mean volume (Bld) [Entitic vol] 11.3 fL Normal 9.0-12.7 [facility] Comment on above: Order Comment: Speci men Type: BLOOD SPECIMEN Ordering Facility: [facility] Address: [address] [place] [address] Performed By: #### 2 4323-8 #### [facility] CLIA [id number] [address] [place] [address] [place] Platelets (Bld) [#/Vol] 194 10*3/uL Normal 150-400 [facility] Comment on above: Order Comment: Speci men Type: BLOOD SPECIMEN Ordering Facility: [facility] Address: [address] [place] [address] Performed By: #### 2 4323-8 #### [facility] CLIA [id number] [address] [place] [address] [place] RBC (Bld) [#/Vol] 4.03 10*6/uL Normal 3.90-5.20 [facility] Comment on above: Order Comment: Speci men Type: BLOOD SPECIMEN Ordering Facility: [facility] Address: [address] [place] [address] Performed By: #### 2 4323-8 #### [facility] CLIA [id number] [address] [place] [address] [place] WBC (Bld) [#/Vol] 4.73 10*3/uL Normal 3.70-11.00 [facility] Comment on above: Order Comment: Speci men Type: BLOOD SPECIMEN Ordering Facility: [facility] Address: [address] [place] [address] Performed By: #### 2 4323-8 #### [facility] CLIA [id number] [address] [place] [address] [place] Comprehensive metabolic 2000 panelon 11-06-2023 Albumin [Mass/Vol] 4.3 g/dL Normal 3.9-4.9 [facility] Comment on above: Order Comment: Speci men Type: BLOOD SPECIMEN Ordering Facility: [facility] Address: [address] [place] [address] Performed By: #### 2 4323-8 #### [facility] CLIA [id number] [address] [place] [address] [place] ALP [Catalytic activity/Vol] 87 U/L Normal 34-123 [facility] Comment on above: Order Comment: Speci men Type: BLOOD SPECIMEN Ordering Facility: [facility] Address: [address] [place], [place] [address] Performed By: #### 2 4323-8 #### [facility] CLIA [id number] [address] [place] [address] [place] ALT [Catalytic activity/Vol] 15 U/L Normal 7-38 [facility] Comment on above: Order Comment: Speci men Type: BLOOD SPECIMEN Ordering Facility: [facility] Address: [address] [place] [address] Performed By: #### 2 4323-8 #### [facility] CLIA [id number] [address] [place] [address] [place] Anion gap [Moles/Vol] 13 mmol/L Normal 8-15 [facility] Comment on above: Order Comment: Speci men Type: BLOOD SPECIMEN Ordering Facility: [facility] Address: [address] [place] [address] Performed By: #### 2 4323-8 #### [facility] CLIA [id number] [address] [place] [address] [place] AST [Catalytic activity/Vol] 21 U/L Normal 13-35 [facility] Comment on above: Order Comment: Speci men Type: BLOOD SPECIMEN Ordering Facility: [facility] Address: [address] [place] [address] Performed By: #### 2 4323-8 #### [facility] CLIA [id number] [address] [place] [address] [place] Bilirubin [Mass/Vol] 0.5 mg/dL Normal 0.2-1.3 [facility] Comment on above: Order Comment: Speci men Type: BLOOD SPECIMEN Ordering Facility: [facility] Address: [address] [place] [address] Performed By: #### 2 4323-8 #### [facility] CLIA [id number] [address] [place] [address] [place] Calcium [Mass/Vol] 9.1 mg/dL Normal 8.5-10.2 [facility] Comment on above: Order Comment: Speci men Type: BLOOD SPECIMEN Ordering Facility: [facility] Address: [address] [place] [address] Performed By: #### 2 4323-8 #### [facility] CLIA [id number] [address] [place] [address] [place] Chloride [Moles/Vol] 105 mmol/L Normal 98-107 [facility] Comment on above: Order Comment: Speci men Type: BLOOD SPECIMEN Ordering Facility: [facility] Address: [address] [place] [address] Performed By: #### 2 4323-8 #### [facility] CLIA [id number] [address] [place] [address] [place] CO2 [Moles/Vol] 22 mmol/L Normal 22-30 [facility] Comment on above: Order Comment: Speci men Type: BLOOD SPECIMEN Ordering Facility: [facility] Address: [address] [place] [address] Performed By: #### 2 4323-8 #### [facility] CLIA [id number] [address] [place] [address] [place] Creatinine [Mass/Vol] 0.85 mg/dL Normal 0.58-0.96 [facility] Comment on above: Order Comment: Speci men Type: BLOOD SPECIMEN Ordering Facility: [facility] Address: [address] [place] [address] Performed By: #### 2 4323-8 #### [facility] CLIA [id number] [address] [place] [address] [place] Creatinine and Glomerular filtration rate.predicted panel (S/P/Bld) 96 mL/min/1.73m??? Normal >=60 [facility] Comment on above: Order Comment: Speci men Type: BLOOD SPECIMEN Ordering Facility: [facility] Address: [address] [place] [address] Result Comment: Isabell mated Glomerular Filtration Rate (eGFR) is calculated using the 2020 CKD-EPI creatinine equation. This equation utilizes serum creatinine, sex, and age as parameters. The creatinine assay has traceable calibration to isotope dilution-mass spectrometry. Refer to KDIGO guidelines for clinical interpretation. In patients with unstable renal function, e.g. those with acute kidney injury, the eGFR may not accurately reflect actual GFR. Performed By: #### 2 4323-8 #### [facility] CLIA [id number] [address] [place] [address] [place] Glucose [Mass/Vol] 88 mg/dL Normal 74-99 [facility] Comment on above: Order Comment: Dayo barker Type: BLOOD SPECIMEN Ordering Facility: [facility] Address: [address] [place] [address] Result Comment: The [place] Diabetes Association (ADA) provides guidance for cutoff values for fasting glucose and random glucose. The ADA defines fasting as no caloric intake for at least 8 hours. Fasting plasma glucose results between 100 to 125 mg/dL indicate increased risk for diabetes (prediabetes). Fasting plasma glucose results greater than or equal to 126 mg/dL meet the criteria for diagnosis of diabetes. In the absence of unequivocal hyperglycemia, results should be confirmed by repeat testing. In a patient with classic symptoms of hyperglycemia or hyperglycemic crisis, random plasma glucose results greater than or equal to 200 mg/dL meet the criteria for diagnosis of diabetes. Reference: Standards of Medical Care in Diabetes 2016, [place] Diabetes Association. Diabetes Care. 2016.39(Suppl 1). Performed By: #### 2 4323-8 #### [facility] CLIA [id number] [address] [place] [address] [place] Potassium [Moles/Vol] 4.5 mmol/L Normal 3.7-5.1 [facility] Comment on above: Order Comment: Dayo barker Type: BLOOD SPECIMEN Ordering Facility: [facility] Address: [address] [place], [place] [address] Performed By: #### 2 4323-8 #### [facility] CLIA [id number] [address] [place] [address] [place] Protein [Mass/Vol] 6.8 g/dL Normal 6.3-8.0 [facility] Comment on above: Order Comment: Speci men Type: BLOOD SPECIMEN Ordering Facility: [facility] Address: [address] [place] [address] Performed By: #### 2 4323-8 #### [facility] CLIA [id number] [address] [place] [address] [place] Sodium [Moles/Vol] 140 mmol/L Normal 136-144 [facility] Comment on above: Order Comment: Speci men Type: BLOOD SPECIMEN Ordering Facility: [facility] Address: [address] [place] [address] Performed By: #### 2 4323-8 #### [facility] CLIA [id number] [address] [place] [address] [place] Urea nitrogen [Mass/Vol] 13 mg/dL Normal 7-21 [facility] Comment on above: Order Comment: Speci men Type: BLOOD SPECIMEN Ordering Facility: [facility] Address: [address] [place] [address] Performed By: #### 2 4323-8 #### [facility] CLIA [id number] [address] [place] [address] [place] CNOVSPon 10-30-2023 CNOVSP Visit (SP) Office (HEMAWS) JOELLE HENDRICKS ([id number]) 1995 F Date Time Provider Department 10/30/23 10:00 AM TREATMENT 14 [facility] During your visit today, we recorded the following information about you: Temperature Pulse Blood pressure 97.2 degrees 83/minute 130/81 Referring Provider: LAURIE CALDWELL [[id number]] Allergies As of Date: 10/30/2023 Noted Allergy Reaction PENICILLIN 01/18/2016 14 - Other: See Comments Comments: Makes pt hyper Date Reviewed: 10/30/2023 Reviewed by: Jewels Rocha RN - Fully Assessed Reason for Visit: Non-Chemotherapy Treatment [795] Primary Visit Diagnosis:Other ulcerative colitis without complication (HCC) [K51.80] Order(s):[] inFLIXimab-dyyb 400 mg in NaCl 0.9% 250 mL (INFLECTRA)Disp: Rfl: NaCl 0.9% iv infusionDisp: Rfl: diphenhydrAMINE 50 mg injection (BENADRYL)Disp: Rfl: hydrocortisone sodium succinate (PF) 100 mg injection (Solu-CORTEF)Disp: Rfl: EPINEPHrine HCl (PF) 1 mg/mL (1 mL) 0.3 mg injectionDisp: Rfl: BCN NURSING COMMUNICATION [[id number]] Order #: [id number]: 1 STANDING Prescriptions as of 10/30/2023 - azaTHIOprine (IMURAN) 50 mg tablet Take 3 tablets by mouth once daily. - predniSONE (DELTASONE) 5 mg tablet You have a total of 336 prednisone 5mg pills. Take 60mg prednisone (12 tabs) daily for 7 days, then 40mg daily for 7 days and reduce dose by 5mg per week (35mg-> 30mg -> 25mg, etc.), then stop - methylPREDNISolone (MEDROL) 4 mg Take 1 tablet by mouth once daily. - Mesalamine (LIALDA) 1.2 gram EC tablet Take 4 tablets by mouth once daily. - PNV WITHOUT CA NO.9/IRON/FA ( VIT NO.9-IRON-FA ORAL) Take by mouth. 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] 02/05/2007 Microcytic anemia [D50.9] 03/13/2016 03/21/2016 Iron deficiency anemia due to chronic blood los*03/21/2016 Hematochezia [K92.1] 03/28/2016 Malnutrition of mild degree (HCC) [E44.1] 03/29/2016 IBD (inflammatory bowel disease) [K52.9] 05/03/2016 Ulcerative proctitis (HCC) [K51.20] Iron deficiency anemia [D50.9] Ulcerative colitis (HCC) [K51.90] Encounter Status:Closed by JEWELS ROCHA on 10/30/23 Normal [facility] CNPCaridad 10-21-2023 CNPN Telephone (MICHAELA) JOELLE HENDRICKS ([id number]) 1995 F Date Time Provider Department 10/21/23 LUDWIG OLMEDO During your visit today, we recorded the following information about you: Oxana Richter 10/21/2023 12:09 PM Signed Patient referred to [facility] for remicade. Dr. Caldwell referring. Please review and advise. Oxana Richter 10/21/2023 2:54 PM Signed Scheduled with patient. 4 cycles scheduled Start email sent Allergies As of Date: 10/21/2023 Noted Allergy Reaction PENICILLIN 01/18/2016 14 - Other: See Comments Comments: Makes pt hyper Date Reviewed: 09/08/2023 Reviewed by: Lynn Adams, CHARY - Fully Assessed Reason for Visit: Orders [681] Prescriptions as of 10/21/2023 - predniSONE (DELTASONE) 5 mg tablet You have a total of 336 prednisone 5mg pills. Take 60mg prednisone (12 tabs) daily for 7 days, then 40mg daily for 7 days and reduce dose by 5mg per week (35mg-> 30mg -> 25mg, etc.), then stop - methylPREDNISolone (MEDROL) 4 mg Take 1 tablet by mouth once daily. - Mesalamine (LIALDA) 1.2 gram EC tablet Take 4 tablets by mouth once daily. - PNV WITHOUT CA NO.9/IRON/FA ( VIT NO.9-IRON-FA ORAL) Take by mouth. Problem List As Of Date 10/21/2023 Noted Resolved SKIN ANOMALY NEC [Q82.8] 02/05/2007 Microcytic anemia [D50.9] 03/13/2016 03/21/2016 Iron deficiency anemia due to chronic blood los*03/21/2016 Hematochezia [K92.1] 03/28/2016 Malnutrition of mild degree (HCC) [E44.1] 03/29/2016 IBD (inflammatory bowel disease) [K52.9] 05/03/2016 Ulcerative proctitis (HCC) [K51.20] Iron deficiency anemia [D50.9] Ulcerative colitis (HCC) [K51.90] Encounter Status:Closed by ERNIE SEGUNDO on 10/21/23 Normal [facility] TPMT PHENOTYPE/ENZYME ACTIVI Chantell 10-20-2023 TPMT ACTIVITY 27.8 U/mL Normal 24.0-44.0 [facility] Comment on above: Order Comment: Speci men Type: BLOOD SPECIMEN Ordering Facility: [facility] Address: [address] [place] [address] Result Comment: INTE RPRETIVE INFORMATION: Thiopurine Methyltransferase, RBC Normal TPMT activity: 24.0-44.0 U/mL................Individuals are predicted to be at low risk of bone marrow toxicity (myelosuppression) as a consequence of standard thiopurine therapy; no dose adjustment is recommended. Intermediate TPMT activity: 17.0-23.9 U/mL................Individuals are predicted to be at intermediate risk of bone marrow toxicity (myelosuppression) as a consequence of standard thiopurine therapy; a dose reduction and therapeutic drug management is recommended. Low TPMT activity: less than 17.0 U/mL...........Individuals are predicted to be at high risk of bone marrow toxicity (myelosuppression) as a consequence of standard thiopurine dosing. It is recommended to avoid the use of thiopurine drugs. High TPMT activity: greater than 44.0 U/mL........Individuals are not predicted to be at risk for bone marrow toxicity (myelosuppression) as a consequence of standard thiopurine dosing, but may be at risk for therapeutic failure due to excessive inactivation of thiopurine drugs. Individuals may require higher than the normal standard dose. Therapeutic drug management is recommended. The TPMT, RBC assay is used as a screen to detect individuals with low and intermediate TPMT activity who may be at risk for myelosuppression when exposed to standard doses of thiopurines, including azathioprine (Imuran) and 6-mercaptopurine (Purinethol). TPMT is the primary metabolic route for inactivation of thiopurine drugs in the bone marrow. When TPMT activity is low, it is predicted that proportionately more 6-mercaptopurine can be converted into the cytotoxic 6-thioguanine nucleotides that accumulate in the bone marrow causing excessive toxicity. The activity of TPMT is measured by the nanomoles of 6-methylmercaptopurine (inactive metabolite) produced per 1 mL of packed red blood cells, (U/mL). TPMT phenotype testing does not replace the need for clinical monitoring of patients treated with thiopurine drugs. Genotype for TPMT cannot be inferred from TPMT activity (phenotype). Phenotype testing should not be requested for patients currently treated with thiopurine drugs. Current TPMT phenotype may not reflect future TPMT phenotype, particularly in patients who received blood transfusion within 30-60 days of testing. TPMT enzyme activity can be inhibited by several drugs such as: naproxen (Aleve), ibuprofen (Advil, Motrin), ketoprofen (Orudis), furosemide (Lasix), sulfasalazine (Azulfidine), mesalamine (Asacol), olsalazine (Dipentum), mefenamic acid (Ponstel), thiazide diuretics, and benzoic acid inhibitors. TPMT inhibitors may contribute to falsely low results; patients should abstain from these drugs for at least 48 hours prior to TPMT testing. Falsely low results may also occur as a result of inappropriate specimen handling and hemolysis. This test was developed and its performance characteristics determined by [employer]. It has not been cleared or approved by the [place] Food and Drug Administration. This test was performed in a CLIA certified laboratory and is intended for clinical purposes. Performed By: [facility] [employer] [address] [place] [address] Graphics Intern: Aram Huber MD, PhD CLIA Number: [id number] Performed By: #### P WESTLEY #### [facility] CLIA [id number] [address] [place] [address] CBC W Auto Differential pane l (Bld)on 09-18-2023 Basophils (Bld) [#/Vol] [facility] Basophils/100 WBC (Bld) 0.2 % [facility] Differential cell count method Nom (Bld) Auto [facility] Eosinophils (Bld) [#/Vol] [facility] Eosinophils/100 WBC (Bld) 0.0 % [facility] Erythrocyte distribution width (RBC) [Ratio] 13.2 % 11.5 - 15.0 % [facility] Hematocrit (Bld) [Volume fraction] 43.1 % 36.0 - 46.0 % [facility] Hemoglobin (Bld) [Mass/Vol] 14.3 g/dL 11.5 - 15.5 g/dL [facility] Immature granulocytes (Bld) [#/Vol] 0.05 10*3/uL [facility] Immature granulocytes/100 WBC (Bld) 0.6 % [facility] Interpretation and review of laboratory results Abnormal [facility] Lymphocytes (Bld) [#/Vol] 1.25 10*3/uL [facility] Lymphocytes/100 WBC (Bld) 15.4 % [facility] MCH (RBC) [Entitic mass] 33.4 pg 26.0 - 34.0 pg [facility] MCHC (RBC) [Mass/Vol] 33.2 g/dL 30.5 - 36.0 g/dL [facility] MCV (RBC) [Entitic vol] 100.7 fL High 80.0 - 100.0 fL [facility] Monocytes (Bld) [#/Vol] 0.39 10*3/uL [facility] Monocytes/100 WBC (Bld) 4.8 % [facility] Neutrophils (Bld) [#/Vol] 6.41 10*3/uL [facility] Neutrophils/100 WBC (Bld) 79.0 % [facility] Nucleated RBC (Bld) [#/Vol] NINF [facility] Nucleated RBC/100 WBC (Bld) [Ratio] 0.0 % /100 WBC [facility] Platelet mean volume (Bld) [Entitic vol] 11.1 fL 9.0 - 12.7 fL [facility] Platelets (Bld) [#/Vol] 251 10*3/uL [facility] RBC (Bld) [#/Vol] 4.28 10*6/uL 3.90 - 5.2 0 m/uL [facility] WBC (Bld) [#/Vol] 8.12 10*3/uL [facility] VARICELLA ZOSTER IGGon 09-17 Interpretation and review of laboratory results Normal [facility] Varicella Zoster IgG, Qual Positive Positive [facility] Comment on above: The result suggests recent or past exposure to Varicella- Zoster virus or chickenpox vaccination or zoster vaccination. Positive result may also be seen due to presence of passively-transferred antibodies. Please correlate with patient's history. [facility] Flexible sigmoidoscopy study on 09-08-2023 A31 Gastrointestinal Endoscopy Patient Name: Joelle Hendricks Procedure Date: 09/08/2023 2:52 PM Date of : 1995 Admit Type: Outpatient Age: 28 Room: [place] [address] Gender: Female Note Status: Finalized Attending MD: Laurie Caldwell MD, [id number] Procedure: Colonoscopy Indications: Follow-up of ulcerative colitis Providers: Laurie Caldwell MD, George Peraza MD (Fellow) Patient Profile: This is a 28 year old female. Refer to note in patient chart for documentation of history and physical. Last Colonoscopy: within the past 3 years. Referring Physician: Isabel Espitia (Referring MD) Medicines: Fentanyl 200 micrograms IV, Midazolam 8 mg IV Complications: No immediate complications. Requesting Provider: Procedure: Pre-Anesthesia Assessment: - Prior to the procedure, a History and Physical was performed, and patient medications and allergies were reviewed. The patient is competent. The risks and benefits of the procedure and the sedation options and risks were discussed with the patient. All questions were answered and informed consent was obtained. Patient identification and proposed procedure were verified by the physician and the nurse in the pre-procedure area in the endoscopy suite. Mental Status Examination: alert and oriented. Airway Examination: normal oropharyngeal airway and neck mobility. Respiratory Examination: clear to auscultation. CV Examination: normal. ASA Grade Assessment: I - A normal, healthy patient. After reviewing the risks and benefits, the patient was deemed in satisfactory condition to undergo the procedure. The anesthesia plan was to use moderate sedation / analgesia (conscious sedation). Immediately prior to administration of medications, the patient was re-assessed for adequacy to receive sedatives. The heart rate, respiratory rate, oxygen saturations, blood pressure, adequacy of pulmonary ventilation, and response to care were monitored throughout the procedure. The physical status of the patient was re-assessed after the procedure. After I obtained informed consent, the scope was passed under direct vision. Throughout the procedure, the patient's blood pressure, pulse, and oxygen saturations were monitored continuously. The Colonoscope was introduced through the anus and advanced to the terminal ileum. The colonoscopy was performed without difficulty. The patient tolerated the procedure well. The quality of the bowel preparation was good. The terminal ileum, ileocecal valve, appendiceal orifice, and rectum were photographed. Moderate Sedation: The administration of moderate sedation was initiated at 15:04 PM. Findings: The terminal ileum appeared normal. Inflammation was found in a continuous and circumferential pattern from the transverse colon to the cecum. This was graded as Nielson Score 3 (severe, with spontaneous bleeding, ulcerations). Biopsies were taken with a cold forceps for histology from cecum and transverse colon. The rectum, sigmoid colon and descending colon appeared normal. Biopsies were taken with a cold forceps for histology separately from descending colon and rectum. Biopsies were taken with a cold forceps for histology. Impression: - The examined portion of the ileum was normal. - Severe (Nielson Score 3) ulcerative colitis. Biopsied. - The rectum, sigmoid colon and descending colon are normal. Biopsied. - Did not retroflex in the rectum. Estimated Blood Loss: Estimated blood loss was minimal. Recommendation: - Patient has a contact number available for emergencies. The signs and symptoms of potential delayed complications were discussed with the patient. Return to normal activities tomorrow. Written discharge (more content not included)... PROVATION [facility] Radiology Study observation (narrative) [facility] B-HCG SerPl-aCncon 4 HCG.beta subunit Qn m[IU]/mL Normal <5.0 [facility] Comment on above: Order Comment: Speci men Type: BLOOD SPECIMEN Ordering Facility: [facility] Address: [address] [place] [address] Result Comment: Awa de santiagokulwinder Performed By: #### 2 1198-7 #### [facility] CLIA [id number] [address] [place] [address] [place] Bacteria Ur Culton Bacteria identified Cx Nom (U) CULTURE, URINE: <10,000 CFU/ml Normal Urogenital Erum Normal [facility] Comment on above: Performed By: #### 6 30-4 #### [facility] CLIA [id number] [address] STATES OF [facility] CBC W Auto Differential pane l (Bld)on 08-30-2023 Basophils (Bld) [#/Vol] 0.03 10*3/uL Normal <0.11 [facility] Comment on above: Order Comment: Speci men Type: BLOOD SPECIMEN Ordering Facility: [facility] Address: [address] [place] [address] Performed By: #### 5 7021-8 #### [facility] CLIA [id number] [address] [place] [address] [place] Basophils/100 WBC (Bld) 0.3 % Normal [facility] Comment on above: Order Comment: Speci men Type: BLOOD SPECIMEN Ordering Facility: [facility] Address: [address] [place] [address] Performed By: #### 5 7021-8 #### [facility] CLIA [id number] [address] STATES [facility] Differential cell count method Nom (Bld) Auto Normal [facility] Comment on above: Order Comment: Speci men Type: BLOOD SPECIMEN Ordering Facility: [facility] Address: [address] [place] [address] Performed By: #### 5 7021-8 #### [facility] CLIA [id number] [address] [place] [address] [place] Eosinophils (Bld) [#/Vol] 2.14 10*3/uL High <0.46 [facility] Comment on above: Order Comment: Speci men Type: BLOOD SPECIMEN Ordering Facility: [facility] Address: [address] [place] [address] Performed By: #### 5 7021-8 #### [facility] CLIA [id number] [address] [place] [address] [place] Eosinophils/100 WBC (Bld) 23.2 % Normal [facility] Comment on above: Order Comment: Speci men Type: BLOOD SPECIMEN Ordering Facility: [facility] Address: [address] [place] [address] Performed By: #### 5 7021-8 #### [facility] CLIA [id number] [address] [place] [address] [place] Erythrocyte distribution width (RBC) [Ratio] 13.4 % Normal 11.5-15.0 [facility] Comment on above: Order Comment: Speci men Type: BLOOD SPECIMEN Ordering Facility: [facility] Address: [address] [place] [address] Performed By: #### 5 7021-8 #### [facility] CLIA [id number] [address] [place] [address] [place] Hematocrit (Bld) [Volume fraction] 41.4 % Normal 36.0-46.0 [facility] Comment on above: Order Comment: Speci men Type: BLOOD SPECIMEN Ordering Facility: [facility] Address: [address] [place] [address] Performed By: #### 5 7021-8 #### [facility] CLIA [id number] [address] [place] [address] [place] Hemoglobin (Bld) [Mass/Vol] 13.9 g/dL Normal 11.5-15.5 [facility] Comment on above: Order Comment: Speci men Type: BLOOD SPECIMEN Ordering Facility: [facility] Address: [address] [place] [address] Performed By: #### 5 7021-8 #### [facility] CLIA [id number] [address] [place] [address] [place] Immature granulocytes (Bld) [#/Vol] 10*3/uL Normal <0.10 [facility] Comment on above: Order Comment: Speci men Type: BLOOD SPECIMEN Ordering Facility: [facility] Address: [address] [place] [address] Performed By: #### 5 7021-8 #### [facility] CLIA [id number] [address] [place] [address] [place] Immature granulocytes/100 WBC (Bld) 0.1 % Normal [facility] Comment on above: Order Comment: Speci men Type: BLOOD SPECIMEN Ordering Facility: [facility] Address: [address] [place] [address] Performed By: #### 5 7021-8 #### [facility] CLIA [id number] [address] [place] [address] [place] Lymphocytes (Bld) [#/Vol] 1.71 10*3/uL Normal 1.00-4.00 [facility] Comment on above: Order Comment: Speci men Type: BLOOD SPECIMEN Ordering Facility: [facility] Address: [address] [place] [address] Performed By: #### 5 7021-8 #### [facility] CLIA [id number] [address] [place] [address] [place] Lymphocytes/100 WBC (Bld) 18.5 % Normal [facility] Comment on above: Order Comment: Speci men Type: BLOOD SPECIMEN Ordering Facility: [facility] Address: [address] [place] [address] Performed By: #### 5 7021-8 #### [facility] CLIA [id number] [address] [place] [address] [place] MCH (RBC) [Entitic mass] 32.7 pg Normal 26.0-34.0 [facility] Comment on above: Order Comment: Speci men Type: BLOOD SPECIMEN Ordering Facility: [facility] Address: [address] [place] [address] Performed By: #### 5 7021-8 #### [facility] CLIA [id number] [address] [place] [address] [place] MCHC (RBC) [Mass/Vol] 33.6 g/dL Normal 30.5-36.0 [facility] Comment on above: Order Comment: Speci men Type: BLOOD SPECIMEN Ordering Facility: [facility] Address: [address] [place] [address] Performed By: #### 5 7021-8 #### [facility] CLIA [id number] [address] [place] [address] [place] MCV (RBC) [Entitic vol] 97.4 fL Normal 80.0-100.0 [facility] Comment on above: Order Comment: Speci men Type: BLOOD SPECIMEN Ordering Facility: [facility] Address: [address] [place] [address] Performed By: #### 5 7021-8 #### [facility] CLIA [id number] [address] [place] [address] [place] Monocytes (Bld) [#/Vol] 0.88 10*3/uL High <0.87 [facility] Comment on above: Order Comment: Speci men Type: BLOOD SPECIMEN Ordering Facility: [facility] Address: [address] [place] [address] Performed By: #### 5 7021-8 #### [facility] CLIA [id number] [address] [place] [address] [place] Monocytes/100 WBC (Bld) 9.5 % Normal [facility] Comment on above: Order Comment: Speci men Type: BLOOD SPECIMEN Ordering Facility: [facility] Address: [address] [place] [address] Performed By: #### 5 7021-8 #### [facility] CLIA [id number] [address] [place] [address] [place] Neutrophils (Bld) [#/Vol] 4.47 10*3/uL Normal 1.45-7.50 [facility] Comment on above: Order Comment: Speci men Type: BLOOD SPECIMEN Ordering Facility: [facility] Address: [address] [place] [address] Performed By: #### 5 7021-8 #### [facility] CLIA [id number] [address] [place] [address] [place] Neutrophils/100 WBC (Bld) 48.4 % Normal [facility] Comment on above: Order Comment: Speci men Type: BLOOD SPECIMEN Ordering Facility: [facility] Address: [address] [place] [address] Performed By: #### 5 7021-8 #### [facility] CLIA [id number] [address] [place] [address] [place] Nucleated RBC (Bld) [#/Vol] Normal [facility] Comment on above: Order Comment: Speci men Type: BLOOD SPECIMEN Ordering Facility: [facility] Address: [address] [place] [address] Performed By: #### 5 7021-8 #### [facility] CLIA [id number] [address] [place] [address] [place] Nucleated RBC/100 WBC (Bld) [Ratio] Normal [facility] Comment on above: Order Comment: Speci men Type: BLOOD SPECIMEN Ordering Facility: [facility] Address: [address] [place] [address] Performed By: #### 5 7021-8 #### [facility] CLIA [id number] [address] [place] [address] [place] Platelet mean volume (Bld) [Entitic vol] 10.5 fL Normal 9.0-12.7 [facility] Comment on above: Order Comment: Speci men Type: BLOOD SPECIMEN Ordering Facility: [facility] Address: [address] [place] [address] Performed By: #### 5 7021-8 #### [facility] CLIA [id number] [address] [place] [address] [place] Platelets (Bld) [#/Vol] 240 10*3/uL Normal 150-400 [facility] Comment on above: Order Comment: Speci men Type: BLOOD SPECIMEN Ordering Facility: [facility] Address: [address] [place] [address] Performed By: #### 5 7021-8 #### [facility] CLIA [id number] [address] [place] [address] [place] RBC (Bld) [#/Vol] 4.25 10*6/uL Normal 3.90-5.20 [facility] Comment on above: Order Comment: Speci men Type: BLOOD SPECIMEN Ordering Facility: [facility] Address: [address] [place] [address] Performed By: #### 5 7021-8 #### [facility] CLIA [id number] [address] [place], [place] [address] [place] [address] [place] WBC (Bld) [#/Vol] 9.24 10*3/uL Normal 3.70-11.00 [facility] Comment on above: Order Comment: Speci men Type: BLOOD SPECIMEN Ordering Facility: [facility] Address: [address] [place] [address] Performed By: #### 5 7021-8 #### [facility] CLIA [id number] [address] [place] [address] [facility] Comprehensive metabolic 2000 panelon 08-30-2023 Albumin [Mass/Vol] 4.4 g/dL Normal 3.9-4.9 [facility] Comment on above: Order Comment: Speci men Type: BLOOD SPECIMEN Ordering Facility: [facility] Address: [address] [place] [address] Performed By: #### 2 4323-8, 3040-3 #### [facility] CLIA [id number] [address] [place] [address] [place] ALP [Catalytic activity/Vol] 148 U/L High 34-123 [facility] Comment on above: Order Comment: Speci men Type: BLOOD SPECIMEN Ordering Facility: [facility] Address: [address] [place] [address] Performed By: #### 2 4323-8, 3040-3 #### [facility] CLIA [id number] [address] [place] [address] [place] ALT With P-5'-P [Catalytic activity/Vol] 12 U/L Normal 7-38 [facility] Comment on above: Order Comment: Speci men Type: BLOOD SPECIMEN Ordering Facility: [facility] Address: [address] [place], [place] [address] Performed By: #### 2 4323-8, 3040-3 #### [facility] CLIA [id number] [address] [place] [address] [place] Anion gap [Moles/Vol] 13 mmol/L Normal 8-15 [facility] Comment on above: Order Comment: Speci men Type: BLOOD SPECIMEN Ordering Facility: [facility] Address: [address] [place] [address] Performed By: #### 2 4323-8, 3040-3 #### [facility] CLIA [id number] [address] [place] [address] [facility] AST With P-5'-P [Catalytic activity/Vol] 13 U/L Normal 13-35 [facility] Comment on above: Order Comment: Speci men Type: BLOOD SPECIMEN Ordering Facility: [facility] Address: [address] [id number] Performed By: #### 2 4323-8, 3040-3 #### [facility] CLIA [id number] [address] [place] [address] [place] Bilirubin [Mass/Vol] 0.8 mg/dL Normal 0.2-1.3 [facility] Comment on above: Order Comment: Speci men Type: BLOOD SPECIMEN Ordering Facility: [facility] Address: [address] [place] [id number] Performed By: #### 2 4323-8, 3040-3 #### [facility] CLIA [id number] [address] [place] [address] [place] Calcium [Mass/Vol] 9.3 mg/dL Normal 8.5-10.2 [facility] Comment on above: Order Comment: Speci men Type: BLOOD SPECIMEN Ordering Facility: [facility] Address: [address] [place] [address] Performed By: #### 2 4323-8, 3040-3 #### [facility] CLIA [id number] [address] [place] [address] [place] Chloride [Moles/Vol] 101 mmol/L Normal 98-107 [facility] Comment on above: Order Comment: Speci men Type: BLOOD SPECIMEN Ordering Facility: [facility] Address: [address] [place] [address] Performed By: #### 2 4323-8, 3040-3 #### [facility] CLIA [id number] [address] [place] [address] [place] CO2 [Moles/Vol] 24 mmol/L Normal 22-30 [facility] Comment on above: Order Comment: Speci men Type: BLOOD SPECIMEN Ordering Facility: [facility] Address: [address] [place] [address] Performed By: #### 2 4323-8, 3040-3 #### [facility] CLIA [id number] [address] [place] [address] [place] Creatinine [Mass/Vol] 0.82 mg/dL Normal 0.58-0.96 [facility] Comment on above: Order Comment: Speci men Type: BLOOD SPECIMEN Ordering Facility: [facility] Address: [address] [place] [address] Performed By: #### 2 4323-8, 3040-3 #### [facility] CLIA [id number] [address] [place] [address] [place] Creatinine and Glomerular filtration rate.predicted panel (S/P/Bld) 100 mL/min/1.73m??? Normal >=60 [facility] Comment on above: Order Comment: Dayo barker Type: BLOOD SPECIMEN Ordering Facility: [facility] Address: [address] [place] [address] Result Comment: Isabell mated Glomerular Filtration Rate (eGFR) is calculated using the 2020 CKD-EPI creatinine equation. This equation utilizes serum creatinine, sex, and age as parameters. The creatinine assay has traceable calibration to isotope dilution-mass spectrometry. Refer to KDIGO guidelines for clinical interpretation. In patients with unstable renal function, e.g. those with acute kidney injury, the eGFR may not accurately reflect actual GFR. Performed By: #### 2 4323-8, 3040-3 #### [facility] CLIA [id number] [address] [place] [address] [place] Glucose [Mass/Vol] 92 mg/dL Normal 74-99 [facility] Comment on above: Order Comment: Dayo barker Type: BLOOD SPECIMEN Ordering Facility: [facility] Address: [address] [place] [address] Result Comment: The [place] Diabetes [employer] (ADA) provides guidance for cutoff values for fasting glucose and random glucose. The ADA defines fasting as no caloric intake for at least 8 hours. Fasting plasma glucose results between 100 to 125 mg/dL indicate increased risk for diabetes (prediabetes). Fasting plasma glucose results greater than or equal to 126 mg/dL meet the criteria for diagnosis of diabetes. In the absence of unequivocal hyperglycemia, results should be confirmed by repeat testing. In a patient with classic symptoms of hyperglycemia or hyperglycemic crisis, random plasma glucose results greater than or equal to 200 mg/dL meet the criteria for diagnosis of diabetes. Reference: Standards of Medical Care in Diabetes 2016, [place] [employer] Association. Diabetes Care. 2016.39(Suppl 1). Performed By: #### 2 4323-8, 3040-3 #### [facility] CLIA [id number] [address] [place] [address] [place] Potassium [Moles/Vol] 4.0 mmol/L Normal 3.7-5.1 [facility] Comment on above: Order Comment: Dayo barker Type: BLOOD SPECIMEN Ordering Facility: [facility] Address: [address] [id number] Performed By: #### 2 4323-8, 3040-3 #### [facility] CLIA [id number] [address] [place] [address] [place] Protein [Mass/Vol] 7.6 g/dL Normal 6.3-8.0 [facility] Comment on above: Order Comment: Speci men Type: BLOOD SPECIMEN Ordering Facility: [facility] Address: [address] [place], [place] [address] Performed By: #### 2 4323-8, 3040-3 #### [facility] CLIA [id number] [address] [place] [address] [place] Sodium [Moles/Vol] 138 mmol/L Normal 136-144 [facility] Comment on above: Order Comment: Speci men Type: BLOOD SPECIMEN Ordering Facility: [facility] Address: [address] [place] [address] Performed By: #### 2 4323-8, 3040-3 #### [facility] CLIA [id number] [address] [place] [address] [place] Urea nitrogen [Mass/Vol] 15 mg/dL Normal 7-21 [facility] Comment on above: Order Comment: Speci men Type: BLOOD SPECIMEN Ordering Facility: [facility] Address: [address] [place] [address] Performed By: #### 2 4323-8, 3040-3 #### [facility] CLIA [id number] [address] [place] [address] [facility] ED NOTEon 08-30-2023 ED NOTE HNO ID: [id number] Author: BRENDA MIRELES RN Service: ? Author Type: Registered Nurse Type: ED Notes Filed: 08/31/2023 10:50 Note Text: Patient Call Back Information How are you doing ? better Did we appropriately manage your pain? Yes Did you understand your discharge instructions? Yes Did you get your prescriptions filled? Yes Were you able to make a follow-up appointment with your physician? yes Were you comfortable during your stay here? Yes Did a member of the ER nursing team round on you during your visit? Yes You will receive a patient satisfaction survey in the mail in the nest 2 weeks, please take the time to fill out the survey as your input from your ER visit is very important to us. Yes Can we do anything else to help you? Pt has questions about lab work, questions were answered [facility] ED NOTE HNO ID: [id number] Author: BRENDA MIRELES RN Service: ? Author Type: Registered Nurse Type: ED Notes Filed: 08/30/2023 14:17 Note Text: Pt given discharge instructions, pt questions answered and pt denies any further questions at time of discharge. Pt ambulates out of dept with a steady gait. 1 rx sent to pharmacy Normal [facility] ED NOTE HNO ID: [id number] Author: BRENDA MIRELES RN Service: ? Author Type: Registered Nurse Type: ED Notes Filed: 08/30/2023 11:07 Note Text: Pt still unable to provide urine sample [facility] ED NOTE HNO ID: [id number] Author: BRENDA MIRELES RN Service: ? Author Type: Registered Nurse Type: ED Notes Filed: 08/30/2023 10:52 Note Text: Dr haynes from [facility] paged to call us back [facility] ED NOTE HNO ID: [id number] Author: BRENDA MIRELES, CHARY Service: ? Author Type: Registered Nurse Type: ED Notes Filed: 08/30/2023 09:48 Note Text: Pt has history of ulcerative colitis, pt has been in a flare since the middle of july. Pt has a colonoscopy scheduled for September 07. Pt has been in contact with her gi dr. They put her on a steroid for about a week, she felt much better at that time. Pt was told they don't want her on additional steroids because they want a good baseline colonoscopy. Pt has severe abd cramping, pt feels weak and tired. [facility] ED PROV NOTEon 08-30-2023 ED PROV NOTE HNO ID: [id number] Author: NIA RITTER DO Service: Emergency Medicine Author Type: Physician Type: ED Provider Notes Filed: 08/30/2023 15:20 Note Text: ED Provider Note Patient Name: Joelle Hendricks : 1995 SERVICE DATE: 08/30/23 History Patient presents with: Abdominal Pain Joelle Hendricks is a 28 year old female with history of ulcerative colitis who presents with Abdominal Pain. - Symptoms began the middle of July. - Severity: moderate - Timing: constant - Quality: cramping - Symptoms are associated with nausea, fatigue. - Symptoms are not associated with chest pain, chills, diarrhea, fever, rash, shortness of breath, vomiting, dysuria, hematuria, flank pain, back pain, bloody stools. Patient presents stating that she is in a flareup of ulcerative colitis. She states that the flareup started in the middle of July. She states she has been working with her GI physicians at [facility]. She states that she was just on a steroid taper and finished them earlier this week. She states her symptoms improved while on the steroids, but symptoms started again the day after she finished her steroids. She reports that she is scheduled to have a colonoscopy on September 07 and reports they did not want her on additional steroids before the colonoscopy. She states she feels she can not tolerate these symptoms until she has the colonoscopy. She describes the abdominal pain as cramping that lasts for about 30 seconds off and on. She states that this is typical pain and cramping that she gets with ulcerative colitis. She states that she is having bowel movements and passing gas. She states she is not having diarrhea. She states she is not having bloody stools. She states she does feel nauseated and fatigued, but denies any vomiting. She reports decreased PO intake due to cramping and nausea when she eats or drinks. No dysuria or hematuria. No flank pain or back pain. No chest pain or shortness of breath. No cough. She is currently breast-feeding. PAST MEDICAL HISTORY Diagnosis Date Abdominal pain Acne taking aldactone Allergic rhinitis, cause unspecified Delayed emergence from general anesthesia GI bleed Iron deficiency anemia Ulcerative colitis (HCC) Seeing Dr. Vargas Ulcerative proctitis ([facility]) PAST SURGICAL HISTORY Procedure Laterality Date MIDLINE INSERTION/CONSULT 04/01/2016 TONSILLECTOMY AND ADENOIDECTOMY HX FAMILY HISTORY Problem Relation Age of Onset Diabetes Paternal Grandmother Diabetes Paternal Grandfather Coronary Artery Disease Paternal Grandfather Allergies Mother None Father Hyperlipidemia Maternal Grandmother Hypertension Maternal Grandmother Stroke Maternal Grandmother Diabetes Maternal Grandfather Stroke Maternal Grandfather Social History Tobacco Use Smoking status: Never Smokeless tobacco: Never Vaping Use Vaping Use: Never used Substance and Sexual Activity Alcohol use: Yes Comment: rare Drug use: No Sexual activity: Not on file ALLERGIES Allergen Reactions Penicillin Other: See Comments Makes pt hyper Review of Systems Constitutional: Positive for fatigue. Negative for chills and fever. Respiratory: Negative for cough and shortness of breath. Cardiovascular: Negative for chest pain. Gastrointestinal: Positive for abdominal pain and nausea. Negative for blood in stool, constipation, diarrhea and vomiting. Genitourinary: Negative for dysuria, flank pain, hematuria and pelvic pain. Musculoskeletal: Negative for back pain. Skin: Negative for rash. Neurological: Negative for weakness and numbness. Psychiatric/Behavioral : Negative for agitation and confusion. Physical Exam Vitals [08/30/23 0943] BP Pulse Temp Temp src Resp SpO2 Weight Height 116/85 (!) 98 37.2 ?C (99 ?F) Temporal Art 18 98 % 77.6 kg (171 lb) -- Physical Exam Vitals and nursing note reviewed. Constitutional: Appearance: She is not toxic-appearing or diaphoretic. HENT: Head: Normocephalic and atraumatic. Mouth/Throat: Mouth: Mucous membranes are moist. Eyes: General: No scleral icterus. Conjunctiva/sclera: Conjunctivae normal. Cardiovascular: Rate and Rhythm: Normal rate and regular rhythm. Pulses: Normal pulses. Pulmonary: Effort: Pulmonary effort is normal. Breath sounds: Normal breath sounds. Abdominal: General: Abdomen is flat. Bowel sounds are normal. There is no distension. Palpations: Abdomen is soft. Tenderness: There is abdominal tenderness (mild mid-abdominal tenderness - non-acute exam). There is no right CVA tenderness, left CVA tenderness, guarding or rebound. Negative signs include Patel's sign and McBurney's sign. Musculoskeletal: Cervical back: Normal range of motion and neck supple. Skin: General: Skin is warm and dry. Capillary Refill: Capillary refill takes less than 2 seconds. Neurological: General: No focal deficit present. Mental Status: She is (more content not included)... Normal [facility] Lipase SerPl-cCncon 06-29-20 24 Lipase [Catalytic activity/Vol] 35 U/L Normal 16-61 [facility] Comment on above: Order Comment: Speci men Type: BLOOD SPECIMEN Ordering Facility: [facility] Address: [address] [place] [address] Performed By: #### 2 4323-8, 3040-3 #### [facility] CLIA [id number] [address] [place] [address] [facility] Urinalysis complete panel (U )on 08-30-2023 Bacteria LM.HPF (Urine sed) [#/Area] Many Abnormal None Seen [facility] Comment on above: Order Comment: Speci men Type: URINE SPECIMEN Ordering Facility: [facility] Address: [address] [place] [address] Performed By: #### 2 4356-8 #### [facility] CLIA [id number] [address] [place] [address] [facility] Bilirubin Ql (U) 1+ Abnormal Negative [facility] Comment on above: Order Comment: Speci men Type: URINE SPECIMEN Ordering Facility: [facility] Address: [address] [place] [address] Result Comment: Sugg est correlation with clinical findings and serum bilirubin if clinically indicated. Performed By: #### 2 4356-8 #### [facility] CLIA [id number] [address] [place] [address] [facility] Clarity (Unsp spec) Cloudy Abnormal Clear [facility] Comment on above: Order Comment: Speci men Type: URINE SPECIMEN Ordering Facility: [facility] Address: [address] [place] [address] Performed By: #### 2 4356-8 #### [facility] CLIA [id number] [address] [place] [address] [facility] Color (U) Yellow Normal Yellow [facility] Comment on above: Order Comment: Speci men Type: URINE SPECIMEN Ordering Facility: [facility] Address: [address] [place] [address] Performed By: #### 2 4356-8 #### [facility] CLIA [id number] [address] [place] [address] [facility] Epithelial cells LM.HPF (Urine sed) [#/Area] Many Normal [facility] Comment on above: Order Comment: Speci men Type: URINE SPECIMEN Ordering Facility: [facility] Address: [address] [place] [address] Performed By: #### 2 4356-8 #### [facility] CLIA [id number] [address] [place] [address] [facility] Glucose Test strip (U) [Mass/Vol] Negative Normal Negative [facility] Comment on above: Order Comment: Speci men Type: URINE SPECIMEN Ordering Facility: [facility] Address: [address] [place] [address] Performed By: #### 2 4356-8 #### [facility] CLIA [id number] [address] [place] [address] [facility] Hemoglobin Ql (U) Negative Normal Negative [facility] Comment on above: Order Comment: Speci men Type: URINE SPECIMEN Ordering Facility: [facility] Address: [address] [place] [address] Performed By: #### 2 4356-8 #### [facility] CLIA [id number] [address] [place] [address] [facility] Ketones Ql (U) 2+ Abnormal Negative [facility] Comment on above: Order Comment: Speci men Type: URINE SPECIMEN Ordering Facility: [facility] Address: [address] [place] [address] Performed By: #### 2 4356-8 #### [facility] CLIA [id number] [address] [place] [address] [facility] Leukocyte esterase Test strip Ql (U) Negative Normal Negative [facility] Comment on above: Order Comment: Speci men Type: URINE SPECIMEN Ordering Facility: [facility] Address: [address] [place] [address] Performed By: #### 2 4356-8 #### [facility] CLIA [id number] [address] [place] [address] [place] Nitrite Ql (U) Negative Normal Negative [facility] Comment on above: Order Comment: Speci men Type: URINE SPECIMEN Ordering Facility: [facility] Address: [address] [place] [address] Performed By: #### 2 4356-8 #### [facility] CLIA [id number] [address] [place] [address] [place] pH (U) 6.5 [pH] Normal 5.0-8.0 [facility] Comment on above: Order Comment: Speci men Type: URINE SPECIMEN Ordering Facility: [facility] Address: [address] [place] [address] Performed By: #### 2 4356-8 #### [facility] CLIA [id number] [address] [place] [id number] [place] Protein (U) [Mass/Vol] Trace Abnormal Negative [facility] Comment on above: Order Comment: Speci men Type: URINE SPECIMEN Ordering Facility: [facility] Address: [address] [place] [address] Performed By: #### 2 4356-8 #### [facility] CLIA [id number] [address] [place] [address] [place] RBC LM.HPF (Urine sed) [#/Area] 3-5 /HPF Abnormal 0-3 /HPF [facility] Comment on above: Order Comment: Speci men Type: URINE SPECIMEN Ordering Facility: [facility] Address: [address] [place] [address] Performed By: #### 2 4356-8 #### [facility] CLIA [id number] [address] [place] [id number] [facility] Specific gravity (U) [Rel density] 1.025 Normal 1.005-1.030 [facility] Comment on above: Order Comment: Speci men Type: URINE SPECIMEN Ordering Facility: [facility] Address: [address] [place] [address] Performed By: #### 2 4356-8 #### [facility] CLIA [id number] [address] [place], [place] [id number] [place] Urobilinogen Ql (U) 0.2 EU/dL Normal 0.2-1.0 EU/dL [facility] Comment on above: Order Comment: Speci men Type: URINE SPECIMEN Ordering Facility: [facility] Address: [address] [place] [address] Performed By: #### 2 4356-8 #### [facility] CLIA [id number] [address] [place] [address] [place] WBC LM.HPF (Urine sed) [#/Area] 6-10 /HPF Abnormal 0-5 /HPF [facility] Comment on above: Order Comment: Speci men Type: URINE SPECIMEN Ordering Facility: [facility] Address: [address] [place] [address] Performed By: #### 2 4356-8 #### [facility] CLIA [id number] [address] [place] [address] [place] STREP A MOLECULAR (POC)on Procedural Control Valid [facility] [facility] (POCT) Negative Negative [facility] FMHon 10-23-2022 Mat. Hemorrhage Negative Normal [facility] ([place]) Comment on above: Performed By: #### F #### [facility] [address] [place] [address] #### HH #### [place] [address] HHon 10-23-2022 Hematocrit (Bld) [Volume fraction] 33.2 % Low 37.0-47.0 [facility] ([place]) Comment on above: Performed By: #### F #### [facility] [address] [place] [address] #### HH #### [place] [address] Hgb 11.5 G/dL Low 12.0-16.0 [facility] ([place]) Comment on above: Performed By: #### F #### [facility] [address] [place], [place] [address] #### HH #### [facility] [address] [place] [address] LABORATORYOrdered By: Rafaela Julian on 10-23-2022 cell screen Deb test Ql (Bld) Negative (10/23/22 5:31 AM) Invalid Interpretation Code AO BB SS LABORATORYOrdered By: SYSTEM SYSTEM on 10-23-2022 Hematocrit (Bld) [Volume fraction] 33.2 % Invalid Interpretation Code 37.0 - 47.0 % AO Workflow SS Hemoglobin (Bld) [Mass/Vol] 11.5 G/dL Invalid Interpretation Code 12.0 - 16.0 G/dL AO Workflow SS RPRon 10-23-2022 Reagin Ab RPR Ql (S) Non-Reactive Normal Non-Reactive [facility] ([place]) Comment on above: Result Comment: The RPR test is a non-treponemal assay useful as an aid in the diagnosis of primary and secondary syphilis. It converts to positive generally within 2 weeks after the appearance of a lesion. This test is also useful for monitoring response to antibiotic therapy. A positive RPR screening test will be followed by the FTA ABS test. False positive RPR tests may occur in 1) patients with underlying autoimmune disorders, 2) elderly patients, 3) , and 4) other conditions with abnormal serum globulins. Performed By: #### G LU1P #### [address] [address] .Auto Diffon 10-22-2022 Basophil, Absolute 0.0 10 3/mcL Normal 0.0-0.2 [facility] ([place]) Comment on above: Performed By: #### F #### [facility] [address] [place], [place] [address] #### HH #### [address] [address] Basophils/100 WBC (Bld) 0.3 % Normal 0.0-2.5 [facility] ([place]) Comment on above: Performed By: #### F #### [facility] [address] [place], [place] [address] #### HH #### [facility] [address] [place] [address] Eosinophil, Absolute 0.0 10 3/mcL Normal 0.0-0.4 [facility] ([place]) Comment on above: Performed By: #### F #### [facility] [address] [place], [place] [address] #### HH #### [facility] [address] [place] [address] Eosinophils/100 WBC (Bld) 0.2 % Normal 0.0-7.0 [facility] ([place]) Comment on above: Performed By: #### F #### [facility] [address] [place], [place] [address] #### HH #### [address] [address] Lymphocyte, Absolute 1.2 10 3/mcL Normal 0.8-3.9 [facility] ([place]) Comment on above: Performed By: #### F #### [facility] [address] [place], [place] [address] #### HH #### [address] [address] Lymphocytes/100 WBC (Bld) 15.7 % Normal 10.0-50.0 [facility] ([place]) Comment on above: Performed By: #### F #### [facility] [address] [place], [place] [address] #### HH #### [address] [address] Monocyte, Absolute 0.6 10 3/mcL Normal 0.2-1.0 [facility] ([place]) Comment on above: Performed By: #### F #### [facility] [address] [place], [place] [address] #### HH #### [address] [address] Monocytes/100 WBC (Bld) 7.8 % Normal 1.7-13.0 [facility] ([place]) Comment on above: Performed By: #### F #### [facility] [address] [place], [place] [address] #### HH #### [address] [address] Neutrophils/100 WBC (Bld) 76.0 % Normal 37.0-80.0 [facility] ([place]) Comment on above: Performed By: #### F #### [facility] [address] [place] [id number] #### HH #### [place] [address] .NEUABSon 10-22-2022 Neutrophil, Absolute 6.0 10 3/mcL Normal 2.9-6.2 [facility] ([place]) Comment on above: Performed By: #### F #### [facility] [address] [place] [address] #### HH #### [place] [address] CBCon 10-22-2022 Erythrocyte distribution width (RBC) [Ratio] 13.5 % Normal 11.5-14.5 [facility] ([place]) Comment on above: Performed By: #### F #### [facility] [address] [place] [address] #### HH #### [place] [address] Hematocrit (Bld) [Volume fraction] 35.6 % Low 37.0-47.0 [facility] ([place]) Comment on above: Performed By: #### F #### [facility] [address] [place] [id number] #### HH #### [place] [address] Hgb 12.3 G/dL Normal 12.0-16.0 [facility] ([place]) Comment on above: Performed By: #### F #### [facility] [address] [place] [address] #### HH #### [place] [address] MCH (RBC) [Entitic mass] 33.9 pg High 27.0-31.2 [facility] ([place]) Comment on above: Performed By: #### F #### [facility] [address] [place] [address] #### HH #### [place] [address] MCHC 34.5 G/dL Normal 33.0-37.0 [facility] ([place]) Comment on above: Performed By: #### F #### [facility] [address] [place] [address] #### HH #### [place] [address] MCV (RBC) [Entitic vol] 98.4 fL High 80.0-94.0 [facility] ([place]) Comment on above: Performed By: #### F #### [facility] [address] [place] [address] #### HH #### [place] [address] Platelet 115 10 3/mcL Low 130-400 [facility] ([place]) Comment on above: Performed By: #### F #### [facility] [address] [place] [address] #### HH #### [place] [address] Platelet mean volume (Bld) [Entitic vol] 10.0 fL Normal 7.4-10.4 [facility] ([place]) Comment on above: Performed By: #### F #### [facility] [address] [place] [address] #### HH #### [place] [address] RBC 3.62 10 6/mcL Low 4.20-5.40 [facility] ([place]) Comment on above: Performed By: #### F #### [facility] [address] [place] [address] #### HH #### [facility] [address] [place] [address] WBC 7.9 10 3/mcL Normal 4.6-10.8 [facility] ([place]) Comment on above: Performed By: #### F #### [facility] [address] [place], [place] [address] #### HH #### [facility] [address] [place] [address] Gel ABOon 10-22-2022 ABO/Rh Interp Negative Invalid Interpretation Code [facility] ([place]) Comment on above: Performed By: #### F #### [facility] [place] [place] [address] [place], [place] [address] #### HH #### [facility] [address] [place] [address] Gel ABSon 10-22-2022 Antibody Screen Gel Negative Normal [facility] ([place]) Comment on above: Performed By: #### F #### [facility] [place] [address] [place], [place] [address] #### HH #### [facility] [address] [place] [address] LABORATORYOrdered By: gM Delacruz on 10-22-2022 ABO/Rh Interp Negative Invalid Interpretation Code AO BB SS Antibody Screen Gel Negative ABSC (10/22/22 11:47 AM) Invalid Interpretation Code AO BB SS LABORATORYOrdered By: SYSTEM SYSTEM on 10-22-2022 Basophil, Absolute 0.0 103/mcL Invalid Interpretation Code 0.0 - 0.2 10^3/mcL AO Workflow SS Basophils/100 WBC (Bld) 0.3 % Invalid Interpretation Code 0.0 - 2.5 % AO Workflow SS Eosinophil, Absolute 0.0 103/mcL Invalid Interpretation Code 0.0 - 0.4 10^3/mcL AO Workflow SS Eosinophils/100 WBC (Bld) 0.2 % Invalid Interpretation Code 0.0 - 7.0 % AO Workflow SS Erythrocyte distribution width (RBC) [Ratio] 13.5 % Invalid Interpretation Code 11.5 - 14.5 % AO Workflow SS Hematocrit (Bld) [Volume fraction] 35.6 % Invalid Interpretation Code 37.0 - 47.0 % AO Workflow SS Hemoglobin (Bld) [Mass/Vol] 12.3 G/dL Invalid Interpretation Code 12.0 - 16.0 G/dL AO Workflow SS Lymphocyte, Absolute 1.2 103/mcL Invalid Interpretation Code 0.8 - 3.9 10^3/mcL AO Workflow SS Lymphocytes/100 WBC (Bld) 15.7 % Invalid Interpretation Code 10.0 - 50.0 % AO Workflow SS MCH (RBC) [Entitic mass] 33.9 pg Invalid Interpretation Code 27.0 - 31.2 pg AO Workflow SS MCHC 34.5 G/dL Invalid Interpretation Code 33.0 - 37.0 G/dL AO Workflow SS MCV (RBC) [Entitic vol] 98.4 fL Invalid Interpretation Code 80.0 - 94.0 fL AO Workflow SS Monocyte, Absolute 0.6 103/mcL Invalid Interpretation Code 0.2 - 1.0 10^3/mcL AO Workflow SS Monocytes/100 WBC (Bld) 7.8 % Invalid Interpretation Code 1.7 - 13.0 % AO Workflow SS Neutrophil, Absolute 6.0 103/mcL Invalid Interpretation Code 2.9 - 6.2 10^3/mcL AO Workflow SS Neutrophils/100 WBC (Bld) 76.0 % Invalid Interpretation Code 37.0 - 80.0 % AO Workflow SS Platelet mean volume (Bld) [Entitic vol] 10.0 fL Invalid Interpretation Code 7.4 - 10.4 fL AO Workflow SS Platelets (Bld) [#/Vol] 115 103/mcL Invalid Interpretation Code 130 - 400 10^3/mcL AO Workflow SS RBC (Bld) [#/Vol] 3.62 106/mcL Invalid Interpretation Code 4.20 - 5.40 10^6/mcL AO Workflow SS WBC (Bld) [#/Vol] 7.9 103/mcL Invalid Interpretation Code 4.6 - 10.8 10^3/mcL AO Workflow SS LABORATORYOrdered By: Jennifer Faustin on 10-22-2022 Reagin Ab RPR Ql (S) Non-Reactive 1 (10/22/22 11:47 AM) Invalid Interpretation Code Non-Reactive Man Viro/Sero SS Comment on above: Interpretive Data: T he RPR test is a non-treponemal assay useful as an aid in the diagnosis of primary and secondary syphilis. It converts to positive generally within 2 weeks after the appearance of a lesion. This test is also useful for monitoring response to antibiotic therapy. A positive RPR screening test will be followed by the FTA ABS test. False positive RPR tests may occur in 1) patients with underlying autoimmune disorders, 2) elderly patients, 3) , and 4) other conditions with abnormal serum globulins. LABORATORYOrdered By: Akua Solorio on 10-22-2022 ABO and Rh group Nom (Bld) O negative (10/22/22 11:12 AM) [facility] Strep Date Performed [id number] [facility] Group B Strep, External Negative (10/22/22 11:12 AM) [facility] Hepatitis B Date Performed [id number] [facility] Hepatitis B, External Negative (10/22/22 11:12 AM) [facility] HIV Antibodies, External Negative (10/22/22 11:12 AM) [facility] RPR, External Nonreactive (10/22/22 11:12 AM) [facility] Rubella, External Immune (10/22/22 11:12 AM) [facility] AMNIon 10-14-2022 Amnisure Negative Normal Negative [facility] ([place]) Comment on above: Performed By: #### F #### [facility] [address] [place], [place] [address] #### HH #### [facility] [address] [place] [address] LABORATORYOrdered By: Mavis Farley on 10-14-2022 Tlenq-0-Cbnidndssyvnv .placental Ql (Vag fld) Negative (10/14/22 7:31 AM) Invalid Interpretation Code Negative AO Rapid Testing SS RPRon 06-10-2023 Reagin Ab RPR Ql (S) Non-Reactive Normal Non-Reactive [facility] ([place]) Comment on above: Result Comment: The RPR test is a non-treponemal assay useful as an aid in the diagnosis of primary and secondary syphilis. It converts to positive generally within 2 weeks after the appearance of a lesion. This test is also useful for monitoring response to antibiotic therapy. A positive RPR screening test will be followed by the FTA ABS test. False positive RPR tests may occur in 1) patients with underlying autoimmune disorders, 2) elderly patients, 3) , and 4) other conditions with abnormal serum globulins. Performed By: #### G LU1P #### [address] [address] .Auto Diffon 08-09-2022 Basophil, Absolute 0.0 10 3/mcL Normal 0.0-0.2 [facility] ([place]) Comment on above: Performed By: #### G LU1P #### [address] [address] Basophils/100 WBC (Bld) 0.5 % Normal 0.0-2.5 [facility] ([place]) Comment on above: Performed By: #### G LU1P #### [address] [address] Eosinophil, Absolute 0.1 10 3/mcL Normal 0.0-0.4 [facility] ([place]) Comment on above: Performed By: #### G LU1P #### [address] [address] Eosinophils/100 WBC (Bld) 0.9 % Normal 0.0-7.0 [facility] ([place]) Comment on above: Performed By: #### G LU1P #### [address] [address] Lymphocyte, Absolute 1.0 10 3/mcL Normal 0.8-3.9 [facility] ([place]) Comment on above: Performed By: #### G LU1P #### [address] [address] Lymphocytes/100 WBC (Bld) 16.4 % Normal 10.0-50.0 [facility] ([place]) Comment on above: Performed By: #### G LU1P #### [address] [address] Monocyte, Absolute 0.4 10 3/mcL Normal 0.2-1.0 [facility] ([place]) Comment on above: Performed By: #### G LU1P #### [address] [address] Monocytes/100 WBC (Bld) 5.7 % Normal 1.7-13.0 [facility] ([place]) Comment on above: Performed By: #### G LU1P #### [address] [address] Neutrophils/100 WBC (Bld) 76.5 % Normal 37.0-80.0 [facility] ([place]) Comment on above: Performed By: #### G LU1P #### [address] [address] .NEUABSon 08-09-2022 Neutrophil, Absolute 4.9 10 3/mcL Normal 2.9-6.2 [facility] ([place]) Comment on above: Performed By: #### G LU1P #### [address] [address] CBCon 08-09-2022 Erythrocyte distribution width (RBC) [Ratio] 13.1 % Normal 11.5-14.5 [facility] ([place]) Comment on above: Performed By: #### G LU1P #### [address] [address] Hematocrit (Bld) [Volume fraction] 31.9 % Low 37.0-47.0 [facility] ([place]) Comment on above: Performed By: #### G LU1P #### [address] [address] Hgb 11.2 G/dL Low 12.0-16.0 [facility] ([place]) Comment on above: Performed By: #### G LU1P #### [address] [address] MCH (RBC) [Entitic mass] 34.4 pg High 27.0-31.2 [facility] ([place]) Comment on above: Performed By: #### G LU1P #### [address] [address] MCHC 35.0 G/dL Normal 33.0-37.0 [facility] ([place]) Comment on above: Performed By: #### G LU1P #### [address] [address] MCV (RBC) [Entitic vol] 98.4 fL High 80.0-94.0 [facility] ([place]) Comment on above: Performed By: #### G LU1P #### [address] [address] Platelet 148 10 3/mcL Normal 130-400 [facility] ([place]) Comment on above: Performed By: #### G LU1P #### [address] [address] Platelet mean volume (Bld) [Entitic vol] 9.2 fL Normal 7.4-10.4 [facility] ([place]) Comment on above: Performed By: #### G LU1P #### [address] [address] RBC 3.24 10 6/mcL Low 4.20-5.40 [facility] ([place]) Comment on above: Performed By: #### G LU1P #### [address] [address] WBC 6.3 10 3/mcL Normal 4.6-10.8 [facility] ([place]) Comment on above: Performed By: #### G LU1P #### [address] [address] [id number] 08-09-2022 Glucose [Mass/Vol] 123 mg/dL Normal 70-140 [facility] ([place]) Comment on above: Performed By: #### G LU1P #### [address] [address] Gel ABOon 08-09-2022 ABO/Rh Interp Negative Invalid Interpretation Code [facility] ([place]) Comment on above: Performed By: #### G LU1P #### [place] [address] [place], [place] [address] Gel ABSon 08-09-2022 Antibody Screen Gel Negative Normal [facility] ([place]) Comment on above: Performed By: #### G LU1P #### [place] [address] [place], [place] [address] VARISon 04-23-[address] Positive Normal [facility] ([place]) Comment on above: Result Comment: INTE RPRETATION OF VARICELLA IMMUNE STATUS IgG BY EIA: Negative: No detectable VZV IgG antibody. Positive: VZV IgG antibody Detected. If clinically indicated, order Varicella IgM to rule out recent infection. Equivocal: Equivocal for antibodies to VZV. Suggest repeat testing in 10-14 days. Performed By: #### F #### [facility] [address] [place], [place] [address] #### HH #### [place] [address] RPRon 04-20-2022 Reagin Ab RPR Ql (S) Non-Reactive Normal Non-Reactive [facility] ([place]) Comment on above: Result Comment: The RPR test is a non-treponemal assay useful as an aid in the diagnosis of primary and secondary syphilis. It converts to positive generally within 2 weeks after the appearance of a lesion. This test is also useful for monitoring response to antibiotic therapy. A positive RPR screening test will be followed by the FTA ABS test. False positive RPR tests may occur in 1) patients with underlying autoimmune disorders, 2) elderly patients, 3) , and 4) other conditions with abnormal serum globulins. Performed By: #### F #### [facility] [address] [place], [place] [address] #### HH #### [place] [address] RUBISon 04-20-[address] Positive Normal Positive [facility] ([place]) Comment on above: Result Comment: This immune status assay detects IgM and/or IgG antibody to Rubella. Interpret results in conjunction with clinical history. POS: Antibody detected; exposure at undetermined recent or distant time. If clinically indicated, order Rubella IGM to rule out recent infection. NEG: No antibody detected. Performed By: #### F #### [facility] [address] [place], [place] [address] #### HH #### [address] [address] .Auto Diffon 04-19-2022 Basophil, Absolute 0.0 10 3/mcL Normal 0.0-0.2 [facility] ([place]) Comment on above: Performed By: #### A BOG, ADIFF, ANSG, HIVRP, ANEU, TSH, CBC #### [address] [address] #### RUBIS, RPR, VARIS, HBSAG #### [address] [address] Basophils/100 WBC (Bld) 0.5 % Normal 0.0-2.5 [facility] ([place]) Comment on above: Performed By: #### A BOG, ADIFF, ANSG, HIVRP, ANEU, TSH, CBC #### [address] [address] #### RUBIS, RPR, VARIS, HBSAG #### [address] [address] Eosinophil, Absolute 0.1 10 3/mcL Normal 0.0-0.4 [facility] ([place]) Comment on above: Performed By: #### A BOG, ADIFF, ANSG, HIVRP, ANEU, TSH, CBC #### [address] [address] #### RUBIS, RPR, VARIS, HBSAG #### [address] [address] Eosinophils/100 WBC (Bld) 1.4 % Normal 0.0-7.0 [facility] ([place]) Comment on above: Performed By: #### A BOG, ADIFF, ANSG, HIVRP, ANEU, TSH, CBC #### [address] [address] #### RUBIS, RPR, VARIS, HBSAG #### [address] [address] Lymphocyte, Absolute 1.7 10 3/mcL Normal 0.8-3.9 [facility] ([place]) Comment on above: Performed By: #### A BOG, ADIFF, ANSG, HIVRP, ANEU, TSH, CBC #### [place] [address] #### RUBIS, RPR, VARIS, HBSAG #### [address] [address] Lymphocytes/100 WBC (Bld) 28.3 % Normal 10.0-50.0 [facility] ([place]) Comment on above: Performed By: #### A BOG, ADIFF, ANSG, HIVRP, ANEU, TSH, CBC #### [place] [address] #### RUBIS, RPR, VARIS, HBSAG #### [address] [address] Monocyte, Absolute 0.4 10 3/mcL Normal 0.2-1.0 [facility] ([place]) Comment on above: Performed By: #### A BOG, ADIFF, ANSG, HIVRP, ANEU, TSH, CBC #### [place] [address] #### RUBIS, RPR, VARIS, HBSAG #### [address] [address] Monocytes/100 WBC (Bld) 6.9 % Normal 1.7-13.0 [facility] ([place]) Comment on above: Performed By: #### A BOG, ADIFF, ANSG, HIVRP, ANEU, TSH, CBC #### [place] [address] #### RUBIS, RPR, VARIS, HBSAG #### [address] [address] Neutrophils/100 WBC (Bld) 62.9 % Normal 37.0-80.0 [facility] ([place]) Comment on above: Performed By: #### A BOG, ADIFF, ANSG, HIVRP, ANEU, TSH, CBC #### [address] [address] #### RUBIS, RPR, VARIS, HBSAG #### [address] [address] .NEUABSon 04-19-2022 Neutrophil, Absolute 3.8 10 3/mcL Normal 2.9-6.2 [facility] ([place]) Comment on above: Performed By: #### A BOG, ADIFF, ANSG, HIVRP, ANEU, TSH, CBC #### [address] [address] #### RUBIS, RPR, VARIS, HBSAG #### [address] [address] CBCon 04-19-2022 Erythrocyte distribution width (RBC) [Ratio] 12.4 % Normal 11.5-14.5 [facility] ([place]) Comment on above: Performed By: #### A BOG, ADIFF, ANSG, HIVRP, ANEU, TSH, CBC #### [address] [address] #### RUBIS, RPR, VARIS, HBSAG #### [address] [address] Hematocrit (Bld) [Volume fraction] 37.3 % Normal 37.0-47.0 [facility] ([place]) Comment on above: Performed By: #### A BOG, ADIFF, ANSG, HIVRP, ANEU, TSH, CBC #### [address] [address] #### RUBIS, RPR, VARIS, HBSAG #### [address] [address] Hgb 13.0 G/dL Normal 12.0-16.0 [facility] ([place]) Comment on above: Performed By: #### A BOG, ADIFF, ANSG, HIVRP, ANEU, TSH, CBC #### [address] [address] #### RUBIS, RPR, VARIS, HBSAG #### [address] [address] MCH (RBC) [Entitic mass] 32.5 pg High 27.0-31.2 [facility] ([place]) Comment on above: Performed By: #### A BOG, ADIFF, ANSG, HIVRP, ANEU, TSH, CBC #### [place] [address] #### RUBIS, RPR, VARIS, HBSAG #### [place] [address] MCHC 35.0 G/dL Normal 33.0-37.0 [facility] ([place]) Comment on above: Performed By: #### A BOG, ADIFF, ANSG, HIVRP, ANEU, TSH, CBC #### [place] [address] #### RUBIS, RPR, VARIS, HBSAG #### [place] [address] MCV (RBC) [Entitic vol] 93.0 fL Normal 80.0-94.0 [facility] ([place]) Comment on above: Performed By: #### A BOG, ADIFF, ANSG, HIVRP, ANEU, TSH, CBC #### [place] [address] #### RUBIS, RPR, VARIS, HBSAG #### [place] [address] Platelet 176 10 3/mcL Normal 130-400 [facility] ([place]) Comment on above: Performed By: #### A BOG, ADIFF, ANSG, HIVRP, ANEU, TSH, CBC #### [place] [address] #### RUBIS, RPR, VARIS, HBSAG #### [place] [address] Platelet mean volume (Bld) [Entitic vol] 9.4 fL Normal 7.4-10.4 [facility] ([place]) Comment on above: Performed By: #### A BOG, ADIFF, ANSG, HIVRP, ANEU, TSH, CBC #### [place] [address] #### RUBIS, RPR, VARIS, HBSAG #### [place] [id number] RBC 4.01 10 6/mcL Low 4.20-5.40 [facility] ([place]) Comment on above: Performed By: #### A BOG, ADIFF, ANSG, HIVRP, ANEU, TSH, CBC #### [place] [address] #### RUBIS, RPR, VARIS, HBSAG #### [place] [address] WBC 6.1 10 3/mcL Normal 4.6-10.8 [facility] ([place]) Comment on above: Performed By: #### A BOG, ADIFF, ANSG, HIVRP, ANEU, TSH, CBC #### [place] [address] #### RUBIS, RPR, VARIS, HBSAG #### [place] [address] Gel ABOon 04-19-2022 ABO/Rh Interp Negative Invalid Interpretation Code [facility] ([place]) Comment on above: Performed By: #### A BOG, ADIFF, ANSG, HIVRP, ANEU, TSH, CBC #### [place] [address] #### RUBIS, RPR, VARIS, HBSAG #### [place] [address] Gel ABSon 04-19-2022 Antibody Screen Gel Negative Normal [facility] ([place]) Comment on above: Performed By: #### A BOG, ADIFF, ANSG, HIVRP, ANEU, TSH, CBC #### [place] [address] #### RUBIS, RPR, VARIS, HBSAG #### [place] [id number] HBSAGon 04-19-2022 Hep B Surf Ag Non-Reactive Normal Non-Reactive [facility] ([place]) Comment on above: Performed By: #### F MH #### [facility] [address] [place], [place] [address] #### HH #### [place] [address] HIVRPon 04-19-2022 HIV p24 Antigen Non-Reactive Normal Non-Reactive [facility] ([place]) Comment on above: Result Comment: Dete ction of p24 may be inhibited by biotin in the sample, causing false negative results in acute infection. Therefore do not test samples from patients who are taking biotin. Performed By: #### A BOG, ADIFF, ANSG, HIVRP, ANEU, TSH, CBC #### [place] [address] #### RUBIS, RPR, VARIS, HBSAG #### [place] [address] HIV P24 Int Non-Reactive Invalid Interpretation Code [facility] ([place]) Comment on above: Performed By: #### A BOG, ADIFF, ANSG, HIVRP, ANEU, TSH, CBC #### [place] [address] #### RUBIS, RPR, VARIS, HBSAG #### [place] [address] Rapid HIV 1/2 Antibody Non-Reactive Normal Non-Reactive [facility] ([place]) Comment on above: Performed By: #### A BOG, ADIFF, ANSG, HIVRP, ANEU, TSH, CBC #### [place] [address] #### RUBIS, RPR, VARIS, HBSAG #### [place] [address] RHIV 1/2 Ab Int Non-Reactive Invalid Interpretation Code [facility] ([place]) Comment on above: Performed By: #### A BOG, ADIFF, ANSG, HIVRP, ANEU, TSH, CBC #### [place] [id number] #### RUBIS, RPR, VARIS, HBSAG #### [place] [address] LABORATORYOrdered By: Teresa Cardoza on 04-19-2022 ABO/Rh Interp Negative Invalid Interpretation Code AO BB SS Antibody Screen Gel Negative ABSC (04/19/22 12:28 PM) Invalid Interpretation Code AO BB SS Basophil, Absolute 0.0 103/mcL Invalid Interpretation Code 0.0 - 0.2 10^3/mcL AO Workflow SS Basophils/100 WBC (Bld) 0.5 % Invalid Interpretation Code 0.0 - 2.5 % AO Workflow SS Eosinophil, Absolute 0.1 103/mcL Invalid Interpretation Code 0.0 - 0.4 10^3/mcL AO Workflow SS Eosinophils/100 WBC (Bld) 1.4 % Invalid Interpretation Code 0.0 - 7.0 % AO Workflow SS Erythrocyte distribution width (RBC) [Ratio] 12.4 % Invalid Interpretation Code 11.5 - 14.5 % AO Workflow SS Hematocrit (Bld) [Volume fraction] 37.3 % Invalid Interpretation Code 37.0 - 47.0 % AO Workflow SS Hemoglobin (Bld) [Mass/Vol] 13.0 G/dL Invalid Interpretation Code 12.0 - 16.0 G/dL AO Workflow SS Lymphocyte, Absolute 1.7 103/mcL Invalid Interpretation Code 0.8 - 3.9 10^3/mcL AO Workflow SS Lymphocytes/100 WBC (Bld) 28.3 % Invalid Interpretation Code 10.0 - 50.0 % AO Workflow SS MCH (RBC) [Entitic mass] 32.5 pg Invalid Interpretation Code 27.0 - 31.2 pg AO Workflow SS MCHC 35.0 G/dL Invalid Interpretation Code 33.0 - 37.0 G/dL AO Workflow SS MCV (RBC) [Entitic vol] 93.0 fL Invalid Interpretation Code 80.0 - 94.0 fL AO Workflow SS Monocyte, Absolute 0.4 103/mcL Invalid Interpretation Code 0.2 - 1.0 10^3/mcL AO Workflow SS Monocytes/100 WBC (Bld) 6.9 % Invalid Interpretation Code 1.7 - 13.0 % AO Workflow SS Neutrophil, Absolute 3.8 103/mcL Invalid Interpretation Code 2.9 - 6.2 10^3/mcL AO Workflow SS Neutrophils/100 WBC (Bld) 62.9 % Invalid Interpretation Code 37.0 - 80.0 % AO Workflow SS Platelet mean volume (Bld) [Entitic vol] 9.4 fL Invalid Interpretation Code 7.4 - 10.4 fL AO Workflow SS Platelets (Bld) [#/Vol] 176 103/mcL Invalid Interpretation Code 130 - 400 10^3/mcL AO Workflow SS RBC (Bld) [#/Vol] 4.01 106/mcL Invalid Interpretation Code 4.20 - 5.40 10^6/mcL AO Workflow SS WBC (Bld) [#/Vol] 6.1 103/mcL Invalid Interpretation Code 4.6 - 10.8 10^3/mcL AO Workflow SS LABORATORYOrdered By: SYSTEM SYSTEM on 04-19-2022 HBV surface Ag IA Ql Non-Reactive (04/19/22 12:28 PM) Invalid Interpretation Code Non-Reactive AH ADM SS TSH Qn 1.48 m[IU]/L Invalid Interpretation Code 0.36 - 3.74 mcIU/mL AO ADM SS LABORATORYOrdered By: Rafaela Julian on 04-19-2022 HIV 1 p24 Ab Ql (S) Non-Reactive (04/19/22 12:28 PM) Invalid Interpretation Code Non-Reactive AO Rapid Testing SS HIV 1 p24 Ab Ql (S) Non-Reactive Invalid Interpretation Code AO Rapid Testing SS HIV 1+2 Ab IA Ql Non-Reactive Invalid Interpretation Code AO Rapid Testing SS HIV 1+2 Ab IA.rapid Ql (Unsp spec) Non-Reactive (04/19/22 12:28 PM) Invalid Interpretation Code Non-Reactive AO Rapid Testing SS TSHon 04-19-2022 TSH Qn 1.48 m[IU]/L Normal 0.36-3.74 [facility] ([place]) Comment on above: Performed By: #### A BOG, ADIFF, ANSG, HIVRP, ANEU, TSH, CBC #### [address] [address] #### RUBIS, RPR, VARIS, HBSAG #### [address] [address] XR CHEST 2V FRONTAL/LATon [facility] XR Chest PA and Lateralon IMPRESSION: No acute radiographic abnormality. Rapid Extractor Operator: PSCB Transcribe Date/Time: Jan 18 2022 12:55P Dictated by : TANK MARIA MD This examination was interpreted and the report reviewed and electronically signed by: TANK MARIA MD on Jan 18 2022 12:58PM [facility] DIVISION OF RADIOLOGY * * *Final Report* * * DATE OF EXAM: Jan 18 2022 12:35PM WOX [id number] - XR CHEST 2V FRONTAL/LAT / PROCEDURE REASON: Acute cough * * * * Physician Interpretation * * * * EXAMINATION: CHEST RADIOGRAPH (2 VIEW FRONTAL & LATERAL) CLINICAL HISTORY: Acute cough MQ: XC2_6 EXAM DATE/TIME: 01/18/2022 12:35 PM COMPARISON: Chest x-ray 02/06/2019 RESULT: Lines, tubes, and devices: None. Lungs and pleura: No consolidation. No lung mass. No pleural effusion. No pneumothorax. Cardiomediastinal silhouette: Normal cardiomediastinal silhouette. Bones and soft tissues: Unremarkable. DIVISION OF RADIOLOGY Provider, [facility] - 01/18/2022 * * *Final Report* * * DATE OF EXAM: Jan 18 2022 12:35PM WOX [id number] - XR CHEST 2V FRONTAL/LAT / PROCEDURE REASON: Acute cough * * * * Physician Interpretation * * * * EXAMINATION: CHEST RADIOGRAPH (2 VIEW FRONTAL & LATERAL) CLINICAL HISTORY: Acute cough MQ: XC2_6 EXAM DATE/TIME: 01/18/2022 12:35 PM COMPARISON: Chest x-ray 02/06/2019 RESULT: Lines, tubes, and devices: None. Lungs and pleura: No consolidation. No lung mass. No pleural effusion. No pneumothorax. Cardiomediastinal silhouette: Normal cardiomediastinal silhouette. Bones and soft tissues: Unremarkable. IMPRESSION IMPRESSION: No acute radiographic abnormality. Rapid Extractor Operator: ADELAIDE Transcribe Date/Time: Jan 18 2022 12:55P Dictated by : TANK MARIA MD This examination was interpreted and the report reviewed and electronically signed by: TANK MARIA MD on Jan 18 2022 12:58PM EST [facility] Radiology Study observation (narrative) [facility] XR Chest PA and LateralOrder ed By: Ccf Provider on 01-18-2022 [facility] STREP A MOLECULAR (POC)on Procedural Control Valid [facility] Strep A (POCT) Negative Negative [facility] RHOGAM GELon 10-03 RHOGAM GEL ABO Group: O Rh, Gel: NEG Antibody Screen Gel: POS Deb Screen for Rhogam: NEG Normal [facility] Comment on above: Performed By: #### A BID #### [facility] #### RGPP #### [facility] [address] [place] [address] ANTIBODY IDENTIFICATIONon Sodium [Moles/Vol] POS, ANTI D FROM RHOGAM [place], [place] Test Performed by [facility], [facility] [address] [place], [place] [id number] [place] [address] Antibody Identificationon Antibody Identification Antibody Identification: POS, ANTI D FROM RHOGAM Normal [facility] Comment on above: Performed By: #### A BID #### [facility] #### RGPP #### [facility] [address] [place] [address] CBCon 10-29-2018 Erythrocyte distribution width (RBC) [Ratio] 12.3 % 11.5 - 14.5 % [place], [place] Hematocrit (Bld) [Volume fraction] 29.3 % Low 35 - 47 % [place], [place] Hemoglobin (Bld) [Mass/Vol] 10.4 g/dL Low 11.7 - 16 g/dL [place], [place] Interpretation and review of laboratory results Abnormal [place] MCH (RBC) [Entitic mass] 33.9 pg 26 - 34 pg [place] MCHC (RBC) [Mass/Vol] 35.4 % 32 - 36 % [place], [place] MCV (RBC) [Entitic vol] 95.7 fL 79 - 98 fL [place], [place] Platelet mean volume (Bld) [Entitic vol] 9.6 fL 7.4 - 10.4 fL [place] Platelets (Bld) [#/Vol] 133 10*3/uL Low 140 - 440 10*3/uL [place] RBC (Bld) [#/Vol] 3.06 10*6/uL Low 3.8 - 5.2 10*6/uL [place] WBC (Bld) [#/Vol] 12.9 10*3/uL High 3.6 - 10.7 10*3/uL [place] Test Performed by [facility], [address] [place] [address] [place], [place] Hemogramon 10-29-2018 Erythrocyte distribution width (RBC) [Ratio] 12.3 % Normal 11.5-14.5 [facility] Comment on above: Performed By: #### H EMOG #### [address] [address] [place], [place] Hematocrit (Bld) [Volume fraction] 29.3 % Low 35.0-47.0 [facility] Comment on above: Performed By: #### H EMOG #### [address] [address] [address] [place], [place] Hemoglobin (Bld) [Mass/Vol] 10.4 g/dL Low 11.7-16.0 [facility] Comment on above: Performed By: #### H EMOG #### [address] [address] [address] [place], [place] MCH (RBC) [Entitic mass] 33.9 pg Normal 26.0-34.0 [facility] Comment on above: Performed By: #### H EMOG #### [facility] [address] [place], [place] MCHC (RBC) [Mass/Vol] 35.4 % Normal 32.0-36.0 [facility] Comment on above: Performed By: #### H EMOG #### [address] [address] [place], [place] MCV (RBC) [Entitic vol] 95.7 fL Normal 79.0-98.0 [facility] Comment on above: Performed By: #### H EMOG #### [address] [address] [address], [place] Platelet mean volume (Bld) [Entitic vol] 9.6 fL Normal 7.4-10.4 [facility] Comment on above: Performed By: #### H EMOG #### [facility] [address] [place] [address] Platelets (Bld) [#/Vol] 133 10*3/uL Low 140-440 [facility] Comment on above: Performed By: #### H EMOG #### [facility] [address] [place] [address] RBC (Bld) [#/Vol] 3.06 10*6/uL Low 3.80-5.20 [facility] Comment on above: Performed By: #### H EMOG #### [facility] [address] [place] [address] WBC (Bld) [#/Vol] 12.9 10*3/uL High 3.6-10.7 [facility] Comment on above: Performed By: #### H EMOG #### [facility] [address] [place], [place] RHIG RHOGAMon 10-29-2018 RHIG RHOGAM RHIG RHOGAM: [id number] issued 10/29/18 16:25 SJW1 Normal [facility] Comment on above: Performed By: #### R HIG #### [address] [address] [place] [address] RHOGAM INJECTION ONLYon 10-02 Sodium [Moles/Vol] [id number] issued 10/29/18 16:[address] [facility], [facility], [place] Surgical Pathologyon 019 Surgical Pathology [id number] [facility] DEPARTMENT OF [facility] PATHOLOGY AND LABORATORY MEDICINE [address], [place] [id number] FINAL SURGICAL PATHOLOGY REPORT NAME: RUTHIEJOELLE : 1995 23 Y F BILLTAMI NO.: [id number] LOCATION: PAC1O 1PAC 22 PROCEDURE 10/29/2018 DATE: SURGEON: TONNY TOWNSEND M.D. RECEIVED 10/30/2018 DATE: ATTENDING: TONNY TOWNSEND M.D. REPORT DATE: 11/05/2018 COPIES TO: DIAGNOSIS: PRODUCTS OF CONCEPTION - FRAGMENTS OF A FIBRIN CLOT AND IMMATURE CHORIONIC VILLI. COMMENT: CombiMatrix testing will be performed, and a supplemental report issued. SMT/KAMARI Signature> S ALEKSANDER PEREZ M.D. CLINICAL INFORMATION: Missed SPECIMEN: PRODUCTS OF CONCEPTION GROSS DESCRIPTION: Products of conception, for Combi[employer] Received in formalin in two vacuum sealed containers are multiple fragments of pink muir hemorrhagic soft tissue and blood clot that aggregates to 15.5 x 1.5 x 3.0 cm and weighs 326 grams. Chorionic villi are identified grossly. No parts are identified. Encapsulator sections are submitted. (bits ss, 3) JULIETTEW/KAMARI Disclaimer: The following statement applies to all immunohistochemistry, in situ hybridization, molecular studies, and immunofluorescence testing. The use of one or more reagents in the above tests is regulated as an analyte specific reagent (ASR). These tests were developed and their performance characteristics determined by the clinical laboratories of [facility]. They have not been cleared by the US Food and Drug Administration (FDA). The FDA has determined that such clearance or approval is not necessary. All the above immunostains were performed on paraffin embedded tissue. Appropriate positive and negative controls (where applicable) were run in parallel with the patient's specimen; these controls showed expected staining pattern, with acceptable intensity of staining. Immunohistochemical assays have not been validated on decalcified tissues. Results should be interpreted with caution given the raised possibility of false negativity on decalcified specimens. Professional Performing Location: [address] [address]. DEPARTMENT OF PATHOLOGY AND LABORATORY MEDICINE [place], [place] [address] Normal [facility] Progress Noteon 10-21-2018 [employer] Authentication Interface Message Text See ultrasound report Normal [facility] Vital Signs Date Time Vital Sign Value Performing Clinician Facility 10-14-2024 10:52-0400 Body mass index (BMI) [Ratio] 30.7 kg/m2 Treatment Wstr Work Phone: [facility] 10-14-2024 10:52-0400 Body temperature 98.29 [degF] Treatment Wstr Work Phone: [facility] 10-14-2024 10:52-0400 Body weight 88.9 kg Treatment Wstr Work Phone: [facility] 10-14-2024 10:52-0400 Diastolic blood pressure 74 mm[Hg] Treatment Wstr Work Phone: [facility] 10-14-2024 10:52-0400 Heart rate 75 /min Treatment Wstr Work Phone: [facility] 10-14-2024 10:52-0400 SaO2% (BldA) [Mass fraction] 98 % Treatment Wstr Work Phone: [facility] 10-14-2024 10:52-0400 Systolic blood pressure 119 mm[Hg] Treatment Wstr Work Phone: [facility] 08-19-2024 08:00-0400 Body mass index (BMI) [Ratio] 29.29 kg/m2 Treatment Wstr Work Phone: [facility] 08-19-2024 08:00-0400 Body temperature 98.1 [degF] Treatment Wstr Work Phone: [facility] 08-19-2024 08:00-0400 Body weight 84.82 kg Treatment Wstr Work Phone: [facility] 04-29-2024 10:58-0500 Body mass index (BMI) [Ratio] 30.39 kg/m2 Treatment Wstr Work Phone: [facility] 04-29-2024 10:58-0500 Body temperature 96.8 [degF] Treatment Wstr Work Phone: [facility] 04-29-2024 10:58-0500 Body weight 88 kg Treatment Wstr Work Phone: [facility] 04-29-2024 10:58-0500 Diastolic blood pressure 71 mm[Hg] Treatment Wstr Work Phone: [facility] 04-29-2024 10:58-0500 Heart rate 74 /min Treatment Wstr Work Phone: [facility] 04-29-2024 10:58-0500 SaO2% (BldA) [Mass fraction] 97 % Treatment Wstr Work Phone: [facility] 04-29-2024 10:58-0500 Systolic blood pressure 120 mm[Hg] Treatment Wstr Work Phone: [facility] 02-27-2024 10:00-0500 Body temperature 97.3 [degF] Treatment Wstr Work Phone: [facility] 02-27-2024 10:00-0500 Diastolic blood pressure 78 mm[Hg] Treatment Wstr Work Phone: [facility] 02-27-2024 10:00-0500 Heart rate 58 /min Treatment Wstr Work Phone: [facility] 02-27-2024 10:00-0500 Systolic blood pressure 121 mm[Hg] Treatment Wstr Work Phone: [facility] 02-19-2024 10:24-0500 Body temperature 98.1 [degF] Treatment Wstr Work Phone: [facility] 02-19-2024 10:24-0500 Diastolic blood pressure 86 mm[Hg] Treatment Wstr Work Phone: [facility] 02-19-2024 10:24-0500 Heart rate 69 /min Treatment Wstr Work Phone: [facility] 02-19-2024 10:24-0500 Respiratory rate 16 /min Treatment Wstr Work Phone: [facility] 02-19-2024 10:24-0500 SaO2% (BldA) [Mass fraction] 99 % Treatment Wstr Work Phone: [facility] 02-19-2024 10:24-0500 Systolic blood pressure 130 mm[Hg] Treatment Wstr Work Phone: [facility] 12-29-2023 08:28-0400 Body height 170.2 cm Miriam RibInvestGlassw PA-C Work Phone: [facility] 12-29-2023 08:28-0400 Body mass index (BMI) [Ratio] 29.91 kg/m2 Miriam Ribakow PA-C Work Phone: [facility] 12-29-2023 08:28-0400 Body weight 86.64 kg Miriam Ribakow PA-C Work Phone: [facility] 12-15-2023 08:36-0400 Body mass index (BMI) [Ratio] 30.59 kg/m2 Treatment Wstr Work Phone: [facility] 12-15-2023 08:36-0400 Body temperature 97.5 [degF] Treatment Wstr Work Phone: [facility] 12-15-2023 08:36-0400 Body weight 88.6 kg Treatment Wstr Work Phone: [facility] 12-15-2023 08:36-0400 Diastolic blood pressure 78 mm[Hg] Treatment Wstr Work Phone: [facility] 12-15-2023 08:36-0400 Heart rate 84 /min Treatment Wstr Work Phone: [facility] 12-15-2023 08:36-0400 Respiratory rate 18 /min Treatment Wstr Work Phone: [facility] 12-15-2023 08:36-0400 SaO2% (BldA) [Mass fraction] 97 % Treatment Wstr Work Phone: [facility] 12-15-2023 08:36-0400 Systolic blood pressure 116 mm[Hg] Treatment Wstr Work Phone: [facility] 11-28-2023 09:50-0400 Body temperature 97.59 [degF] Treatment Wstr Work Phone: [facility] 11-28-2023 09:50-0400 Diastolic blood pressure 74 mm[Hg] Treatment Wstr Work Phone: [facility] 11-28-2023 09:50-0400 Heart rate 84 /min Treatment Wstr Work Phone: [facility] 11-28-2023 09:50-0400 SaO2% (BldA) [Mass fraction] 97 % Treatment Wstr Work Phone: [facility] 11-28-2023 09:50-0400 Systolic blood pressure 120 mm[Hg] Treatment Wstr Work Phone: [facility] 11-14-2023 08:30-0400 Body temperature 97.39 [degF] Treatment Wstr Work Phone: [facility] 11-14-2023 08:30-0400 Diastolic blood pressure 75 mm[Hg] Treatment Wstr Work Phone: [facility] 11-14-2023 08:30-0400 Heart rate 82 /min Treatment Wstr Work Phone: [facility] 11-14-2023 08:30-0400 SaO2% (BldA) [Mass fraction] 98 % Treatment Wstr Work Phone: [facility] 11-14-2023 08:30-0400 Systolic blood pressure 116 mm[Hg] Treatment Wstr Work Phone: [facility] 10-30-2023 10:06-0400 Body temperature 97.2 [degF] Treatment Wstr Work Phone: [facility] 10-30-2023 10:06-0400 Diastolic blood pressure 81 mm[Hg] Treatment Wstr Work Phone: [facility] 10-30-2023 10:06-0400 Heart rate 83 /min Treatment Wstr Work Phone: [facility] 10-30-2023 10:06-0400 SaO2% (BldA) [Mass fraction] 98 % Treatment Wstr Work Phone: [facility] 10-30-2023 10:06-0400 Systolic blood pressure 130 mm[Hg] Treatment Wstr Work Phone: [facility] 09-08-2023 16:10-0400 Diastolic blood pressure 63 mm[Hg] Laurie Caldwell MD Work Phone: [facility] 09-08-2023 16:10-0400 Heart rate 77 /min Laurie Caldwell MD Work Phone: [facility] 09-08-2023 16:10-0400 Respiratory rate 16 /min Laurie Caldwell MD Work Phone: [facility] 09-08-2023 16:10-0400 SaO2% (BldA) [Mass fraction] 96 % Laurie Caldwell MD Work Phone: [facility] 09-08-2023 16:10-0400 Systolic blood pressure 110 mm[Hg] Laurie Caldwell MD Work Phone: [facility] 09-08-2023 13:55-0400 Body height 170.2 cm Laurie Caldwell MD Work Phone: [facility] 09-08-2023 13:55-0400 Body mass index (BMI) [Ratio] 27.41 kg/m2 Laurie Caldwell MD Work Phone: [facility] 09-08-2023 13:55-0400 Body temperature 97 [degF] Laurie Caldwell MD Work Phone: [facility] 09-08-2023 13:55-0400 Body weight 79.38 kg Laurie Caldwell MD Work Phone: [facility] 01-27-2023 07:16-0500 Body temperature 98.1 [degF] Aminta Monge APRN.TEACHER OF FAMILY AND CON[employer]ER SCIENCE Work Phone: [facility] 01-27-2023 07:16-0500 Body weight 87.18 kg Aminta Monge APRN.TEACHER OF FAMILY [employer] Work Phone: [facility] 01-27-2023 07:16-0500 Diastolic blood pressure 78 mm[Hg] Aminta Monge APRN.TEACHER OF FAMILY [employer] Work Phone: [facility] 01-27-2023 07:16-0500 Heart rate 104 /min Aminta Monge APRN.TEACHER OF FAMILY [employer] Work Phone: [facility] 01-27-2023 07:16-0500 Respiratory rate 20 /min Aminta Monge APRN.TEACHER [employer] FAMILY [employer]ER [employer] Work Phone: [facility] 01-27-2023 07:16-0500 SaO2% (BldA) [Mass fraction] 98 % Aminta Monge APRN.TEACHER [employer] FAMILY [employer]ER [employer] Work Phone: [facility] 01-27-2023 07:16-0500 Systolic blood pressure 118 mm[Hg] Aminta Monge APRN.TEACHER [employer] FAMILY [employer]ER [employer] Work Phone: [facility] 10-23-2022 16:00-0400 Body temperature 98.42 [degF] MIN PEREZ [employer] TEACHER-CNM [facility] 10-23-2022 16:00-0400 Diastolic Blood Pressure Non-Invasive 66 1 MIN PEREZ [employer] TEACHER-CNM [facility] 10-23-2022 16:00-0400 Heart rate 81 /min MIN PEREZ [employer] TEACHER-CNM [facility] 10-23-2022 16:00-0400 Systolic Blood Pressure Non-Invasive 114 1 MIN PEREZ [employer] TEACHER-CNM [facility] 10-23-2022 12:18-0400 Body temperature 98.6 [degF] MIN PEREZ INDUSTRIAL [employer]S TEACHER-CNM [facility] 10-23-2022 12:18-0400 Diastolic Blood Pressure Non-Invasive 76 1 MIN PEREZ [employer] TEACHER-CNM [facility] 10-23-2022 12:18-0400 Heart rate 97 /min MIN PEREZ [employer] TEACHER-CNM [facility] 10-23-2022 12:18-0400 Respiratory rate 18 /min MIN PEREZ [employer] TEACHER-CNM [facility] 10-23-2022 12:18-0400 Systolic Blood Pressure Non-Invasive 128 1 MIN PEREZ [employer] TEACHER-CNM [facility] 10-22-2022 23:13-0400 Body temperature 98.96 [degF] MIN PEREZ IND[employer]AL [employer] TEACHER-CNM [facility] 10-22-2022 23:13-0400 Diastolic Blood Pressure Non-Invasive 48 1 MIN PEREZ [employer] TEACHER-CNM [facility] 10-22-2022 23:13-0400 Heart rate 80 /min MIN PEREZ [employer] TEACHER-CNM [facility] 10-22-2022 23:13-0400 Reason For Taking VItal Signs MIN PEREZ IND[employer]AL [employer] TEACHER-CNM [facility] 10-22-2022 23:13-0400 Respiratory rate 18 /min MIN PEREZ IND[employer]RIAL [employer]S TEACHER-CNM [facility] 10-22-2022 23:13-0400 Systolic Blood Pressure Non-Invasive 112 1 MIN PEREZ [employer] TEACHER-CNM [facility] 10-22-2022 20:02-0400 Reason For Taking VItal Signs MIN PEREZ INDUSTRIAL [employer]S TEACHER-CNM [facility] 10-22-2022 19:47-0400 Reason For Taking VItal Signs MIN PEREZ IND[employer]RIAL [employer]S TEACHER-CNM [facility] 10-22-2022 11:12-0400 Body height 170.2 cm MIN PEREZ [employer]AL [employer] TEACHER-CNM [facility] 10-22-2022 11:12-0400 Body weight 98.5 kg MIN PEREZ [employer] TEACHER-CNM [facility] 10-22-2022 11:12-0400 Body weight 34 kg/m2 MIN PEREZ [employer]S TEACHER-CNM [facility] 10-14-2022 08:16-0400 Body height 170 cm MIN PEREZ [employer]S TEACHER-CNM [facility] 10-14-2022 08:16-0400 Body weight 91 kg MIN PEREZ [employer] TEACHER-CNM [facility] 10-14-2022 08:16-0400 Body weight 31.49 kg/m2 MIN PEREZ IND[employer]AL [employer] TEACHER-CNM [facility] 10-14-2022 07:40-0400 Body temperature 98.24 [degF] MIN PEREZ IND[employer]RIAL [employer]S TEACHER-CNM [facility] 10-14-2022 07:40-0400 Diastolic Blood Pressure Non-Invasive 68 1 MIN PEREZ [employer] TEACHER-CNM [facility] 10-14-2022 07:40-0400 Heart rate 80 /min MIN PEREZ IND[employer]RIAL [employer]S TEACHER-CNM [facility] 10-14-2022 07:40-0400 Respiratory rate 18 /min MIN PEREZ IND[employer]RIAL [employer]S TEACHER-CNM [facility] 10-14-2022 07:40-0400 Systolic Blood Pressure Non-Invasive 112 1 MIN PEREZ [employer] TEACHER-CNM [facility] 08-05-2022 17:18-0400 Body temperature 98.4 [degF] Sarbjit Puckett MD Work Phone: [facility] 08-05-2022 17:18-0400 Body weight 91.81 kg Sarbjit Puckett MD Work Phone: [facility] 08-05-2022 17:18-0400 Diastolic blood pressure 76 mm[Hg] Sarbjit Puckett MD Work Phone: [facility] 08-05-2022 17:18-0400 Heart rate 91 /min Sarbjit Puckett MD Work Phone: [facility] 08-05-2022 17:18-0400 Respiratory rate 21 /min Sarbjit Puckett MD Work Phone: [facility] 08-05-2022 17:18-0400 SaO2% (BldA) [Mass fraction] 100 % Sarbjit Puckett MD Work Phone: [facility] 08-05-2022 17:18-0400 Systolic blood pressure 112 mm[Hg] Sarbjit Puckett MD Work Phone: [facility] 01-18-2022 11:46-0500 Body temperature 98.29 [degF] Nia Gramajo INDUSTRIAL ARTS TEACHER.TE[employer]ER [employer]ILY [employer] Work Phone: [facility] 01-18-2022 11:46-0500 Body weight 84.37 kg Nia Gramajo INDUSTRIAL ARTS TEACHER.TE[employer]ER [employer] Work Phone: [facility] 01-18-2022 11:46-0500 Diastolic blood pressure 90 mm[Hg] Nia Gramajo INDUSTRIAL ARTS TEACHER.TE[employer]ER [employer]ILY [employer]ER [employer] Work Phone: [facility] 01-18-2022 11:46-0500 Heart rate 110 /min Nia Gramaoj INDUSTRIAL ARTS TEACHER.TEACHER OF FAMILY AND CONSUMER SCIENCE Work Phone: [facility] 01-18-2022 11:46-0500 Respiratory rate 18 /min Nia Gramajo INDUSTRIAL ARTS TEACHER.TEACHER OF FAMILY AND CONSUMER SCIENCE Work Phone: [facility] 01-18-2022 11:46-0500 SaO2% (BldA) [Mass fraction] 98 % Nia Gramajo INDUSTRIAL ARTS TEACHER.TEACHER OF FAMILY AND CONSUMER SCIENCE Work Phone: [facility] 01-18-2022 11:46-0500 Systolic blood pressure 132 mm[Hg] Nia Gramajo INDUSTRIAL ARTS TEACHER.TEACHER OF FAMILY AND CONSUMER SCIENCE Work Phone: [facility] 08-13-2021 07:01-0400 Body weight 85.28 kg Heidi Menjivarhof INDUSTRIAL ARTS TEACHER.TEACHER OF FAMILY AND CONSUMER SCIENCE Work Phone: [facility] 08-13-2021 07:01-0400 Diastolic blood pressure 76 mm[Hg] Heidi Tannhof INDUSTRIAL ARTS TEACHER.TEACHER OF FAMILY AND CONSUMER SCIENCE Work Phone: [facility] 08-13-2021 07:01-0400 Heart rate 83 /min Heidi Menjivarhof INDUSTRIAL ARTS TEACHER.TEACHER OF FAMILY AND CONSUMER SCIENCE Work Phone: [facility] 08-13-2021 07:01-0400 Respiratory rate 16 /min Heidi Menjivarhof INDUSTRIAL ARTS TEACHER.TEACHER OF FAMILY AND CONSUMER SCIENCE Work Phone: [facility] 08-13-2021 07:01-0400 SaO2% (BldA) [Mass fraction] 98 % Heidicasimiro Menjivarhof INDUSTRIAL ARTS TEACHER.TEACHER OF FAMILY AND CONSUMER SCIENCE Work Phone: [facility] 08-13-2021 07:01-0400 Systolic blood pressure 108 mm[Hg] Heidi Tannhof INDUSTRIAL ARTS TEACHER.TEACHER OF FAMILY AND CONSUMER SCIENCE Work Phone: [facility] 07-20-2021 10:22-0400 Body temperature 98.29 [degF] Aminta Monge INDUSTRIAL ARTS TEACHER.TEACHER OF FAMILY AND CONSUMER SCIENCE Work Phone: [facility] 07-20-2021 10:22-0400 Diastolic blood pressure 76 mm[Hg] Aminta Monge APRN.TEACHER OF FAMILY AND CONSUMER SCIENCE Work Phone: [facility] 07-20-2021 10:22-0400 Heart rate 102 /min Aminta Monge APRN.TEACHER OF FAMILY AND CONSUMER SCIENCE Work Phone: [facility] 07-20-2021 10:22-0400 Respiratory rate 16 /min Aminta Monge APRN.TEACHER OF FAMILY AND CONSUMER SCIENCE Work Phone: [facility] 07-20-2021 10:22-0400 SaO2% (BldA) [Mass fraction] 97 % Aminta Monge APRN.TEACHER OF FAMILY AND CONSUMER SCIENCE Work Phone: [facility] 07-20-2021 10:22-0400 Systolic blood pressure 122 mm[Hg] Aminta Monge APRN.TEACHER OF FAMILY AND CONSUMER SCIENCE Work Phone: [facility] 10-29-2018 17:45-0400 Body Temperature 98.29 [degF] [place] 10-29-2018 17:45-0400 BP Diastolic 47 mm[Hg] [place] 10-29-2018 17:45-0400 BP Systolic 110 mm[Hg] [place] 10-29-2018 17:45-0400 Pulse (Heart Rate) 83 /min [place], [place] 10-29-2018 17:45-0400 Pulse Oximetry 99 % [place] 10-29-2018 17:45-0400 Respiratory Rate 16 /min [place] 10-29-2018 11:58-0400 BMI (Body Mass Index) 24.28 kg/m2 [place], [place] 10-29-2018 11:58-0400 Body weight 70.31 kg [place] 10-29-2018 11:58-0400 Height 170.2 cm [place] Encounters Encounter Date Encounter Type Care Provider Facility Start: 11-26-2024 ambulatory Israel Crowder Faci lity:[facility] Start: 10-14-2024 End: 10-14-2024 ambulatory Treatment Rm 16 [place] On License Of [facility] Work Phone: Hematology/Oncology Comment on above: Other ulcerative col itis without complication (HCC) (Primary Dx) Start: 09-02-2024 End: 09-02-2024 Orders Only Lino Zhang MD Work Phone: Gastroenterology Start: 08-20-2024 End: 08-20-2024 ambulatory NONE PHYSICIAN Facility:[facility] Start: 08-20-2024 End: 08-20-2024 Patient encounter procedure MORE RUTLEDGE INDUSTRIAL ARTS TEACHER-CNM [facility] Start: 08-19-2024 End: 08-19-2024 ambulatory Treatment Rm 15 [place] On License Of [facility] Work Phone: Hematology/Oncology Comment on above: Other ulcerative col itis without complication (HCC) (Primary Dx) Start: 08-16-2024 End: 08-17-2024 ambulatory Miriam Ribakow PA-C Work Phone: Gastroenterology Comment on above: Question Start: 06-24-2024 End: 06-24-2024 ambulatory FRANKIE CROWDER Facility:[facility] Start: 05-05-2024 End: 05-05-2024 ambulatory Miriam Ribakow PA-C Work Phone: Gastroenterology Comment on above: Ulcerative proctitis without complication (HCC) (Primary Dx) Start: 05-05-2024 End: 05-05-2024 Telemedicine consultation with patient Miriam Ribakow PA-C Work Phone: Gastroenterology Start: 04-29-2024 End: 04-29-2024 Refill Nia Dimas APRN.CNP Work Phone: Gastroenterology Comment on above: Refill Request Other ulcerative col itis without complication (HCC) (Primary Dx) Start: 02-27-2024 End: 02-27-2024 ambulatory Treatment Rm 16 [place] On License Of [facility] Work Phone: Hematology/Oncology Comment on above: Hematochezia (Primar y Dx); Other ulcerative colitis without complication (HCC) Start: 02-19-2024 End: 02-19-2024 ambulatory Treatment Rm 17 [place] On License Of [facility] Work Phone: Hematology/Oncology Comment on above: Other ulcerative col itis without complication (HCC) (Primary Dx) Start: 12-29-2023 End: 12-29-2023 Chart abstracting Lb Rutledge Research Coordinator [facility] Comment on above: Research (YAHAIRA GARCIA) Start: 12-29-2023 End: 12-29-2023 Patient encounter procedure Miriam Ribakow PA-C Work Phone: Gastroenterology Comment on above: Ulcerative proctitis without complication (HCC) (Primary Dx) Start: 12-29-2023 End: 12-29-2023 ambulatory FRANKIE CROWDER Facility:[facility] Start: 12-22-2023 End: 12-22-2023 [facility] Start: 12-15-2023 End: 12-15-2023 ambulatory FRANKIE CROWDER Hematology/Oncology Comment on above: Other ulcerative col itis without complication (HCC) (Primary Dx) Start: 12-15-2023 End: 12-15-2023 Patient encounter procedure Treatment Rm 15 [facility] Work Phone: Hematology/Oncology Start: 12-10-2023 End: 12-16-2023 ambulatory Miriam Ribakow PA-C Work Phone: Gastroenterology Comment on above: Azathioprine Prescri ption Start: 12-08-2023 End: 12-08-2023 [facility]ulatory [facility] Start: 11-28-2023 End: 11-28-2023 ambulatory FRANKIE CROWDER Hematology/Oncology Comment on above: Other ulcerative col itis without complication (HCC) (Primary Dx) Start: 11-28-2023 End: 11-28-2023 Patient encounter procedure Treatment Rm 17 [facility] Work Phone: Hematology/Oncology Start: 11-21-2023 End: 11-21-2023 [facility] Start: 11-14-2023 End: 11-14-2023 ambulatory FRANKIE CROWDER Hematology/Oncology Comment on above: Other ulcerative col itis without complication (HCC) (Primary Dx) Start: 11-14-2023 End: 11-14-2023 Patient encounter procedure Treatment Rm 18 [place] On License Of [facility] Work Phone: Hematology/Oncology Start: 11-06-2023 End: 11-06-2023 ambulatory FRANKIE CROWDER Facility:[facility] Start: 11-05-2023 End: 11-07-2023 ambulatory Miriam Ribakow PA-C Work Phone: Gastroenterology Comment on above: Elderberry Supplemen ts Start: 10-30-2023 End: 10-30-2023 ambulatory FRANKIE CROWDER Hematology/Oncology Comment on above: Other ulcerative col itis without complication (HCC) (Primary Dx) Start: 10-30-2023 End: 10-30-2023 Patient encounter procedure Treatment Rm 14 [place] On License Of [facility] Work Phone: Hematology/Oncology Start: 10-24-2023 End: 10-24-2023 Orders Only Miriam Ribakow PA-C Work Phone: Gastroenterology Comment on above: intermediate current us e of systemic steroids (Primary Dx); Ulcerative proctitis without complication (HCC) Medication Clarifica tion Medication Question Start: 10-21-2023 End: 10-21-2023 Telephone encounter Ludwig Olmedo MD Work Phone: Hematology/Oncology Comment on above: Orders Start: 10-20-2023 End: 10-20-2023 ambulatory MIRIAM RIBAKOW Facility:[facility] Start: 09-22-2023 Orders Only Laurie Caldwell MD Work Phone: Gastroenterology Comment on above: Medication Authoriza tion (IFX) Start: 09-17-2023 End: 09-17-2023 ambulatory Miriam Ribakow PA-C Work Phone: Gastroenterology Comment on above: Ulcerative proctitis without complication (HCC) (Primary Dx) Start: 09-17-2023 End: 09-17-2023 Telemedicine consultation with patient Miriam Ribakow PA-C Work Phone: Gastroenterology Start: 09-08-2023 End: 09-08-2023 Subsequent hospital visit by physician Laurie Caldwell MD Work Phone: Gastroenterology Comment on above: Ulcerative proctitis without complication (HCC) [K51.20] Start: 09-01-2023 Telephone encounter Elisabet Dumont ret Research Coordinator Gastroenterology Comment on above: Research IBD (inflammatory susan wel disease) (Primary Dx) Education Of Patient /family; Reminder Call (09/08/23 appt ocnfirmed) Start: 08-30-2023 Telephone encounter Avis donovan MD Work Phone: Gastroenterology Start: 08-30-2023 End: 08-30-2023 Emergency department patient visit FRANKIE CROWDER Facility:[facility] Start: 08-28-2023 Telephone encounter Elisabet Dumont ret Research Coordinator Gastroenterology Comment on above: Research Start: 08-26-2023 Telephone encounter Elisabet Dumont ret Research Coordinator Gastroenterology Comment on above: Research Start: 08-21-2023 ambulatory Miriam Ribakow PA-C Work Phone: Gastroenterology Comment on above: Stool Test Results. Start: 08-11-2023 ambulatory Miriam Ribakow PA-C Work Phone: Gastroenterology Comment on above: Stool Test Start: 07-23-2023 End: 07-23-2023 ambulatory Miriam Ribakow PA-C Work Phone: Gastroenterology Comment on above: Ulcerative proctitis without complication (HCC) (Primary Dx) Start: 07-23-2023 End: 07-23-2023 Telemedicine consultation with patient Miriam Ribakow PA-C Work Phone: Gastroenterology Start: 07-17-2023 End: 07-17-2023 ambulatory Alex Moreau MD Work Phone: Gastroenterology Comment on above: Ulcerative proctitis without complication (HCC) (Primary Dx) Start: 07-17-2023 End: 07-17-2023 Telemedicine consultation with patient Alex Moreau MD Work Phone: Gastroenterology Start: 01-27-2023 End: 01-27-2023 Patient encounter procedure Aminta Monge APRN.TEACHER OF FAMILY AND CONSUMER SCIENCE Work Phone: [facility] Comment on above: Sore throat (Primary Dx) Start: 10-22-2022 End: 10-23-2022 Evaluation and management of inpatient NONE PHYSICIAN Facility:B Start: 10-22-2022 End: 10-23-2022 Evaluation and management of inpatient MIN PEREZ INDUSTRIAL ARTS TEACHER-CNM [facility] Start: 10-14-2022 End: 10-14-2022 ambulatory NONE PHYSICIAN Facility:B Start: 10-14-2022 End: 10-14-2022 SAME DAY STAY MIN PEREZ INDUSTRIAL ARTS TEACHER-CNM [facility] Start: 09-13-2022 End: 09-13-2022 ambulatory Isabel Michelle TEACHER OF FAMILY AND CONSUMER SCIENCE Work Phone: Gastroenterology Comment on above: Ulcerative proctitis without complication (HCC) (Primary Dx); intermediate current use of systemic steroids Start: 09-13-2022 End: 09-13-2022 Telemedicine consultation with patient Isabel Michelle TEACHER OF FAMILY AND CONSUMER SCIENCE Work Phone: [facility] Start: 09-07-2022 Refill Isabel ESTRADA RN.TEACHER OF FAMILY AND CONSUMER SCIENCE Work Phone: Gastroenterology Comment on above: Refill Request; Refi ll Request Start: 08-09-2022 End: 08-09-2022 ambulatory NONE PHYSICIAN Facility:B Start: 08-05-2022 End: 08-05-2022 Patient encounter procedure Sarbjit Puckett MD Work Phone: [facility] Comment on above: Paronychia, toe, lef t (Primary Dx) Start: 06-07-2022 End: 06-08-2022 ambulatory NONE PHYSICIAN Facility:B Start: 04-19-2022 End: 04-20-2022 ambulatory NONE PHYSICIAN Facility:B Start: 04-19-2022 End: 04-19-2022 Patient encounter procedure MORE Benavides RUTLEDGE INDUSTRIAL ARTS TEACHER-CNM [facility] Start: 03-08-2022 End: 03-09-2022 ambulatory NONE PHYSICIAN Facility:B Start: 03-08-2022 End: 03-08-2022 Patient encounter procedure MORE Benavides CARO INDUSTRIAL ARTS TEACHER-CNM [facility] Start: 01-18-2022 End: 01-18-2022 Subsequent hospital visit by physician Xr On License Of [facility] Work Phone: Radiology Comment on above: Acute cough [R05.1] Start: 01-18-2022 End: 01-18-2022 Patient encounter procedure Nia Gramajo APRN.TEACHER OF FAMILY AND CONSUMER SCIENCE Work Phone: [facility] Comment on above: Acute cough (Primary Dx); Rhinosinusitis Start: 08-28-2021 Refill Laurie Caldwell MD Work Phone: Gastroenterology Comment on above: Refill Request Start: 08-27-2021 Get Medical Advice Laurie Caldwell MD Work Phone: Gastroenterology Comment on above: Medication Refill Start: 08-13-2021 End: 08-13-2021 Patient encounter procedure Heidi Mann APRN.TEACHER OF FAMILY AND CONSUMER SCIENCE Work Phone: [facility] [place] Comment on above: Seasonal allergies ( Primary Dx); Cough Start: 07-20-2021 End: 07-20-2021 Patient encounter procedure Aminta Monge APRN.TEACHER OF FAMILY AND CONSUMER SCIENCE Work Phone: [facility] Comment on above: Sore throat (Primary Dx) Start: 10-29-2018 End: 10-29-2018 Subsequent hospital visit by physician Tonny Townsend Work Phone: [facility] General Surgery Comment on above: Post-operative state (Primary Dx) Procedures Date Procedure Procedure Detail Performing Clinician Start: 09-08-2023 Colonoscopy flx dx w /collj spec when pfrmd Isabel Michelle TEACHER OF FAMILY AND CONSUMER SCIENCE Work Phone: Start: 01-27-2023 STREP A MOLECULAR (POC) Aminta Monge APRN.TEACHER OF FAMILY AND CONSUMER SCIENCE Work Phone: Start: 01-18-2022 Radiologic exam ches t 2 views Nia Avila INDUSTRIAL ARTS TEACHER.TEACHER OF FAMILY AND CONSUMER SCIENCE Work Phone: Start: 07-20-2021 STREP A MOLECULAR (POC) Aminta Monge APRN.TEACHER OF FAMILY AND CONSUMER SCIENCE Work Phone: Start: 10-29-2018 OPERATIVE REPORT 3m Sca nning Start: 10-29-2018 Antibody id rbc anti bodies ea panel ea serum tq [employer] Work Phone: Start: 10-29-2018 Blood count complete automated [employer] Work Phone: Start: 10-29-2018 RHO(D) IMMUNE GLOBUL IN, [employer] Work Phone: Start: 03-03-2017 Uterine structure (b jesus structure) ANSLEYMARIBEL SANDER INDUSTRIAL ARTS TEACHER-CNM Comment on above: septum removed Start: 01-18-2016 Adult depression scr eening assessment Aminta Monge APRN.[employer] Work Phone: Colonoscopy MORE Nunes PRN-CNM Comment on above: multiple Dilation and curettage NATE RUTLEDGE INDUSTRIAL ARTS TEACHER-CNM Flexible fiberoptic sigmoidoscopy MORE RUTLEDGE INDUSTRIAL ARTS TEACHER-CNM Tonsillectomy and adenoidectomy MORE RUTLEDGE INDUSTRIAL ARTS TEACHER-CNM Plan of Treatment Date Care Activity Detail Author Start: 12-20-2026 Urine microalbumin profile [facility] Start: 12-09-2024 End: 12-09-2024 ambulatory 12/09/2024 11:00 AM EDT Infusion Center Hematology/Oncology [address] [place] [address] 2ND Hematology/Oncology Comment on above: 2ND Start: 11-01-2024 Influenza vaccination [facility] Start: 10-14-2024 End: 10-14-2024 ambulatory 10/14/2024 11:00 AM EDT Infusion Center Hematology/Oncology [address] [place] [address] 2ND Hematology/Oncology Comment on above: 2ND Start: 08-19-2024 End: 08-19-2024 ambulatory 08/19/2024 8:30 AM EDT Infusion Center Hematology/Oncology [address] [place] [address] PT REQUESTED TIME Hematology/Oncology Comment on above: PT REQUESTED TIME Start: 06-24-2024 End: 06-24-2024 ambulatory 06/24/2024 11:30 AM EDT Infusion Center Hematology/Oncology [address] [place] [address] 2ND Hematology/Oncology Comment on above: 2ND Start: 05-05-2024 End: 05-05-2024 ambulatory 05/05/2024 4:30 PM [facility] Gastroenterology [address] [address] Miriam Mason PA-C [address] [address] ulcerative pancolitis Gastroenterology Comment on above: ulcerative pancolitis Start: 05-05-2024 End: 08-04-2024 BLOOD TB SCREEN BLOOD TB SCREEN Lab Routine Ulcerative proctitis without complication (HCC) Expected: 05/05/2024, Expires: 08/04/2024 [facility] Comment on above: Expected: 05/05/2024, Expires: Start: 05-05-2024 End: 08-04-2024 C reactive protein [Mass/volume] in Serum or Plasma C-REACTIVE PROTEIN Lab Routine Ulcerative proctitis without complication (HCC) Expected: 05/05/2024, Expires: 08/04/2024 [facility] Comment on above: Expected: 05/05/2024, Expires: Start: 05-05-2024 End: 08-04-2024 CBC W Auto Differential panel - Blood COMPLETE BLOOD COUNT AND DIFFERENTIAL Lab Routine Ulcerative proctitis without complication (HCC) Expected: 05/05/2024, Expires: 08/04/2024 [facility] Work Phone: Comment on above: Expected: 05/05/2024, Expires: Start: 05-05-2024 End: 08-04-2024 Cobalamin (Vitamin B12) [Mass/volume] in Serum or Plasma VITAMIN B12 Lab Routine Ulcerative proctitis without complication (HCC) Expected: 05/05/2024, Expires: 08/04/2024 [facility] Comment on above: Expected: 05/05/2024, Expires: Start: 05-05-2024 End: 08-04-2024 Comprehensive metabolic 2000 panel - Serum or Plasma COMPREHENSIVE METABOLIC PANEL Lab Routine Ulcerative proctitis without complication (HCC) Expected: 05/05/2024, Expires: 08/04/2024 [facility] Comment on above: Expected: 05/05/2024, Expires: Start: 05-05-2024 End: 08-04-2024 Thyrotropin [Units/volume] in Serum or Plasma THYROID STIMULATING HORMONE Lab Routine Ulcerative proctitis without complication (HCC) Expected: 05/05/2024, Expires: 08/04/2024 [facility] Comment on above: Expected: 05/05/2024, Expires: Start: 05-05-2024 End: 08-04-2024 Thyroxine (T4) free [Mass/volume] in Serum or Plasma T4 FREE/FREE THYROXINE Lab Routine Ulcerative proctitis without complication (HCC) Expected: 05/05/2024, Expires: 08/04/2024 [facility] Comment on above: Expected: 05/05/2024, Expires: Start: 05-05-2024 End: 08-04-2024 Triiodothyronine (T3) [Mass/volume] in Serum or Plasma T3 Lab Routine Ulcerative proctitis without complication (HCC) Expected: 05/05/2024, Expires: 08/04/2024 [facility] Comment on above: Expected: 05/05/2024, Expires: Start: 05-05-2024 End: 08-04-2024 Zinc [Mass/volume] in Serum or Plasma ZINC BLD Lab Routine Ulcerative proctitis without complication (HCC) Expected: 05/05/2024, Expires: 08/04/2024 [facility] Comment on above: Expected: 05/05/2024, Expires: Start: 04-23-2024 End: 04-23-2024 ambulatory 04/23/2024 10:30 AM EST Infusion Center Hematology/Oncology [address] [place] [address] 2ND Hematology/Oncology Comment on above: 2ND Start: 04-15-2024 End: 04-15-2024 ambulatory 04/15/2024 10:00 AM EST Visit (SP) Office Hematology/Oncology [address] [place] [address] 2ND Hematology/Oncology Comment on above: 2ND Start: 02-27-2024 End: 02-27-2024 ambulatory 02/27/2024 9:00 AM EST Infusion Center Hematology/Oncology [address] [place] [address] 2ND Hematology/Oncology Comment on above: 2ND Start: 02-19-2024 End: 02-19-2024 ambulatory 02/19/2024 10:00 AM EST Visit (SP) Office Hematology/Oncology [address] [place] [address] 2ND Hematology/Oncology Comment on above: 2ND Start: 12-29-2023 End: 03-29-2024 Thyrotropin [Units/volume] in Serum or Plasma THYROID STIMULATING HORMONE Lab Routine Ulcerative proctitis without complication (HCC) Expected: 12/29/2023, Expires: 03/29/2024 [facility] Comment on above: Expected: 12/29/2023, Expires: Start: 12-29-2023 End: 03-29-2024 Thyroxine (T4) free [Mass/volume] in Serum or Plasma T4 FREE/FREE THYROXINE Lab Routine Ulcerative proctitis without complication (HCC) Expected: 12/29/2023, Expires: 03/29/2024 [facility] Comment on above: Expected: 12/29/2023, Expires: Start: 12-29-2023 End: 03-29-2024 Triiodothyronine (T3) [Mass/volume] in Serum or Plasma T3 Lab Routine Ulcerative proctitis without complication (HCC) Expected: 12/29/2023, Expires: 03/29/2024 [facility] Comment on above: Expected: 12/29/2023, Expires: Start: 12-29-2023 End: 03-29-2024 Zinc [Mass/volume] in Serum or Plasma ZINC BLD Lab Routine Ulcerative proctitis without complication (HCC) Expected: 12/29/2023, Expires: 03/29/2024 [facility] Work Phone: Comment on above: Expected: 12/29/2023, Expires: Start: 12-29-2023 End: 12-29-2023 Patient encounter procedure 12/29/2023 8:30 AM EDT Office Visit Gastroenterology [address] [address] Miriam Mason PA-C [address] [address] ulcerative pancolitis Gastroenterology Comment on above: ulcerative pancolitis Start: 12-15-2023 End: 12-15-2023 ambulatory 12/15/2023 8:30 AM EDT Visit (SP) Office Hematology/Oncology [address] [place] [id number] 2ND Hematology/Oncology Comment on above: 2ND Start: 12-12-2023 End: 12-12-2023 ambulatory 12/12/2023 11:00 AM EDT Visit (SP) Office Hematology/Oncology [address] [place], [place] [id number] 2ND Hematology/Oncology Comment on above: 2ND Start: 12-01-2023 End: 12-01-2023 ambulatory 12/01/2023 11:00 AM EDT [facility] [address] [address] Petrona Mayorga [facility] [address] [place] [id number] Discuss medications Gastroenterology Comment on above: Discuss medications Start: 11-28-2023 End: 11-28-2023 ambulatory 11/28/2023 10:00 AM EDT Visit (SP) Office Hematology/Oncology [address] [place] [address] 2ND Hematology/Oncology Comment on above: 2ND Start: 11-14-2023 End: 11-14-2023 ambulatory 11/14/2023 8:30 AM EDT Visit (SP) Office Hematology/Oncology [address] [place] [address] 2ND Hematology/Oncology Comment on above: 2ND Start: 11-02-2023 Influenza vaccination [facility] Start: 10-30-2023 End: 10-30-2023 ambulatory 10/30/2023 10:00 AM EDT Visit (SP) Office Hematology/Oncology [address] [place] [address] 2ND Hematology/Oncology Comment on above: 2ND Start: 10-20-2023 End: 10-20-2023 ambulatory 10/20/2023 3:30 PM EDT [facility] [address] [address] Laurie Caldwell MD [address] [place] [address] f/u Gastroenterology Comment on above: f/u Start: 10-17-2023 End: 01-16-2024 TPMT PHENOTYPE/ENZYME ACTIVITY TPMT PHENOTYPE/ENZYME ACTIVITY Lab Routine Ulcerative proctitis without complication (HCC) Expected: 10/17/2023, Expires: 01/16/2024 [facility] Work Phone: Comment on above: Expected: 10/17/2023, Expires: Start: 10-10-2023 End: 10-10-2023 ambulatory 10/10/2023 11:00 AM EDT [facility] G[facility] [address] [place] [id number] Referred for Ulcerative Colitis. Mediterranean di. Gastroenterology Comment on above: Referred for Ulcerative Colitis. Mediter rayoean di. Start: 09-17-2023 End: 12-17-2023 BLOOD TB SCREEN BLOOD TB SCREEN Lab Routine Ulcerative proctitis without complication (HCC) Expected: 09/17/2023, Expires: 12/17/2023 [facility] Comment on above: Expected: 09/17/2023, Expires: Start: 09-17-2023 End: 12-17-2023 C reactive protein [Mass/volume] in Serum or Plasma C-REACTIVE PROTEIN Lab Routine Ulcerative proctitis without complication (HCC) Expected: 09/17/2023, Expires: 12/17/2023 [facility] Comment on above: Expected: 09/17/2023, Expires: Start: 09-17-2023 End: 12-17-2023 Comprehensive metabolic 2000 panel - Serum or Plasma COMPREHENSIVE METABOLIC PANEL Lab Routine Ulcerative proctitis without complication (HCC) Expected: 09/17/2023, Expires: 12/17/2023 [facility] Work Phone: Comment on above: Expected: 09/17/2023, Expires: Start: 09-08-2023 End: 09-08-2023 Patient encounter procedure 09/08/2023 2:30 PM EDT Appointment Gastroenterology [address] [place] [phone] Laurie Caldwell MD [address] [place] [address] Ulcerative proctitis without complication (HCC) [K51.20] Gastroenterology Comment on above: Ulcerative proctitis without complicatio n (HCC) [K51.20] Start: 07-18-2023 End: 07-18-2023 ambulatory 07/18/2023 9:15 AM EDT Results Only [facility] Draw Station [address] [facility] [place] [address] [facility] Draw Station Start: 07-17-2023 End: 10-16-2023 Basic metabolic 2000 panel - Serum or Plasma BASIC METABOLIC PANEL Lab Routine Ulcerative proctitis without complication (HCC) Expected: 07/17/2023, Expires: 10/16/2023 [facility] Comment on above: Expected: 07/17/2023, Expires: Start: 07-17-2023 End: 10-16-2023 CBC W Auto Differential panel - Blood COMPLETE BLOOD COUNT AND DIFFERENTIAL Lab Routine Ulcerative proctitis without complication (HCC) Expected: 07/17/2023, Expires: 10/16/2023 [facility] Comment on above: Expected: 07/17/2023, Expires: Start: 07-17-2023 End: 10-16-2023 Urinalysis complete panel - Urine URINALYSIS, WITH MICROSCOPIC Lab Routine Ulcerative proctitis without complication (HCC) Expected: 07/17/2023, Expires: 10/16/2023 [facility] Comment on above: Expected: 07/17/2023, Expires: Start: 03-03-2023 Behavioral Health Screening Behavioral Health Screening [facility] Start: 11-01-2022 Covid-19 Vaccine ( season) Covid-19 Vaccine () [facility] Start: 11-01-2022 Influenza vaccination [facility] Start: 09-13-2022 End: 11-13-2022 25-hydroxyvitamin D3 [Mass/volume] in Serum or Plasma VITAMIN D 25 HYDROXY Lab Routine Ulcerative proctitis without complication (HCC) Expected: 09/13/2022, Expires: 11/13/2022 [facility] Work Phone: Comment on above: Expected: 09/13/2022, Expires: 3 Start: 09-13-2022 End: 11-13-2022 C reactive protein [Mass/volume] in Serum or Plasma C-REACTIVE PROTEIN (CRP) Lab Routine Ulcerative proctitis without complication (HCC) Expected: 09/13/2022, Expires: 11/13/2022 [facility] Work Phone: Comment on above: Expected: 09/13/2022, Expires: 3 Start: 09-13-2022 End: 11-13-2022 CBC W Auto Differential panel - Blood CBC + DIFF Lab Routine Ulcerative proctitis without complication (HCC) Expected: 09/13/2022, Expires: 11/13/2022 [facility] Work Phone: Comment on above: Expected: 09/13/2022, Expires: Start: 09-13-2022 End: 11-13-2022 Cobalamin (Vitamin B12) [Mass/volume] in Serum or Plasma VITAMIN B12 BLOOD Lab Routine Ulcerative proctitis without complication (HCC) Expected: 09/13/2022, Expires: 11/13/2022 [facility] Work Phone: Comment on above: Expected: 09/13/2022, Expires: 3 Start: 09-13-2022 End: 11-13-2022 Comprehensive metabolic 2000 panel - Serum or Plasma COMP METABOLIC PANEL Lab Routine Ulcerative proctitis without complication (HCC) Expected: 09/13/2022, Expires: 11/13/2022 [facility] Work Phone: Comment on above: Expected: 09/13/2022, Expires: 3 Start: 09-13-2022 End: 11-13-2022 Ferritin [Mass/volume] in Serum or Plasma FERRITIN BLD Lab Routine Ulcerative proctitis without complication (HCC) Expected: 09/13/2022, Expires: 11/13/2022 [facility] Work Phone: Comment on above: Expected: 09/13/2022, Expires: 3 Start: 09-13-2022 End: 11-13-2022 Iron and Iron binding capacity panel - Serum or Plasma IRON + TIBC Lab Routine Ulcerative proctitis without complication (HCC) Expected: 09/13/2022, Expires: 11/13/2022 [facility] Work Phone: Comment on above: Expected: 09/13/2022, Expires: 3 Start: 03-03-2022 DEPRESSION ASSESSMENT DEPRESSION ASSESSMENT [facility] Start: 2022 HPV Vaccine (1 - 3-dose SCDM series) HPV Vaccine (1 - 3-dose SCDM series) [facility] Start: 11-01-2021 Influenza vaccination [facility] Start: 03-03-2021 DEPRESSION ASSESSMENT DEPRESSION ASSESSMENT [facility] Start: 11-01-2018 Influenza vaccination Flu vaccine (#1) [place], [place] Start: 01-17-2017 Adult depression screening assessment DEPRESSION SCREENING [facility] Start: 01-26-2016 Cervical cancer screen Cervical cancer screen [place], [place] Start: 01-26-2016 PAP TESTING PAP TESTING [facility] Start: 01-26-2016 Screening for malignant neoplasm of cervix [facility] Start: 2014 DTaP/Tdap/Td vaccine (1 - Tdap) DTaP/Tdap/Td vaccine (1 - Tdap) [place] Start: 2014 HEPATITIS A (1 of 2 - Risk 2-dose series) HEPATITIS A (1 of 2 - Risk 2-dose series) [facility] Start: 2014 Hepatitis A Vaccine (1 of 2 - Risk 2-dose series) Hepatitis A Vaccine (1 of 2 - Risk 2-dose series) [facility] Start: 2014 Pneumococcal vaccination Pneumococcal Vaccine (1 of 2 - PCV) [facility] Start: 2014 Shingrix Vaccine (1 of 2) Shingrix Vaccine (1 of 2) [facility] Start: 2013 Anxiety Screening Anxiety Screening [facility] Start: 2013 Depression Screening Depression Screening [facility] Start: 2013 HIV SCREENING HIV SCREENING [facility] Start: 2013 HIV screening HIV Screening [facility] Start: 2013 MMR (1 of 2 - Risk 2-dose series) MMR (1 of 2 - Risk 2-dose series) [facility] Start: 2011 Chlamydia screen Chlamydia screen [place], [place] Start: 2010 HIV screen HIV screen [place] Start: 2010 HPV vaccine (1 - Female 3-dose series) HPV vaccine (1 - Female 3-dose series) [place] Start: 2009 PEDS TO ADULT TRANSITION ANNUAL ASSESSMENT PEDS TO ADULT TRANSITION ANNUAL ASSESSMENT [facility] Start: 01-26-2008 Varicella Vaccine (1 of 2 - 13+ 2-dose series) Varicella Vaccine (1 of 2 - 13+ 2-dose series) [place] Start: 2007 PEDS TO ADULT TRANSITION INITIAL DISCUSSION PEDS TO ADULT TRANSITION INITIAL DISCUSSION [facility] Start: 2006 HPV VACCINE (1 - 2-dose series) HPV VACCINE (1 - 2-dose series) [facility] Start: 2006 Screening for malignant neoplasm of cervix Cervical Cancer Screening [facility] Start: 2005 Meningococcal B Vaccine: Consider Based On Risk (1 of 4 - Increased Risk) Meningococcal B Vaccine: Consider Based On Risk (1 of 4 - Increased Risk) [facility] Start: 2005 MENINGOCOCCAL B: Consider based on risk (1 of 4 - Increased Risk Bexsero 2-dose series) MENINGOCOCCAL B: Consider based on risk (1 of 4 - Increased Risk Bexsero 2-dose series) [facility] Start: 2005 MENINGOCOCCAL B: Consider based on risk (1 of 4 - Increased Risk) MENINGOCOCCAL B: Consider based on risk (1 of 4 - Increased Risk) [facility] Start: 2001 Pneumococcal vaccination Pneumococcal Vaccine (1 of 2 - PCV) [facility] Start: 01-26-2000 COVID-19 VACCINE (#1) COVID-19 VACCINE (#1) [facility] Start: 01-26-1996 HEPATITIS A (1 of 2 - Risk 2-dose series) HEPATITIS A (1 of 2 - Risk 2-dose series) [facility] Start: 1995 COVID-19 VACCINE (#1) COVID-19 VACCINE (#1) [facility] End: 10-29-2018 Blood glucose - POCT Blood glucose - POCT Point of Care Testing STAT One Time for 1 Occurrences starting 10/29/2018 until 10/29/2018 [place] Comment on above: One Time for 1 Occurrences starting 10/02 until 10/29/2018 BLOOD TB SCREEN BLOOD TB SCREEN Lab Routine Ulcerative proctitis without complication (HCC) 09/18/2023 7:44 AM EDT [facility] C reactive protein [Mass/volume] in Serum or Plasma C-REACTIVE PROTEIN Lab Routine Ulcerative proctitis without complication (HCC) 09/18/2023 7:44 AM EDT [facility] Calprotectin [Mass/m ass] in Stool CALPROTECTIN,FECAL Lab Routine Ulcerative proctitis without complication (HCC) Ordered: 09/13/2022 [facility] Work Phone: Comment on above: Ordered: 09/13/2022 Calprotectin [Mass/m ass] in Stool CALPROTECTIN,FECAL Lab Routine Ulcerative proctitis without complication (HCC) Ordered: 07/17/2023 [facility] Work Phone: Comment on above: Ordered: 07/17/2023 Calprotectin [Mass/m ass] in Stool CALPROTECTIN,FECAL Lab Routine Ulcerative proctitis without complication (HCC) Ordered: 07/23/2023 [facility] Work Phone: Comment on above: Ordered: 07/23/2023 Calprotectin [Mass/m ass] in Stool CALPROTECTIN,FECAL Lab Routine Ulcerative proctitis without complication (HCC) Ordered: 12/29/2023 [facility] Comment on above: Ordered: 12/29/2023 Calprotectin [Mass/m ass] in Stool CALPROTECTIN,FECAL Lab Routine Ulcerative proctitis without complication (HCC) Ordered: 05/05/2024 [facility] Comment on above: Ordered: 05/05/2024 End: 10-23-2024 CBC W Auto Differential panel - Blood COMPLETE BLOOD COUNT AND DIFFERENTIAL Lab Routine Ulcerative proctitis without complication (HCC) Every other week for 6 Occurrences starting 10/24/2023 until 10/23/2024 [facility] Work Phone: Comment on above: Every other week for 6 Occurrences start ing 10/24/2023 until 10/23/2024 Clostridioides diffi cile toxin genes [Presence] in Stool by ALEX with probe detection C. DIFFICILE PCR Lab Routine IBD (inflammatory bowel disease) Ordered: 09/01/2023 [facility] Work Phone: Comment on above: Ordered: 09/01/2023 End: 09-14-2023 COLONOSCOPY DIAGNOSTIC COLONOSCOPY DIAGNOSTIC Endoscopy Routine Ulcerative proctitis without complication (HCC) 1 Occurrences starting 09/13/2022 until 09/14/2023 [facility] Work Phone: Comment on above: 1 Occurrences starting 09/13/2022 until 09/14/2023 Comprehensive metabo lic 2000 panel - Serum or Plasma COMPREHENSIVE METABOLIC PANEL Lab Routine Ulcerative proctitis without complication (HCC) 09/18/2023 7:44 AM EDT [facility] End: 10-23-2024 Comprehensive metabolic 2000 panel - Serum or Plasma COMPREHENSIVE METABOLIC PANEL Lab Routine Ulcerative proctitis without complication (HCC) Every other week for 6 Occurrences starting 10/24/2023 until 10/23/2024 [facility] Comment on above: Every other week for 6 Occurrences start ing 10/24/2023 until 10/23/2024 End: 10-29-2018 Creatinine [Mass/Vol] Creatinine, serum Lab STAT One Time for 1 Occurrences starting 10/29/2018 until 10/29/2018 [facility] Comment on above: One Time for 1 Occurrences starting 10/02 until 10/29/2018 End: 10-13-2023 DXA-AXIAL SKELETON DXA-AXIAL SKELETON Radiology Routine intermediate current use of systemic steroids 1 Occurrences starting 09/13/2022 until 10/13/2023 [facility] Work Phone: Comment on above: 1 Occurrences starting 09/13/2022 until 10/13/2023 End: 07-22-2024 Flexible sigmoidoscopy study COLONOSCOPY DIAGNOSTIC Endoscopy Routine Ulcerative proctitis without complication (HCC) 1 Occurrences starting 07/23/2023 until 07/22/2024 [facility] Comment on above: 1 Occurrences starting 07/23/2023 until 07/22/2024 End: 05-05-2025 Flexible sigmoidoscopy study COLONOSCOPY DIAGNOSTIC Endoscopy Routine Ulcerative proctitis without complication (HCC) 1 Occurrences starting 05/05/2024 until 05/05/2025 [facility] Comment on above: 1 Occurrences starting 05/05/2024 until 05/05/2025 Incentive spirometry Incentive s pirometry Respiratory Care Routine Q1H PRN until discontinued starting 10/29/2018 [facility] Comment on above: Q1H PRN until discontinued starting 10/02 Initiate Oxygen Ther apy Protocol Initiate Oxygen Therapy Protocol Respiratory Care Routine Daily until discontinued starting 10/29/2018 [facility] Comment on above: Daily until discontinued starting 2018 Phase I & II - meter ed glucose Phase I & II - metered glucose Point of Care Testing Routine As Needed until discontinued [facility]: As Needed until discontinued starting End: 10-29-2018 Potassium w/ Reflex to Magnesium Potassium w/ Reflex to Magnesium Lab Routine One Time for 1 Occurrences starting 10/29/2018 until 10/29/[facility]: One Time for 1 Occurrences starting 10/02 until 10/29/2018 End: 10-29-2018 , urine , urine Lab STAT One Time for 1 Occurrences starting 10/29/2018 until 10/29/[facility]: One Time for 1 Occurrences starting 10/02 until 10/29/2018 End: 10-29-2018 Protime-INR Protime-INR Lab STAT One Time for 1 Occurrences starting 10/29/2018 until 10/29/[facility] above: One Time for 1 Occurrences starting 10/02 until 10/29/2018 End: 10-29-2018 Pulse Oximetry Spot Check Pulse Oximetry Spot Check Respiratory Care Routine One Time for 1 Occurrences starting 10/29/2018 until 10/29/[facility]: One Time for 1 Occurrences starting 10/02 until 10/29/2018 End: 09-12-2022 Radiologic exam chest 2 views XR CHEST 2V FRONTAL/LAT Radiology Routine Cough 1 Occurrences starting 08/13/2021 until 09/12/2022 [facility] Work Phone: Comment on above: 1 Occurrences starting 08/13/2021 until 09/12/2022 RHOGAM RHOGAM POSTPAR JEROME Blood Bank Routine 10/29/2018 2:[address] [facility] Work Phone: Comment on above: Release Upon Ordering for 1 Occurrences starting 09/08/2023, 1 completed [facility] Immunizations Immunization Date Immunization Notes Care Provider Rene villafuertestephanie 01-08-2019 influenza virus vaccine, unspecified formulation Aminta Monge APRN.[employer] Work Phone: [facility] 10-29-2018 RHO(D) immune globul in - [facility], [place] 12-20-2016 tetanus toxoid, redu la diphtheria toxoid, and acellular pertussis vaccine, adsorbed Aminta Monge APRN.[employer] Work Phone: [facility] 1995 hepatitis B vaccine, pediatric or pediatric/adolescent dosage Nia Gramajo INDUSTRIAL ARTS TEACHER.[employer] Work Phone: [facility] Work Phone: 1995 hepatitis B vaccine, pediatric or pediatric/adolescent dosage Nia Gramajo INDUSTRIAL ARTS TEACHER.[employer] Work Phone: [facility] Work Phone: 1995 hepatitis B vaccine, pediatric or pediatric/adolescent dosage Nia Gramajo INDUSTRIAL ARTS TEACHER.[employer] Work Phone: [facility] Work Phone: Payers Date Payer Category Payer Self-pay 2023 Private Health Insurance [id number] 2022 Private Health Insurance [id number] 2018 Private Health Insurance [employer] A ETNA CHOICE POS II [id number] 2018-Present [phone] [address] [place] [address] POS [id number] 2018 Private Health Insurance [id number] 1995 Unknown [id number] 1995 Unknown [id number] 1995 Unknown [id number] 1995 Unknown [id number] 1995 Unknown [id number] 1995 Unknown [id number] 1995 Unknown [id number] Unknown [id number] Social History Date Type Detail Facility Start: 10-29-2018 End: 01-18-2022 Tobacco smoking status NHIS Never smoker [facility] Start: 10-29-2018 End: 09-13-2022 Alcohol intake Not Currently [place], [place] Start: 1995 Sex Assigned At Not on file [place] Start: 07-20-2021 End: 01-18-2022 Alcohol intake Current non-drinker of alcohol (finding) [facility] Start: 07-10-2021 End: 01-18-2022 Exposure to SARS-CoV-2 (event) Not sure [facility] Start: 01-18-2022 Tobacco use and exposure Smokeless tobacco non-user [facility] Sex Assigned At [facility] Start: 08-05-2022 End: 09-13-2022 History of Social function [facility] Start: 02-02-2012 National Score (1-10 0), lower number is lower risk 49 [facility] Start: 1995 Sex Assigned At Female [facility] Start: 07-10-2023 Gender identity Identifies as female gender (finding) [facility] Start: 07-10-2023 Sexual orientation Heterosexual (fin ding) [facility] Start: 08-30-2023 End: 12-29-2023 Alcohol intake Current drinker of alcohol (finding) [facility] Start: 08-30-2023 Alcohol Comment rare [facility] Start: 03-12-2017 Sex Female (finding) [facility] Functional Status Date Assessment Result Facility 10-23-2022 Functional Status Ambulation in Room [facility] 10-22-2022 [facility] 10-22-2022 Functional Status Fely Lepe [facility] 10-22-2022 Functional Status Maternal Activ ity Routine kangaroo care [facility] 10-22-2022 Functional Status Lives with family [facility] 04-01-2016 Are you deaf, or do you have serious difficulty hearing No 04/01/2016 4:36 PM Babs Ramirez [facility] 04-01-2016 Are you blind, or do you have serious difficulty seeing, even when wearing glasses No 04/01/2016 4:36 PM Babs Ramirez [facility] 04-01-2016 Do you have serious difficulty walking or climbing stairs No 04/01/2016 4:36 PM Babs Ramirez [facility] 04-01-2016 Do you have difficul ty dressing or bathing No 04/01/2016 4:36 PM Babs Ramirez [facility] 04-01-2016 Because of a physica l, mental, or emotional condition, do you have difficulty doing errands alone such as visiting a physician's office or shopping No 04/01/2016 4:36 PM Babs Ramirez [facility] Mental Status Date Assessment Result Facility 10-22-2022 Mental Status Orientation Oriented x 4 [facility] 10-22-[address] [facility] 04-01-2016 Because of a physica l, mental, or emotional condition, do you have serious difficulty concentrating, remembering, or making decisions No 04/01/2016 4:36 PM Babs Ramirez [facility] Clinical Notes 03-13-2016 to 05-05-2024 Patient Miriam Castellon PA-C - 05/05/2024 4:43 PM ESTTelephone Encounter - Sangita Haro, ELECTROMECH[employer]IS[employer] 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 To have a successful colonoscopy, you must have a clean colon, that is empty. A clean colon allows your doctor to see the entire colon & diagnose issues like polyps or cancer. For doctors, a clean colon is like driving on a gregg day; a dirty colon like driving in a storm. It is very important that you follow these instructions exactly, or your colonoscopy may not be as effective, could be canceled, and you may need to do the bowel prep and colonoscopy again. TRANSPORTATION REQUIREMENTS You are receiving IV sedation. For your safety, a responsible adult escort must accompany you to and from your procedure: Your adult escort MUST be present with you at check-in for your colonoscopy. Your adult escort MUST remain in the endoscopy area until you are discharged. Your adult escort MUST transport you home once you are discharged. You are NOT allowed to operate any form of transportation (i.e. drive a car, bicycle, etc) or leave the Endoscopy Center ALONE. It is not safe to do so. If you cannot meet these requirements, your procedure will be canceled. MEDICATION REQUIREMENTS For your safety, certain medications will need to be stopped or adjusted before you can have your procedure: BLOOD THINNERS: If you take blood thinners, such as Coumadin (warfarin), Plavix (clopidogrel), Ticlid (ticlopidine hydrochloride), Agrylin (anagrelide), Xarelto (Rivaroxaban), Pradaxa (Dabigatran), Eliquis (Apixaban), or Effient (Prasugrel), contact the physician who is prescribing these medications at least 2 weeks prior to your procedure to discuss any necessary adjustments. DIABETES: If you take medications for diabetes, your dosage may need to be adjusted. If you are being treated for diabetes with insulin, diabetic pills, or other injectable medications do not take your REGULAR dose after midnight on the day of your procedure. If you are taking any other types of insulin such as Lantus, Humalog, NPH (long-acting insulin), or 70/30 insulin, take half your normal dose the day before your procedure. DIABETES/WEIGHT MANAGEMENT: If you take medications for weight-loss, your dosage may need to be adjusted Contact the doctor who prescribes this medication for further instructions. If you take medications for weight-loss like semaglutide (Ozempic, Wegovy, Rybelsus), dulaglutide (Trulicity), liraglutide (Victoza, Saxenda), exenatide (Byetta, Bydureon), or lixisenatide (Adylyxin), stop your medication 1 week prior to your procedure. If you take medications like canagliflozin (Invokana), dapagliflozin (Farxiga, Forxiga), empagliflozin (Jardiance), stop your medication 3 days prior to your procedure. If you take ertugliflozin (Steglatro) stop your medication 4 days prior to your procedure. IRON: If you take iron pills, STOP them 1 week BEFORE your procedure, may resume after. OTHER MEDS: May take all other medications (including aspirin, antibiotics, water pills / diuretics like Lasix or Metolozone, blood pressure meds, etc.) at their usual scheduled time with water. DIET REQUIREMENTS The day before your colonoscopy, you may have a clear liquid diet (see below). The day of your colonoscopy, you may continue a clear liquid diet until 3 hours before your colonoscopy. Within 3 hours of your colonoscopy, take only any medications (as above) with a sip of water. Clear Liquid Diet Broth (chicken, beef or vegetable broth or bullion. Just the broth, no solids). Water Coffee or Tea (NO milk or creamer), but sugar and sugar substitutes are allowed. Clear liquids including clear, yellow, green, blue (NO red, NO orange, NO purple) Sodas / soft drinks; Gatorade or other sports drinks Fruit juice (strained; no-pulp); Scott-Aid or flavored drinks Plain Jell-O or other gelatins Popsicles or hard candy Bowel prep can work differently from person to person. Some people's bowels move slowly and they may need different instructions. Please see your doctor in office or virtually for personalized bowel prep instructions if you have: BOWEL PREPARATION (MIRALAX/GATORADE) Split Dosing Bowel Prep: This means drinking your bowel prep in two doses. Split dosing helps clean your colon better and makes it less likely that your procedure will be canceled. You will need to purchase the following (no prescriptions are needed): 64 ounces Gatorade, Propel, Crystal Lite or other noncarbonated clear liquid sports drink (NOT red, orange, or purple). Diabetic patients buy sugar-free, e.g. Gatorade G2 4 Dulcolax laxative tablets containing 5mg bisacodyl each (do not buy the stool softener) 8.3 oz MiraLAX (238g) powder or generic polyethylene glycol 3350 (find in laxative aisle) The day before your colonoscopy mix 64 oz of the sports drink with 8.3 oz MiraLAX (238 g) in a pitcher. Stir or shake until MiraLAX completely dissolved. Chill if desired. On the evening before your colonoscopy: 5 PM take 4 Dulcolax laxative tablets with water by mouth. 6 PM drink the first half of the Gatorade/MiraLAX solution Drink one 8-ounce glass every 15 minutes. Six hours before your colonoscopy, drink the second half of the solution. Drink one 8-ounce glass every 15 minutes. You may continue a clear liquid diet until 3 hours before your colonoscopy. Bowel prep can work differently from person to person. Some people's bowels move slowly and they may need different instructions. Please see your doctor in office or virtually for personalized bowel prep instructions if you have: Medical condition that needs special accommodations Had a poor bowel prep results or failed bowel prep attempts in the past. Had difficulty with anesthesia during the procedure. FREQUENTLY ASKED QUESTIONS Q: What if I suffer from constipation? A: Recommend taking extra laxatives to resolve your constipation days prior to entering the bowel prep day. Q: What if have had prior poor preps results in past? A: Contact your physician as you will likely need additional bowel prep instructions. Q: What if I have motility issues like Parkinson's, MS (multiple sclerosis), wheelchair dependent, etc.? or on medications that slow colonic transit times (narcotics, gabapentin, anticholinergic medications etc.) A: Contact your physician as you will likely need extra time and additional laxatives to complete your bowel prep. Q: What if I cannot drink large volume of liquid? A: Start your prep 2-3 hours earlier to allow yourself more time to complete the entire prep. Q: What if I had bariatric surgery? Do I still have to complete the entire prep? A: Yes, gastric bypass surgery involves the stomach & small bowel. You may need to drink smaller amounts, slower (may need more time to complete your bowel prep). Gastric bypass does not alter the length of your colon so you will need to complete the entire bowel prep, it may just take longer time to complete it. Q: What if I am on dialysis? A: Please consult your water tester prior to scheduling to get instructions pertinent to you. In general, dialysis patients take the Golytely bowel prep and have the procedure same day of their dialysis (colonoscopy in AM, dialysis in PM). Q: How do I know if something is considered as clear liquid diet? A: If you can pour it in a glass and you can see through it, it is considered clear liquid Q: Can I eat nuts, seeds, beans, popcorn, dried fruits, vegetables & fruits that have skin peel? A: No, you will need to not eat these items starting 3 days prior to procedure. Q: Can I take Uber/Lyft/taxi/bus home? A: An adult MUST be present with you at check-in for your colonoscopy and remain in the endoscopy area until you are discharged. You can take Uber home only if this adult escort is with you at check in, remain in the endoscopy area until you are discharged, and takes the Uber with you to home. Q: Can I sleep it off here and drive myself home? A: No, you must have an adult with you at time of procedure check in, remain in the endoscopy center during your procedure, and drive you home. You cannot drive a vehicle after your procedure the rest of the day. Q: What if I can't finish my bowel prep? A: If you cannot complete your entire bowel prep, there is high likelihood that your colonoscopy will need to be rescheduled due to inadequate prep quality. documented in this encounter [facility] 05-05-2024 Note HNO ID: [id number] Author: MIRIAM MASON PA-C Service: ? Author Type: Physician Blower Mechanic Type: Progress Notes Filed: 05/06/2024 09:22 Note Text: Virtual Follow Up Visit Provider Location: Non-[facility] Facility Patient Location: Patient Home or Place of Residence CAREY Hendricks [id number] 1995 has requested a video telemedicine for follow up of ulcerative colitis. Last seen 12/29/2023. IBD History (copied and updated from my prior notes) Ms. Hendricks, is a 29-year-old female with a history of ulcerative proctitis diagnosed in 2011 treated with mesalamine's. 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 Changes and test results since last visit: Doing well currently 1 every other day no blood no urgency no icnotinence. No nausea or bloating. Tolerating diet weigh is stable. No EIMs. Still some hair loss. Overall health is good. IFX last dose last week getting every 8 weeks. No issues Current Clinical Symptoms # of bowel movements daily: 1 every other day Consistency: soft, formed Bloody bowel movements: no Urgency: no Abdominal pain: no Abdominal distention: no Nausea/vomiting: no Weight loss over last 3 months: no Diagnosis Ulcerative Colitis: Phenotype Extent: left sided Severity: Moderate Prior Medications/Dates/Reason for Switch Surgery: No: Systemic steroids last year: No Enteric or rectal steroids last year: No Systemic 5-ASA: Currently on mesalamine Local 5-ASA: Was on Canasa Thiopurines: No Methotrexate: No Biologics: no Small molecules: No Current Medications [facility] TB Status: Unknown Hepatitis B Status: Unknown TPMT: Unknown Vaccines if on biologic therapy (Instructed to avoid live vaccines): Immunization History Administered Date(s) Administered hepatitis B (HepB) vaccine, 3-dose series, age 0 yr - 19 yr (ENGERIX B-PEDS, RECOMBIVAX HB-PEDS) 1995 1995 1995 tetanus diphtheria pertussis (Tdap) vaccine, age 7+ yr (ADACEL, BOOSTRIX) 12/20/2016 Current Outpatient Medications Medication Sig Dispense Refill azaTHIOprine (IMURAN) 50 mg tablet Take 3 tablets by mouth once daily. 270 tablet 1 predniSONE (DELTASONE) 5 mg tablet You have a total of 336 prednisone 5mg pills. Take 60mg prednisone (12 tabs) daily for 7 days, then 40mg daily for 7 days and reduce dose by 5mg per week (35mg-> 30mg -> 25mg, etc.), then stop 336 tablet 0 methylPREDNISolone (MEDROL) 4 mg Take 1 tablet by mouth once daily. 2 tablet 0 Mesalamine (LIALDA) 1.2 gram EC tablet Take 4 tablets by mouth once daily. 360 tablet 2 PNV WITHOUT CA NO.9/IRON/FA ( VIT NO.9-IRON-FA ORAL) Take by mouth. No current facility-administered medications for this visit. ALLERGIES Allergen Reactions Penicillin Other: See Comments Makes pt hyper PAST SURGICAL HISTORY Procedure Laterality Date MIDLINE INSERTION/CONSULT 04/01/2016 TONSILLECTOMY AND ADENOIDECTOMY HX Review of Systems: GENERAL:No weight loss, malaise or fevers HEENT:Negative for frequent or significant headaches, No changes in hearing or vision, no nose bleeds or other nasal problems NECK:Negative for lumps, goiter, pain and significant neck swelling RESPIRATORY: Negative for cough, hemoptysis, wheezing, COPD, dyspnea or shortness of breath CARDIOVASCULAR: Negative for chest pain, leg swelling, hypertension, CHF or palpitations GASTROINTESTINAL: See HPI GENITOURINARY: No history of dysuria, frequency or incontinence GRAPHIC DESIGN ASSISTANT: Negative for abnormal vaginal bleeding, abnormal vaginal discharge MUSCULOSKELETAL: Negative for joint pain or swelling, back pain or muscle pain NEUROLOGIC:Negative for focal numbness or weakness, headaches and dizziness or syncope. SKIN:Negative for lesions, rash, and itching PSYCHIATRIC: Negative for sleep disturbance, mood disorder and recent psychosocial stressors. HEMATOLOGIC/LYMPHATIC/IMMUNOLOGI C:Negative for prolonged bleeding, bruising easily or swollen nodes ENDOCRINE: Negative for cold or heat intolerance, polyuria, polydipsia and goiter The remainder of the ROS was negative. PHYSICAL EXAMINATION General: alert and appropriate, in no distress and well-hydrated, well nourished, Head: normocephalic, no abnormality or lesion noted, Eyes: visual acuity is grossly normal, no injection,, and EOMI, Oropharynx: moist mucus membranes, no tonsillar hypertrophy/exudate, uvula midline and pharynx non-erythematous, lips, teeth and gums are without obvious lesion, Neck: full ROM, no cervical LNs noted, Respiratory: breathing non-labored, and no grunting/flaring/retractions, Chest: equal chest rise with normal respiratory effort, Abdomen: flat appearing. Visible protrusions or hernias: No Incisions/scars: None Areas of pain/tenderness: Denies Skin: no rash noted, Neuro: Patient seen sitting with normal appearing str (more content not included)... [facility] 05-05-2024 History of Presen t illness Narrative Virtual Follow Up Visit Provider Location: Non-[facility] Facility Patient Location: Patient Home or Place of Residence CAREY Hendricks [id number] 1995 has requested a video telemedicine for follow up of ulcerative colitis. Last seen 12/29/2023. IBD History (copied and updated from my prior notes) Ms. Hendricks, is a 29-year-old female with a history of ulcerative proctitis diagnosed in 2011 treated with mesalamine's. 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 Changes and test results since last visit: Doing well currently 1 every other day no blood no urgency no icnotinence. No nausea or bloating. Tolerating diet weigh is stable. No EIMs. Still some hair loss. Overall health is good. IFX last dose last week getting every 8 weeks. No issues Current Clinical Symptoms # of bowel movements daily: 1 every other day Consistency: soft, formed Bloody bowel movements: no Urgency: no Abdominal pain: no Abdominal distention: no Nausea/vomiting: no Weight loss over last 3 months: no Diagnosis Ulcerative Colitis: Phenotype Extent: left sided Severity: Moderate Prior Medications/Dates/Reason for Switch Surgery: No: Systemic steroids last year: No Enteric or rectal steroids last year: No Systemic 5-ASA: Currently on mesalamine Local 5-ASA: Was on Canasa Thiopurines: No Methotrexate: No Biologics: no Small molecules: No Current Medications [facility] TB Status: Unknown Hepatitis B Status: Unknown TPMT: Unknown Vaccines if on biologic therapy (Instructed to avoid live vaccines): Immunization History Administered Date(s) Administered hepatitis B (HepB) vaccine, 3-dose series, age 0 yr - 19 yr (ENGERIX B-PEDS, RECOMBIVAX HB-PEDS) 1995 1995 1995 tetanus diphtheria pertussis (Tdap) vaccine, age 7+ yr (ADACEL, BOOSTRIX) 12/20/2016 Current Outpatient Medications Medication Sig Dispense Refill azaTHIOprine (IMURAN) 50 mg tablet Take 3 tablets by mouth once daily. 270 tablet 1 predniSONE (DELTASONE) 5 mg tablet You have a total of 336 prednisone 5mg pills. Take 60mg prednisone (12 tabs) daily for 7 days, then 40mg daily for 7 days and reduce dose by 5mg per week (35mg-> 30mg -> 25mg, etc.), then stop 336 tablet 0 methylPREDNISolone (MEDROL) 4 mg Take 1 tablet by mouth once daily. 2 tablet 0 Mesalamine (LIALDA) 1.2 gram EC tablet Take 4 tablets by mouth once daily. 360 tablet 2 PNV WITHOUT CA NO.9/IRON/FA ( VIT NO.9-IRON-FA ORAL) Take by mouth. No current facility-administered medications for this visit. ALLERGIES Allergen Reactions Penicillin Other: See Comments Makes pt hyper PAST SURGICAL HISTORY Procedure Laterality Date MIDLINE INSERTION/CONSULT 04/01/2016 TONSILLECTOMY AND ADENOIDECTOMY HX Review of Systems: GENERAL:No weight loss, malaise or fevers HEENT:Negative for frequent or significant headaches, No changes in hearing or vision, no nose bleeds or other nasal problems NECK:Negative for lumps, goiter, pain and significant neck swelling RESPIRATORY: Negative for cough, hemoptysis, wheezing, COPD, dyspnea or shortness of breath CARDIOVASCULAR: Negative for chest pain, leg swelling, hypertension, CHF or palpitations GASTROINTESTINAL: See HPI GENITOURINARY: No history of dysuria, frequency or incontinence GRAPHIC DESIGN ASSISTANT: Negative for abnormal vaginal bleeding, abnormal vaginal discharge MUSCULOSKELETAL: Negative for joint pain or swelling, back pain or muscle pain NEUROLOGIC:Negative for focal numbness or weakness, headaches and dizziness or syncope. SKIN:Negative for lesions, rash, and itching PSYCHIATRIC: Negative for sleep disturbance, mood disorder and recent psychosocial stressors. HEMATOLOGIC/LYMPHATIC/IMMUNOLOGI C:Negative for prolonged bleeding, bruising easily or swollen nodes ENDOCRINE: Negative for cold or heat intolerance, polyuria, polydipsia and goiter The remainder of the ROS was negative. PHYSICAL EXAMINATION General: alert and appropriate, in no distress and well-hydrated, well nourished, Head: normocephalic, no abnormality or lesion noted, Eyes: visual acuity is grossly normal, no injection,, and EOMI, Oropharynx: moist mucus membranes, no tonsillar hypertrophy/exudate, uvula midline and pharynx non-erythematous, lips, teeth and gums are without obvious lesion, Neck: full ROM, no cervical LNs noted, Respiratory: breathing non-labored, and no grunting/flaring/retractions, Chest: equal chest rise with normal respiratory effort, Abdomen: flat appearing. Visible protrusions or hernias: No Incisions/scars: None Areas of pain/tenderness: Denies Skin: no rash noted, Neuro: Patient seen sitting with normal appearing strength and coordination. No focal motor deficits. Psych: Appropriate mood and interaction Most recent labs: CBC: WBC (k/uL) Date Value 12/22/2023 5.02 Hematocrit (%) Date Value 12/22/2023 38.4 MCV (fL) Date Value 12/22/2023 96.2 Platelet Count (k/uL) Date Value 12/22/2023 198 Lymphocytes % (%) Date Value 12/22/2023 37.1 Hepatic Function Panel: Albumin (g/dL) Date Value 12/22/2023 4.5 Bilirubin, Total (mg/dL) Date Value 12/22/2023 0.7 Alkaline Phosphatase (U/L) Date Value 12/22/2023 84 AST (U/L) Date Value 12/22/2023 20 ALT (U/L) Date Value 12/22/2023 21 Protein, Total (g/dL) Date Value 12/22/2023 7.1 CRP: CRP Date Value Ref Range Status 09/18/2023 <0.3 <0.9 mg/dL Final No results found for: QTBGOLD No results found for: HRINTP No results found for: TBTEST No results found for: PTMPT No results found for: FOLATE Vitamin B12 Date Value Ref Range Status 12/04/2020 1,001 232 - 1,245 pg/mL Final Iron Date Value Ref Range Status 12/04/2020 42 41 - 186 ug/dL Final TIBC Date Value Ref Range Status 12/04/2020 268 232 - 386 ug/dL Final Vitamin D 25 Hydroxy Date Value Ref Range Status 12/04/2020 37.4 31.0 - 80.0 ng/mL Final Comment: Classification of 25 OH Vitamin D status: Insufficiency/Moderate Deficiency: < or = 30 ng/mL Sufficiency/Optimal Levels: 31 to 80 ng/mL Toxicity: > 100 ng/mL Test performed by chemiluminescent immunoassay. Last Endoscopy: Colonoscopy 09/08/2023 Impression: - The examined portion of the ileum was normal. - Severe (Nielson Score 3) ulcerative colitis. Biopsied. - The rectum, sigmoid colon and descending colon are normal. Biopsied. - Did not retroflex in the rectum. FINAL DIAGNOSIS A. Colon, right, biopsy: -Chronic mildly active colitis. -Negative for dysplasia and granuloma. B. Colon, transverse, biopsy: -Chronic moderately active colitis. -Negative for dysplasia and granuloma. C. Colon, descending, biopsy: -Mildly active colitis with focal paneth cell metaplasia. -Negative for dysplasia and granuloma. D. Rectum, biopsy: -Colonic mucosa with no diagnostic abnormality. Assessment IMPRESSION (as copied and updated from my / note and reflects medical decision making today): 29-year-old female with a history of ulcerative proctitis diagnosed in 2011 treated with mesalamine's. Earlier in 2023 developed a severe flare and was found to have Nielson 3 colitis and started on infliximab along with Imuran. She presents today as a routine virtual follow-up at Orth[facility] extremely well 1 bowel the day no blood no urgency no incontinence tolerating diet weight is stable. No nausea bloating. No extraintestinal manifestations. Still has some hair loss but overall health is good. Continues to be on infliximab along with azathioprine. For now we will plan routine blood work fecal calprotectin we will continue her current regimen. She did ask about getting and I do think that at this time she is in remission and would be a good time to try to get but I would prefer if we can get her in for a colonoscopy sooner to fully evaluate. Will plan follow-up in 6 months unless needed sooner. PLAN Routine labs Fecal kamari Continue infliximab and Imuran Colonoscopy to fully reassess disease and response to treatment in the near future Plan follow-up in 6 months unless needed sooner I did discuss that I prefer if we scoped her before she tried to get to fully ensure that she is in deep remission Medical Decision Making: Problems: Low: Stable chronic illness Data: Unique test result(s) reviewed: 2 Unique test(s) ordered: 2 Risk: Moderate: Moderate risk from testing/treatment Medical Decision Making Level: 4 - Moderate I spent 20 minutes in the virtual visit, with more than 50% of the total [id number] time of the visit in counseling / coordination of care. I have confirmed and edited as necessary, the PFSH and ROS obtained by others. I will communicate my recommendations and prescriptions to the patient's primary care provider. Unrelated to E/M, telemedicine, or virtual visit service provided within previous 7 days. No E/M service or procedure anticipated within next 24 hours. I have communicated my name and active licensure. The patient's identity and physical location were verified at the time of this visit. Either the patient or their legal direct marketing representative has been informed of the risks and benefits of -- and alternatives to -- treatment through a remote evaluation and consents to proceed with the evaluation remotely. Miriam Mason PA-C May 05, 2024 4:43 PM documented in this encounter [facility] 04-29-2024 Telephone encounter Note Requested Prescriptions Pending Prescriptions Disp Refills azaTHIOprine (IMURAN) 50 mg tablet 270 tablet 1 Sig: Take 3 tablets by mouth once daily. Received call from patient requesting the prescription be sent to [facility] pharmacy Last visit: 12/29/23 PLAN Continue IFX Continue Imuran Stop lialda decrease to 2 pills now and after 7-10 days if no new symptoms stop Labs per protocol Zinc level Fecal kamari Follow up in 3 months unless needed sooner Plan colonoscopy 6-12 months from starting IFX Will check IFX level and thiopurine metabolites in 6-12 months Next visit: 05/05/24 Last Labs: 12/22/23 Sangita Haro LPN [facility] 04-29-2024 Miscellaneous Notes Requested Prescriptions Pending Prescriptions Disp Refills azaTHIOprine (IMURAN) 50 mg tablet 270 tablet 1 Sig: Take 3 tablets by mouth once daily. Received call from patient requesting the prescription be sent to [facility] pharmacy Last visit: 12/29/23 PLAN Continue IFX Continue Imuran Stop lialda decrease to 2 pills now and after 7-10 days if no new symptoms stop Labs per protocol Zinc level Fecal kamari Follow up in 3 months unless needed sooner Plan colonoscopy 6-12 months from starting IFX Will check IFX level and thiopurine metabolites in 6-12 months Next visit: 05/05/24 Last Labs: 12/22/23 Sangita Haro LPN documented in this encounter [facility] 02-19-2024 Note HNO ID: [id number] Author: JAYNA SHAVER RN Service: ? Author Type: Registered Nurse Type: Progress Notes Filed: 02/19/2024 11:29 Note Text: Pt stated she had to leave for work. Medication not ready at this time. Pt to reschedule. Jayna Shaver RN [facility] 02-19-2024 History of Presen t illness Narrative Pt stated she had to leave for work. Medication not ready at this time. Pt to reschedule. Jayna Shaver RN documented in this encounter [facility] 12-29-2023 Instructions Miriam Mason PA-C - 12/29/2023 8:55 AM EDT Continue IFX Continue Imuran Stop lialda decrease to 2 pills now and after 7-10 days if no new symptoms stop Labs per protocol Zinc level Fecal kamari Follow up in 3 months unless needed sooner Plan colonoscopy 6-12 months from starting IFX Will check IFX level and thiopurine metabolites in 6-12 months documented in this encounter [facility] 12-29-2023 Note HNO ID: [id number] Author: LB RUTLEDGE Research Coordinator Service: ? Author Type: Research Type: Progress Notes Filed: 12/29/2023 08:50 Note Text: INFORMED CONSENT STUDY TITLE: JOAN: Cohort for Healing Arthritis, Skin, and Eye Extra-Intesetinal Manifestations IRB NO.: [id number] RESTAURANT BARTENDER: Laurie Caldwell MD STUDY COORDINATORS: Lb Rutledge / [email or web address] Sarbjit Dodson / [email or web address] Prior to consent discussion, Joelle Hendricks's medical record was reviewed for pre-screening activities, including participation in other research studies. Patient was approached as a control for the study, and confirmed no joint pain. The study was verbally discussed with the patient, including the risks, benefits and alternatives. Study requirements AND follow-up procedures were reviewed, and the importance of follow-up compliance was stressed. Patient expressed full understanding of the research study AND all terms of the informed consent document. All questions were addressed AND answered. Patient signed the informed consent document on 12/29/2023, prior to beginning the research study [facility] 12-29-2023 History of Presen t illness Narrative INFORMED CONSENT STUDY TITLE: JOAN: Cohort for Healing Arthritis, Skin, and Eye Extra-Intesetinal Manifestations IRB NO.: [id number] RESTAURANT BARTENDER: Laurie Caldwell MD STUDY COORDINATORS: Lb Rutledge / [email or web address] Sarbjit Dodson / [email or web address] Prior to consent discussion, Joelle Hendricks's medical record was reviewed for pre-screening activities, including participation in other research studies. Patient was approached as a control for the study, and confirmed no joint pain. The study was verbally discussed with the patient, including the risks, benefits and alternatives. Study requirements & follow-up procedures were reviewed, and the importance of follow-up compliance was stressed. Patient expressed full understanding of the research study & all terms of the informed consent document. All questions were addressed & answered. Patient signed the informed consent document on 12/29/2023, prior to beginning the research study documented in this encounter [facility] 12-29-2023 Note HNO ID: [id number] Author: MIRIAM MASON PA-C Service: ? Author Type: Physician Blower Mechanic Type: Progress Notes Filed: 12/29/2023 12:28 Note Text: .Follow Up Visit SUBJECTIVE 28 year old female with ulcerative colitis here for follow-up. Last seen 09/17/2023. Changes and test results since last visit: Overall doing better 1 BM daily no blood no pain no urgency. Tolerating diet weight is stable (did gain on Prednisone) Imuran 3 taking IFX last dose 12/14 last of 3 induction doses Lialda 4 tabs daily No EIMs overall health is good. Good energy level CBC: WBC (k/uL) Date Value 12/22/2023 5.02 Hematocrit (%) Date Value 12/22/2023 38.4 MCV (fL) Date Value 12/22/2023 96.2 Platelet Count (k/uL) Date Value 12/22/2023 198 Lymphocytes % (%) Date Value 12/22/2023 37.1 Hepatic Function Panel: Albumin (g/dL) Date Value 12/22/2023 4.5 Bilirubin, Total (mg/dL) Date Value 12/22/2023 0.7 Alkaline Phosphatase (U/L) Date Value 12/22/2023 84 AST (U/L) Date Value 12/22/2023 20 ALT (U/L) Date Value 12/22/2023 21 Protein, Total (g/dL) Date Value 12/22/2023 7.1 Current Clinical Symptoms # of bowel movements daily: 1 Consistency: soft, formed Bloody bowel movements: no Urgency: no Abdominal pain: no Abdominal distention: no Nausea/vomiting: no Weight loss over last 3 months: no General well-being: very well Current Outpatient Medications Medication Sig Dispense Refill azaTHIOprine (IMURAN) 50 mg tablet Take 3 tablets by mouth once daily. 270 tablet 1 Mesalamine (LIALDA) 1.2 gram EC tablet Take 4 tablets by mouth once daily. 360 tablet 2 PNV WITHOUT CA NO.9/IRON/FA ( VIT NO.9-IRON-FA ORAL) Take by mouth. predniSONE (DELTASONE) 5 mg tablet You have a total of 336 prednisone 5mg pills. Take 60mg prednisone (12 tabs) daily for 7 days, then 40mg daily for 7 days and reduce dose by 5mg per week (35mg-> 30mg -> 25mg, etc.), then stop 336 tablet 0 methylPREDNISolone (MEDROL) 4 mg Take 1 tablet by mouth once daily. 2 tablet 0 No current facility-administered medications for this visit. ALLERGIES Allergen Reactions Penicillin Other: See Comments Makes pt hyper PHYSICAL EXAMINATION Ht 5' 7 (1.70m) Wt 191 lb (86.6kg) BMI 29.91 kg/(m2). General Appearance: alert, oriented x 3, pleasant and in no acute distress Heart:regular rate and rhythm, no murmurs or gallops Abdomen: Not distended. Normal bowel sounds. Soft and non-tender. No masses or organomegaly. Skin: no rashes or lesions Lymph:No cervical, axillary, supraclavicular, or inguinal adenopathy. Assessment IMPRESSION Ms. Hendricks, is a 28-year-old female with a history of ulcerative proctitis diagnosed in 2011 treated with mesalamine's. 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 She presents today as a routine office follow-up. Overall feeling much better 1 bowel daily no blood no pain or urgency. Tolerating diet weight stable. Has been on infliximab and Imuran has noted some hair loss and cracking nails. Will get blood work per protocol as well as a couple. Of note her most recent liver enzymes normalized. Will check a fecal calprotectin and have her follow-up in 3 months unless needed sooner. Will plan for colonoscopy 6 to 12 months and will check both infliximab level and thiopurine metabolites in 6 to 12 months and assess to possibly stop azathioprine. Physician Global Assessment of Disease Activity: normal PLAN Continue IFX Continue Imuran Stop lialda decrease to 2 pills now and after 7-10 days if no new symptoms stop Labs per protocol Zinc level Fecal kamari Follow up in 3 months unless needed sooner Plan colonoscopy 6-12 months from starting IFX Will check IFX level and thiopurine metabolites in 6-12 months I spent a total of 30 minutes on the date of the service which included preparing to see the patient, [id number] patient care, completing clinical documentation, obtaining and/or reviewing separately obtained history, performing a medically appropriate examination, counseling and educating the patient/family/caregiver, and ordering medications, tests, or procedures. Miriam Mason PA-C December 29, 2023 8:44 AM [facility] 12-29-2023 History of Presen t illness Narrative .Follow Up Visit SUBJECTIVE 28 year old female with ulcerative colitis here for follow-up. Last seen 09/17/2023. Changes and test results since last visit: Overall doing better 1 BM daily no blood no pain no urgency. Tolerating diet weight is stable (did gain on Prednisone) Imuran 3 taking IFX last dose 12/14 last of 3 induction doses Lialda 4 tabs daily No EIMs overall health is good. Good energy level CBC: WBC (k/uL) Date Value 12/22/2023 5.02 Hematocrit (%) Date Value 12/22/2023 38.4 MCV (fL) Date Value 12/22/2023 96.2 Platelet Count (k/uL) Date Value 12/22/2023 198 Lymphocytes % (%) Date Value 12/22/2023 37.1 Hepatic Function Panel: Albumin (g/dL) Date Value 12/22/2023 4.5 Bilirubin, Total (mg/dL) Date Value 12/22/2023 0.7 Alkaline Phosphatase (U/L) Date Value 12/22/2023 84 AST (U/L) Date Value 12/22/2023 20 ALT (U/L) Date Value 12/22/2023 21 Protein, Total (g/dL) Date Value 12/22/2023 7.1 Current Clinical Symptoms # of bowel movements daily: 1 Consistency: soft, formed Bloody bowel movements: no Urgency: no Abdominal pain: no Abdominal distention: no Nausea/vomiting: no Weight loss over last 3 months: no General well-being: very well Current Outpatient Medications Medication Sig Dispense Refill azaTHIOprine (IMURAN) 50 mg tablet Take 3 tablets by mouth once daily. 270 tablet 1 Mesalamine (LIALDA) 1.2 gram EC tablet Take 4 tablets by mouth once daily. 360 tablet 2 PNV WITHOUT CA NO.9/IRON/FA ( VIT NO.9-IRON-FA ORAL) Take by mouth. predniSONE (DELTASONE) 5 mg tablet You have a total of 336 prednisone 5mg pills. Take 60mg prednisone (12 tabs) daily for 7 days, then 40mg daily for 7 days and reduce dose by 5mg per week (35mg-> 30mg -> 25mg, etc.), then stop 336 tablet 0 methylPREDNISolone (MEDROL) 4 mg Take 1 tablet by mouth once daily. 2 tablet 0 No current facility-administered medications for this visit. ALLERGIES Allergen Reactions Penicillin Other: See Comments Makes pt hyper PHYSICAL EXAMINATION Ht 5' 7 (1.70m) Wt 191 lb (86.6kg) BMI 29.91 kg/(m^2). General Appearance: alert, oriented x 3, pleasant and in no acute distress Heart:regular rate and rhythm, no murmurs or gallops Abdomen: Not distended. Normal bowel sounds. Soft and non-tender. No masses or organomegaly. Skin: no rashes or lesions Lymph:No cervical, axillary, supraclavicular, or inguinal adenopathy. Assessment IMPRESSION Ms. Hendricks, is a 28-year-old female with a history of ulcerative proctitis diagnosed in 2011 treated with mesalamine's. 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 She presents today as a routine office follow-up. Overall feeling much better 1 bowel daily no blood no pain or urgency. Tolerating diet weight stable. Has been on infliximab and Imuran has noted some hair loss and cracking nails. Will get blood work per protocol as well as a couple. Of note her most recent liver enzymes normalized. Will check a fecal calprotectin and have her follow-up in 3 months unless needed sooner. Will plan for colonoscopy 6 to 12 months and will check both infliximab level and thiopurine metabolites in 6 to 12 months and assess to possibly stop azathioprine. Physician Global Assessment of Disease Activity: normal PLAN Continue IFX Continue Imuran Stop lialda decrease to 2 pills now and after 7-10 days if no new symptoms stop Labs per protocol Zinc level Fecal kamari Follow up in 3 months unless needed sooner Plan colonoscopy 6-12 months from starting IFX Will check IFX level and thiopurine metabolites in 6-12 months I spent a total of 30 minutes on the date of the service which included preparing to see the patient, [id number] patient care, completing clinical documentation, obtaining and/or reviewing separately obtained history, performing a medically appropriate examination, counseling and educating the patient/family/caregiver, and ordering medications, tests, or procedures. Miriam Mason PA-C December 29, 2023 8:44 AM documented in this encounter [facility] 12-16-2023 Telephone encounter Note Received call from patient assisted with scheduling appointment in person 12/29/23 8:30 am. Sangita Haro LPN [facility] 12-16-2023 Miscellaneous Notes Received call from patient assisted with scheduling appointment in person 12/29/23 8:30 am. Sangita Haro LPN Images from the original note were not included. Nia Dimas APRN.TEACHER OF FAMILY [employer]ER [employer]ENCE You1 hour ago (12:57 PM) JA Please let her know to schedule follow up with Miriam soonest opening to see how she is doing & discuss plan, and she can start hair skin & nails supplement in the mean time. Sangita Haro LPN Requested Prescriptions Pending Prescriptions Disp Refills azaTHIOprine (IMURAN) 50 mg tablet 270 tablet 1 Sig: Take 3 tablets by mouth once daily. Pended for 90 day supply as requested. Last visit: 09/17/23 PLAN Plan to initiate IFX wilber Pre biologic labs Follow up after 3rd dose Consult to IBD pharmacist Consult to IBD nutrition Next visit: not yet scheduled Last Labs: 12/08/23 Sangita Haro LPN documented in this encounter [facility] 12-16-2023 Telephone encounter Note Images from the original note were not included. Nia Dimas APRN.TE[employer]ER [employer] FAMILY [employer] You1 hour ago (12:57 PM) JA Please let her know to schedule follow up with Miriam soonest opening to see how she is doing & discuss plan, and she can start hair skin & nails supplement in the mean time. Sangita Haro LPN [facility] 12-16-2023 Telephone encounter Note Requested Prescriptions Pending Prescriptions Disp Refills azaTHIOprine (IMURAN) 50 mg tablet 270 tablet 1 Sig: Take 3 tablets by mouth once daily. Pended for 90 day supply as requested. Last visit: 09/17/23 PLAN Plan to initiate IFX wilber Pre biologic labs Follow up after 3rd dose Consult to IBD pharmacist Consult to IBD nutrition Next visit: not yet scheduled Last Labs: 12/08/23 Sangita Haro LPN [facility] 11-28-2023 Miscellaneous Notes Addended by: EMANUEL RÍOS on: 11/28/2023 11:21 AM Modules accepted: Orders documented in this encounter [facility] 11-28-2023 Note Addended by: Felicia RÍOS on: 11/28/2023 11:21 AM Modules accepted: Orders [facility] 10-21-2023 Telephone encounter Note Scheduled with patient. 4 cycles scheduled Start email sent [facility] Work Phone: 10-21-2023 Miscellaneous Notes Scheduled with patient. 4 cycles scheduled Start email sent Patient referred to [facility] for remicade. Dr. Caldwell referring. Please review and advise. documented in this encounter [facility] 10-21-2023 Telephone encounter Note Patient referred to [facility] for remicade. Dr. Caldwell referring. Please review and advise. [facility] 10-14-2023 Telephone encounter Note Images from the original note were not included. Follow up of prior auth referral TPMT order pended in orders only encounter 10/14/23 per verbal conversation w Miriam Haro LPN [facility] 10-14-2023 Miscellaneous Notes Images from the original note were not included. Follow up of prior auth referral TPMT order pended in orders only encounter 10/14/23 per verbal conversation w Miriam Haro LPN Follow up of prior auth, chart inspection Auth/Cert Note 10/06/2023 8:27 AM [facility] T[facility] - - Note: === PHARMACY TEAM ==== CASE STATUS CHECK Date of Service: [facility] Payor: Nasrin Restrepo Follow up by phone Phone # Called / Insurance Rep Name / Ref #: [id number] / Ronnell Calderon / Ronnell Calderon 10/06/2023 [place] # for Call: NA Outcome: pending case # : [id number] Estimated Time for Outcome: 8-10 business days Sangita Haro LPN Received return call from patient who chose [facility] as her infusion location for IFX. Therapy plan pended for [facility], please advise. Sangita Haro LPN Images from the original note were not included. Miriam Mason PA-C Rieder, Florian, MD; Sangita Haro LPN Dr. Rieder I feel that due to her severe disease despite high-dose prednisone infliximab would make the most sense and she is agreeable. Just wanted to make sure you agree with this plan. Sangita can you please help me arrange infliximab Miriam Mason PA-C Called patient unable to reach left [facility] for return call to . Sangita Haro LPN documented in this encounter [facility] 10-09-2023 Telephone encounter Note Follow up of prior auth, chart inspection Auth/Cert Note 10/06/2023 8:27 AM [facility] Til[facility] - - Note: === PHARMACY TEAM ==== CASE STATUS CHECK Date of Service: [facility] Payor: Nasrin Restrepo Follow up by phone Phone # Called / Insurance Rep Name / Ref #: [id number] / Ronnell Calderon / Ronnell Calderon 10/06/2023 [place] # for Call: NA Outcome: pending case # : [id number] Estimated Time for Outcome: 8-10 business days Sangita Haro LPN [facility] 09-22-2023 History of Presen t illness Narrative . documented in this encounter [facility] 09-22-2023 Telephone encounter Note Received return call from patient who chose [facility] as her infusion location for IFX. Therapy plan pended for [facility], please advise. Sangita Haro LPN [facility] 09-22-2023 Telephone encounter Note Images from the original note were not included. Miriam Mason PA-C Rieder, Florian, MD; Sangita Haro LPN Dr. Rieder I feel that due to her severe disease despite high-dose prednisone infliximab would make the most sense and she is agreeable. Just wanted to make sure you agree with this plan. Sangita can you please help me arrange infliximab Miriam Mason PA-C Called patient unable to reach left voicemail for return call to . Sangita Haro LPN [facility] 09-17-2023 History of Presen t illness Narrative Virtual Follow Up Visit Provider Location: Non-[facility] Facility Patient Location: Patient Home or Place of Residence CAREY Hendricks [id number] 1995 has requested a video telemedicine for follow up of ulcerative colitis. Last seen 07/23/2023. IBD History (copied and updated from my prior notes) Ms. Hendricks, is a 28-year-old female with a history of ulcerative proctitis diagnosed in 2011 treated with mesalamine's. Changes and test results since last visit: Now feeling well. No blood. Now with BM every 2-3 days. No more abdominal pain. Tolerating diet did loose around 10 lbs prior to starting prednisone Currently on Prednisone with taper. Current Clinical Symptoms # of bowel movements daily: Missing days Consistency: soft, formed Bloody bowel movements: no Urgency: no Abdominal pain: no Abdominal distention: no Nausea/vomiting: no Weight loss over last 3 months: no Diagnosis Ulcerative Colitis: Phenotype Extent: left sided Severity: Moderate Prior Medications/Dates/Reason for Switch Surgery: No: Systemic steroids last year: No Enteric or rectal steroids last year: No Systemic 5-ASA: Currently on mesalamine Local 5-ASA: Was on [facility] Thiopurines: No Methotrexate: No Biologics: no Small molecules: No Current Medications Lialda Labs TB Status: Unknown Hepatitis B Status: Unknown TPMT: Unknown Vaccines if on biologic therapy (Instructed to avoid live vaccines): Immunization History Administered Date(s) Administered hepatitis B (HepB) vaccine, 3-dose series, age 0 yr - 19 yr (ENGERIX B-PEDS, RECOMBIVAX HB-PEDS) 1995 1995 1995 tetanus diphtheria pertussis (Tdap) vaccine, age 7+ yr (ADACEL, BOOSTRIX) 12/20/2016 Current Outpatient Medications Medication Sig Dispense Refill predniSONE (DELTASONE) 5 mg tablet You have a total of 336 prednisone 5mg pills. Take 60mg prednisone (12 tabs) daily for 7 days, then 40mg daily for 7 days and reduce dose by 5mg per week (35mg-> 30mg -> 25mg, etc.), then stop 336 tablet 0 methylPREDNISolone (MEDROL) 4 mg Take 1 tablet by mouth once daily. 2 tablet 0 Mesalamine (LIALDA) 1.2 gram EC tablet Take 4 tablets by mouth once daily. 360 tablet 2 PNV WITHOUT CA NO.9/IRON/FA ( VIT NO.9-IRON-FA ORAL) Take by mouth. No current facility-administered medications for this visit. ALLERGIES Allergen Reactions Penicillin Other: See Comments Makes pt hyper PAST SURGICAL HISTORY Procedure Laterality Date MIDLINE INSERTION/CONSULT 04/01/2016 TONSILLECTOMY AND ADENOIDECTOMY HX Review of Systems: GENERAL:No weight loss, malaise or fevers HEENT:Negative for frequent or significant headaches, No changes in hearing or vision, no nose bleeds or other nasal problems NECK:Negative for lumps, goiter, pain and significant neck swelling RESPIRATORY: Negative for cough, hemoptysis, wheezing, COPD, dyspnea or shortness of breath CARDIOVASCULAR: Negative for chest pain, leg swelling, hypertension, CHF or palpitations GASTROINTESTINAL: See HPI GENITOURINARY: No history of dysuria, frequency or incontinence GRAPHIC DESIGN ASSISTANT: Negative for abnormal vaginal bleeding, abnormal vaginal discharge MUSCULOSKELETAL: Negative for joint pain or swelling, back pain or muscle pain NEUROLOGIC:Negative for focal numbness or weakness, headaches and dizziness or syncope. SKIN:Negative for lesions, rash, and itching PSYCHIATRIC: Negative for sleep disturbance, mood disorder and recent psychosocial stressors. HEMATOLOGIC/LYMPHATIC/IMMUNOLOGI C:Negative for prolonged bleeding, bruising easily or swollen nodes ENDOCRINE: Negative for cold or heat intolerance, polyuria, polydipsia and goiter The remainder of the ROS was negative. PHYSICAL EXAMINATION General: alert and appropriate, in no distress and well-hydrated, well nourished, Head: normocephalic, no abnormality or lesion noted, Eyes: visual acuity is grossly normal, no injection,, and EOMI, Oropharynx: moist mucus membranes, no tonsillar hypertrophy/exudate, uvula midline and pharynx non-erythematous, lips, teeth and gums are without obvious lesion, Neck: full ROM, no cervical LNs noted, Respiratory: breathing non-labored, and no grunting/flaring/retractions, Chest: equal chest rise with normal respiratory effort, Abdomen: flat appearing. Visible protrusions or hernias: No Incisions/scars: None Areas of pain/tenderness: Denies Skin: no rash noted, Neuro: Patient seen sitting with normal appearing strength and coordination. No focal motor deficits. Psych: Appropriate mood and interaction Most recent labs: CBC: WBC (k/uL) Date Value 08/30/2023 9.24 Hematocrit (%) Date Value 08/30/2023 41.4 MCV (fL) Date Value 08/30/2023 97.4 Platelet Count (k/uL) Date Value 08/30/2023 240 Lymphocytes % (%) Date Value 08/30/2023 18.5 Hepatic Function Panel: Albumin (g/dL) Date Value 08/30/2023 4.4 Bilirubin, Total (mg/dL) Date Value 08/30/2023 0.8 Alkaline Phosphatase (U/L) Date Value 08/30/2023 148 (H) AST (U/L) Date Value 08/30/2023 13 ALT (U/L) Date Value 08/30/2023 12 Protein, Total (g/dL) Date Value 08/30/2023 7.6 CRP: CRP Date Value Ref Range Status 12/04/2020 3.6 (H) <0.9 mg/dL Final No results found for: QTBGOLD No results found for: HRINTP No results found for: TBTEST No results found for: PTMPT No results found for: FOLATE Vitamin B12 Date Value Ref Range Status 12/04/2020 1,001 232 - 1,245 pg/mL Final Iron Date Value Ref Range Status 12/04/2020 42 41 - 186 ug/dL Final TIBC Date Value Ref Range Status 12/04/2020 268 232 - 386 ug/dL Final Vitamin D 25 Hydroxy Date Value Ref Range Status 12/04/2020 37.4 31.0 - 80.0 ng/mL Final Comment: Classification of 25 OH Vitamin D status: Insufficiency/Moderate Deficiency: < or = 30 ng/mL Sufficiency/Optimal Levels: 31 to 80 ng/mL Toxicity: > 100 ng/mL Test performed by chemiluminescent immunoassay. Last Endoscopy: Colonoscopy 09/08/2023 Impression: - The examined portion of the ileum was normal. - Severe (Nielson Score 3) ulcerative colitis. Biopsied. - The rectum, sigmoid colon and descending colon are normal. Biopsied. - Did not retroflex in the rectum. Pathology: FINAL DIAGNOSIS A. Colon, right, biopsy: -Chronic mildly active colitis. -Negative for dysplasia and granuloma. B. Colon, transverse, biopsy: -Chronic moderately active colitis. -Negative for dysplasia and granuloma. C. Colon, descending, biopsy: -Mildly active colitis with focal paneth cell metaplasia. -Negative for dysplasia and granuloma. D. Rectum, biopsy: -Colonic mucosa with no diagnostic abnormality. Assessment IMPRESSION (as copied and updated from my / note and reflects medical decision making today): 28-year-old female with a history of ulcerative proctitis diagnosed in 2011 treated with mesalamine's. She presents today as a post endoscopy virtual follow-up. Overall feeling a little better now missing days denies abdominal pain tolerating diet currently on prednisone with taper but did lose about 10 pounds prior to starting taper per. Recent colonoscopy on September 07 with Nielson 3 severe colitis. We had a long discussion about medical options and discussed the need to escalate to a biologic. As she has progressed rapidly and the scope was done while on high-dose prednisone and continues to show severe inflammation I discussed that I think the best option would be to start infliximab WILBER. Will plan to have her see our IBD pharmacist as well as IBD loft worker head will plan for prebiologic blood work and will plan to follow-up with drug level prior to third infusion to help with optimization should this be necessary. Will plan follow-up after 3 infusions with repeat labs fecal Kamari and plan to repeat colonoscopy in 6 to 12 months. I will discuss with Dr. Caldwell. PLAN Plan to initiate IFX wilber Pre biologic labs Follow up after 3rd dose Consult to IBD pharmacist Consult to IBD nutrition I spent 30 minutes in the virtual visit, with more than 50% of the total [id number] time of the visit in counseling / coordination of care. I have confirmed and edited as necessary, the PFSH and ROS obtained by others. I will communicate my recommendations and prescriptions to the patient's primary care provider. Unrelated to E/M, telemedicine, or virtual visit service provided within previous 7 days. No E/M service or procedure anticipated within next 24 hours. I have communicated my name and active licensure. The patient's identity and physical location were verified at the time of this visit. Either the patient or their legal direct marketing representative has been informed of the risks and benefits of -- and alternatives to -- treatment through a remote evaluation and consents to proceed with the evaluation remotely. Miriam Mason PA-C September 17, 2023 10:38 AM documented in this encounter [facility] 09-08-2023 Nurse Note AMBULATORY PATIENT EDUCATION NOTE TOPIC: GI PROCEDURES: Colonoscopy with or without biopsies based on clinical findings READINESS TO LEARN INSTRUCTION PROVIDED TO: Patient, readness to learn accessed prior to procedure, Family member, and Patient and family member COGNITIVE ABILITY: Alert and oriented PTED MOTIVATION TO LEARN: Interested FAMILY SUPPORT: None - Unavailable/disinterested IPATIENT LEARNS BEST BY: Individual Instruction Written Instruction - Hand-outs Verbal Instruction FACTORS AFFECTING LEARNING: None PHYSICAL LIMITATIONS AFFECTING LEARNING: None LEARNING RESPONSE METHOD OF INSTRUCTION: Individual instruction PATIENT / FAMILY RESPONSE: Verbalizes understanding of: WORSENING CONDITION-Signs and symptoms of a worsening condition that warrant a call to the physician FOLLOW-UP PLAN: Complete - No need for follow-up SUPPLEMENTAL MATERIAL: Procedure Discharge Instructions REFERRAL (RECOMMENDATION): None [facility] 09-08-2023 Nurse Note AMBULATORY PATIENT EDUCATION NOTE TOPIC: GI PROCEDURES: Colonoscopy with or without biopsies based on clinical findings READINESS TO LEARN INSTRUCTION PROVIDED TO: Patient, readness to learn accessed prior to procedure, Family member, and Patient and family member COGNITIVE ABILITY: Alert and oriented PTED MOTIVATION TO LEARN: Interested FAMILY SUPPORT: None - Unavailable/disinterested IPATIENT LEARNS BEST BY: Individual Instruction Written Instruction - Hand-outs Verbal Instruction FACTORS AFFECTING LEARNING: None PHYSICAL LIMITATIONS AFFECTING LEARNING: None LEARNING RESPONSE METHOD OF INSTRUCTION: Individual instruction PATIENT / FAMILY RESPONSE: Verbalizes understanding of: WORSENING CONDITION-Signs and symptoms of a worsening condition that warrant a call to the physician FOLLOW-UP PLAN: Complete - No need for follow-up SUPPLEMENTAL MATERIAL: Procedure Discharge Instructions REFERRAL (RECOMMENDATION): None PRE OP LEARNING ASSESSMENT PROCEDURE/SURGERY: GI PROCEDURES: Colonoscopy READINESS TO LEARN COGNITIVE ABILITY: Alert and oriented MOTIVATION TO LEARN: Interested FAMILY SUPPORT: High - Very involved in pt care PATIENT LEARNS BEST BY: Individual Instruction Verbal Instruction FACTORS AFFECTING LEARNING: None PHYSICAL LIMITATIONS AFFECTING LEARNING: None Electronically Signed By: Nat Simon RN In Department: GASTROENTEROLOGY documented in this encounter [facility] 09-08-2023 History and physical note UPDATED PROCEDURAL SEDATION HISTORY AND PHYSICAL EXAMINATION SERVICE DATE: 09/08/2023 SERVICE TIME: 2:23 PM PHYSICAL EXAM MUST BE COMPLETED ON ADMISSION PROCEDURE: colonoscopy Procedure Indications: ulcerative colitis The History and Physical (completed in the past 30 days) has been reviewed and the patient has been examined. The contents accurately reflect the patient's condition with the following additions or revisions since the H&P was completed. ASA Class: ASA Class:: Normal healthy patient Examination indicates no changes. AIRWAY: Airway Visualization of Uvula: Yes Mouth opening greater than 2 fingerbreadths: Yes Neck Full Range of Motion: Yes LUNGS: Lungs clear to auscultation CARDIAC: Regular rhythm,Regular rate Provisional Diagnosis/Treatment Plan: Ulcerative colitis, colonoscopy SEDATION GOAL: Moderate This H&P can be found in the attached. SIGNATURE: George Peraza MD PATIENT NAME: Joelle Hendricks DATE: September 08, 2023 TIME: 2:23 PM [facility] Work Phone: 09-08-2023 History and physical note UPDATED PROCEDURAL SEDATION HISTORY AND PHYSICAL EXAMINATION SERVICE DATE: 09/08/2023 SERVICE TIME: 2:23 PM PHYSICAL EXAM MUST BE COMPLETED ON ADMISSION PROCEDURE: colonoscopy Procedure Indications: ulcerative colitis The History and Physical (completed in the past 30 days) has been reviewed and the patient has been examined. The contents accurately reflect the patient's condition with the following additions or revisions since the H&P was completed. ASA Class: ASA Class:: Normal healthy patient Examination indicates no changes. AIRWAY: Airway Visualization of Uvula: Yes Mouth opening greater than 2 fingerbreadths: Yes Neck Full Range of Motion: Yes LUNGS: Lungs clear to auscultation CARDIAC: Regular rhythm,Regular rate Provisional Diagnosis/Treatment Plan: Ulcerative colitis, colonoscopy SEDATION GOAL: Moderate This H&P can be found in the attached. SIGNATURE: George Peraza MD PATIENT NAME: Joelle Hendricks DATE: September 08, 2023 TIME: 2:23 PM documented in this encounter [facility] 09-08-2023 Nurse Note PRE OP LEARNING ASSESSMENT PROCEDURE/SURGERY: GI PROCEDURES: Colonoscopy READINESS TO LEARN COGNITIVE ABILITY: Alert and oriented MOTIVATION TO LEARN: Interested FAMILY SUPPORT: High - Very involved in pt care PATIENT LEARNS BEST BY: Individual Instruction Verbal Instruction FACTORS AFFECTING LEARNING: None PHYSICAL LIMITATIONS AFFECTING LEARNING: None Electronically Signed By: Nat Simon RN In Department: GASTROENTEROLOGY [facility] 09-01-2023 Telephone encounter Note GI Pre-Procedure Spoke with patient: Yes Confirmed date scheduled and patient report time: Yes Procedure Planned:Colonoscopy with or without biopsies based on clinical findings Is the patient on blood thinners?no Procedure Instructions given to patient: Yes, and they verbalized their understanding of instructions given Patient instructed to take prescribed preparation prior to procedure:yes Patient instructed to have family/friend present for procedure transport home:Patient/patient direct marketing representative was told that if they do not have a responsible adult accompany them to their procedure; and remain in the endoscopy area until they are discharged; that their procedure cannot be done with sedation or anesthesia and may be cancelled. and They verbalized their understanding and agree to have a responsible adult accompany the patient to their procedure and remain in the endoscopy area. Any barriers to Patient learning: Patient/Patient Encapsulator responded appropriately on phone. Type of instruction given: Verbal by telephone contact. Irma May MA [facility] 09-01-2023 Miscellaneous Notes GI Pre-Procedure Spoke with patient: Yes Confirmed date scheduled and patient report time: Yes Procedure Planned:Colonoscopy with or without biopsies based on clinical findings Is the patient on blood thinners?no Procedure Instructions given to patient: Yes, and they verbalized their understanding of instructions given Patient instructed to take prescribed preparation prior to procedure:yes Patient instructed to have family/friend present for procedure transport home:Patient/patient direct marketing representative was told that if they do not have a responsible adult accompany them to their procedure; and remain in the endoscopy area until they are discharged; that their procedure cannot be done with sedation or anesthesia and may be cancelled. and They verbalized their understanding and agree to have a responsible adult accompany the patient to their procedure and remain in the endoscopy area. Any barriers to Patient learning: Patient/Patient Encapsulator responded appropriately on phone. Type of instruction given: Verbal by telephone contact. Irma May MA documented in this encounter [facility] 09-01-2023 Telephone encounter Note Summary: Research - VOC study ([phone]) Patient answered, identity validated. No time for speaking about the study. Asked to be called back. Elisabet Barnes, PhD, RC II [facility] 09-01-2023 Miscellaneous Notes Summary: Research - VOC study ([phone]) Patient answered, identity validated. No time for speaking about the study. Asked to be called back. Elisabet Barnes, PhD, RC II documented in this encounter [facility] 08-30-2023 Telephone encounter Note Called by ED at [facility] regarding patient after hours. Patient has completed medrol dose pack and was feeling well on it but now has recurrent abdominal pain. Noted plan for scope on 09/07 but patient does not feel that she can continue with these symptoms until then. Requesting steroids. Advised that patient's IBD team has advised against prednisone in prior notes. Could consider 2-3 day course of methylpred as this was keeping patient's symptoms controlled until she hears back from her IBD team. Alternatively, if further evaluation is desired, can transfer to [facility]. [facility] Work Phone: 08-30-2023 Miscellaneous Notes Called by ED at [facility] regarding patient after hours. Patient has completed medrol dose pack and was feeling well on it but now has recurrent abdominal pain. Noted plan for scope on 09/07 but patient does not feel that she can continue with these symptoms until then. Requesting steroids. Advised that patient's IBD team has advised against prednisone in prior notes. Could consider 2-3 day course of methylpred as this was keeping patient's symptoms controlled until she hears back from her IBD team. Alternatively, if further evaluation is desired, can transfer to [facility]. documented in this encounter [facility] 08-28-2023 Telephone encounter Note Summary: Research - VOC ([phone]) Left VM asking the patient to call me back to follow up on MC message I sent. Elisabet Barnes PhD, RC II [facility] 08-28-2023 Miscellaneous Notes Summary: Research - VOC ([phone]) Left VM asking the patient to call me back to follow up on MC message I sent. Elisabet Barnes PhD, RC II documented in this encounter [facility] 08-26-2023 Telephone encounter Note Summary: Research - VOC study ([phone]) Left VM asking to the patient to call me back on my secured line to follow of on MC message. Elisabet Barnes PhD, RC II [facility] 08-26-2023 Miscellaneous Notes Summary: Research - VOC study ([phone]) Left VM asking to the patient to call me back on my secured line to follow of on MC message. Elisabet Barnes PhD, RC II documented in this encounter [facility] 07-23-2023 Instructions Miriam Mason PA-C - 07/23/2023 3:38 PM EDT Images from the original note were not included. Bowel Preparation Instructions for: Miralax-Gatorade Preparations IF YOU DO NOT FOLLOW THESE DIRECTIONS, YOUR COLONOSCOPY WILL BE CANCELLED. Oh Instructions: Your bowel must be empty so that your doctor can clearly view your colon. Follow all of the instructions in this handout EXACTLY as they are written. Do NOT eat any solid food the ENTIRE day before your colonoscopy. Buy your bowel preparation at least 5 days before your colonoscopy. Four (4) Dulcolax laxative tablets containing 5mg of bisacodyl each (NOT Dulcolax stool softener) One (1) 8.3oz. bottle Miralax (238 grams) or generic equivalent 2 x 32oz. Bottles of Gatorade (NOT RED) Diabetic Patients: Use G2 (Gatorade 2) TRANSPORTATION on the Day of Your Exam A responsible adult MUST be present with you at Check In prior to your colonoscopy and REMAIN in the endoscopy area until you are discharged. You are NOT ALLOWED to drive, take a taxi or bus, or leave the Endoscopy Center ALONE. If you do not have a responsible entry driver operator (family member or friend) with you to take you home, your exam cannot be done with sedation and will be cancelled. Please bring a list of all of your current medications, including any [id number] medications with you. Medications If you take insulin, diabetic medications or blood thinners such as Coumadin (warfarin), Plavix (clopidogrel), Ticlid (ticlopidine hydrochloride), Agrylin (anagrelide), Xarelto (Rivaroxaban), Pradaxa (Dabigatran), Eliquis (Apixaban), and Effient (Prasugrel). You MUST call the doctors who orders those medicines for instructions on altering the dosage before your colonoscopy. All other medications should be taken the day of the exam with a sip of water including ASPIRIN. Five (5) Days Before Your Colonoscopy Do NOT take medicines that stop diarrhea - such as Imodium, Kaopectate, or Pepto Bismol. Do NOT take fiber supplements - such as Metamucil, Citrucel, or Perdiem. Do NOT take products that contain iron - such as multi-vitamins (the label lists what is in the products). Three (3) Days Before Your Colonoscopy Do NOT eat high-fiber foods - such as popcorn, beans, seeds (flax, sunflower, quinoa), multigrain bread, nuts, salad/vegetables, or fresh and dried fruit. 1 Bowel Preparation Instructions for: Miralax-Gatorade Preparations One (1) Day Before Your Colonoscopy Only drink clear liquids the ENTIRE DAY before your colonoscopy. Do NOT eat any solid foods. Drink at least 8 ounces of clear liquids every hour after waking up. The clear liquids you can drink include: Clear Liquid (NO RED LIQUIDS) DO NOT DRINK Gatorade, Pedialyte or Powerade Clear broth or bouillon Coffee or tea (no milk or non-dairy creamer) Carbonated and non-carbonated soft drinks Scott-A[employer] or other fruit flavored drinks Strained fruit juices (no pulp) Jell-O, popsicles, hard candy Water Alcohol Milk or non-dairy creamers Noodles or vegetables in soup Juice with pulp Liquid you cannot see through Do not use tobacco/vaping products Mix 1/2 of Miralax bottle (119 grams) in each 32 ounces of Gatorade bottle until dissolved. Keep cool in the refrigerator. DO NOT ADD ICE. The bowel preparation solution will be consumed in two parts. Part 1 5:00 PM - Evening before your colonoscopy Take 4 Dulcolax tablets. 6 PM - Evening before your colonoscopy Drink 32 oz. of the mixed solution. Drink an 8 oz. glass of bowel preparation every 15 minutes for a total of 4 glasses. Fifteen (15) minutes later, drink an 8 oz. glass of of clear liquids every 15 minutes for a total of 2 glasses. You may continue to drink clear liquids till midnight. Part 2 On the day of your colonoscopy you may drink clear liquids up to (three) 3 hours prior to procedure. 4 1/2 hours before your colonoscopy Take another 32 oz. bottle of mixed solution. Drink an 8 oz. glass of bowel prep every 15 minutes for a total of 4 glasses. Fifteen (15) minutes later, drink an 8 oz. glass of clear liquids every 15 minutes for a total of 2 glasses. You may continue to drink clear liquids up to (three) 3 hours before your exam. 2 01/2019 documented in this encounter [facility] 07-23-2023 History of Presen t illness Narrative Virtual Follow Up Visit Provider Location: Non-[facility] Facility Patient Location: Patient Home or Place of Residence CAREY Hendricks [id number] has requested a video telemedicine for follow up of ulcerative colitis. Last seen 07/17/[address] Moreau. IBD History (copied and updated from my prior notes) Ms. Hendricks, is a 28-year-old female with a history of ulcerative proctitis diagnosed in 2011 treated with mesalamine's. Changes and test results since last visit: Overall feeling ok having some abdominal pain but not terrible. Currently no changes in stool has 1 BM every couple of days which her normal no blood. Some mild nausea tolerating diet weight is stable. Does note that fresh vegetables cause symptoms and did eat a lot of carrots. Lialda daily Not using Canasa No EIMs.good energy level Current Clinical Symptoms # of bowel movements daily: 1 every few days Consistency: soft, formed Bloody bowel movements: no Urgency: no Abdominal pain: yes Abdominal distention: no Nausea/vomiting: no Weight loss over last 3 months: no Diagnosis Ulcerative Colitis: Phenotype Extent: left sided Severity: Moderate Prior Medications/Dates/Reason for Switch Surgery: No: Systemic steroids last year: No Enteric or rectal steroids last year: No Systemic 5-ASA: Currently on mesalamine Local 5-ASA: Was on Canasa Thiopurines: No Methotrexate: No Biologics: no Small molecules: No Current Medications Lialda Labs TB Status: Unknown Hepatitis B Status: Unknown TPMT: Unknown Vaccines if on biologic therapy (Instructed to avoid live vaccines): Immunization History Administered Date(s) Administered hepatitis B (HepB) vaccine, 3-dose series, age 0 yr - 19 yr (ENGERIX B-PEDS, RECOMBIVAX HB-PEDS) 1995 1995 1995 tetanus diphtheria pertussis (Tdap) vaccine, age 7+ yr (ADACEL, BOOSTRIX) 12/20/2016 Current Outpatient Medications Medication Sig Dispense Refill Mesalamine (LIALDA) 1.2 gram EC tablet Take 4 tablets by mouth once daily. 360 tablet 2 PNV WITHOUT CA NO.9/IRON/FA ( VIT NO.9-IRON-FA ORAL) Take by mouth. No current facility-administered medications for this visit. ALLERGIES Allergen Reactions Penicillin Other: See Comments Makes pt hyper PAST SURGICAL HISTORY Procedure Laterality Date MIDLINE INSERTION/CONSULT 04/01/2016 TONSILLECTOMY AND ADENOIDECTOMY HX Review of Systems: GENERAL:No weight loss, malaise or fevers HEENT:Negative for frequent or significant headaches, No changes in hearing or vision, no nose bleeds or other nasal problems NECK:Negative for lumps, goiter, pain and significant neck swelling RESPIRATORY: Negative for cough, hemoptysis, wheezing, COPD, dyspnea or shortness of breath CARDIOVASCULAR: Negative for chest pain, leg swelling, hypertension, CHF or palpitations GASTROINTESTINAL: See HPI GENITOURINARY: No history of dysuria, frequency or incontinence GRAPHIC DESIGN ASSISTANT: Negative for abnormal vaginal bleeding, abnormal vaginal discharge MUSCULOSKELETAL: Negative for joint pain or swelling, back pain or muscle pain NEUROLOGIC:Negative for focal numbness or weakness, headaches and dizziness or syncope. SKIN:Negative for lesions, rash, and itching PSYCHIATRIC: Negative for sleep disturbance, mood disorder and recent psychosocial stressors. HEMATOLOGIC/LYMPHATIC/IMMUNOLOGI C:Negative for prolonged bleeding, bruising easily or swollen nodes ENDOCRINE: Negative for cold or heat intolerance, polyuria, polydipsia and goiter The remainder of the ROS was negative. PHYSICAL EXAMINATION General: alert and appropriate, in no distress and well-hydrated, well nourished, Head: normocephalic, no abnormality or lesion noted, Eyes: visual acuity is grossly normal, no injection,, and EOMI, Oropharynx: moist mucus membranes, no tonsillar hypertrophy/exudate, uvula midline and pharynx non-erythematous, lips, teeth and gums are without obvious lesion, Neck: full ROM, no cervical LNs noted, Respiratory: breathing non-labored, and no grunting/flaring/retractions, Chest: equal chest rise with normal respiratory effort, Abdomen: flat appearing. Visible protrusions or hernias: No Incisions/scars: None Areas of pain/tenderness: Denies Skin: no rash noted, Neuro: Patient seen sitting with normal appearing strength and coordination. No focal motor deficits. Psych: Appropriate mood and interaction Most recent labs: CBC: WBC (k/uL) Date Value 07/18/2023 6.07 Hematocrit (%) Date Value 07/18/2023 39.5 MCV (fL) Date Value 07/18/2023 95.2 Platelet Count (k/uL) Date Value 07/18/2023 183 Lymphocytes % (%) Date Value 07/18/2023 26.0 Hepatic Function Panel: Albumin (g/dL) Date Value 12/04/2020 4.4 Bilirubin, Total (mg/dL) Date Value 12/04/2020 0.5 Alkaline Phosphatase (U/L) Date Value 12/04/2020 107 AST (U/L) Date Value 12/04/2020 21 ALT (U/L) Date Value 12/04/2020 13 Protein, Total (g/dL) Date Value 12/04/2020 7.3 CRP: CRP Date Value Ref Range Status 12/04/2020 3.6 (H) <0.9 mg/dL Final No results found for: QTBGOLD No results found for: HRINTP No results found for: TBTEST No results found for: PTMPT No results found for: FOLATE Vitamin B12 Date Value Ref Range Status 12/04/2020 1,001 232 - 1,245 pg/mL Final Iron Date Value Ref Range Status 12/04/2020 42 41 - 186 ug/dL Final TIBC Date Value Ref Range Status 12/04/2020 268 232 - 386 ug/dL Final Vitamin D 25 Hydroxy Date Value Ref Range Status 12/04/2020 37.4 31.0 - 80.0 ng/mL Final Comment: Classification of 25 OH Vitamin D status: Insufficiency/Moderate Deficiency: < or = 30 ng/mL Sufficiency/Optimal Levels: 31 to 80 ng/mL Toxicity: > 100 ng/mL Test performed by chemiluminescent immunoassay. Last Endoscopy: Colonoscopy 12/29/2020 Impression: - The examined portion of the ileum was normal. - Moderately active (Nielson Score 2) left-sided ulcerative colitis, worsened since the last examination. Biopsied. Pathology FINAL DIAGNOSIS 1. Random colon, biopsy (A) - Patchy chronic active colitis. - No evidence of granulomas or dysplasia. 2. Ascending colon, polypectomy (B) - Inflammatory polyp. 3. Random transverse colon, biopsy (C) - Chronic active colitis. - No evidence of granulomas or dysplasia. 4. Proximal transverse colon, biopsy (D) - Chronic active colitis. - No evidence of granulomas or dysplasia. 5. Descending colon, biopsy (E) - Patchy chronic active colitis. - No evidence of granulomas or dysplasia. Assessment IMPRESSION (as copied and updated from my / note and reflects medical decision making today): 28-year-old female with a history of ulcerative proctitis diagnosed in 2011 treated with mesalamine's. She presents today as routine virtual follow-up. Overall feeling okay still having cramping 1 bowel every couple of days no blood tolerating diet weight is stable no extraintestinal manifestations. Has not yet gotten fecal calprotectin after her last visit. I discussed continuing Lialda will plan for fecal Kamari to help decide on further intervention. She does note that fresh vegetables seem to cause problems and she did eat carrots prior to this episode. Is scheduled for colonoscopy later this year to help fully assess. I discussed getting fecal Kamari and if very elevated we may need to discuss escalating to a different medication and scoping a little later down the road versus more likely continuing current Lialda and following up after endoscopy to decide if further intervention is warranted. PLAN Fecal kamari Continue lialda Plan colonoscopy as scheduled (reordered as Isabel Kearneyluis AVILA is no longer with our team) Follow up after scope to decide on further intervention as needed I spent 20 minutes in the virtual visit, with more than 50% of the total [id number] time of the visit in counseling / coordination of care. I have confirmed and edited as necessary, the PFSH and ROS obtained by others. I will communicate my recommendations and prescriptions to the patient's primary care provider. Unrelated to E/M, telemedicine, or virtual visit service provided within previous 7 days. No E/M service or procedure anticipated within next 24 hours. I have communicated my name and active licensure. The patient's identity and physical location were verified at the time of this visit. Either the patient or their legal direct marketing representative has been informed of the risks and benefits of -- and alternatives to -- treatment through a remote evaluation and consents to proceed with the evaluation remotely. Miriam Mason PA-C July 23, 2023 12:42 PM documented in this encounter [facility] 07-17-2023 History of Presen t illness Narrative VIRTUAL VISIT FOLLOW UP Joelle Hendricks [id number] 1995 has requested a video telemedicine follow-up visit. Joelle Hendricks verbalized informed consent to proceed with the video telemedicine follow-up visit. Joelle Hendricks was informed that the details of this video visit would be recorded as part of their electronic medical record. I have communicated my name and active licensure. The patient's identity and physical location were verified at the time of this visit. Either the patient or their legal direct marketing representative has been informed of the risks and benefits of -- and alternatives to -- treatment through a remote evaluation and consents to proceed with the evaluation remotely. Patient presents with: IBD Follow Up I had a virtual visit with Ms. Hendricks today for follow up of ulcerative colitis, who is a patient of Dr. Caldwell Was last seen by Isabel Michelle on 09/13/2022 Joelle Hendricks is a pleasant 89 year old female with PMHx of ulcerative proctitis (dx 2011) s/p flexible sigmoidoscopy after experiencing significant bloody diarrhea and abdominal cramps. She was not taking any medications for 5 years. However, she had a UC flare in 2016 requiring hospitalization, and sigmoidoscopy showed extensive colitis up to TC. Patient started on Lialda and follow up colonoscopy 4 months later showed grossly active chronic disease up to 30 cm but histology showed active disease to transverse colon with no dysplasia. Since then, she had three flares requiring short courses of steroids, last in 06/2020. She had a repeat sigmoidoscopy in December 2017 which was essentially normal (no biopsies). In 12/2020 she presented with a mild flare so topical mesalamine therapy. PLAN - Continue Lialda 4.8 g/d - Routine labs + baseline FCP - Colonoscopy in late 2022 to reassess disease activity - HM issues addressed as above - Follow up with Dr. Caldwell in 6 months Updated Plan -Did not obtain a CLS. -Reports that her last few colonoscopies have been done by Dr. Caldwell. -Reports that her prior flare ups have been due to vegetables . States that she ate raw carrots. Reports cramping/pain -She does not report abdominal pain -She is taking Lialda, reports that she took it last night -reports that her pain is relieved 5-6 times a day, lasts 1-2 minutes and then passes -notices the pain only in the day, no nocturnal pain or bobbin hauler pain -pain tends to start right after eating -no changes in diet -no alterations in diet -scheduled for colonoscopy with 08/2023 -She reports no other medications -Takes a vitamins -Still breast feeding, not currently having a cycle -Mild bloating Current Clinical Symptoms # of bowel movements daily: once every other day # of liquid stools daily: 0 Consistency: formed Bloody bowel movements: no Urgency: no Abdominal pain: yes Abdominal distention: no Nausea/vomiting: yes/no (nausea, assoc. Pain) Weight loss over last 3 months: no General well-being: slightly below average PAST MEDICAL HISTORY Diagnosis Date Abdominal pain Acne taking aldactone Allergic rhinitis, cause unspecified Delayed emergence from general anesthesia GI bleed Iron deficiency anemia Ulcerative colitis (HCC) Seeing Dr. Vargas Ulcerative proctitis (HCC) PAST SURGICAL HISTORY Procedure Laterality Date MIDLINE INSERTION/CONSULT 04/01/2016 TONSILLECTOMY AND ADENOIDECTOMY HX FAMILY HISTORY Problem Relation Age of Onset Diabetes Paternal Grandmother Diabetes Paternal Grandfather Coronary Artery Disease Paternal Grandfather Allergies Mother None Father Hyperlipidemia Maternal Grandmother Hypertension Maternal Grandmother Stroke Maternal Grandmother Diabetes Maternal Grandfather Stroke Maternal Grandfather Social History Tobacco Use Smoking status: Never Smokeless tobacco: Never Substance Use Topics Alcohol use: No Drug use: No Current Outpatient Medications Medication Sig Dispense Refill Mesalamine (LIALDA) 1.2 gram EC tablet Take 4 tablets by mouth once daily. 360 tablet 2 PNV WITHOUT CA NO.9/IRON/FA ( VIT NO.9-IRON-FA ORAL) Take by mouth. No current facility-administered medications for this visit. ALLERGIES Allergen Reactions Penicillin Other: See Comments Makes pt hyper PHYSICAL FINDINGS OF NOTE: General: alert and appropriate, in no distress and well-hydrated, well nourished, Psych: Appropriate mood and interaction Skin: no rash noted, Head: normocephalic, no abnormality or lesion noted, Eyes: visual acuity is grossly normal, no injection,, and EOMI, Ears: external ears normal without erythema or edema, Nose: external nose normal without rhinorrhea, Oropharynx: moist mucus membranes, no tonsillar hypertrophy/exudate, uvula midline and pharynx non-erythematous, lips, teeth and gums are without obvious lesion, Neck: full ROM, no cervical LNs noted, Respiratory: breathing non-labored, and no grunting/flaring/retractions, Chest: equal chest rise with normal respiratory effort, Abdomen: flat appearing. Visible protrusions or hernias: No Incisions/scars: None Areas of pain/tenderness: Denies Neuro: Patient seen sitting with normal appearing strength and coordination REVIEWED ITEMS CBC: WBC (k/uL) Date Value 12/11/2020 12.22 (H) Hematocrit (%) Date Value 12/11/2020 33.6 (L) MCV (fL) Date Value 12/11/2020 95.5 Platelet Count (k/uL) Date Value 12/11/2020 257 Lymphocytes % (Manual Diff) (%) Date Value 12/11/2020 10.0 Hepatic Function Panel: Albumin (g/dL) Date Value 12/04/2020 4.4 Bilirubin, Total (mg/dL) Date Value 12/04/2020 0.5 Alkaline Phosphatase (U/L) Date Value 12/04/2020 107 AST (U/L) Date Value 12/04/2020 21 ALT (U/L) Date Value 12/04/2020 13 Protein, Total (g/dL) Date Value 12/04/2020 7.3 Assessment IMPRESSION Joelle Hendricks is a pleasant 28 year old female with PMHx of ulcerative proctitis (dx 2011), biologic/small molecule naive, presenting for follow up for UC proctitis, who presents for follow up in the context of symptoms of largely, post-prandial cramping lasting minutes, resolved with time. Reports no increased frequency or bloody bowel movements. Denies any tenesmus or other rectal symptoms. Cramping is mild. Reports she is currently breast feeding, but denies any major symptoms otherwise. States this may be start of flare. Scheduled for CLS in 09/2023 Physician Global Assessment of Disease Activity: normal PLAN -Will plan to obtain blood and stool testing, specif: fecal calprotectin, to confirm flare -If FC elevated, can provider topical or low dose CS. -At this time, will plan to treat for post-prandial cramping with Ibgard -Can follow up with STRATIGRAPHY TEACHER, Nia Dimas, patient of Dr. Laurie Caldwell I spent 30 minutes in the virtual visit, with more than 50% of the total [id number] time of the visit in counseling / coordination of care. I have confirmed and edited as necessary, the PFSH and ROS obtained by others. I will communicate my recommendations and prescriptions to the patient's primary care provider. Unrelated to E/M, telemedicine, or virtual visit service provided within previous 7 days. No E/M service or procedure anticipated within next 24 hours. Alex Moreau MD July 16, 2023 1:32 PM documented in this encounter [facility] 01-27-2023 History of Presen t illness Narrative CC: Patient presents with: Sore Throat: Sinus, bilateral ear pressure, sinus ALDRIDGE x 3 days HPI: Joelle Hendricks is a 28 year old female who presents to the office with complaint of head congestion, sore throat, and sinus symptoms for 3 days. Symptoms are staying the same. Associated symptoms includes sore throat. Denies fever, nausea, vomiting , and diarrhea. Treatments tried include nothing so far. with no relief of symptoms. Sick contacts: unknown. History of asthma, frequent episodes of bronchitis, chronic bronchitis, bronchiectasis or COPD: No Smoker: No Seasonal/environmental allergies: No The ROS is otherwise negative. The patient's pmh, medications, allergies, and past visits are reviewed. PHYSICAL EXAM: BP 118/78 Pulse 104 Temp 36.7 C (98.1 F) Resp 20 Wt 87.2 kg (192 lb 3.2 oz) LMP 08/12/2021 (Exact Date) SpO2 98% BMI 30.10 kg/m General appearance: alert, cooperative, pleasant, in no acute distress Head: Normocephalic Eyes: EOM's intact, conjunctiva pink and moist, no icterus, sclera white, non-injected Ears: Right ear: External ear/canal- Normal, TM - clear with good landmarks. Left ear: External ear/canal- Normal, TM - clear with good landmarks Oropharynx:mild erythema, without exudates present Heart: Negative. RRR without obvious murmur, gallop, or rubs. No ectopy. Lungs: clear to auscultation, without rales or wheeze, good air exchange PAST MEDICAL HISTORY Diagnosis Date Abdominal pain Acne taking aldactone Allergic rhinitis, cause unspecified Delayed emergence from general anesthesia GI bleed Iron deficiency anemia Ulcerative colitis (HCC) Seeing Dr. Vargas Ulcerative proctitis ([facility]) PAST SURGICAL HISTORY Procedure Laterality Date MIDLINE INSERTION/CONSULT 04/01/2016 TONSILLECTOMY AND ADENOIDECTOMY HX ALLERGIES Penicillin MEDICATIONS Mesalamine (LIALDA) 1.2 gram EC tablet Take 4 tablets by mouth once daily. PNV WITHOUT CA NO.9/IRON/FA ( VIT NO.9-IRON-FA ORAL) Take by mouth. FAMILY HISTORY Problem Relation Age of Onset Diabetes Paternal Grandmother Diabetes Paternal Grandfather Coronary Artery Disease Paternal Grandfather Allergies Mother None Father Hyperlipidemia Maternal Grandmother Hypertension Maternal Grandmother Stroke Maternal Grandmother Diabetes Maternal Grandfather Stroke Maternal Grandfather Social History Tobacco Use Smoking status: Never Smokeless tobacco: Never Substance Use Topics Alcohol use: No Drug use: No ASSESSMENT/PLAN: 1. Sore throat - ICD9: 462, ICD10: J02.9 - STREP A MOLECULAR (POC) - neg No viral testing at this time. OTC meds for symptoms. Potential red flag symptoms discussed with the patient. Reviewed appropriate action plan to take if red flag symptoms occur. Patient agreeable to treatment plan. Aminta Monge APRN.TEACHER OF FAMILY AND CONSUMER SCIENCE documented in this encounter [facility] 10-22-2022 Hospital Discharg e instructions Patient Education 10/22/2022 19:09:40 Care After Vaginal Delivery Care After Vaginal Delivery This sheet gives you information about how to care for yourself from the time you deliver your baby to up to 6 12 weeks after delivery ( period). Your health care provider may also give you more specific instructions. If you have problems or questions, contact your health care provider. Follow these instructions at home: Vaginal bleeding It is normal to have vaginal bleeding (lochia) after delivery. Wear a sanitary pad for vaginal bleeding and discharge. ?During the first week after delivery, the amount and appearance of lochia is often similar to a menstrual period. ?Over the next few weeks, it will gradually decrease to a dry, yellow-brown discharge. ?For most women, lochia stops completely by 4 6 weeks after delivery. Vaginal bleeding can vary from woman to woman. Change your sanitary pads frequently. Watch for any changes in your flow, such as: ?A sudden increase in volume. ?A change in color. ?Large blood clots. If you pass a blood clot from your vagina, save it and call your health care provider to discuss. Do not flush blood clots down the toilet before talking with your health care provider. Do not use tampons or douches until your health care provider says this is safe. If you are not , your period should return 6 8 weeks after delivery. If you are feeding your child breast milk only (exclusive ), your period may not return until you stop . Perineal care Keep the area between the vagina and the anus (perineum) clean and dry as told by your health care provider. Use medicated pads and pain-relieving sprays and creams as directed. If you had a cut in the perineum (episiotomy) or a tear in the vagina, check the area for signs of infection until you are healed. Check for: ?More redness, swelling, or pain. ?Fluid or blood coming from the cut or tear. ?Warmth. ?Pus or a bad smell. You may be given a squirt bottle to use instead of wiping to clean the perineum area after you go to the bathroom. As you start healing, you may use the squirt bottle before wiping yourself. Make sure to wipe gently. To relieve pain caused by an episiotomy, a tear in the vagina, or swollen veins in the anus (hemorrhoids), try taking a warm sitz bath 2 3 times a day. A sitz bath is a warm water bath that is taken while you are sitting down. The water should only come up to your hips and should cover your buttocks. Breast care Within the first few days after delivery, your breasts may feel heavy, full, and uncomfortable (breast engorgement). Milk may also leak from your breasts. Your health care provider can suggest ways to help relieve the discomfort. Breast engorgement should go away within a few days. If you are : ?Wear a bra that supports your breasts and fits you well. ?Keep your nipples clean and dry. Apply creams and ointments as told by your health care provider. ?You may need to use breast pads to absorb milk that leaks from your breasts. ?You may have uterine contractions every time you breastfeed for up to several weeks after delivery. Uterine contractions help your uterus return to its normal size. ?If you have any problems with , work with your health care provider or professional services consultant. If you are not : ?Avoid touching your breasts a lot. Doing this can make your breasts produce more milk. ?Wear a good-fitting bra and use cold packs to help with swelling. ?Do not squeeze out (express) milk. This causes you to make more milk. Intimacy and sexuality Ask your health care provider when you can engage in sexual activity. This may depend on: ?Your risk of infection. ?How fast you are healing. ?Your comfort and desire to engage in sexual activity. You are able to get after delivery, even if you have not had your period. If desired, talk with your health care provider about methods of control (contraception). Medicines Take rnmt-dre-tkqjepa and prescription medicines only as told by your health care provider. If you were prescribed an antibiotic medicine, take it as told by your health care provider. Do not stop taking the antibiotic even if you start to feel better. Activity Gradually return to your normal activities as told by your health care provider. Ask your health care provider what activities are safe for you. Rest as much as possible. Try to rest or take a nap while your baby is sleeping. Eating and drinking Drink enough fluid to keep your urine pale yellow. Eat high-fiber foods every day. These may help prevent or relieve constipation. High-fiber foods include: ?Whole grain cereals and breads. ?Brown rice. ?Beans. ?Fresh fruits and vegetables. Do not try to lose weight quickly by cutting back on calories. Take your vitamins until your checkup or until your health care provider tells you it is okay to stop. Lifestyle Do not use any products that contain nicotine or tobacco, such as cigarettes and e-cigarettes. If you need help quitting, ask your health care provider. Do not drink alcohol, especially if you are . General instructions Keep all follow-up visits for you and your baby as told by your health care provider. Most women visit their health care provider for a checkup within the first 3 6 weeks after delivery. Contact a health care provider if: You feel unable to cope with the changes that your child brings to your life, and these feelings do not go away. You feel unusually sad or worried. Your breasts become red, painful, or hard. You have a fever. You have trouble holding urine or keeping urine from leaking. You have little or no interest in activities you used to enjoy. You have not breastfed at all and you have not had a menstrual period for 12 weeks after delivery. You have stopped and you have not had a menstrual period for 12 weeks after you stopped . You have questions about caring for yourself or your baby. You pass a blood clot from your vagina. Get help right away if: You have chest pain. You have difficulty breathing. You have sudden, severe leg pain. You have severe pain or cramping in your lower abdomen. You bleed from your vagina so much that you fill more than one sanitary pad in one hour. Bleeding should not be heavier than your heaviest period. You develop a severe headache. You faint. You have blurred vision or spots in your vision. You have bad-smelling vaginal discharge. You have thoughts about hurting yourself or your baby. If you ever feel like you may hurt yourself or others, or have thoughts about taking your own life, get help right away. You can go to the nearest emergency department or call: Your local emergency services (911 in the [place] A suicide crisis helpline, such as the National Suicide Prevention Lifeline at . This is open 24 hours a day. Summary The period of time right after you deliver your up to 6 12 weeks after delivery is called the period. Gradually return to your normal activities as told by your health care provider. Keep all follow-up visits for you and your baby as told by your health care provider. This information is not intended to replace advice given to you by your health care provider. Make sure you discuss any questions you have with your health care provider. Document Released: 12/15/2007 Document Revised: 02/20/2018 Document Reviewed: 12/01/2017 [employer] Patient Education 2020 [email or web address] 10/22/2022 19:09:39 Care of a Perineal Tear Care of a Perineal Tear A perineal tear is a cut or tear (laceration) in the tissue between the opening of the vagina and the anus (perineum). Some women develop a perineal tear during a vaginal . This can happen as the baby emerges from the canal and the perineum is stretched. There are four degrees of perineal tears based on how deep and long the laceration is: First degree. This involves a shallow tear at the edge of the vaginal opening that extends slightly into the perineal skin. Second degree. This involves tearing described in first degree perineal tear, and an additional deeper tear of the vaginal opening and perineal tissues. It may also include tearing of a muscle just under the perineal skin. Third degree. This involves tearing described in first and second degree perineal tears, with the addition that tearing in the third degree extends into the muscle of the anus (anal sphincter). Fourth degree. This involves all levels of tears described in first, second, and third degree perineal tears, with the tear in the fourth degree extending into the rectum. First and second degree perineal tears may or may not be stitched closed, depending on their location and appearance. Third and fourth degree perineal tears are stitched closed immediately after the baby s . What are the risks? Depending on the type of perineal tear you have, you may be at risk for: Bleeding. Developing a collection of blood in the perineal tear area (hematoma). Pain. This may include pain when you urinate, or pain when you have a bowel movement. Infection at the site of the tear. Fever. Trouble controlling your urination or bowels (incontinence). Painful sex. How to care for a perineal tear Wound care Take a sitz bath as told by your health care provider. A sitz bath is a warm water bath that is taken while you are sitting down. The water should only come up to your hips and should cover your buttocks. This can speed up healing. 1.Partially fill a bathtub with warm water. You will only need the water to be deep enough to cover your hips and buttocks when you are sitting in it. 2.If your health care provider told you to put medicine in the water, follow the directions exactly as told. 3.Sit in the water and open the tub drain a little. 4.Turn on the warm water again to keep the tub at the correct level. Keep the water running constantly. 5.Soak in the water for 15 20 minutes or as told by your health care provider. 6.After the sitz bath, pat the affected area dry first. Do not rub it. 7.Be careful when you stand up after the sitz bath because you may feel dizzy. Wash your hands before and after applying medicine to the area. Wear a sanitary pad as told by your health care provider. Change the pad as often as told by your health care provider. Leave stitches (sutures), skin glue, or adhesive strips in place. These skin closures may need to stay in place for 2 weeks or longer. If adhesive strip edges start to loosen and curl up, you may trim the loose edges. Do not remove adhesive strips completely unless your health care provider tells you to do that. Check your wound every day for signs of infection. Check for: ?Redness, swelling, or pain. ?Fluid or blood. ?Warmth. ?Pus or a bad smell. Managing pain If directed, put ice on the painful area: ?Put ice in a plastic bag. ?Place a towel between your skin and the bag. ?Leave the ice on for 20 minutes, 2 3 times a day. Apply a numbing spray to the perineal tear site as told by your health care provider. This may help with discomfort. Take and apply lioo-eep-hfnvgsv and prescription medicines only as told by your health care provider. If told, put about 3 witch payal-containing hemorrhoid treatment pads on top of your sanitary pad. The witch payal in the hemorrhoid pads helps with swelling and discomfort. Sit on an inflatable ring or pillow. This may provide comfort. General instructions Squeeze warm water on your perineum after urinating. This should be done from front to back with a squeeze bottle. Pat the area to dry it. Do not have sex, use tampons, or place anything in your vagina for at least 6 weeks or as told by your health care provider. Keep all follow-up visits as told by your health care provider. These include any visits. This is important. Contact a health care provider if: Your pain is not relieved with medicines. You have painful urination. You have redness, swelling, or pain around your tear. You have fluid or blood coming from your tear. Your tear feels warm to the touch. You have pus or a bad smell coming from your tear. You have a fever. Get help right away if: Your tear opens. You cannot urinate. You have an increase in bleeding. You have severe pain. Summary A perineal tear is a cut or tear (laceration) in the tissue between the opening of the vagina and the anus (perineum). There are four degrees of perineal tears based on how deep and long the laceration is. First and second-degree perineal tears may or may not be stitched closed, depending on their location and appearance. Third and fourth- degree perineal tears are stitched closed immediately after the baby s . Follow your health care provider's instructions for caring for your perineal tear. Know how to manage pain and how to care for your wound. Know when to call your health care provider and when to seek immediate emergency care. This information is not intended to replace advice given to you by your health care provider. Make sure you discuss any questions you have with your health care provider. Document Released: 07/04/2014 Document Revised: 01/30/2018 Document Reviewed: 03/24/2017 [employer] Patient Education 2020 [email or web address] 10/22/2022 19:09:38 Choosing to breastfeed is one of the best decisions you can make for yourself and your baby. A change in hormones during causes your breasts to make breast milk in your milk-producing glands. Hormones prevent breast milk from being released before your baby is born. They also prompt milk flow after . Once has begun, thoughts of your baby, as well as his or her sucking or crying, can stimulate the release of milk from your milk-producing glands. Benefits of Research shows that offers many health benefits for infants and mothers. It also offers a cost-free and convenient way to feed your baby. For your baby Your first milk (colostrum) helps your baby's digestive system to function better. Special cells in your milk (antibodies) help your baby to fight off infections. Breastfed babies are less likely to develop asthma, allergies, obesity, or type 2 diabetes. They are also at lower risk for sudden infant syndrome (SIDS). Nutrients in breast milk are better able to meet your baby s needs compared to formula. Breast milk improves your baby's brain development. For you helps to create a very special lamb between you and your baby. is convenient. Breast milk costs nothing and is always available at the correct temperature. helps to burn calories. It helps you to lose the weight that you gained during . makes your uterus return faster to its size before . It also slows bleeding (lochia) after you give . helps to lower your risk of developing type 2 diabetes, osteoporosis, rheumatoid arthritis, cardiovascular disease, and breast, ovarian, uterine, and endometrial cancer later in life. basics Starting Find a comfortable place to sit or lie down, with your neck and back well-supported. Place a pillow or a rolled-up blanket under your baby to bring him or her to the level of your breast (if you are seated). Nursing pillows are specially designed to help support your arms and your baby while you breastfeed. Make sure that your baby's tummy (abdomen) is facing your abdomen. Gently massage your breast. With your fingertips, massage from the outer edges of your breast inward toward the nipple. This encourages milk flow. If your milk flows slowly, you may need to continue this action during the feeding. Support your breast with 4 fingers underneath and your thumb above your nipple (make the letter C with your hand). Make sure your fingers are well away from your nipple and your baby s mouth. Stroke your baby's lips gently with your finger or nipple. When your baby's mouth is open wide enough, quickly bring your baby to your breast, placing your entire nipple and as much of the areola as possible into your baby's mouth. The areola is the colored area around your nipple. ?More areola should be visible above your baby's upper lip than below the lower lip. ?Your baby's lips should be opened and extended outward (flanged) to ensure an adequate, comfortable latch. ?Your baby's tongue should be between his or her lower gum and your breast. Make sure that your baby's mouth is correctly positioned around your nipple (latched). Your baby's lips should create a seal on your breast and be turned out (everted). It is common for your baby to suck about 2 3 minutes in order to start the flow of breast milk. Latching Teaching your baby how to latch onto your breast properly is very important. An improper latch can cause nipple pain, decreased milk supply, and poor weight gain in your baby. Also, if your baby is not latched onto your nipple properly, he or she may swallow some air during feeding. This can make your baby fussy. Burping your baby when you switch breasts during the feeding can help to get rid of the air. However, teaching your baby to latch on properly is still the best way to prevent fussiness from swallowing air while . Signs that your baby has successfully latched onto your nipple Silent tugging or silent sucking, without causing you pain. Infant's lips should be extended outward (flanged). Swallowing heard between every 3 4 sucks once your milk has started to flow (after your let-down milk reflex occurs). Muscle movement above and in front of his or her ears while sucking. Signs that your baby has not successfully latched onto your nipple Sucking sounds or smacking sounds from your baby while . Nipple pain. If you think your baby has not latched on correctly, slip your finger into the corner of your baby s mouth to break the suction and place it between your baby's gums. Attempt to start again. Signs of successful Signs from your baby Your baby will gradually decrease the number of sucks or will completely stop sucking. Your baby will fall asleep. Your baby's body will relax. Your baby will retain a small amount of milk in his or her mouth. Your baby will let go of your breast by himself or herself. Signs from you Breasts that have increased in firmness, weight, and size 1 3 hours after feeding. Breasts that are softer immediately after . Increased milk volume, as well as a change in milk consistency and color by the fifth day of . Nipples that are not sore, cracked, or bleeding. Signs that your baby is getting enough milk Wetting at least 1 2 diapers during the first 24 hours after . Wetting at least 5 6 diapers every 24 hours for the first week after . The urine should be clear or pale yellow by the age of 5 days. Wetting 6 8 diapers every 24 hours as your baby continues to grow and develop. At least 3 stools in a 24-hour period by the age of 5 days. The stool should be soft and yellow. At least 3 stools in a 24-hour period by the age of 7 days. The stool should be seedy and yellow. No loss of weight greater than 10% of weight during the first 3 days of life. Average weight gain of 4 7 oz (113 198 g) per week after the age of 4 days. Consistent daily weight gain by the age of 5 days, without weight loss after the age of 2 weeks. After a feeding, your baby may spit up a small amount of milk. This is normal. frequency and duration Frequent feeding will help you make more milk and can prevent sore nipples and extremely full breasts (breast engorgement). Breastfeed when you feel the need to reduce the fullness of your breasts or when your baby shows signs of hunger. This is called on demand. Signs that your baby is hungry include: Increased alertness, activity, or restlessness. Movement of the head from side to side. Opening of the mouth when the corner of the mouth or cheek is stroked (rooting). Increased sucking sounds, smacking lips, cooing, sighing, or squeaking. Dqfq-hs-tnigi movements and sucking on fingers or hands. Fussing or crying. Avoid introducing a pacifier to your baby in the first 4-6 weeks after your baby is born. After this time, you may choose to use a pacifier. Research has shown that pacifier use during the first year of a baby's life decreases the risk of sudden infant syndrome (SIDS). Allow your baby to feed on each breast as long as he or she wants. When your baby unlatches or falls asleep while feeding from the first breast, offer the second breast. Because newborns are often sleepy in the first few weeks of life, you may need to awaken your baby to get him or her to feed. times will vary from baby to baby. However, the following rules can serve as a guide to help you make sure that your baby is properly fed: Newborns (babies 4 weeks of age or younger) may breastfeed every 1 3 hours. Newborns should not go without for longer than 3 hours during the day or 5 hours during the night. You should breastfeed your baby a minimum of 8 times in a 24-hour period. Breast milk pumping Pumping and storing breast milk allows you to make sure that your baby is exclusively fed your breast milk, even at times when you are unable to breastfeed. This is especially important if you go back to work while you are still , or if you are not able to be present during feedings. Your professional services consultant can help you find a method of pumping that works best for you and give you guidelines about how long it is safe to store breast milk. Caring for your breasts while you breastfeed Nipples can become dry, cracked, and sore while . The following recommendations can help keep your breasts moisturized and healthy: Avoid using soap on your nipples. Wear a supportive bra designed especially for nursing. Avoid wearing underwire-style bras or extremely tight bras (sports bras). Air-dry your nipples for 3 4 minutes after each feeding. Use only cotton bra pads to absorb leaked breast milk. Leaking of breast milk between feedings is normal. Use lanolin on your nipples after . Lanolin helps to maintain your skin's normal moisture barrier. Pure lanolin is not harmful (not toxic) to your baby. You may also hand express a few drops of breast milk and gently massage that milk into your nipples and allow the milk to air-dry. In the first few weeks after giving , some women experience breast engorgement. Engorgement can make your breasts feel heavy, warm, and tender to the touch. Engorgement peaks within 3 5 days after you give . The following recommendations can help to ease engorgement: Completely empty your breasts while or pumping. You may want to start by applying warm, moist heat (in the shower or with warm, water-soaked hand towels) just before feeding or pumping. This increases circulation and helps the milk flow. If your baby does not completely empty your breasts while , pump any extra milk after he or she is finished. Apply ice packs to your breasts immediately after or pumping, unless this is too uncomfortable for you. To do this: ?Put ice in a plastic bag. ?Place a towel between your skin and the bag. ?Leave the ice on for 20 minutes, 2 3 times a day. Make sure that your baby is latched on and positioned properly while . If engorgement persists after 48 hours of following these recommendations, contact your health care provider or a professional services consultant. Overall health care recommendations while Eat 3 healthy meals and 3 snacks every day. Well-nourished mothers who are need an additional 450 500 calories a day. You can meet this requirement by increasing the amount of a balanced diet that you eat. Drink enough water to keep your urine pale yellow or clear. Rest often, relax, and continue to take your vitamins to prevent fatigue, stress, and low vitamin and mineral levels in your body (nutrient deficiencies). Do not use any products that contain nicotine or tobacco, such as cigarettes and e-cigarettes. Your baby may be harmed by chemicals from cigarettes that pass into breast milk and exposure to secondhand smoke. If you need help quitting, ask your health care provider. Avoid alcohol. Do not use illegal drugs or marijuana. Talk with your health care provider before taking any medicines. These include dvqi-kkj-tlwvlfi and prescription medicines as well as vitamins and herbal supplements. Some medicines that may be harmful to your baby can pass through breast milk. It is possible to become while . If control is desired, ask your health care provider about options that will be safe while your baby. Where to find more information: [employer]: www.llli.org Contact a health care provider if: You feel like you want to stop or have become frustrated with . Your nipples are cracked or bleeding. Your breasts are red, tender, or warm. You have: ?Painful breasts or nipples. ?A swollen area on either breast. ?A fever or chills. ?Nausea or vomiting. ?Drainage other than breast milk from your nipples. Your breasts do not become full before feedings by the fifth day after you give . You feel sad and depressed. Your baby is: ?Too sleepy to eat well. ?Having trouble sleeping. ?More than 1 week old and wetting fewer than 6 diapers in a 24-hour period. ?Not gaining weight by 5 days of age. Your baby has fewer than 3 stools in a 24-hour period. Your baby's skin or the white parts of his or her eyes become yellow. Get help right away if: Your baby is overly tired (lethargic) and does not want to wake up and feed. Your baby develops an unexplained fever. Summary offers many health benefits for infant and mothers. Try to breastfeed your when he or she shows early signs of hunger. Gently tickle or stroke your baby's lips with your finger or nipple to allow the baby to open his or her mouth. Bring the baby to your breast. Make sure that much of the areola is in your baby's mouth. Offer one side and burp the baby before you offer the other side. Talk with your health care provider or professional services consultant if you have questions or you face problems as you breastfeed. This information is not intended to replace advice given to you by your health care provider. Make sure you discuss any questions you have with your health care provider. Document Released: 02/17/2006 Document Revised: 05/14/2018 Document Reviewed: 03/21/2017 [employer] Patient Education 2020 [email or web address]. 10/22/2022 19:09:37 7b- Depression and Blues (12/2019) (CUSTOM) Fely Depression and Blues All mothers are at risk of developing depression or the blues. These mood changes can occur right after giving , or they may occur many months after giving . blues or depression can be mild or severe. Additionally, depression can go away rather quickly, or it can be a long-term condition. CAUSES Raised hormone levels and the rapid drop in those levels are thought to be a main cause of depression and blues. A number of hormones change during and after . Estrogen and progesterone usually decrease right after delivery. The levels of thyroid hormone and various cortisol steroids also rapidly drop. Other factors that play a role in these mood changes include major life events and genetics. RISK FACTORS If you have any of the following risks for blues or depression, know what symptoms to watch out for during the period. Risk factors that may increase the likelihood of getting blues or depression include: Having a personal or family history of depression. Having depression while being . Having premenstrual mood issues or mood issues related to oral contraceptives. Having a lot of life stress. Having marital conflict. Lacking a social support network. Having health problems, such as diabetes. SIGNS AND SYMPTOMS Symptoms of blues include: Brief changes in mood, such as going from extreme happiness to sadness. Decreased concentration. Difficulty sleeping. Crying spells, tearfulness. Irritability. Anxiety. Symptoms of depression typically begin within the first month after giving . These symptoms include: Difficulty sleeping or excessive sleepiness. Marked weight loss. Agitation. Feelings of worthlessness. Lack of interest in activity or food. psychosis is a very serious condition and can be dangerous. Fortunately, it is rare. Displaying any of the following symptoms is cause for immediate medical attention. Symptoms of psychosis include: Hallucinations and delusions. Bizarre or disorganized behavior. Confusion or disorientation. DIAGNOSIS A diagnosis is made by an evaluation of your symptoms. There are no medical or lab tests that lead to a diagnosis, but there are various questionnaires that a health care provider may use to identify those with blues, depression, or psychosis. Often, a screening tool called the [place] Depression Scale is used to diagnose depression in the period. TREATMENT blues usually goes away on its own in 1 2 weeks. Social support is often all that is needed. You will be encouraged to get adequate sleep and rest. Occasionally, you may be given medicines to help you sleep. depression requires treatment because it can last several months or longer if it is not treated. Treatment may include individual or group therapy, medicine, or both to address any social, physiological, and psychological factors that may play a role in the depression. Regular exercise, a healthy diet, rest, and social support may also be strongly recommended. psychosis is more serious and needs treatment right away. Hospitalization is often needed. HOME CARE INSTRUCTIONS Get as much rest as you can. Exercise regularly. Some women find yoga and walking to be beneficial. Eat a balanced and nourishing diet. Do little things that you enjoy. Have a cup of tea, take a bubble bath, read your favorite magazine, or listen to your favorite music. Avoid alcohol. Ask for help with processing spec, cooking, grocery shopping, or running errands as needed. Do not try to do everything. Talk to people close to you about how you are feeling. Get support from your partner, family members, and friends. Try to stay positive in how you think. Think about the things you are grateful for. Do not spend a lot of time alone. Only take uwma-igf-funrtnz or prescription medicine as directed by your health care provider. Keep all your appointments. Let your health care provider know if you have any concerns. SEEK MEDICAL CARE IF: You are having a reaction to or problems with your medicine. SEEK IMMEDIATE MEDICAL CARE IF: You have suicidal feelings. You think you may harm yourself or someone else. MAKE SURE YOU: Understand these instructions. Will watch your condition. Will get help right away if you are not doing well or get worse. Resource: [facility] [place] Patient Information 2015 [facility]. This information is not intended to replace advice given to you by your health care provider. Make sure you discuss any questions you have with your health care provider. Follow Up Care 10/22/2022 11:01:30 With:MORE RUTLEDGE INDUSTRI[employer] ARTS TEACHER-CNM Address: [address], [address] Dr[address] Spencer Diana, [place] [address]- [phone] When:12/03/2022 [facility] 10-22-2022 Note [facility] ADMISSION HISTORY AND PHYSICIAL History and Physical/Admit Note: S: Patient is a 27 year old female at 39.1 wks GA with EDC of 10/28/2022 confirmed by second trimester ultrasound who present to [facility] with the complaint of irregular CTX. Shortly after arriving pt SROM'd moderate amount of clear fluid. 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 complications include: Rh negative, hx of ulcerative colitis and bicornuate uterus History: Hx of recurrent loss and third degree perineal laceration with previous delivery Maternal medications include: PNV, Mesalamine 1.2 mg Bloodwork: Blood type: O negative; Rubella status: immune; HBsAG status: negative; HIV status: negative; GBS status: negative; RPR: NR O: Vitals Signs(Last 24 hrs)__Last Charted Minimum Maximum Temp36.6(OCT 22 16:06)36.6(OCT 22 16:06)37.0(OCT 22 12:44) Heart Rate73(OCT 22 16:06)73(OCT 22 16:06)96(OCT 22 11:15) Resp Rate20(OCT 22 16:06)16(OCT 22 14:20)20(OCT 22 13:52) RYO475(OCT 22 16:06)110(OCT 22 16:06)137(OCT 22 12:44) DBP60(OCT 22 16:06)60(OCT 22 16:06)86(OCT 22 12:44) Gen: alert, awake, in mild laboring distress Lungs: clear to auscultation bilaterally, equal breath sounds, no wheezes or crackles. Heart: RRR without murmur Abd: gravid uterus : cervical exam: 4/80/-2 upon admission Membranes: PROM for clear fluid at approx 1200 FHTs: Category 1 [place]: Irregular Ext: no edema 36hr Labs 10/22 1147 ABO/Rh InterpSee Flowsheet Antibody ScreenSee Flowsheet Hct35.6L Hgb12.3 MCH33.9H MCHC34.5 MCV98.4H MPV10.0 [id number] RBC3.62L RDW13.5 WBC7.9 Lymphocyte %15.7 Monocyte %7.8 Neutrophil %76.0 Eosinophil %0.2 Basophil %0.3 Neutrophil, Absolute6.0 Lymphocyte, Absolute1.2 Monocyte, Absolute0.6 Eosinophil, Absolute0.0 Basophil, Absolute0.0 10/22 1112 Blood Type, ExtSee Flowsheet Rubella, ExternSee Flowsheet HIV Antibodies,See Flowsheet Group B Strep,See Flowsheet Hepatitis B, ExSee Flowsheet Hepatitis B Date Performed1:[id number]:0.00 0000:0:0 RPR, ExternalSee Flowsheet Group B Strep Date Performed1:[id number]:0.00 0000:0:0 Medication List Active Medications Ordered carboprost: 250 mcg, 1 mL, Intramuscular, Once, PRN: Other (see order comments). citric acid-sodium citrate: 30 mL, Oral, AsDirected, PRN: Gastric Upset. Lactated Ringers Infusion: 500 mL, IV Bolus, AsDirected, PRN: Other (see order comments). Lactated Ringers Infusion 1,000 mL: 125 mL/hr, Intravenous. lidocaine: 20 mg, 2 mL, Perineum, AsDirected, PRN: to perineal sutures. methylergonovine: 0.2 mg, 1 mL, Intramuscular, Once, PRN: Other (see order comments). miSOPROStol: 1,000 mcg, 5 tab(s), Rectal, Once, PRN: Other (see order comments). ondansetron: 4 mg, 2 mL, IV Push, q4h, PRN: Nausea. oxytocin: 20 unit(s), 2 mL, Intramuscular, Once, PRN: Other (see order comments). oxytocin 20 unit(s) [2 munit/min] + LR Premix Diluent 1,000 mL: 6 mL/hr, Intravenous. oxytocin 20 unit(s) + LR Premix Diluent 1,000 mL: 999 mL/hr, Intravenous. terbutaline: 0.25 mg, 0.25 mL, Subcutaneous, AsDirected, PRN: Control symptoms. terbutaline: 0.25 mg, 0.25 mL, Subcutaneous, AsDirected, PRN: Other (see order comments). tranexamic acid: 1 gram(s), 100 mL, 300 mL/hr, IV Piggyback, AsDirected, PRN: Other (see order comments). Documented mesalamine: 4.8 gram(s), 4 tab(s), Oral, qPM, 112 tab(s), 0 Refill(s). multivitamin, : 1 cap(s), Oral, qAM, 0 Refill(s). Medications Inactivated in the Last 72 Hours docusate: 100 mg, 1 cap(s), Oral, BID, PRN: Constipation, 0 Refill(s). ibuprofen: 600 mg, 1 tab(s), Oral, q6h, PRN: uterine cramping, 0 Refill(s). Lactated Ringers Infusion: Miscellaneous, Once. A: 1. 27 yo female at 39.1 wks GA 2. GBS negative 3. PROM P: 1. Admit to L&D 2. Cont external monitoring 3. IV placement/locked 4. Labor augmentation with Pitocin per protocol 5. Frequent position changes/labor support 6. Pain management per pt request Digitally Signed by MORE RUTLEDGE on 10/22/2022 04:29 PM [facility] 10-22-2022 Evaluation + Plan note Extrac armando from: Title:Clinical Document Author:MORE RUTLEDGE Date:10/22/22 [facility] ADMISSION HISTORY AN D PHYSICIAL History and Physical/Admit Note: S: Patient is a 27 year old female at 39.1 wks GA with EDC of 10/28/2022 confirmed by second trimester ultrasound who present to [facility] with the complaint of irregular CTX. Shortly after arriving pt SROM'd moderate amount of clear fluid. 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 complications include: Rh negative, hx of ulcerative colitis and bicornuate uterus History: Hx of recurrent loss and third degree perineal laceration with previous delivery Maternal medications include: PNV, Mesalamine 1.2 mg Bloodwork: Blood type: O negative; Rubella status: immune; HBsAG status: negative; HIV status: negative; GBS status: negative; RPR: NR O: Vitals Signs(Last 24 hrs)__Last Charted Minimum Maximum Temp36.6(OCT 22 16:06)36.6(OCT 22 16:06)37.0(OCT 22 12:44) Heart Rate73(OCT 22 16:06)73(OCT 22 16:06)96(OCT 22 11:15) Resp Rate20(OCT 22 16:06)16(OCT 22 14:20)20(OCT 22 13:52) AHP109(OCT 22 16:06)110(OCT 22 16:06)137(OCT 22 12:44) DBP60(OCT 22 16:06)60(OCT 22 16:06)86(OCT 22 12:44) Gen: alert, awake, in mild laboring distress Lungs: clear to auscultation bilaterally, equal breath sounds, no wheezes or crackles. Heart: RRR without murmur Abd: gravid uterus : cervical exam: 4/80/-2 upon admission Membranes: PROM for clear fluid at approx 1200 FHTs: Category 1 [place]: Irregular Ext: no edema 36hr Labs 10/22 1147 ABO/Rh InterpSee Flowsheet Antibody ScreenSee Flowsheet Hct35.6L Hgb12.3 MCH33.9H MCHC34.5 MCV98.4H MPV10.0 [id number] RBC3.62L RDW13.5 WBC7.9 Lymphocyte %15.7 Monocyte %7.8 Neutrophil %76.0 Eosinophil %0.2 Basophil %0.3 Neutrophil, Absolute6.0 Lymphocyte, Absolute1.2 Monocyte, Absolute0.6 Eosinophil, Absolute0.0 Basophil, Absolute0.0 10/22 1112 Blood Type, ExtSee Flowsheet Rubella, ExternSee Flowsheet HIV Antibodies,See Flowsheet Group B Strep,See Flowsheet Hepatitis B, ExSee Flowsheet Hepatitis B Date Performed1:[id number]:0.778976:0:0 RPR, ExternalSee Flowsheet Group B Strep Date Performed1:[id number]:0.955980:0:0 Medication List Active Medications Ordered carboprost: 250 mcg, 1 mL, Intramuscular, Once, PRN: Other (see order comments). citric acid-sodium citrate: 30 mL, Oral, AsDirected, PRN: Gastric Upset. Lactated Ringers Infusion: 500 mL, IV Bolus, AsDirected, PRN: Other (see order comments). Lactated Ringers Infusion 1,000 mL: 125 mL/hr, Intravenous. lidocaine: 20 mg, 2 mL, Perineum, AsDirected, PRN: to perineal sutures. methylergonovine: 0.2 mg, 1 mL, Intramuscular, Once, PRN: Other (see order comments). miSOPROStol: 1,000 mcg, 5 tab(s), Rectal, Once, PRN: Other (see order comments). ondansetron: 4 mg, 2 mL, IV Push, q4h, PRN: Nausea. oxytocin: 20 unit(s), 2 mL, Intramuscular, Once, PRN: Other (see order comments). oxytocin 20 unit(s) [2 munit/min] + LR Premix Diluent 1,000 mL: 6 mL/hr, Intravenous. oxytocin 20 unit(s) + LR Premix Diluent 1,000 mL: 999 mL/hr, Intravenous. terbutaline: 0.25 mg, 0.25 mL, Subcutaneous, AsDirected, PRN: Control symptoms. terbutaline: 0.25 mg, 0.25 mL, Subcutaneous, AsDirected, PRN: Other (see order comments). tranexamic acid: 1 gram(s), 100 mL, 300 mL/hr, IV Piggyback, AsDirected, PRN: Other (see order comments). Documented mesalamine: 4.8 gram(s), 4 tab(s), Oral, qPM, 112 tab(s), 0 Refill(s). multivitamin, : 1 cap(s), Oral, qAM, 0 Refill(s). Medications Inactivated in the Last 72 Hours docusate: 100 mg, 1 cap(s), Oral, BID, PRN: Constipation, 0 Refill(s). ibuprofen: 600 mg, 1 tab(s), Oral, q6h, PRN: uterine cramping, 0 Refill(s). Lactated Ringers Infusion: Miscellaneous, Once. A: 1. 27 yo female at 39.1 wks GA 2. GBS negative 3. PROM P: 1. Admit to L&D 2. Cont external monitoring 3. IV placement/locked 4. Labor augmentation with Pitocin per protocol 5. Frequent position changes/labor support 6. Pain management per pt request [facility] 08-14-2023 Hospital Discharge instructions Patient Education 10/14/2022 08:23:50 [facility] Outpatient Instructions ([facility]) [facility] HOME-GOING INSTRUCTIONS _X_ You are to follow up with your physician in ___ days/weeks. ACTIVITY ___ Bedrest ___Activity as tolerated ___ No work/school for ___ days. ___Other PRESCRIPTION GIVEN ___Yes NAUSEA/VOMITING ___ Take small, frequent amounts of clear liquids. Avoid fruit juices and milk. ___ Increase fluid intake to a minimum of 8 ounces of fluid every hour while awake. ___ Soft diet. Rice, crackers, bananas, Jell-O, cooked carrots, applesauce. ___ [place] diet. Avoid caffeine, chocolate, alcohol, spiced/greasy foods. URINARY TRACT INFECTION ___ Drink 8-12 glasses of water every day. ___ Urinate frequently; do not limit fluids to reduce frequency of urination. ___ Call your physician if burning and frequency with urination returns after taking all your medication. ___ Call your physician if you have a temperature of 100.4 degrees Fahrenheit or higher. ___ Wipe from front to back. SIGNS OF PRE-ECLAMPSIA ___ Severe heartburn. ___ Persistent headache not relieved by Tylenol. ___ Increased in swelling of face, hands and feet. ___ Blurred vision, double vision, or spots in the eyes. ___ Persistent vomiting. ___ *Convulsions or seizures. LABOR ___ Restrict activity. ___ Drink 8-12 glasses of water every day. ___ Urinate frequently ___ Pelvic rest. No sexual intercourse/ Call your physician if you experience: ___ Increase in vaginal discharge, leaking fluid, or vaginal bleeding. ___ More than 4, 5, or 6 contractions in one hour. ___ Burning and frequency with urination. DECREASED MOVEMENT ___ Lie down on your left side, drink some fluids and relax. Count the movements. You need tohave 10 movements in 2 hours. ___ If you do not feel the 10 movements, call your physician. OTHER ___ After an exam you may experience some spotting or discharge. As long as it is not bright red and heavy like a period or continues to leak as if your water broke, it is to be expected. ___ LABOR Call your physician if you experience: ___ Painful uterine contractions every ___ minutes for ___ hours. ___A gush or continuous trickle of watery discharge. COME TO THE HOSPITAL AND CALL PHYSICIAN IF: ___ Your abdomen feels continually firm. ___ *Bleeding is bright red and enough to saturate a pad in one hour or less. *Call 911 or go to the nearest Emergency Room for assistance. Form D: 02/08 Follow Up Care 10/14/2022 07:20:51 With:MIN PEREZ Address: DR SPENCER DIANA [address] [address]- [phone] Business (1) When: Unknown [facility] 07-14-2023 Instructions* Patient Instructions* Isabel Michelle APRN.TEACHER OF FAMILY AND CONSUMER SCIENCE - 09/13/2022 4:17 PM EDT Images from the original note were not included. Bowel Preparation Instructions for: Miralax-Gatorade Preparations IF YOU DO NOT FOLLOW THESE DIRECTIONS, YOUR COLONOSCOPY WILL BE CANCELLED. Oh Instructions: Your bowel must be empty so that your doctor can clearly view your colon. Follow all of the instructions in this handout EXACTLY as they are written. Do NOT eat any solid food the ENTIRE day before your colonoscopy. Buy your bowel preparation at least 5 days before your colonoscopy. Four (4) Dulcolax laxative tablets containing 5mg of bisacodyl each (NOT Dulcolax stool softener) One (1) 8.3oz. bottle Miralax (238 grams) or generic equivalent 2 x 32oz. Bottles of Gatorade (NOT RED) Diabetic Patients: Use G2 (Gatorade 2) TRANSPORTATION on the Day of Your Exam A responsible adult MUST be present with you at Check In prior to your colonoscopy and REMAIN in the endoscopy area until you are discharged. You are NOT ALLOWED to drive, take a taxi or bus, or leave the Endoscopy Center ALONE. If you do not have a responsible entry driver operator (family member or friend) withyou to take you home, your exam cannot be done with sedation and will be cancelled. Please bring a list of all of your current medications, including any Ibat-rrh-Qiviowh medications with you. Medications If you take insulin, diabetic medications or blood thinners such as Coumadin (warfarin), Plavix (clopidogrel), Ticlid (ticlopidine hydrochloride), Agrylin (anagrelide), Xarelto (Rivaroxaban), Pradaxa(Dabigatran), Eliquis (Apixaban), and Effient (Prasugrel). You MUST call the doctors who orders those medicines for instructions on altering the dosage before your colonoscopy. All other medications should be taken the day of the exam with a sip of water including ASPIRIN. Five (5) Days Before Your Colonoscopy Do NOT take medicines that stop diarrhea - such as Imodium, Kaopectate, or Pepto Bismol. Do NOT take fiber supplements - such as Metamucil, Citrucel, or Perdiem. Do NOT take products that contain iron - such as multi-vitamins (the label lists what is in the products). Three (3) Days Before Your Colonoscopy Do NOT eat high-fiber foods - such as popcorn, beans, seeds (flax, sunflower, quinoa), multigrain bread, nuts, salad/vegetables, or fresh and dried fruit. 1 Bowel Preparation Instructions for: Miralax-Gatorade Preparations One (1) Day Before Your Colonoscopy Only drink clear liquids the ENTIRE DAY before your colonoscopy. Do NOT eat any solid foods. Drink at least 8 ounces of clear liquids every hour after waking up. The clear liquids you can drink include: Clear Liquid (NO RED LIQUIDS) DO NOT DRINK Gatorade, Pedialyte or Powerade Clear broth or bouillon Coffee or tea (no milk or non-dairy creamer) Carbonated and non-carbonated soft drinks Scott-[employer] or other fruit flavored drinks Strained fruit juices (no pulp) Jell-O, popsicles, hard candy Water Alcohol Milk or non-dairy creamers Noodles or vegetables in soup Juice with pulp Liquid you cannot see through Do not use tobacco/vaping products Mix 1/2 of Miralax bottle (119 grams) in each 32 ounces of Gatorade bottle until dissolved. Keep cool in the refrigerator. DO NOT ADD ICE. The bowel preparation solution will be consumed in two parts. Part 1 5:00 PM - Evening before your colonoscopy Take 4 Dulcolax tablets. 6 PM - Evening before your colonoscopy Drink 32 oz. of the mixed solution. Drink an 8 oz. glass of bowel preparation every 15 minutes for a total of 4 glasses. Fifteen (15) minutes later, drink an 8 oz. glass of of clear liquids every 15 minutes for a total of 2 glasses. You may continue to drink clear liquids till midnight. Part 2 On the day of your colonoscopy you may drink clear liquids up to (three) 3 hours prior to procedure. 4 1/2 hours before your colonoscopy Take another 32 oz. bottle of mixed solution. Drink an 8 oz. glass of bowel prep every 15 minutes for a total of 4 glasses. Fifteen (15) minutes later, drink an 8 oz. glass of clear liquids every 15 minutes for a total of 2glasses. You may continue to drink clear liquids up to (three) 3 hours before your exam. 2 01/2019 BONE MINERAL DENSITY PATIENT INSTRUCTIONS Bone mineral density testing measures the amount of calcium in certain parts of your bones. This information determines how strong your bones are. The test is used to detect osteoporosis, a disease in which the bone's mineral content and density are low, increasing a person's risk of fractures. Thelumbar spine (lower back) and the hip are the skeletal sites usually examined. For the test, remember that: 1. You cannot take this test if you are . 2. Eat a normal diet on the day of the test. 3. Take your medications as you normally would. 4. DO NOT take calcium supplements (such as Tums) for 24 hours before the test. 5. On the day of the test, leave valuables (jewelry or credit cards) at home. 6. The test should be performed prior to oral, rectal or IV contrast studies, or at least 7 days after any of these studies. For the test, you may be asked to wear a hospital gown. You will lie on your back, on a padded table, in a comfortable position. Generally, you can resume your usual activities immediately. documented in this encounterBrecksville [facility] History of Present illness Narrative* Isabel Michelle APRN.CNP - 09/13/2022 4:00 PM EDT VIRTUAL VISIT FOLLOW UP Joelle Hendricks [id number] has requested a video telemedicine for follow up of ulcerative colitis. Joelle Hendricks verbalized informed consent to proceed with the video telemedicine follow up consultation. Joelle Hendricks was informed that the details of this video visit would be recorded as part of their electronic medical record. I have communicated my name and active licensure. The patient's identity and physical location were verified at the time of this visit. Either the patient or their legal direct marketing representative has been informed of the risks and benefits of -- and alternatives to -- treatment through a remote evaluation and consents to proceed with the evaluation remotely. Patient location at time of call: personal residence Additional encounter participants and relationship: none I had a virtual visit with Joelle Amstutz today for follow up of ulcerative colitis. Last seen on 12/04/[address] Caldwell. UPDATED HISTORY: - Feeling very well from an UC standpoint while on Lialda 4.8 g/d - Currently 35 weeks with her 2nd child (baby girl), and is due on 10/28/2022 with plans for a vaginal delivery - Has not experienced a flare up since her 1st Last plan: Will do a colonoscopy with TI intubation and segmental biopsies for disease restaging and for dysplasia surveillance Send for C diff PCR Send for CRP and stool calprotectin Increase Lialda dose to 4.8 grams daily Will start Rowasa enema 4 grams daily for 3 months, if response will switch to maintenance If no response by next visit, will consider initiating biologic therapy with steroid bridging Send for prebiologic workup (TB quantiferon, Heb B serology and TPMT) Will address her aaliyah maintenance next visit (will need Hep B, Hep A, Prevenar, Covid and Flu) Current Clinical Symptoms # of bowel movements daily: 1 BM every 2-3 days (pt reported normal) # of nocturnal stools (included in daily total): 0 # of liquid stools daily: 0 Consistency: soft, formed Bloody bowel movements: no Urgency: no Abdominal pain: no Abdominal distention: no Perianal issues: no Upper GI issues (heartburn, reflux, dysphagia): yes- heartburn d/t Nausea/vomiting: no Appetite: good Weight loss over last 3 months: no Reported weight today is 209 lbs. Pre- stable reported weight is ~185 lbs. IBD History Template Diagnosis Ulcerative Colitis: Date of diagnosis (year): 2011 Phenotype Extent: extensive Severity: Mild Prior Medications/Reason for Switch Surgery: No: Thiopurines: No Methotrexate: No Biologics: No Small molecules: No Current Medications Lialda 4.8 grams PO daily Prior Complications and Extraintestinal Manifestations Clostridium difficile: no Thrombosis: no Ocular (Uveitis, Episcleritis): no Dermatologic (Pyoderma gangrenosum, Erythema nodosum): no Arthropathy/Arthralgia: no Oral ulcers: no Primary Sclerosing Cholangitis: no Other: no Labs TB Status: Unknown Hepatitis B Status: Negative TPMT: Unknown PAST SURGICAL HISTORY Procedure Laterality Date MIDLINE INSERTION/CONSULT 04/01/2016 TONSILLECTOMY AND ADENOIDECTOMY HX Current Outpatient Medications Medication Sig Dispense Refill Mesalamine (LIALDA) 1.2 gram EC tablet TAKE 4 TABLETS BY MOUTH EVERY DAY WITH FOOD. DO NOT CRUSH 120 tablet 0 PNV WITHOUT CA NO.9/IRON/FA ( VIT NO.9-IRON-FA ORAL) Take by mouth. No current facility-administered medications for this visit. ALLERGIES Allergen Reactions Penicillin Other: See Comments Makes pt hyper Personal Habits: -Smoking: none -ETOH: none -Illegal drug use/marijuana: none -NSAIDs: none -Recent antibiotics: none PHYSICAL FINDINGS OF NOTE: General: alert and appropriate, in no distress and well-hydrated, well nourished, Psych: Appropriate mood and interaction Skin: no rash noted, Head: normocephalic, no abnormality or lesion noted, Eyes: visual acuity is grossly normal, no injection,, and EOMI, Ears: external ears normal without erythema or edema, Nose: external nose normal without rhinorrhea, Oropharynx: moist mucus membranes, no tonsillar hypertrophy/exudate, uvula midline and pharynx non-erythematous, lips, teeth and gums are without obvious lesion, Neck: full ROM, no cervical LNs noted, Respiratory: breathing non-labored, and no grunting/flaring/retractions, Chest: equal chest rise with normal respiratory effort, Abdomen: flat appearing. Visible protrusions or hernias: No Incisions/scars: None Areas of pain/tenderness: Denies Neuro: Patient seen sitting with normal appearing strength and coordination IMPRESSION (copied from previous notes and reflects today's medical decision making): Joelle Hendricks is a pleasant 27 year old female with PMHx of ulcerative proctitis (dx 2011) s/p flexible sigmoidoscopy after experiencing significant bloody diarrhea and abdominal cramps. She was nottaking any medications for 5 years. However, she had a UC flare in 2016 requiring hospitalization, and sigmoidoscopy showed extensive colitis up to TC. Patient started on Lialda and follow up colonoscopy 4 months later showed grossly active chronic disease up to 30 cm but histology showed active disease to transverse colon with no dysplasia. Since then, she had three flares requiring short courses of steroids, last in 06/2020. She had a repeat sigmoidoscopy in December 2017 which was essentially n ormal (no biopsies). In 12/2020 she presented with a mild flare so topical mesalamine therapy was added. She presents virtually today for follow up and endorses feeling very well from an UC standpoint while on Lialda 4.8 g/d. She is currently 35 weeks with her 2nd child (baby girl), and is due on 10/28/2022 with plans for a vaginal delivery- she has done well from an IBD standpoint throughout . We discussed continuing Lialda 4.8 g/d and undergoing a colonoscopy to assess disease activity later this year. Reviewed the plan and HM topics as outlined below. Health Maintenance: - Skin: I recommended annual full body mole check with Financial Planning Assistant- deferred consult and will plan to re-establish with local provider - Bones: never had a DXA scan, +hx of prednisone use but nothing recent- will order for baseline assessment. - Vaccines: Covid (prefers to avoid), Pneumonia (no), Flu (prefers to avoid), Tdap (2017), Hep A (negative), HepBsAb+, Shingrix (no), HPV (no). Deferred updated vaccines. - Women's health: up to date on PAP testing - Deferred IBD RD and IBD Psych services at this time PLAN - Continue Lialda 4.8 g/d - Routine labs + baseline FCP - Colonoscopy in late 2022 to reassess disease activity - HM issues addressed as above - Follow up with Dr. Caldwell in 6 months PATIENT IS OK TO BE CONTACTED BY IBD GI RESEARCH TEAM TO EXPLORE PARTICIPATION IN RESEARCH STUDIES I spent 27 minutes in the virtual visit, with more than 50% of the total [id number] time of the visit in counseling / coordination of care. I have confirmed and edited as necessary, the PFSH and ROS obtained by others. Unrelated to E/M, telemedicine, or virtual visit service provided within previo us 7 days. No E/M service or procedure anticipated within next 24 hours. Isabel Michelle APRN.CNP September 13, 2022 4:28 PM documented in this encounterBrecksville [facility]07-11-[facility]23 Miscellaneous Notes* Telephone Encounter - PatySangita donovan - 09/10/2022 10:28 AM EDT Images from the original note were not included. Isabel Michelle APRN.TEACHER OF FAMILY AND CONSUMER SCIENCE You 20 hours ago (2:27 PM) Nayeli Quesada! It looks like this patient hasn't been seen since 12/2020. She is requesting a refill for her mesalamine. Could you please reach out to this patient and advise her to schedule a follow up with me gonzalez in the next month (I refilled her script for 30 days), as well as a follow up with Dr. Caldwell in 6 months? Thanks so much! Isabel Received call from patient regarding the 30 day supply cost vs 90 day supply cost and needing a 90 day supply sent to her pharmacy. Patient was advised a visit is needed for 90 day supply, patient verbalized understanding . Assisted with scheduling virtual visit 09/13/22 4:00 pm with Isabel Michelle APRN. * Telephone Encounter - Sona Moseley RN - 09/09/2022 2:19 PM EDT Requested Prescriptions Pending Prescriptions Disp Refills Mesalamine (LIALDA) 1.2 gram EC tablet [Pharmacy Med Name: MESALAMINE DR 1.2 GM TABLET] 360 tablet 0 Sig: TAKE 4 TABLETS BY MOUTH EVERY DAY WITH FOOD. DO NOT CRUSH Last visit:2020 Last lab: 2020 Upcoming visit: None Sona Moseley RN documented in this encounterBrecksville [facility]06-05-[facility] History of Present illness Narrative* Sarbjit Puckett MD - 08/05/2022 5:43 PM EDT Patient presents with: Pain (foot): Left foot pinky toe possible infection, stubbed toe x 4 days ago HPI: Left toe pain: Duration: Pulled up the toenail on her left 5th toe 4 days ago. The toe started getting red and swollen the last 3 days. Location: left 5th toe around the nail Character: throbbing Treatment: soak, antibiotic ointment Associated: drained some clear fluid when squeezed, bleed with initial injury, currently . Pertinent negatives: Denies fever MEDICATIONS: Mesalamine (LIALDA) 1.2 gram EC tablet TAKE 4 TABLETS BY MOUTH EVERY DAY WITH FOOD. DO NOT CRUSH PNV WITHOUT CA NO.9/IRON/FA ( VIT NO.9-IRON-FA ORAL) Take by mouth. ALLERGIES: ALLERGIES Allergen Reactions Penicillin Other: See Comments Makes pt hyper VITALS: BP 112/76 Pulse 91 Temp 36.9 C (98.4 F) Resp 21 Wt 91.8 kg (202 lb 6.4 oz) LMP 08/12/2021(Exact Date) SpO2 100% BMI 31.70 kg/m PE: Pleasant, in no acute distress. Toe: left 5th. Eschar at the hyponychium and medial border of the nail. Erythema medial and proximal borders. No fluctuant collection. ASSESSMENT/PLAN: 1. Paronychia, toe, left - ICD9: 681.11, ICD10: L03.032 - CEPHALEXIN 500 MG CAPSULE - previously tolerated, safe in . Continue wound care. Sarbjit Puckett MD documented in this encounterBrecksville [facility]02-17-[facility]23 Evaluation + Plan note Diagnostic Tests Pending * Panel (AO) 04/19/22 * Varicella Zoster Antibody 04/19/22 [facility] 11-18-2022 History of Present illness Narrative* Kelly Perez, RT(R) - 01/18/2022 12:20 PM EST Radiology Service Progress Note PATIENT NAME: Joelle Hendricks DATE OF SERVICE: January 18, 2022 TIME: 12:28 PM PATIENT IDENTITY VERIFICATION COMPLETED USING TWO (2) IDENTIFIERS: Name and Date of confirmedby patient verbally. FALL SCREENING: Has the patient had 2 falls in the last year or 1 fall with injury or currently using an Ambulatory Assistive Device (Walker, Cane, Wheelchair, Crutches, etc.)? No PATIENT GENDER DATA: Female. status: : No status: NO. PATIENT RELEVANT IMPLANT DATA REVIEWED: Yes RADIOLOGY DEPARTMENT: General X-ray: Exam(s) Completed: Chest X-Ray PERIPHERAL IV DATA: Not applicable SIGNED BY: RT Concepcion(R) January 18, 2022 12:28 PM documented in this encounterBrecksville [facility]11-18-[facility]22 History of Present illness Narrative* Nia Gramajo APRN.TEACHER OF FAMILY AND CONSUMER SCIENCE - 01/18/2022 12:02 PM EST This note was created using NoteWriter. Subjective Joelle Hendricks is a 26 year old female. 26 year old female with PMH anemia presents for illness. Acute onset 2 weeks ago States started intially as head cold Progressed +cough + chest congestion Intermittent productive bright green to dry Denies dyspnea. Denies CP Denies hemoptysis. Has used Tylenol Sinus Severe Has used Robitussin as well Endorses and daughter had similar illness, but states that they have improved. Endorses x 2 home COVID negative over the past week. The history is provided by the patient. No director speech language was used. Cough This is a new problem. The current episode started more than 1 week ago. The problem occurs constantly. The problem has been gradually worsening. The cough is Productive of sputum. There has been no fever. Pertinent negatives include no chest pain, no chills, no sweats, no weight loss, no ear congestion, no ear pain, no headaches, no rhinorrhea, no sore throat, no myalgias, no shortness of breath, no wheezing and no eye redness. She has tried decongestants and cough syrup for the symptoms. The treatment provided no relief. She is not a smoker. Her past medical history does not include bronchitis, pneumonia, bronchiectasis, COPD, emphysema or asthma. PAST MEDICAL HISTORY Diagnosis Date Abdominal pain Acne taking aldactone Allergic rhinitis, cause unspecified Delayed emergence from general anesthesia GI bleed Iron deficiency anemia Ulcerative colitis (HCC) Seeing Dr. Vargas Ulcerative proctitis ([facility]) PAST SURGICAL HISTORY Procedure Laterality Date MIDLINE INSERTION/CONSULT 04/01/2016 TONSILLECTOMY AND ADENOIDECTOMY HX ALLERGIES Penicillin MEDICATIONS Mesalamine (LIALDA) 1.2 gram EC tablet Take 4 tablets by mouth daily with food, do not crush. fluticasone (FLONASE) 50 mcg/actuation nasal spray Use 2 Sprays in each nostril once daily. Rinse mouth after use. PNV WITHOUT CA NO.9/IRON/FA ( VIT NO.9-IRON-FA ORAL) Take by mouth. doxycycline monohydrate 100 mg tablet Take 1 tablet by mouth twice daily for 5 days. predniSONE (DELTASONE) 10 mg tablet Take 4 tabs daily for 3 days, then 2 tabs daily for 3 days, then 1 tab daily for 3 days with food. Xcwcklkxxvrvgtc-Noduaatun-WD (BROMFED DM) 2-30-10 mg/5 mL syrup Take 5 mL by mouth four times dailyas needed. polyethylene glycol 3350 (MIRALAX, GLYCOLAX) 17 gram/dose powder Use as directed for Miralax / Gatorade Bowel Prep Kit (Patient not taking: Reported on 03/01/2021 ) FAMILY HISTORY Problem Relation Age of Onset Diabetes Paternal Grandmother Diabetes Paternal Grandfather Coronary Artery Disease Paternal Grandfather Allergies Mother None Father Hyperlipidemia Maternal Grandmother Hypertension Maternal Grandmother Stroke Maternal Grandmother Diabetes Maternal Grandfather Stroke Maternal Grandfather Social History Tobacco Use Smoking status: Never Smokeless tobacco: Never Substance Use Topics Alcohol use: No Drug use: No Review of Systems Constitutional: Negative for chills and weight loss. HENT: Positive for congestion, sinus pressure and sinus pain. Negative for ear pain, rhinorrhea andsore throat. Eyes: Negative for pain, discharge, redness and itching. Respiratory: Positive for cough. Negative for shortness of breath and wheezing. Cardiovascular: Negative for chest pain, palpitations and leg swelling. Gastrointestinal: Negative for abdominal pain, diarrhea, nausea and vomiting. Musculoskeletal: Negative for arthralgias, back pain and myalgias. Skin: Negative for color change, pallor, rash and wound. Allergic/Immunologic: Negative for environmental allergies, food allergies and immunocompromised state. Neurological: Negative for dizziness, facial asymmetry and headaches. Hematological: Negative for adenopathy. Does not bruise/bleed easily. Psychiatric/Behavioral: Negative for agitation and behavioral problems. Objective BP 132/90 Pulse 110 Temp 36.8 C (98.3 F) Resp 18 Wt 84.4 kg (186 lb) LMP 08/12/2021 (Exact Date) SpO2 98% BMI 29.13 kg/m Physical Exam Vitals and nursing note reviewed. Constitutional: General: She is not in acute distress. Appearance: Normal appearance. She is normal weight. She is not ill-appearing, toxic-appearing or diaphoretic. HENT: Head: Normocephalic and atraumatic. Right Ear: Ear canal and external ear normal. Left Ear: Ear canal and external ear normal. Ears: Comments: +frontal sinus pressure TTP Bilateral moderate erythematic TMs. +post nasal drainage Nose: Nose normal. No congestion or rhinorrhea. Mouth/Throat: Mouth: Mucous membranes are moist. Pharynx: No oropharyngeal exudate or posterior oropharyngeal erythema. Eyes: General: Right eye: No discharge. Left eye: No discharge. Extraocular Movements: Extraocular movements intact. Conjunctiva/sclera: Conjunctivae normal. Pupils: Pupils are equal, round, and reactive to light. Cardiovascular: Rate and Rhythm: Normal rate and regular rhythm. Pulses: Normal pulses. Heart sounds: Normal heart sounds. No murmur heard. No friction rub. Pulmonary: Effort: Pulmonary effort is normal. No respiratory distress. Breath sounds: Normal breath sounds. No stridor. No wheezing, rhonchi or rales. Comments: Right posterior lobe with rhonchi Chest: Chest wall: No tenderness. Abdominal: General: Abdomen is flat. There is no distension. Palpations: Abdomen is soft. There is no mass. Tenderness: There is no abdominal tenderness. There is no right CVA tenderness, left CVA tenderness, guarding or rebound. Hernia: No hernia is present. Musculoskeletal: General: No swelling, tenderness, deformity or signs of injury. Normal range of motion. Cervical back: Normal range of motion and neck supple. No rigidity. Right lower leg: No edema. Left lower leg: No edema. Lymphadenopathy: Cervical: No cervical adenopathy. Skin: General: Skin is warm and dry. Capillary Refill: Capillary refill takes less than 2 seconds. Coloration: Skin is not jaundiced or pale. Findings: No bruising, erythema, lesion or rash. Neurological: General: No focal deficit present. Mental Status: She is alert and oriented to person, place, and time. Cranial Nerves: No cranial nerve deficit. Sensory: No sensory deficit. Motor: No weakness. Coordination: Coordination normal. Gait: Gait normal. Psychiatric: Mood and Affect: Mood normal. Behavior: Behavior normal. Thought Content: Thought content normal. Judgment: Judgment normal. Assessment and Plan ASSESSMENT/PLAN: 1. Acute cough - ICD9: 786.2, ICD10: R05.1 (primary diagnosis) X 2 weeks Likely related to illness Post tussive. - XR CHEST 2V FRONTAL/LAT-obtained and discharged. Will mychart message with results. 2. Rhinosinusitis - ICD9: 473.9, ICD10: J31.0, J32.9 - Will begin treatment with as per antibiotic as written, see orders RX Bromfed and Prednisone - The patient should also be given OTC cough and cold meds as needed and warm salt water gargles, throat lozenges and/or OTC throat spray as needed for the first 5-7 days of treatment. - Supportive care with plenty of fluids, rest, and analgesia prn. - Follow up in 3-5 days if symptoms persist or worsen. Nia Gramajo APRN.TEACHER OF FAMILY AND CONSUMER SCIENCE documented in this encounterBrecksville [facility]06-28-2022 Miscellaneous Notes* Telephone Encounter - Sangita Haro - 08/28/2021 9:46 AM EDT Called spoke with patient assisted with scheduling appointment virtually with Maria Guadalupe Espitia APRN 08/30/21 4:00 pm and and office visit with Dr Caldwell 12/10/21 10:00 am. Requested medication pended in refill encounter 08/28/21 routed to Maria Guadalupe Espitia for review. Sangita Haro LPN documented in this encounterBrecksville [facility]06-28-2022 Miscellaneous Notes* Telephone Encounter - Sangita Haro - 08/28/2021 9:28 AM EDT Pending Prescriptions Disp Refills MESALAMINE 1.2 GRAM TABLET,DELAYED RELEASE 360 tablet 1 Sig: Take 4 tablets by mouth daily with food, do not crush. LEILANI: No PLAN Will do a colonoscopy with TI intubation and segmental biopsies for disease restaging and for dysplasia surveillance Send for C diff PCR Send for CRP and stool calprotectin Increase Lialda dose to 4.8 grams daily Will start Rowasa enema 4 grams daily for 3 months, if response will switch to maintenance If no response by next visit, will consider initiating biologic therapy with steroid bridging Send for prebiologic workup (TB quantiferon, Heb B serology and TPMT) Will address her aaliyah maintenance next visit (will need Hep B, Hep A, Prevenar, Covid and Flu) Called spoke with patient ssisted with scheduling an office visit with Dr Caldwell 10:00 am and a virtual visit with Maria Guadalupe Espitia APRN 08/30/21 4:00 pm. Sangita Haro LPN documented in this encounterBrecksville [facility]06-13-2022 Instructions* Patient Instructions* Heidi Mann APRN.CNP - 08/13/2021 7:16 AM EDT 1.) Get chest xray completed. 2.) Start Zyrtec 10 mg daily, may use flonase 1-2 times per day as needed for seasonal allergies. 3.) Follow up pending test results or sooner as needed. Ceprocol cough drops are helpful for sore throat. documented in this encounterBrecksville [facility]06-13-2022 History of Present illness Narrative* Heidi Mann APRN.CNP - 08/13/2021 7:00 AM EDT This is a 26 year old female who presents today with: Patient presents with: Acute Visit: tickle cought x 2 months HISTORY OF PRESENT ILLNESS: Joelle Hendricks is a 26 year old female. Patient presents with: Acute Visit: tickle cought x [address] Crowder here in the office for chronic cough. Feels like a dry tickle. Non-productive cough. Started about 6 weeks ago. Was seen in urgent care in July for sore throat. Was started on Flonase and 5 days of prednisone. Currently taking Claritin. Cough has improved but still lingering. Has a history of seasonal allergies but refers it has been well controlled for several years. Use toget allergy injections. No wheezing or SOB. No other HEENT symptoms, fever, or chills. PAST MEDICAL HISTORY: PAST MEDICAL HISTORY Diagnosis Date Abdominal pain Acne taking aldactone Allergic rhinitis, cause unspecified Delayed emergence from general anesthesia GI bleed Iron deficiency anemia Ulcerative colitis (HCC) Seeing Dr. Vargas Ulcerative proctitis ([facility]) PAST SURGICAL HISTORY Procedure Laterality Date MIDLINE INSERTION/CONSULT 04/01/2016 TONSILLECTOMY AND ADENOIDECTOMY HX ALLERGIES Penicillin MEDICATIONS Current Outpatient Medications Medication Sig fluticasone (FLONASE) 50 mcg/actuation nasal spray Use 2 Sprays in each nostril once daily. Rinse mouth after use. albuterol HFA (PROVENTIL HFA, VENTOLIN HFA) 90 mcg/actuation inhaler Inhale 2 Puffs as instructed every 6 hours as needed for wheezing/shortness of breath. albuterol HFA (PROVENTIL HFA, VENTOLIN HFA) 90 mcg/actuation inhaler Inhale 2 Puffs as instructed every 4 hours as needed for wheezing/shortness of breath. (Patient not taking: Reported on 03/01/2021 ) benzonatate (TESSALON PERLES) 100 mg capsule Take 1-2 capsules by mouth three times daily as needed. (Patient not taking: Reported on 03/01/2021 ) dicyclomine (BENTYL) 20 mg tablet Take 1 tablet by mouth every 6 hours. Do not take if Mesalamine (LIALDA) 1.2 gram EC tablet Take 4 tablets by mouth daily with food, do not crush. polyethylene glycol 3350 (MIRALAX, GLYCOLAX) 17 gram/dose powder Use as directed for Miralax / Gatorade Bowel Prep Kit (Patient not taking: Reported on 03/01/2021 ) Gatorade Sports Drink Use as directed for Miralax / Gatorade Bowel Prep Kit Bisacodyl (DULCOLAX) 5 mg tab Use as directed for Miralax / Gatorade Bowel Prep Kit (Patient not taking: Reported on 03/01/2021 ) mesalamine (ROWASA) 4 gram/60 mL enema 60 mL by RECTAL route daily at bedtime. (Patient not taking:Reported on 12/11/2020 ) Uuolorpbxlsgujp-Lpbebqrgf-GI (BROMFED DM) 2-30-10 mg/5 mL syrup Take 5 mL by mouth four times dailyas needed. (Patient not taking: Reported on 03/19/2019 ) aspirin 81 mg chewable tablet 81 mg. (Patient not taking: Reported on 09/15/2020 ) PNV WITHOUT CA NO.9/IRON/FA ( VIT NO.9-IRON-FA ORAL) Take by mouth. No current facility-administered medications for this visit. FAMILY HISTORY Problem Relation Age of Onset Diabetes Paternal Grandmother Diabetes Paternal Grandfather Coronary Artery Disease Paternal Grandfather Allergies Mother None Father Hyperlipidemia Maternal Grandmother Hypertension Maternal Grandmother Stroke Maternal Grandmother Diabetes Maternal Grandfather Stroke Maternal Grandfather Social History Tobacco Use Smoking status: Never Smoker Smokeless tobacco: Never Used Substance Use Topics Alcohol use: No Drug use: No REVIEW OF SYSTEMS GENERAL: No weight loss, malaise or fevers/chills HEENT: Negative for frequent or significant headaches, No changes in hearing or vision. NECK: Negative for lumps, goiter, pain and significant neck swelling RESPIRATORY: + Cough CARDIOVASCULAR: Negative for chest pain, leg swelling, orthopnea, or palpitations GI: No nausea, vomiting, or diarrhea/constipation. No hematochezia/melena. No heartburn or reflux symptoms. : No history of dysuria, frequency or incontinence MUSCULOSKELETAL: Negative for joint pain or swelling. SKIN: Negative for lesions, rash, and itching ENDOCRINE: Negative for cold or heat intolerance, polyuria, polydipsia and goiter NEURO: No history of headaches, syncope, paralysis, seizures or tremors MOOD: Negative for depression, anxiety, or suicidal ideation. EXAM: BP 108/76 Pulse 83 Resp 16 Wt 85.3 kg (188 lb) LMP 08/12/2021 (Exact Date) SpO2 98% BMI29.44 kg/m PHYSICAL EXAM: General Appearance: Well appearing, alert, in no acute distress, well-hydrated, well nourished. Skin: Skin color, texture, turgor normal, no suspicious rashes or lesions. Head: Normocephalic, no masses, lesions, tenderness or abnormalities. Eyes: Anicteric sclera. Extraocular movements are intact. Ears: External ears normal, canals clear. TM's dull. Nose/Sinuses: Nares normal, septum midline, mucosa normal, no drainage or sinus tenderness. Oropharynx: Lips, mucosa, and tongue normal, teeth and gums normal and Positive findings: mild oropharyngeal erythema. Neck: Supple, no adenopathy; thyroid symmetric, normal size, no bruits. Lungs: Lungs clear to auscultation. No wheezing, rhonchi, rales. Heart: RRR without murmur, gallop, or rubs. No ectopy. Extremities: No deformities, edema, skin discoloration, clubbing or cyanosis. Good capillary refill. Peripheral Pulses: Normal, Capillary refill <2secs, strong peripheral pulses, Pulses palpable. ASSESSMENT/PLAN: 1. Seasonal allergies - ICD9: 477.9, ICD10: J30.2 (primary diagnosis) - Symptoms consistent with seasonal allergies. - Discussed antihistamine choices, will switch Claritin to Zyrtec 10 mg daily. - May continue with Flonase 1-2 times per day. - If allergy symptoms do not improve may need referral to allergy, patient agreeable to this plan. - CETIRIZINE 10 MG TABLET 2. Cough - ICD9: 786.2, ICD10: R05.9 - Get chest xray for further evaluation for lingering cough. - XR CHEST 2V FRONTAL/LAT Follow-up pending test results or sooner as needed. Discussed treatment plan and patient voices understanding. Patient's questions answered appropriately. Medications and potential side effects were discussed and patient voices understanding. Heidi Mann APRN.MARGARITA This note was partially generated using [employer] voice recognition system. Note was reviewed for accuracy. There may be minor misspellings or grammar miscues with [employer] voice recognition. [facility] in this encounter[facility] Instructions* Patient Instructions* Aminta Monge APRN.CNP - 07/20/2021 10:42 AM EDT Diagnosis: Assessment COUGH: Your doctor wants you to have this information about coughing. The body has a cough reflex which helps expel mucous secretions and irritants from the lung and airway passages. Cough spasms are periods of continuous coughing lasting several minutes. Most coughs is caused by virus infections which may last for up to 2-3 weeks. Coughing helps to protect the lung from pneumonia. A persistent cough las ting longer than 4-6 weeks requires medical evaluation by your primary care doctor. Treatment of cough includes measures to loosen the cough and thin the mucous. Warm liquids, cough drops, and nonprescription cough medicine may help reduce dry hacking cough. Use a humidifier if necessary as dry air can make coughs worse. Ultrasonic humidifiers are especially useful as they kill molds and many bacteria. Some cough medicines have antihistamines, decongestants, or alcohol in them; there is no proof that any of these help control cough. Prescription cough medicine or those with dextromethorphan (DM) should be reserved for dry coughs that prevent sleep or cause spasms or chest pain. Avoid any exposure to cigarette smoke as this will worsen the cough or make it last much longer. Call your doctor right away if you or your child have increased breathing difficulty, a high fever, a cough that lasts longer than 3 weeks, or other serious complaints. documented in this encounterB[facility] History of Present illness Narrative* Aminta Monge APRN.TEACHER OF FAMILY AND CONSUMER SCIENCE - 07/20/2021 10:31 AM EDT CC: Patient presents with: Cough: Pt denied SOB, chest pain (neg Covid 07/19/2021) Chest Congestion: x3 days, throat irritation, [place] rated 3 HPI: Joelle Hendricks is a 26 year old female who presents to the office with complaint of head congestion, cough, nonproductive and sore throat for a few days. Symptoms are worsening Associated symptoms includes cough. Denies fever, nausea, vomiting and diarrhea. Treatments tried include nothing so far. with no relief of symptoms. Sick contacts: unknown. History of asthma, frequent episodes of bronchitis, chronic bronchitis, bronchiectasis or COPD: No Smoker: No Seasonal/environmental allergies: No The ROS is otherwise negative. The patient's pmh, medications, allergies, and past visits are reviewed. PHYSICAL EXAM: BP 122/76 Pulse 102 Temp 36.8 C (98.3 F) Resp 16 LMP 07/17/2021 SpO2 97% General appearance: alert, cooperative, pleasant, in no acute distress Head: Normocephalic Eyes: EOM's intact, conjunctiva pink and moist, no icterus, sclera white, non-injected Ears: Right ear: External ear/canal- Normal, TM - clear with good landmarks. Left ear: External ear/canal- Normal, TM - clear with good landmarks Oropharynx:moderate erythema, without exudates present Heart: Negative. RRR without obvious murmur, gallop, or rubs. No ectopy. Lungs: clear to auscultation, without rales or wheeze, good air exchange PAST MEDICAL HISTORY Diagnosis Date Abdominal pain Acne taking aldactone Allergic rhinitis, cause unspecified Delayed emergence from general anesthesia GI bleed Iron deficiency anemia Ulcerative colitis (HCC) Seeing Dr. Vargas Ulcerative proctitis (HCC) PAST SURGICAL HISTORY Procedure Laterality Date MIDLINE INSERTION/CONSULT 04/01/2016 TONSILLECTOMY AND ADENOIDECTOMY HX ALLERGIES Penicillin MEDICATIONS Mesalamine (LIALDA) 1.2 gram EC tablet Take 4 tablets by mouth daily with food, do not crush. PNV WITHOUT CA NO.9/IRON/FA ( VIT NO.9-IRON-FA ORAL) Take by mouth. albuterol HFA (PROVENTIL HFA, VENTOLIN HFA) 90 mcg/actuation inhaler Inhale 2 Puffs as instructed every 4 hours as needed for wheezing/shortness of breath. benzonatate (TESSALON PERLES) 100 mg capsule Take 1-2 capsules by mouth three times daily as needed. predniSONE (DELTASONE) 10 mg tablet Take 1 tablet by mouth once daily. 60 mg x 1 week, 50 mg x 1 week, 40 mg x 1 week, 35 mg x 1 week, 30 mg x 1 week, 25 mg x 1 week, 20 mg x 1 week, 15 mg x 1 week, 10 mg x 1 week, 5 mg x 1 week dicyclomine (BENTYL) 20 mg tablet Take 1 tablet by mouth every 6 hours. Do not take if polyethylene glycol 3350 (MIRALAX, GLYCOLAX) 17 gram/dose powder Use as directed for Miralax / Gatorade Bowel Prep Kit Gatorade Sports Drink Use as directed for Miralax / Gatorade Bowel Prep Kit Bisacodyl (DULCOLAX) 5 mg tab Use as directed for Miralax / Gatorade Bowel Prep Kit mesalamine (ROWASA) 4 gram/60 mL enema 60 mL by RECTAL route daily at bedtime. predniSONE (DELTASONE) 5 mg tablet PO. Take 8 tablets daily for one week, then decrease by one tablet once per week until gone. This taper should take 8 weeks to complete. Bgaxchfgqmszmvx-Fltwnbjiv-RT (BROMFED DM) 2-30-10 mg/5 mL syrup Take 5 mL by mouth four times dailyas needed. albuterol HFA (VENTOLIN HFA) 90 mcg/actuation inhaler Inhale 2 Puffs as instructed every 4 hours asneeded for Wheezing/Shortness of Breath. aspirin 81 mg chewable tablet 81 mg. FAMILY HISTORY Problem Relation Age of Onset Diabetes Paternal Grandmother Diabetes Paternal Grandfather Coronary Artery Disease Paternal Grandfather Allergies Mother None Father Hyperlipidemia Maternal Grandmother Hypertension Maternal Grandmother Stroke Maternal Grandmother Diabetes Maternal Grandfather Stroke Maternal Grandfather Social History Tobacco Use Smoking status: Never Smoker Smokeless tobacco: Never Used Substance Use Topics Alcohol use: No Drug use: No ASSESSMENT/PLAN: 1. Sore throat - ICD9: 462, ICD10: J02.9 - STREP A MOLECULAR (POC) - negative Prescription instructions reviewed with patient as applicable. prednisone daily for 5 days, albuterol, Flonase. Potential red flag symptoms discussed with the patient. Reviewed appropriate action plan to take if red flag symptoms occur. Patient agreeable to treatment plan. Aminta Monge APRN.MARGARITA documented in this encounterBrec[facility]ville [facility] History of Past illness Narrative* Problem Noted Date Resolved Date Microcytic anemia 03/13/2016 03/21/2016 documented as of this encounter (statuses as of 07/20/2021) [facility] of Past illness Narrative* Problem Noted Date Resolved Date Microcytic anemia 03/13/2016 03/21/2016 documented as of this encounter (statuses as of 08/13/2021) [place] [address]-11-2017 History of Past illness Narrative* Problem Noted Date Resolved Date Microcytic anemia 03/13/2016 03/21/2016 documented as of this encounter (statuses as of 08/28/2021) [place] [address]-11-2017 History of Past illness Narrative* Problem Noted Date Resolved Date Microcytic anemia 03/13/2016 03/21/2016 documented as of this encounter (statuses as of 08/28/2021) [address]11-2017 History of Past illness Narrative* Problem Noted Date Resolved Date Microcytic anemia 03/13/2016 03/21/2016 documented as of this encounter (statuses as of 01/18/2022) [address]11[address]2017 History of Past illness Narrative* Problem Noted Date Resolved Date Microcytic anemia 03/13/2016 03/21/2016 documented as of this encounter (statuses as of 08/06/2022) [address]2017 History of Past illness Narrative* Problem Noted Date Diagnosed Date Resolved Date Microcytic anemia 03/13/2016 03/21/2016 documented as of this encounter (statuses as of 09/10/2022) [address]11[address]2017 History of Past illness Narrative* Problem Noted Date Diagnosed Date Resolved Date Microcytic anemia 03/13/2016 03/21/2016 documented as of this encounter (statuses as of 09/14/2022) [address]11[address]2017 History of Past illness Narrative* Problem Noted Date Diagnosed Date Resolved Date Microcytic anemia 03/13/2016 03/21/2016 documented as of this encounter (statuses as of 01/27/2023) [facility] note No data available for this section [facility] note* Diagnosis Sore throat- Primary Acute pharyngitis documented in this encounter [facility] note* Diagnosis Seasonal allergies- Primary Allergic rhinitis, cause unspecified Cough documented in this encounter [facility] note* Diagnosis Acute cough- Primary Rhinosinusitis Unspecified sinusitis (chronic) documented in this encounter [facility] note* Diagnosis Paronychia, toe, left- Primary [facility]* Diagnosis Ulcerative proctitis without complication (HCC)- Primary intermediate current use of systemic steroids Encounter for long-term (current) use of steroids documented in this [facility]* Diagnosis Sore throat- Primary Acute pharyngitis documented [facility]* Diagnosis Ulcerative proctitis without complication (HCC)- Primary documented in this encounter [facility] note* Diagnosis Ulcerative proctitis without complication (HCC)- Primary documented in this encounter [facility] note* Diagnosis IBD (inflammatory bowel disease)- Primary Other and unspecified noninfectious gastroenteritis and colitis documented in this encounter [facility] note* Diagnosis Ulcerative proctitis without complication (HCC) documented in this encounter [facility] note* Diagnosis Ulcerative proctitis without complication (HCC)- Primary documented in this encounter [facility] note* Diagnosis Ulcerative proctitis without complication (HCC)- Primary documented in this encounter [facility] note* Diagnosis intermediate current use of systemic steroids- Primary Encounter for long-term (current) use of steroids Ulcerative proctitis without complication (HCC) documented in this encounter [facility] note* Diagnosis Other ulcerative colitis without complication (HCC)- Primary documented in this encounter [facility] note* Diagnosis Acute cough documented in this encounter [facility] note* Diagnosis Other ulcerative colitis without complication (HCC)- Primary documented in this encounter [facility] note* Diagnosis Ulcerative proctitis without complication (HCC) documented in this encounter [facility] note* Diagnosis Ulcerative proctitis without complication (HCC)- Primary documented in this encounter [facility] note* Diagnosis Hematochezia- Primary Blood in stool Other ulcerative colitis without complication (HCC) documented in this encounter [facility] note* Diagnosis Other ulcerative colitis without complication (HCC)- Primary documented in this encounter [facility] note* Diagnosis Ulcerative proctitis without complication (HCC)- Primary documented in this encounter [facility] Discharge instructions No data available for this section [facility] Progress note No data available for this section [facility] Reason for referral (narrative)* Outpatient Procedure (Routine) - Pending Review Specialty Diagnoses / Procedures Referred By Jed t Referred To Contact [facility] Diagnoses Ulcerative proctitis without complication (HCC) Procedures COLONOSCOPY DIAGNOSTIC COLONOSCOPY FLX DX W/COLLJ SPEC WHEN PFRMD Isabel Michelle, CAR.TEACHER OF FAMILY AND CONSUMER SCIENCE [address] [place] [address] [address] Referral ID Status Reason Start Date Expiration Date Visits Requested Visits Authorized [id number] Pending Review Auto-Generat ed Referral 09/13/2022 09/14/2023 1 1 [facility] for referral (narrative)* Outpatient Procedure (Routine) - Pending Review Specialty Diagnoses / Procedures Referred By Contac t Referred To Contact [facility] Diagnoses Ulcerative proctitis without complication (HCC) Procedures COLONOSCOPY DIAGNOSTIC COLONOSCOPY FLX DX W/COLLJ SPEC WHEN Miriam Rosenberg PA-C [address] [address] [place] [id number] Referral ID Status Reason Start Date Expiration Date Visits Requested Visits Authorized [id number] Pending Review Auto-Generat ed Referral 07/23/2023 07/22/2024 1 1 [facility] for referral (narrative)* Outpatient Procedure (Routine) - Closed Specialty Diagnoses / Procedures Referred By Contac t Referred To Contact [facility] Diagnoses Ulcerative proctitis without complication (HCC) Procedures COLONOSCOPY DIAGNOSTIC COLONOSCOPY FLX DX W/COLLJ SPEC WHEN Isabel Casillas APRN.CNP [address] [place] [address] [address] Referral ID Status Reason Start Date Expiration Date V isits Requested Visits Authorized [id number] Closed Auto-Generate d Referral 09/13/2022 09/14/2023 1 1 [facility] for visit Narrative* Outpatient Procedure (Routine) - Closed Specialty Diagnoses / Procedures Referred By Contac t Referred To Contact [facility] Diagnoses Ulcerative proctitis without complication (HCC) Procedures COLONOSCOPY DIAGNOSTIC COLONOSCOPY FLX DX W/COLLJ SPEC WHEN PFRMD Isabel Michelle, INDUSTRIAL ARTS TEACHER.TEACHER OF FAMILY AND CONSUMER SCIENCE [address] [place] [address] [facility] [address] [place] [address] Referral ID Status Reason Start Date Expiration Date V isits Requested Visits Authorized [id number] Closed Auto-Generate d Referral 09/13/2022 09/14/2023 1 1 [facility] Summary Purpose Family History No Family History Records FoundNo Family History Records Found No data available for this section No data available for this section No Family History Records FoundNo Family History Records Found No data available for this section No Family History Records FoundNo Family History Records FoundNo Family History Records Found Advance Directives No Advanced Directives Records FoundDocuments on File Type Date Recorded Patient Encapsulator Expl anation Advance Directives and Living Will Power of Welder Tech Documents on File Type Date Recorded Patient Encapsulator Expl anation Advance Directive(s) Advance Directive(s) 12/11/2020 12:07 PM Advance Directive(s) 03/27/2016 4:53 PM Discharge Instructions * Attachments The following attachments cannot be sent through Care Everywhere. * Miscarriage: Vacuum Aspiration ([place]) documented in this encounter History of Present Illness * Yaquelin Boyer RN - 10/29/2018 5:58 PM EDT D/C via wheelchair with family to home * Yaquelin Boyer RN - 10/29/2018 5:50 PM EDT Ambulated in halls, steady gait, feeling better. Dressed with assist. IV out. * Yaquelin Boyer RN - 10/29/2018 5:20 PM EDT Ambulated to bathroom, steady gait. Unable to void at this time returmed to bed complains of feeling faint. * Brenda Brandt RN - 10/29/2018 4:41 PM EDT Discharge instructions and new prescriptions reviewed with pt and family verbalize understanding * Yaquelin Boyer RN - 10/29/2018 2:00 PM EDT Pt moaning, not following commands or answering questions. documented in this encounter Assessments Diagnosis Post-operative state- Primary Other postprocedural status Reason for Referral Specialty Diagnoses / Procedures Referred By Jed t Referred To Contact Nutrition Diagnoses Ulcerative proctitis without complication (HCC) Procedures CONSULT TO NUTRITION THERAPY MEDICAL NUTRITION ASSMT&IVNTJ INDIV EACH [address] Miriam Mason PA-C [address] [place] [id number] Referral ID Status Reason Start Date Expiration Date Visits Requested Visits Authorized [id number] Authorized PCP Requested Referral 09/17/2023 09/16/2024 1 4 Additional Source Comments INFORMATION SOURCE (unrecogn ized section and content) DATE CREATED AUTHOR 10/21/2018 [facility] DATE CREATED AUTHOR AUTHOR'S ORGANIZ ATION 11/06/2018 [facility] DATE CREATED AUTHOR AUTHOR'S ORGANIZ ATION 10/28/2022 [facility] ([place]) DATE CREATED AUTHOR AUTHOR'S ORGANIZ ATION 09/01/2023 [facility] DATE CREATED AUTHOR AUTHOR'S ORGANIZ ATION 08/23/2024 [facility] DATE CREATED AUTHOR AUTHOR'S ORGANIZ ATION 10/16/2024 [facility] DATE CREATED AUTHOR AUTHOR'S ORGANIZ ATION 11/20/2024 [facility] Source Comments (unrecognize d section and content) In the event this informatio n is protected by the Federal Confidentiality of Alcohol and Drug Abuse Patient Records regulations: The Federal rules restrict any use of the information to criminally investigate or prosecute any alcohol or drug abuse patient.[facility] the event this information is protected by the Federal Confidentiality of Alcohol and Drug Abuse Patient Records regulations: The Federal rules restrict any use of the information to criminally investigate or prosecute any alcohol or drug abuse patient.[facility] the event this information is protected by the Federal Confidentiality of Alcohol and Drug Abuse Patient Records regulations: The Federal rules restrict any use of the information to criminally investigate or prosecute any alcohol or drug abuse patient.[facility] the event this information is protected by the Federal Confidentiality of Alcohol and Drug Abuse Patient Records regulations: The Federal rules restrict any use of the information to criminally investigate or prosecute any alcohol or drug abuse patient.[facility] the event this information is protected by the Federal Confidentiality of Alcohol and Drug Abuse Patient Records regulations: The Federal rules restrict any use of the information to criminally investigate or prosecute any alcohol or drug abuse patient.[facility] the event this information is protected by the Federal Confidentiality of Alcohol and Drug Abuse Patient Records regulations: The Federal rules restrict any use of the information to criminally investigate or prosecute any alcohol or drug abuse patient.[facility] the event this information is protected by the Federal Confidentiality of Alcohol and Drug Abuse Patient Records regulations: The Federal rules restrict any use of the information to criminally investigate or prosecute any alcohol or drug abuse patient.[facility] HospitalIn the event this information is protected by the Federal Confidentiality of Alcohol and Drug Abuse Patient Records regulations: The Federal rules restrict any use of the information to criminally investigate or prosecute any alcohol or drug abuse patient.[facility] HospitalIn the event this information is protected by the Federal Confidentiality of Alcohol and Drug Abuse Patient Records regulations: The Federal rules restrict any use of the information to criminally investigate or prosecute any alcohol or drug abuse patient.[facility] HospitalIn the event this information is protected by the Federal Confidentiality of Alcohol and Drug Abuse Patient Records regulations: The Federal rules restrict any use of the information to criminally investigate or prosecute any alcohol or drug abuse patient.[facility] HospitalIn the event this information is protected by the Federal Confidentiality of Alcohol and Drug Abuse Patient Records regulations: The Federal rules restrict any use of the information to criminally investigate or prosecute any alcohol or drug abuse patient.[facility] HospitalIn the event this information is protected by the Federal Confidentiality of Alcohol and Drug Abuse Patient Records regulations: The Federal rules restrict any use of the information to criminally investigate or prosecute any alcohol or drug abuse patient.[facility] HospitalIn the event this information is protected by the Federal Confidentiality of Alcohol and Drug Abuse Patient Records regulations: The Federal rules restrict any use of the information to criminally investigate or prosecute any alcohol or drug abuse patient.[facility] HospitalIn the event this information is protected by the Federal Confidentiality of Alcohol and Drug Abuse Patient Records regulations: The Federal rules restrict any use of the information to criminally investigate or prosecute any alcohol or drug abuse patient.[facility] HospitalIn the event this information is protected by the Federal Confidentiality of Alcohol and Drug Abuse Patient Records regulations: The Federal rules restrict any use of the information to criminally investigate or prosecute any alcohol or drug abuse patient.[facility] HospitalIn the event this information is protected by the Federal Confidentiality of Alcohol and Drug Abuse Patient Records regulations: The Federal rules restrict any use of the information to criminally investigate or prosecute any alcohol or drug abuse patient.[facility] HospitalIn the event this information is protected by the Federal Confidentiality of Alcohol and Drug Abuse Patient Records regulations: The Federal rules restrict any use of the information to criminally investigate or prosecute any alcohol or drug abuse patient.[facility] HospitalIn the event this information is protected by the Federal Confidentiality of Alcohol and Drug Abuse Patient Records regulations: The Federal rules restrict any use of the information to criminally investigate or prosecute any alcohol or drug abuse patient.[facility] HospitalIn the event this information is protected by the Federal Confidentiality of Alcohol and Drug Abuse Patient Records regulations: The Federal rules restrict any use of the information to criminally investigate or prosecute any alcohol or drug abuse patient.[facility] HospitalIn the event this information is protected by the Federal Confidentiality of Alcohol and Drug Abuse Patient Records regulations: The Federal rules restrict any use of the information to criminally investigate or prosecute any alcohol or drug abuse patient.[facility] HospitalIn the event this information is protected by the Federal Confidentiality of Alcohol and Drug Abuse Patient Records regulations: The Federal rules restrict any use of the information to criminally investigate or prosecute any alcohol or drug abuse patient.[facility] HospitalIn the event this information is protected by the Federal Confidentiality of Alcohol and Drug Abuse Patient Records regulations: The Federal rules restrict any use of the information to criminally investigate or prosecute any alcohol or drug abuse patient.[facility] HospitalIn the event this information is protected by the Federal Confidentiality of Alcohol and Drug Abuse Patient Records regulations: The Federal rules restrict any use of the information to criminally investigate or prosecute any alcohol or drug abuse patient.[facility] HospitalIn the event this information is protected by the Federal Confidentiality of Alcohol and Drug Abuse Patient Records regulations: The Federal rules restrict any use of the information to criminally investigate or prosecute any alcohol or drug abuse patient.[facility] HospitalIn the event this information is protected by the Federal Confidentiality of Alcohol and Drug Abuse Patient Records regulations: The Federal rules restrict any use of the information to criminally investigate or prosecute any alcohol or drug abuse patient.[facility] HospitalIn the event this information is protected by the Federal Confidentiality of Alcohol and Drug Abuse Patient Records regulations: The Federal rules restrict any use of the information to criminally investigate or prosecute any alcohol or drug abuse patient.[facility] HospitalIn the event this information is protected by the Federal Confidentiality of Alcohol and Drug Abuse Patient Records regulations: The Federal rules restrict any use of the information to criminally investigate or prosecute any alcohol or drug abuse patient.[facility] HospitalIn the event this information is protected by the Federal Confidentiality of Alcohol and Drug Abuse Patient Records regulations: The Federal rules restrict any use of the information to criminally investigate or prosecute any alcohol or drug abuse patient.[facility] HospitalIn the event this information is protected by the Federal Confidentiality of Alcohol and Drug Abuse Patient Records regulations: The Federal rules restrict any use of the information to criminally investigate or prosecute any alcohol or drug abuse patient.[facility] HospitalIn the event this information is protected by the Federal Confidentiality of Alcohol and Drug Abuse Patient Records regulations: The Federal rules restrict any use of the information to criminally investigate or prosecute any alcohol or drug abuse patient.[facility] HospitalIn the event this information is protected by the Federal Confidentiality of Alcohol and Drug Abuse Patient Records regulations: The Federal rules restrict any use of the information to criminally investigate or prosecute any alcohol or drug abuse patient.[facility] HospitalIn the event this information is protected by the Federal Confidentiality of Alcohol and Drug Abuse Patient Records regulations: The Federal rules restrict any use of the information to criminally investigate or prosecute any alcohol or drug abuse patient.[facility] HospitalIn the event this information is protected by the Federal Confidentiality of Alcohol and Drug Abuse Patient Records regulations: The Federal rules restrict any use of the information to criminally investigate or prosecute any alcohol or drug abuse patient.[facility] HospitalIn the event this information is protected by the Federal Confidentiality of Alcohol and Drug Abuse Patient Records regulations: The Federal rules restrict any use of the information to criminally investigate or prosecute any alcohol or drug abuse patient.[facility] HospitalIn the event this information is protected by the Federal Confidentiality of Alcohol and Drug Abuse Patient Records regulations: The Federal rules restrict any use of the information to criminally investigate or prosecute any alcohol or drug abuse patient.[facility] HospitalIn the event this information is protected by the Federal Confidentiality of Alcohol and Drug Abuse Patient Records regulations: The Federal rules restrict any use of the information to criminally investigate or prosecute any alcohol or drug abuse patient.[facility] HospitalIn the event this information is protected by the Federal Confidentiality of Alcohol and Drug Abuse Patient Records regulations: The Federal rules restrict any use of the information to criminally investigate or prosecute any alcohol or drug abuse patient.[facility] HospitalIn the event this information is protected by the Federal Confidentiality of Alcohol and Drug Abuse Patient Records regulations: The Federal rules restrict any use of the information to criminally investigate or prosecute any alcohol or drug abuse patient.[facility] HospitalIn the event this information is protected by the Federal Confidentiality of Alcohol and Drug Abuse Patient Records regulations: The Federal rules restrict any use of the information to criminally investigate or prosecute any alcohol or drug abuse patient.[facility] HospitalIn the event this information is protected by the Federal Confidentiality of Alcohol and Drug Abuse Patient Records regulations: The Federal rules restrict any use of the information to criminally investigate or prosecute any alcohol or drug abuse patient.[facility] HospitalIn the event this information is protected by the Federal Confidentiality of Alcohol and Drug Abuse Patient Records regulations: The Federal rules restrict any use of the information to criminally investigate or prosecute any alcohol or drug abuse patient.[facility] HospitalIn the event this information is protected by the Federal Confidentiality of Alcohol and Drug Abuse Patient Records regulations: The Federal rules restrict any use of the information to criminally investigate or prosecute any alcohol or drug abuse patient.[facility] HospitalIn the event this information is protected by the Federal Confidentiality of Alcohol and Drug Abuse Patient Records regulations: The Federal rules restrict any use of the information to criminally investigate or prosecute any alcohol or drug abuse patient.[facility] HospitalIn the event this information is protected by the Federal Confidentiality of Alcohol and Drug Abuse Patient Records regulations: The Federal rules restrict any use of the information to criminally investigate or prosecute any alcohol or drug abuse patient.[facility] HospitalIn the event this information is protected by the Federal Confidentiality of Alcohol and Drug Abuse Patient Records regulations: The Federal rules restrict any use of the information to criminally investigate or prosecute any alcohol or drug abuse patient.[facility] HospitalIn the event this information is protected by the Federal Confidentiality of Alcohol and Drug Abuse Patient Records regulations: The Federal rules restrict any use of the information to criminally investigate or prosecute any alcohol or drug abuse patient.[facility] HospitalIn the event this information is protected by the Federal Confidentiality of Alcohol and Drug Abuse Patient Records regulations: The Federal rules restrict any use of the information to criminally investigate or prosecute any alcohol or drug abuse patient.[facility] Reason for Visit (unrecogniz ed section and content) Reason Comments Non-Chemotherapy Treatment Specialty Diagnoses / Procedures Referred By Contac t Referred To Contact Diagnoses Other ulcerative colitis without complication (HCC) Procedures GLADIS CHAUHAN Florian, MD [address] [place] [address] [place] [facility] [address] [place] [address] Referral ID Status Reason Start Date Expiration Date V isits Requested Visits Authorized [id number] Authorized 10/10/2023 10/08/2024 9 9 Reason Comments Chemotherapy Treatment Reason Comments Cough Pt denied SOB, chest pain (neg Covid 07/19/2021) Chest Congestion x3 days, throat irri tation, [place] rated 3 Reason Comments Acute Visit tickle cought x 2 mo nths Reason Onset Date Comments Refill Request 08/28/2021 Reason Comments Cough Chest congestion x2 weeks Reason Comments Pain (foot) Left foot pinky toe possible infection, stubbed toe x 4 days ago Reason Onset Date Comments Refill Request Refill Request 09/10/2022 Reason Comments IBD Follow Up Reason Comments Sore Throat Sinus, bilateral ear pressure, sinus ALDRIDGE x 3 days Reason Comments IBD Follow Up Reason Comments Research Reason Comments Education Of Patient/family Reminder Call 09/08/23 appt ocnfirme d Reason Comments Ulcerative Colitis Reason Comments Medication Authorization IFX Reason Comments Orders Reason Comments Research YAHAIRA EIM Reason Comments Established Patient ulcerative pancoliti s Reason Onset Date Comments Refill Request 04/29/2024 Specialty Diagnoses / Procedures Referred By Contac t Referred To Contact Diagnoses Other ulcerative colitis without complication (HCC) Procedures GLADIS CHAUHAN Florian, MD [address] [place] [address] Phone: tel: fax: Hematology/Oncology [address] [place] [address] Phone: tel: fax: Referral ID Status Reason Start Date Expiration Date V isits Requested Visits Authorized [id number] Authorized 10/10/2023 10/13/2025 15 15 Care Teams (unrecognized sec tion and content) Computer Drafter Relationship Specialty Start Date End Date Frankie Crowder MD [address] [place] [address] PCP - General Family Practice 01/18/16 Computer Drafter Relationship Specialty Start Date End Date Frankie Crowder MD [address] [place] [address] PCP - General Family Practice 01/18/16 Computer Drafter Relationship Specialty Start Date End Date Frankie Crowder MD [address] [place] [address] PCP - General Family Practice 01/18/16 Computer Drafter Relationship Specialty Start Date End Date Frankie Crowder MD [address] [place] [address] PCP - General Family Medicine 01/18/16 Computer Drafter Relationship Specialty Start Date End Date Frankie Crowder MD [address] [place] [address] PCP - General Family Medicine 01/18/16 Computer Drafter Relationship Specialty Start Date End Date Frankie Crowder MD [address] [place] [address] PCP - General Family Medicine 01/18/16 Computer Drafter Relationship Specialty Start Date End Date Frankie Crowder MD [address] [place] [address] PCP - General Family Medicine 01/18/16 Computer Drafter Relationship Specialty Start Date End Date Frankie Crowder MD [address] [place] [address] PCP - General Family Medicine 01/18/16 Computer Drafter Relationship Specialty Start Date End Date Frankie Crowder MD [address] [place] [address] PCP - General Family Medicine 01/18/16 Computer Drafter Relationship Specialty Start Date End Date Frankie Crowder MD [address] [place] [address] PCP - General Family Medicine 01/18/16 Computer Drafter Relationship Specialty Start Date End Date Frankie Crowder MD [address] [place] [address] PCP - General Family Medicine 01/18/16 Computer Drafter Relationship Specialty Start Date End Date Frankie Crowder MD [address] [place] [address] PCP - General Family Medicine 01/18/16 Computer Drafter Relationship Specialty Start Date End Date Frankie Crowder MD [address] [place] [address] PCP - General Family Medicine 01/18/16 Computer Drafter Relationship Specialty Start Date End Date Frankie Crowder MD [address] [place] [address] PCP - General Family Medicine 01/18/16 Computer Drafter Relationship Specialty Start Date End Date Frankie Crowder MD [address] [place] [address] PCP - General Family Medicine 01/18/16 Computer Drafter Relationship Specialty Start Date End Date Frankie Crowder MD [address] [facility] [place] [address] PCP - General Family Medicine 01/18/16 Computer Drafter Relationship Specialty Start Date End Date Frankie Crowder MD [address] [facility] [place] [address] PCP - General Family Medicine 01/18/16 Computer Drafter Relationship Specialty Start Date End Date Frankie Crowder MD [address] [facility] [place] [address] PCP - General Family Medicine 01/18/16 Computer Drafter Relationship Specialty Start Date End Date Frankie Crowder MD [address] [facility] [place] [address] PCP - General Family Medicine 01/18/16 Computer Drafter Relationship Specialty Start Date End Date Frankie Crowder MD [address] [facility] [place] [address] PCP - General Family Medicine 01/18/16 Computer Drafter Relationship Specialty Start Date End Date Frankie Crowder MD [address] [facility] [place] [address] PCP - General Family Medicine 01/18/16 Computer Drafter Relationship Specialty Start Date End Date Frankie Crowder MD [address] [facility] [place] [address] PCP - General Family Medicine 01/18/16 Computer Drafter Relationship Specialty Start Date End Date Frankie Crowder MD [address] [facility] [place] [address] PCP - General Family Medicine 01/18/16 Podlogar, Marianne, INDUSTRIAL ARTS TEACHER.TEACHER OF FAMILY AND CONSUMER SCIENCE [address] [facility] [place] [address] Property Valuer Family Medicine 02/07/24 Computer Drafter Relationship Specialty Start Date End Date Frankie Crowder MD [address] [facility] [place] [address] PCP - General Family Medicine 01/18/16 Podlogar, Marianne, INDUSTRIAL ARTS TEACHER.TEACHER OF FAMILY AND CONSUMER SCIENCE [address] [place] [address] Property Valuer Family Medicine 02/07/24 Computer Drafter Relationship Specialty Start Date End Date Frankie Crowder MD [address] [place] [address] PCP - General Family Medicine 01/18/16 Podlogar, Marianne, INDUSTRIAL ARTS TEACHER.TEACHER OF FAMILY AND CONSUMER SCIENCE [address] [place] [address] Property Valuer Family Medicine 02/07/24 Computer Drafter Relationship Specialty Start Date End Date Frankie Crowder MD [address] [place] [address] PCP - General Family Medicine 01/18/16 Podlogar, Marianne, INDUSTRIAL ARTS TEACHER.TEACHER OF FAMILY AND CONSUMER SCIENCE [address] [place] [address] Property Valuer Family Medicine 02/07/24 Computer Drafter Relationship Specialty Start Date End Date Frankie Crowder MD [address] [place] [address] PCP - General Family Medicine 01/18/16 PodlogMarianne minaya APRN.TEACHER OF FAMILY AND CONSUMER SCIENCE [address] [place] [address] Property Valuer Family Medicine 02/07/24 Care Team (unrecognized sect ion and content) Care Team Personnel Name: PHYSICIAN, NONE Position: Physician Member Role: Primary Care Physician Care Team Related Persons Name: RUBEN HENDRICKS Address: [address] Name: PATIENCE HENDRICKS Address: [address] Care Team Personnel Name: PHYSICIAN, NONE Position: Physician Member Role: Primary Care Physician Care Team Related Persons Name: RUBEN HENDRICKS Address: [address] Name: PATIENCE HENDRICKS Address: [address] FOR RECORDS PERTAINING TO PATIENTS WHO ARE OR HAVE BEEN ENROLLED IN A CHEMICAL DEPENDENCY/SUBSTANCEABUSE PROGRAM, SOME INFORMATION MAY BE OMITTED. This clinical summary was aggregated from multiple sources. Caution should be exercised in using it in the provision of clinical care. This summary normalizes information from multiple sources, and as a consequence, information in this document may materially change the coding, format and clinical context of patient data. In addition, data may be omitted in some cases. CLINICAL DECISIONS SHOULD BE BASED ON THE PRIMARY CLINICAL RECORDS. [facility]. provides no warranty or guarantee of the accuracy or completeness of information in this document.
== END | disposition home or self-care (01) ==
LOC: US 15:53
PROVIDERS: PCP Family Medicine; Referring Provider Specialist; Visit Provider Specialist
DX: Z36.3 Encounter for antenatal screening for malformations (principal)
CPT/HCPCS: 76805; 76817